=== PATIENT | female | born 1955 | race Caucasian/White ===

== ENCOUNTER → 2021-11-15 14:54 | Outpatient (BNVA) | payer MEDICARE, SELFPAY | PROVIDERS: PCP Internal Medicine; Referring Provider Internal Medicine; Visit Provider Internal Medicine Cardiovascular Disease | DX: I10 Essential (primary) hypertension (principal); I48.91 Unspecified atrial fibrillation; Z79.01 Long term (current) use of anticoagulants; Z79.899 Other long term (current) drug therapy | CPT/HCPCS: 93005; 99212 ==

== ENCOUNTER → 2021-12-20 13:01 | Outpatient (REF) | payer MEDICARE, SELFPAY ==
--- NOTE | 2021-12-20 13:06 | CA_ITS ---
Transthoracic Echocardiogram Patient (Last, First, Middle): Nanci Henderson, Gender: Female Date of : 1955 Age: 66 Procedure Date: 12/20/2021 Procedure Type: Transthoracic Echocardiogram Location: OP Height: 160.02 cm Weight: 53.52 kg BSA: 1.55 m2 Heart Rate: bpm BP: 154 / 86 mmHg Stock House Worker: MILTON Referring MD: Sd Salcedo MD Symptoms: I48.91 - Unspecified atrial fibrillation Study Quality: Adequate Conclusions: - Normal left ventricular cavity size. There is normal left ventricular wall thickness. The left ventricular systolic function is low normal. The visually estimated ejection fraction is between 50-55%. - Normal right ventricular cavity size. There is mildly decreased right ventricular systolic function. - There is mild dilatation of the ascending aorta measuring 3.50 cm. - Moderate pulmonary hypertension is present. Findings Left Ventricle Normal left ventricular cavity size. There is normal left ventricular wall thickness. The left ventricular systolic function is low normal. The visually estimated ejection fraction is between 50-55%. There is no evidence of regional wall motion abnormalities. Diastolic function is indeterminate on the basis of available data. Right Ventricle Normal right ventricular cavity size. There is mildly decreased right ventricular systolic function. Atria Severe biatrial enlargement. Aortic Valve Normal aortic valve structure and function. There is no aortic valve stenosis. There is no aortic valve regurgitation. Mitral Valve The mitral valve appears normal. There is mild to moderate mitral valve regurgitation. There is no mitral valve stenosis. Pulmonic Valve Normal pulmonic valve structure and function. There is trace pulmonic valve regurgitation. Tricuspid Valve Normal tricuspid valve structure. There is mild tricuspid valve regurgitation. Normal right atrial pressure. Moderate pulmonary hypertension is present. Great Vessels There is mild dilatation of the ascending aorta measuring 3.50 cm. The visualized portions of the pulmonary artery and branches are normal. Venous The inferior vena cava is normal in size and collapses greater than 50% with inspiration. Pericardium/Pleural There is no evidence of pericardial effusion. Prior Study Comparison Changes noted compared to prior study dated: 01/03/2019. Low normal LVEF. Mildly reduced RV function. Mild dilation of aorta. Moderate pulmonary hypertension. Measurements 2D Linear Measurements IVSd: 0.81 0.6-0.9/0.6-1.0 cm LVIDd: 4.44 3.9-5.3/4.2-5.9 cm LVIDd Index: 2.86 2.4-3.2/2.2-3.1 cm/m2 LVIDs: 3.21 2.0-3.6 cm LVPWd: 0.92 0.7-1.1 cm LA Diam: 3.50 2.7-3.8/3.0-4.0 cm LAIDs Index: 2.26 1.5-2.3 cm/m2 LV Mass: 153.01 67-162/88-224 g LV Mass Index: 98.72 43-95/49-115 g/m2 LVOT Diam: 1.90 3.0+(-)1.3 cm 2D Systolic Function EF 4C: 41.70 >55% EF 2C: 53.30 >55% EF BiP: 47.40 >55% Mitral Valve MV VTI: 2.24 MV Pk Shashi: 5.85 MV Mn Shashi: 4.66 MV Pk Grad: 137.00 MV Mn Grad: 95.00 MV Pk E: 0.85 MV Decel Time: 257.00 E'Lateral: 14.30 E'Medial: 6.85 E/E' Med: 12.50 E/E' Lat: 6.00 PHT: 75.00 MVA PHT: 2.93 MVA Continuity: 0.15 Decel Mccreary: 3.32 MR Alias Shashi: 0.40 MR RAD: 0.80 Aortic Valve AoV Pk Shashi: 0.93 AoV Mn Shashi: 0.65 AoV VTI: 0.19 AoV Pk Grad: 3.00 Aov Mn Grad: 2.00 JESSICA Cont.VTI: 1.75 LVOT LVOT Pk Shashi: 0.57 LVOT Mn Shashi: 0.39 LVOT VTI: 0.12 LVOT Pk Grad: 1.00 LVOT Mn Grad: 1.00 LVOT Diam: 1.90 LVOT Area: 2.84 Diastolic Function MV Pk E: 0.85 E'Medial: 6.85 E/E' Med: 12.50 E' Laterial: 14.30 E/E' Lat: 6.00 Right Ventricle TAPSE (mm): 15.60 TVS' Shashi: 5.98 Tricuspid Valve TR Pk Shashi: 3.53 TR Pk Grad: 50.00 RA Press: 3.00 RVSP: 53.00 Great Vessels Aorta Sinus of Valsalva: 2.99 2.0-3.[address] Ridge: 2.51 1.7-3.4 cm Ao Asc: 3.50 2.1-3.4 cm Updated in Other Vendor System with Status of Final Sd Salcedo MD electronically signed on 12/22/2021 11:50:14 AM with status of Final
== END ==
LOC: HO.CARD 13:01
PROVIDERS: Visit Provider Internal Medicine Cardiovascular Disease
DX: I48.91 Unspecified atrial fibrillation (principal)
CPT/HCPCS: 93306

== ENCOUNTER → 2021-12-22 19:46 | Outpatient (REF) | payer MEDICARE, SELFPAY | LOC: HO.CARD 19:46 | PROVIDERS: Visit Provider Internal Medicine Cardiovascular Disease | DX: Z13.89 Encounter for screening for other disorder (principal) ==

== ENCOUNTER → 2022-01-19 13:01 | Outpatient (REF) | payer MEDICARE, SELFPAY ==
--- NOTE | 2022-01-19 13:03 | ECG_ITS ---
Hook-up date: 2022-01-19 12:17:00 Duration: 47:59:00 Test Indications: UNSPEC. AFIB Medications: 23325 QRS complexes 42544 Ventricular ectopics which represent 12 % of total QRS comp. * Supraventricular ectopics which represent % of total QRS comp. * Paced QRS complexs which represent % of total QRS comp. VENTRICULAR ECTOPY 11074 Isolated 57 Bigeminal Cycles 118 Couplets 1 Runs 3 Beats in Runs 3 Beats LONGEST at 111 BPM at 08:41:22 2022-01-20 3 Beats FASTEST at 111 BPM at 08:41:22 2022-01-20 SUPRAVENTRICULAR ECTOPY * Isolated * Couplets * Runs * Beats in Runs * Beats LONGEST at * BPM at :: -- * Beats FASTEST at * BPM at :: -- HEART RATES 34 MIN at 00:06:56 2022-01-20 61 AVG 119 MAX at 16:20:46 2022-01-19 LONGEST RR 3.1040 secs at 11:15:45 2022-01-20 S-T LEVELS Channel 1 - 128 mm at 12:17:00 2022-01-19 - 128 mm at 12:17:00 2022-01-19 Channel 2 - 128 mm at 12:17:00 2022-01-19 - 128 mm at 12:17:00 2022-01-19 Channel 3 - 128 mm at 03:13:61 -- - 128 mm at 03:13:61 Basic rhythm Atrial fibrillation No significant pauses noted. Average HR is 61 bpm with lowest HR of 31 bpm Frequent Premature ventricular complexes , 12% of total beats No diary submitted Referred By: Sd Salcedo Overread By: JOHANNE RODRIGUEZ MD
== END ==
LOC: HO.CARD 13:01
PROVIDERS: Visit Provider Internal Medicine Cardiovascular Disease
DX: I48.91 Unspecified atrial fibrillation (principal)
CPT/HCPCS: 93225; 93226

== ENCOUNTER → 2022-04-12 14:07 | Outpatient (BNVA) | payer MEDICARE, SELFPAY | PROVIDERS: PCP Internal Medicine; Referring Provider Internal Medicine; Visit Provider Nurse Practitioner Family | DX: Z09 Encounter for follow-up examination after completed treatment for conditions other than malignant neoplasm (principal); I42.8 Other cardiomyopathies; I48.91 Unspecified atrial fibrillation; I10 Essential (primary) hypertension; E78.00 Pure hypercholesterolemia, unspecified | CPT/HCPCS: 99212 ==

== ENCOUNTER → 2022-04-29 10:30 | Outpatient (REF) | payer MEDICARE, SELFPAY ==
--- NOTE | 2022-04-29 10:33 | CA_ITS ---
Transthoracic Echocardiogram Patient (Last, First, Middle): Nanci Henderson, Gender: Female Date of : 1955 Age: 66 Procedure Date: 04/29/2022 Procedure Type: Transthoracic Echocardiogram Location: OP Height: 162.56 cm Weight: 48.99 kg BSA: 1.51 m2 Heart Rate: 83 bpm BP: 125 / 60 mmHg Technical Inspector: SHAHAB Referring MD: Saloni Whitt [employer] Tool Repair Technician: Aaron Reid MD Symptoms: I42.8 - Other cardiomyopathies Study Quality: Adequate ECG Rhythm: Atrial Fibrillation Conclusions: - Low normal LV systolic function with LVEF of 50-55% Findings Left Ventricle Normal left ventricular cavity size. The left ventricular systolic function is low normal. The visually estimated ejection fraction is between 50-55%. Diastolic function is indeterminate on the basis of available data. Peak GLS is -12.3%, which is reduced. Prior Study Comparison No significant change compared to prior study dated: 12/20/2021. Measurements 2D Linear Measurements IVSd: 1.11 0.6-0.9/0.6-1.0 cm LVIDd: 4.06 3.9-5.3/4.2-5.9 cm LVIDd Index: 2.69 2.4-3.2/2.2-3.1 cm/m2 LVIDs: 2.92 2.0-3.6 cm LVPWd: 1.00 0.7-1.1 cm LV Mass: 174.32 67-162/88-224 g LV Mass Index: 115.45 43-95/49-115 g/m2 LVOT Diam: 1.90 3.0+(-)1.3 cm 2D Systolic Function EF 4C: 53.20 >55% EF 2C: 47.60 >55% EF BiP: 51.80 >55% LVOT LVOT Pk Shashi: 0.82 LVOT Mn Shashi: 0.56 LVOT VTI: 0.16 LVOT Pk Grad: 3.00 LVOT Mn Grad: 1.00 LVOT Diam: 1.90 LVOT Area: 2.84 Updated in Other Vendor System with Status of Final Aaron Reid MD electronically signed on 04/30/2022 1:43:42 PM with status of Final
== END ==
LOC: HO.CARD 10:30
PROVIDERS: Visit Provider Nurse Practitioner Family
DX: I42.8 Other cardiomyopathies (principal)
CPT/HCPCS: 93308; 93356

== ENCOUNTER 2022-05-03 09:02 | Outpatient (REF) | payer MEDICARE, SELFPAY ==
[2022-05-03 12:01] LABS: Hematocrit 34.6 % (37.0-47.0); Hemoglobin 11.1 g/dl (12.0-16.0); Mean Corpuscular HGB Conc 32.1 g/dl (31.0-35.0); Mean Corpuscular Hemoglobin 29.4 pg (27.0-33.0); Mean Corpuscular Volume 91.8 fL (80.0-98.0); Mean Platelet Volume 11.4 fL (9.4-12.3); Platelet Count 221 X10*3/uL (160-400); Red Blood Count 3.77 X10*6/uL (4.20-5.50); Red Cell Distribution Width 15.9 % (11.0-16.0); White Blood Count 8.3 X10*3/uL (4.8-10.8)
[2022-05-03 12:03] LABS: Alanine Aminotransferase 29 U/L (0-31); Albumin Level 3.8 g/dL (3.5-5.0); Alkaline Phosphatase 138 U/L (39-117); Anion Gap 12 (12-20); Aspartate Amino Transferase 28 U/L (5-31); Bilirubin Direct 0.2 mg/dL (0.0-0.5); Bilirubin Total 0.5 mg/dL (0.0-1.0); Blood Urea Nitrogen 21 mg/dL (9-16); C Reactive Protein 0.62 mg/dL (< or = 0.50); Calcium 9.9 mg/dL (8.4-10.2); Carbon Dioxide 31 mmol/L (22-29); Chloride 103 mmol/L (96-108); Estimated Glomerular Filt Rate > 60; Glucose Random 76 mg/dL (60-115); Potassium 3.5 mmol/L (3.3-5.1); Sodium 142 mmol/L (135-145); Total Protein 7.2 g/dL (6.5-8.0)
[2022-05-03 12:25] LABS: Thyroid Stimulating Hormone 2.16 uIU/mL (0.32-4.0)
== END 2022-05-03 09:03 | disposition home or self-care (01) ==
LOC: HO.HMGCLDS 09:02
PROVIDERS: PCP Internal Medicine; Visit Provider Internal Medicine
DX: I10 Essential (primary) hypertension (principal)
CPT/HCPCS: 36415; 80048; 80076; 84443; 85027; 86140

== ENCOUNTER → 2022-11-18 13:58 | Outpatient (BNVA) | payer MEDICARE, SELFPAY | PROVIDERS: PCP Internal Medicine; Referring Provider Nurse Practitioner Family; Visit Provider Nurse Practitioner Family | DX: Z09 Encounter for follow-up examination after completed treatment for conditions other than malignant neoplasm (principal); I42.8 Other cardiomyopathies; I48.91 Unspecified atrial fibrillation; I10 Essential (primary) hypertension; E78.00 Pure hypercholesterolemia, unspecified | CPT/HCPCS: 93005; 99212 ==

== ENCOUNTER → 2022-12-23 14:00 | Outpatient (BNV) | payer MEDICARE, SELFPAY | PROVIDERS: Visit Provider Radiology Diagnostic Radiology | DX: Z12.31 Encounter for screening mammogram for malignant neoplasm of breast (principal) | CPT/HCPCS: 77063; 77067 ==

== ENCOUNTER 2022-12-23 14:01 | Outpatient (REF) | payer MEDICARE, SELFPAY ==
--- NOTE | ~2022-12-23 | MM_ITS ---
EXAMINATION: BONE DENSITOMETRY CLINICAL INDICATION: Age-related osteoporosis without current pathological fracture. COMPARISON: Baseline BD dated 12/18/2014. TECHNIQUE: Using a nuvoTV DXA System (software version: 13.1) manufactured by [employer], dual-energy x-ray absorptiometry was performed of the lumbar spine and right hip. The images are of good technical quality. Summary results are attached. FINDINGS: RIGHT FEMUR, NECK: Current: BMD 0.673 g/cm2, Z-score -0.8, T-score -2.6, osteoporosis. Baseline: BMD 0.763 g/cm2. RIGHT FEMUR, TOTAL: Current: BMD 0.687 g/cm2, Z-score -1.0, T-score -2.5, osteoporosis, 5.8% decrease from baseline (<5% change is not significant). Baseline: BMD 0.729 g/cm2. AP SPINE L1-L4: Current: BMD 0.727 g/cm2, Z-score -1.9, T-score -3.8, osteoporosis, 4.0% decrease from baseline (<5% change is not significant). Baseline: BMD 0.757 g/cm2. IDENTIFIED RISK FACTORS: Osteoporosis, history of fracture (adult), height loss, low calcium intake, glucocorticoids (chronic), menopause. HISTORY OF FRACTURE: Femur/hip, shoulder. MEDICATIONS: Vitamin D. MM/XR DEXA axial skeleton IMPRESSION: 1. DIAGNOSIS: Severe osteoporosis based on the lowest T-score value of -3.8 in the lumbar spine and history of fracture applying World Health Organization criteria. 2. 10-YEAR FRACTURE RISK PREDICTION, FRAX: According to the guidelines, FRAX calculation should only be performed on patients in the osteopenia bone density category. Therefore, FRAX was not performed on this patient. 3. Treatment Recommendations: NOF guidelines recommend consideration for treatment in postmenopausal women and men age 50 and older presenting with the following: -A hip or vertebral (clinical or morphometric) fracture. -T-score less than or equal to -2.5 at the femoral neck or spine after appropriate evaluation to exclude secondary causes. -Low bone mass at the hip or spine and a 10-year fracture probability by FRAX of greater than or equal to 3% for hip fracture or greater than or equal to 20% for major osteoporotic fracture based on the [place] adapted WHO algorithm. 4. Other Recommendations: All treatment decisions require clinical judgment and consideration of individual patient factors, including patient preferences, comorbidities, previous drug use, risk factors not captured in the FRAX model (e.g. frailty, falls, vitamin D deficiency, increased bone turnover, interval significant decline in bone density) and possible under or overestimation of fracture risk by FRAX. Additional medical evaluation for secondary cause of low bone mineral density may be appropriate. FUTURE SCAN RECOMMENDATION: People with diagnosed cases of osteoporosis or at high risk for fracture should have regular bone mineral density tests. For patients eligible for Medicare, routine testing is allowed once every 2 years. The testing frequency can be increased to one year for patients who have rapidly progressing disease, those who are receiving or discontinuing medical therapy to restore bone mass, or have additional risk factors.
--- NOTE | ~2022-12-23 | MM_ITS ---
EXAMINATION: MM SCREENING DIGITAL BREAST TOMOSYNTHESIS, BILATERAL CLINICAL INFORMATION: Screening. Asymptomatic. The lifetime risk of breast cancer based on the Tyrer-Cuzick Model is 5.8%. COMPARISON: Mammography: This study is compared with prior exams dating back to 2014. TECHNIQUE: Digital breast tomosynthesis is performed in both the craniocaudal and mediolateral oblique views along with computer-aided detection (CAD). Synthesized 2D images are generated from the tomosynthesis. FINDINGS: The breasts are heterogeneously dense, which may obscure small masses (ACR BI-RADS breast composition Category c). In the long interval since the last mammogram from 2014, a small group of coarse calcifications have developed in the upper outer quadrant of the right breast. Additional mammographic imaging magnification is advised for further evaluation of this finding. In the left breast, there are no significant masses, abnormal calcifications, or other abnormalities. MM/MM tomosynthesis screening BI IMPRESSION: Additional mammographic imaging magnification advised for grouped right breast calcifications. No mammographic signs of malignancy left breast. ASSESSMENT: BI-RADS BI-RADS 0 - Incomplete: Needs additional Imaging. RECOMMENDATION: Additional views of the right breast. Radiology department staff will contact the patient for additional imaging. Additional Imaging required This examination should not preclude the clinical evaluation of a suspicious palpable abnormality. This patient's information was entered into a reminder system with a target due date for their next mammogram.
== END 2022-12-23 14:02 | disposition home or self-care (01) ==
LOC: HO.MAMMO 14:01
PROVIDERS: Visit Provider Internal Medicine
DX: Z12.31 Encounter for screening mammogram for malignant neoplasm of breast (principal); Z13.820 Encounter for screening for osteoporosis; Z78.0 Asymptomatic menopausal state; M81.0 Age-related osteoporosis without current pathological fracture
CPT/HCPCS: 77063; 77067; 77080

== ENCOUNTER 2023-01-12 09:03 | Outpatient (AMB) | payer MEDICARE, SELFPAY ==
[2023-01-12 09:07] VITALS: BP 144/82; PULSE 85; O2SAT 97; BMI 23.0
--- NOTE | 2023-01-12 09:07 | MHC.PC.OV ---
Vital Signs 01/12/23 09:07 Height 5 ft 4.5 in Weight 136 lb BMI 23.0 BP 144/82 H Blood Pressure Location Lt brachial Position Sitting Pulse 85 Pulse Source Pulse Oximeter Pulse Oximetry (%) 97 Oxygen Delivery Method Room Air Intake Visit Reasons: Per Dr De Oliveira Allergies lisinopril Allergy (Unknown, Verified 01/12/23 09:07) Unknown Medication List - Last Reconciled 01/12/23 by Rola De Oliveira MD albuterol sulfate 90 mcg/actuation (ProAir HFA) 2 puffs inhalation Q4-6H PRN alendronate (Fosamax) 70 mg PO QWEEK 30 days alprazolam 0.25 mg PO DAILY PRN 30 days apixaban (Eliquis) 5 mg PO BID 90 days ascorbic acid (vitamin C) 250 mg PO DAILY atorvastatin 40 mg PO DAILY carvedilol 6.25 mg PO BID cetirizine (Zyrtec) 10 mg PO DAILY cholecalciferol (vitamin D3) 1,250 mcg PO QWEEK diphenhydramine HCl (ZzzQuil) 12.5 mg PO BEDTIME PRN ferrous sulfate 325 mg PO DAILY fluticasone propionate 50 mcg/actuation (Flonase Allergy Relief) 1 spray intranasal DAILY hydrocortisone 5 mg PO DAILY hydrocortisone TAKE 1 TABLET IN THE MORNING AND HALF A TABLET IN THE EVENING pantoprazole 40 mg PO DAILY Tobacco use date assessed: 09/27/22 Fall risk assessment: No Falls in past year Last assessed Fall Risk: 01/12/23 Dental Screening Dental Screen Date: 01/12/23 Did you have a dental visit in the last 12 months?: No Did you have a dental problem in the last 6 months where you did not have access to dental care?: No Was dental information given to patient?: No HPI Per Dr De Oliveira HPI Details 67-year-old female with multiple fractures osteoporosis hypertension nonischemic cardiomyopathy hypercholesterolemia atrial fibrillation and generalized anxiety disorder last seen in November 2022. Blood work as well as bone density and mammogram requested and is here for follow-up patient also has a history of pituitary insufficiency. Sent to endocrinology presently on hydrocortisone 10 mg in the morning and 5 mg in the evening. She has recently trip July 2022 and fractured left femur right clavicle right having status post left femoral nailing by Dr. Hector patient had having revision of the left distal nail of the femur in August 2022. Patient also follows up with Cardiology regarding the cardiomyopathy which has recovered April 2022 ejection fraction of 50-55% patient was brought in today to discuss about severe osteoporosis problem patient has had multiple fractures already has always been hesitant with any medication. But discussed the problem of having fractures and osteoporosis. [facility] Medical History Adrenal insufficiency Atrial fibrillation Cough COVID-19 Hospital discharge follow-up Hypercholesterolemia Nonischemic cardiomyopathy Osteoporosis Pituitary insufficiency Screening for breast cancer Screening for colon cancer Sinusitis Upper respiratory tract infection Surgical History History of open reduction and internal fixation (ORIF) procedure Family History Father COPD (chronic obstructive pulmonary disease) Hypertension Renal failure Mother Hypertension Stroke Ischemic bowel disease Maternal Grandfather Lymphoma Skin cancer Paternal Aunt Skin cancer Maternal Grandfather Skin cancer Social History Housing: Apartment Alcohol intake: never Patient Tobacco Use Status: Former Tobacco user Quit Date: 2001 Tobacco use type: Cigarette Years Smoked: 30 +/- e-Cigarette/Vaping Use: Never Used Second Hand Smoke Exposure: Yes service: No Current occupational status: unemployed Cognitive needs: Yes (cane) Hearing needs: No Vision needs: Yes (glasse) Questionnaire PHQ-9 Over the last 2 weeks, how often have you been bothered by any of the following problems? 1. Little interest or pleasure in doing things: not at all 2. Feeling down, depressed, or hopeless: not at all 3. Trouble falling or staying asleep, or sleeping too much: not at all 4. Feeling tired or having little energy: not at all 5. Poor appetite or overeating: not at all 6. Feeling bad about yourself - or that you are a failure or have let yourself or your family down: not at all 7. Trouble concentrating on things, such as reading the newspaper or watching television: not at all 8. Moving or speaking so slowly that other people could have noticed. Or the opposite - being so fidgety or restless that you have been moving around a lot more than usual: not at all 9. Thoughts that you would be better off or of hurting yourself in some way: not at all Total score: 0 Depression Screening Interpretation: Negative 97539 - PHQ-9 Billing: Yes Source: Developed by Drs. Kalpesh Jackson, Caitlin Wolf, Titus Holloway and colleagues, with an educational alfred from [employer]. Thrive Questionnaire Date Thrive assessed: 09/27/22 AUDIT C Alcohol Use Questionnaire (AUDIT-C) 1. How often do you have a drink containing alcohol?: Never 3. How often do you have six or more drinks on one occasion?: Never Total Score: 0 Score Reviewed/Action Taken: No HALI-7 AMB Questionnaire HALI-7 Date HALI - 7 assessed: 09/27/22 Source: Developed by Drs. Kalpesh Jackson, Caitlin Wolf, Titus Holloway and colleagues, with an educational alfred from [employer]. Physical exam (Primary Care) Vital Signs: Last Vital Signs Pulse 85 01/12/23 09:07 BP 144/82 H 01/12/23 09:07 Pulse Ox 97 01/12/23 09:07 Oxygen Delivery Method Room Air 01/12/23 09:07 BMI result Body Mass Index 23.0 Tobacco/Smoking Status: Tobacco use Status Tobacco use date assessed 09/27/22 01/12/23 09:14 Patient Tobacco Use Status Former Tobacco user 01/12/23 09:14 Tobacco use type Cigarette 01/12/23 09:14 e-Cigarette/Vaping Use Never Used 01/12/23 09:14 PHQ-9: PHQ-9 Score PHQ-9: Total score 0 01/12/23 09:14 Depression Screening Interpretation: Negative Thrive Assessment: Date of Thrive Assessment Date Thrive assessed 09/27/22 01/12/23 09:14 Const General: alert; No acute distress Eyes Conjunctivae: conjunctivae normal Resp Auscultation: clear to auscultation bilaterally Cardio Rate: regular rate Rhythm: regular rhythm GI Inspection: Yes normal to inspection Extrem General: Yes normal to inspection and No edema Assessment and Plan Assessment & Plan (1) Osteoporosis: Comment: December 2022 Code(s): M81.0 - Age-related osteoporosis without current pathological fracture Plan: Bone density showing severe osteoporosis long discussion with the patient and family regarding osteoporosis and risk of fractures with the patient discussed about the multiple treatment options and discussed about having dental checkup 1st before starting the medication. Discussed about how the medication alendronate should be taken. (2) Adrenal insufficiency: Comment: September 2018 Code(s): E27.40 - Unspecified adrenocortical insufficiency Plan: Patient continues to follow-up with Endocrinology and receives hydrocortisone (3) Nonischemic cardiomyopathy: Comment: echo August 2018 severe left ventricular dysfunction moderate MVR moderate left atrial dilatation, 12/2018 EF 55-60% AFib January 2022 30-35% hypokinesis basal to 2/3 left ventricle May 2022 50-55% Code(s): I42.8 - Other cardiomyopathies Plan: Patient is being followed up by Cardiology monitoring with echocardiogram (4) Hypercholesterolemia: Code(s): E78.00 - Pure hypercholesterolemia, unspecified Plan: Avoid fried foods, chicken skin, eggs, butter margarine, pastries and meat. Be it pork or beef they have a lot of cholesterol LDL goal of less than 70 patient has not had blood work since last year (5) Atrial fibrillation: Code(s): I48.91 - Unspecified atrial fibrillation Plan: Continue with anticoagulation but adjusted to renal dose (6) Essential hypertension: Code(s): I10 - Essential (primary) hypertension Plan: Continue with blood pressure medication. Decrease salt intake and exercise patient is on carvedilol 6.25 mg twice a day (7) Generalized anxiety disorder: Code(s): F41.1 - Generalized anxiety disorder Plan: Continue with present medication Medications: New alendronate (Fosamax) 70 mg PO QWEEK 5 tabs 3RF 30 days M81.0 - Age-related osteoporosis without current pathological fracture Coding Level of Care Code Est Pt Level 4 (12905) Diagnoses Osteoporosis M81.0 Adrenal insufficiency E27.40 Nonischemic cardiomyopathy I42.8 Hypercholesterolemia E78.00 Atrial fibrillation I48.91 Essential hypertension I10 Generalized anxiety disorder F41.1
== END 2023-01-12 13:11 | disposition home or self-care (01) ==
PROVIDERS: PCP Internal Medicine; Visit Provider Internal Medicine
DX: I10 Essential (primary) hypertension (principal); E27.40 Unspecified adrenocortical insufficiency; I42.8 Other cardiomyopathies; I48.91 Unspecified atrial fibrillation; M81.0 Age-related osteoporosis without current pathological fracture; E78.00 Pure hypercholesterolemia, unspecified; F41.1 Generalized anxiety disorder
CPT/HCPCS: 99214

== ENCOUNTER 2023-02-24 08:58 | Outpatient (REF) | payer MEDICARE, SELFPAY ==
[2023-02-24 09:30] LABS: MANUAL DIFF FLAG NO
[2023-02-24 10:02] LABS: Basophils Percent Auto 0.4 % (0-2); Eosinophils Absolute Auto 0.1 X10*3/uL (0.0-0.4); Eosinophils Percent Auto 1.8 % (0-4); Hematocrit 39.3 % (37.0-47.0); Hemoglobin 12.5 g/dl (12.0-16.0); Imm Gran Abs Auto 0.02 X10*3/uL (0.00-0.03); Imm Gran Pct Auto 0.3 % (0.0-0.4); Lymphocytes Absolute Auto 1.6 X10*3/uL (1.2-4.9); Lymphocytes Percent Auto 22.5 % (20-40); Mean Corpuscular HGB Conc 31.8 g/dl (31.0-35.0); Mean Corpuscular Volume 94.2 fL (80.0-98.0); Mean Platelet Volume 10.9 fL (9.4-12.3); Monocytes Absolute Auto 0.7 X10*3/uL (0.1-1.2); Monocytes Percent Auto 10.3 % (2-11); Neutrophils Absolute Auto 4.6 x10*3/uL (2.0-8.3); Neutrophils Percent Auto 64.7 % (45-73); Platelet Count 164 X10*3/uL (160-400); Red Blood Count 4.17 X10*6/uL (4.20-5.50); White Blood Count 7.1 X10*3/uL (4.8-10.8)
[2023-02-24 10:36] LABS: B Type Natriuretic Peptide 224 pg/mL (<100)
[2023-02-24 11:47] LABS: Alanine Aminotransferase 23 U/L (0-31); Albumin Level 3.9 g/dL (3.5-5.0); Alkaline Phosphatase 125 U/L (39-117); Anion Gap 10 (12-20); Aspartate Amino Transferase 25 U/L (5-31); Bilirubin Total 0.6 mg/dL (0.0-1.0); Blood Urea Nitrogen 17 mg/dL (9-16); Calcium 9.8 mg/dL (8.4-10.2); Carbon Dioxide 30 mmol/L (22-29); Chloride 107 mmol/L (96-108); Cholesterol 165 mg/dL (<200); Estimated Glomerular Filt Rate > 60; Glucose Random 87 mg/dL (60-115); HDL Cholesterol 74 mg/dL (>40); LDL Cholesterol Calculated 79 mg/dL (<100); Potassium 4.1 mmol/L (3.3-5.1); Sodium 143 mmol/L (135-145); Total Protein 6.8 g/dL (6.5-8.0); Triglycerides 64 mg/dL (<150)
[2023-02-24 11:52] LABS: Free T4 (Free Thyroxine) 1.08 ng/dL (0.71-1.85); Thyroid Stimulating Hormone 1.29 uIU/mL (0.32-4.0); Vitamin D 25-OH Total 78.9 ng/mL (>30)
[2023-02-24 11:54] LABS: Folate 7.5 ng/mL (> or = 4.0); Vitamin B12 846 pg/mL (200-900)
== END 2023-02-24 08:59 | disposition home or self-care (01) ==
LOC: HO.LAB 08:58
PROVIDERS: PCP Internal Medicine; Visit Provider Internal Medicine
DX: I42.8 Other cardiomyopathies (principal); E78.00 Pure hypercholesterolemia, unspecified; M81.0 Age-related osteoporosis without current pathological fracture
CPT/HCPCS: 36415; 80053; 80061; 82306; 82607; 82746; 83880; 84439; 84443; 85025

== ENCOUNTER 2023-02-28 14:17 | Outpatient (AMB) | payer MEDICARE, SELFPAY ==
[2023-02-28 14:21] VITALS: BP 156/90; PULSE 84; O2SAT 98; BMI 23.7
--- NOTE | 2023-02-28 14:21 | MHC.PC.OV ---
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: No Accompanied by: Daughter Allergies lisinopril Allergy (Unknown, Verified 02/28/23 14:23) Unknown Medication List - Last Reconciled 02/28/23 by Rola De Oliveira MD albuterol sulfate 90 mcg/actuation (ProAir HFA) 2 puffs inhalation Q4-6H PRN alprazolam 0.25 mg PO DAILY PRN 30 days apixaban (Eliquis) 5 mg PO BID 90 days ascorbic acid (vitamin C) 250 mg PO DAILY atorvastatin 40 mg PO DAILY carvedilol 6.25 mg PO BID cetirizine (Zyrtec) 10 mg PO DAILY cholecalciferol (vitamin D3) 1,250 mcg PO QWEEK diphenhydramine HCl (ZzzQuil) 12.5 mg PO BEDTIME PRN ferrous sulfate 325 mg PO DAILY fluticasone propionate 50 mcg/actuation (Flonase Allergy Relief) 1 spray intranasal DAILY hydrocortisone 5 mg PO DAILY hydrocortisone TAKE 1 TABLET IN THE MORNING AND HALF A TABLET IN THE EVENING pantoprazole 40 mg PO DAILY Tobacco use date assessed: 09/27/22 Fall risk assessment: No Falls in past year Last assessed Fall Risk: 02/28/23 Dental Screening Dental Screen Date: 02/28/23 Did you have a dental visit in the last 12 months?: No Did you have a dental problem in the last 6 months where you did not have access to dental care?: No Was dental information given to patient?: Patient has dentist HPI 3 MONTH F/U HPI Details 67-year-old female with adrenal insufficiency followed by Endocrinology, osteoporosis nonischemic cardiomyopathy hypercholesterolemia atrial fibrillation hypertension in generalized anxiety disorder last seen in January 2023 patient is here for follow-up. [facility] Medical History Adrenal insufficiency Atrial fibrillation Cough COVID-19 Hospital discharge follow-up Hypercholesterolemia Nonischemic cardiomyopathy Osteoporosis Pituitary insufficiency Screening for breast cancer Screening for colon cancer Sinusitis Upper respiratory tract infection Surgical History History of open reduction and internal fixation (ORIF) procedure Family History Father COPD (chronic obstructive pulmonary disease) Hypertension Renal failure Mother Hypertension Stroke Ischemic bowel disease Maternal Grandfather Lymphoma Skin cancer Paternal Aunt Skin cancer Maternal Grandfather Skin cancer Social History Housing: Apartment Alcohol intake: never Patient Tobacco Use Status: Former Tobacco user Quit Date: 2001 Tobacco use type: Cigarette Years Smoked: 30 +/- e-Cigarette/Vaping Use: Never Used Second Hand Smoke Exposure: Yes service: No Current occupational status: unemployed Cognitive needs: Yes (cane) Hearing needs: No Vision needs: Yes (glasse) Questionnaire Thrive Questionnaire Date Thrive assessed: 09/27/22 HALI-7 AMB Questionnaire HALI-7 Date HALI - 7 assessed: 09/27/22 Source: Developed by Drs. Kalpesh Jackson, Caitlin Wolf, Titus Holloway and colleagues, with an educational alfred from [employer]. Physical exam (Primary Care) Vital Signs: Last Vital Signs Pulse 84 02/28/23 14:21 BP 156/90 H 02/28/23 14:21 Pulse Ox 98 02/28/23 14:21 Oxygen Delivery Method Room Air 02/28/23 14:21 BMI result Body Mass Index 23.7 Tobacco/Smoking Status: Tobacco use Status Tobacco use date assessed 09/27/22 02/28/23 14:26 Patient Tobacco Use Status Former Tobacco user 02/28/23 14:26 Tobacco use type Cigarette 02/28/23 14:26 e-Cigarette/Vaping Use Never Used 02/28/23 14:26 Thrive Assessment: Date of Thrive Assessment Date Thrive assessed 09/27/22 02/28/23 14:26 Const General: alert; No acute distress Eyes Conjunctivae: conjunctivae normal Resp Auscultation: clear to auscultation bilaterally Cardio Rate: regular rate Rhythm: regular rhythm GI Inspection: Yes normal to inspection Extrem General: Yes normal to inspection and No edema Assessment and Plan Assessment & Plan (1) Atrial fibrillation: Code(s): I48.91 - Unspecified atrial fibrillation Plan: Continue with anticoagulation (2) Hypercholesterolemia: Code(s): E78.00 - Pure hypercholesterolemia, unspecified Plan: Avoid fried foods, chicken skin, eggs, butter margarine, pastries and meat. Be it pork or beef they have a lot of cholesterol LDL goal of less than 100 and triglyceride of less than 150 continue with atorvastatin 40 mg once a day (3) Adrenal insufficiency: Comment: September 2018 Code(s): E27.40 - Unspecified adrenocortical insufficiency Plan: Patient has seen Endocrinology December 2022 and has hydrocortisone 10 mg in the morning and 5 mg in the evening (4) Nonischemic cardiomyopathy: Comment: echo August 2018 severe left ventricular dysfunction moderate MVR moderate left atrial dilatation, 12/2018 EF 55-60% AFib January 2022 30-35% hypokinesis basal to 2/3 left ventricle May 2022 50-55% Code(s): I42.8 - Other cardiomyopathies Plan: Continue with blood pressure control and cholesterol control (5) Osteoporosis: Comment: December 2022 Code(s): M81.0 - Age-related osteoporosis without current pathological fracture Plan: . Patient has not started with Fosamax but discussed with the patient to see the dentist 1st before we go with Fosamax. (6) Screening for colon cancer: Code(s): Z12.11 - Encounter for screening for malignant neoplasm of colon Plan: Reminded about colon test, change to Cologuard (7) Essential hypertension: Code(s): I10 - Essential (primary) hypertension Plan: Continue with blood pressure medication. Decrease salt intake and exercise patient is on carvedilol 6.25 mg twice a day and with the blood pressure still elevated will increase to 12.5 mg twice a day Orders: Referrals Cologuard Test Z12.11 - Encounter for screening for malignant neoplasm of colon, Z12.12 - Encounter for screening for malignant neoplasm of rectum Medications: New sertraline 25 mg PO DAILY 30 tabs 3RF F41.1 - Generalized anxiety disorder Changed From carvedilol must administer with a meal/food 6.25 mg PO BID 60 tabs 5RF I10 - Essential (primary) hypertension To carvedilol must administer with a meal/food 12.5 mg PO BID 60 tabs 5RF I10 - Essential (primary) hypertension From cholecalciferol (vitamin D3) 1,250 mcg PO QWEEK To cholecalciferol (vitamin D3) Dr. Daquan COLINDRES 1,250 mcg PO QWEEK Coding Level of Care Code Est Pt Level 4 (72981) Diagnoses Atrial fibrillation I48.91 Hypercholesterolemia E78.00 Adrenal insufficiency E27.40 Nonischemic cardiomyopathy I42.8 Osteoporosis M81.0 Screening for colon cancer Z12.11 Essential hypertension I10
== END 2023-02-28 14:56 | disposition home or self-care (01) ==
PROVIDERS: PCP Nurse Practitioner Family; Visit Provider Internal Medicine
DX: I10 Essential (primary) hypertension (principal); I48.91 Unspecified atrial fibrillation; E27.40 Unspecified adrenocortical insufficiency; I42.8 Other cardiomyopathies; E78.00 Pure hypercholesterolemia, unspecified; M81.0 Age-related osteoporosis without current pathological fracture
CPT/HCPCS: 99214

== ENCOUNTER 2023-03-10 09:05 | Outpatient (REF) | payer MEDICARE, SELFPAY ==
--- NOTE | ~2023-03-10 | MM_ITS ---
EXAMINATION: MM DIAGNOSTIC DIGITAL MAMMOGRAPHY, RIGHT CLINICAL INFORMATION: Evaluate calcifications seen on screening exam, right breast 12:00 axis. COMPARISON: Mammography: Screening exam 12/23/2022. Prior to this, last mammogram was 12/18/2014. TECHNIQUE: Digital mammography is performed in the following views: Right spot magnification CC and ML views FINDINGS: The breasts are extremely dense, which lowers the sensitivity of mammography (ACR BI-RADS breast composition Category d). The small group of calcifications in the approximate 12:00 axis of the right breast, middle to posterior one third, there are loosely grouped, somewhat coarse, minimally pleomorphic, with no definite casting, or branching forms. These calcifications are probably benign related to degenerating underlying fibroadenoma. Six-month interval follow-up right diagnostic mammography recommended to include standard magnification views for further evaluation. Results are provided to the patient at time of visit by the technologist. MM/MM added views RT IMPRESSION: Probably benign right breast calcifications as detailed. Six-month interval follow-up recommended to include standard magnification views. ASSESSMENT: BI-RADS BI-RADS 3 - Probably benign finding(s) - 6 month follow-up suggested RECOMMENDATION: 6 Month F/U This patient's information was entered into a reminder system with a target due date for their next mammogram.
== END 2023-03-10 09:06 | disposition home or self-care (01) ==
LOC: HO.MAMMO 09:05
PROVIDERS: PCP Internal Medicine; Visit Provider Internal Medicine
DX: R92.1 Mammographic calcification found on diagnostic imaging of breast (principal)
CPT/HCPCS: 77065

== ENCOUNTER 2023-05-18 09:01 | Outpatient (AMB) | payer MEDICARE, SELFPAY ==
[2023-05-18 09:09] VITALS: BP 150/90; PULSE 70; O2SAT 98; BMI 23.8
--- NOTE | 2023-05-18 09:10 | AM.OFFVISMDC ---
Intake Vital Signs 05/18/23 09:09 05/18/23 09:48 Height 5 ft 4.5 in Weight 141 lb BMI 23.8 BP 150/90 H 144/82 H Blood Pressure Location Lt brachial Lt brachial Position Sitting Pulse 70 Pulse Source Pulse Oximeter Pulse Oximetry (%) 98 Oxygen Delivery Method Room Air Intake Visit Reasons: MARCELL [id number] Director Blood Bank Required: No Food Technician: Food Technician Present Accompanied by: Daughter Allergies lisinopril Allergy (Unknown, Verified 05/18/23 09:10) Unknown HPI HPI Comments History of Present Illness Details 67-year-old female past medical history significant for generalized anxiety disorder, osteoporosis, hypertension, nonischemic cardiomyopathy, hypercholesteremia, atrial fibrillation. Patient presents today with her daughter for subsequent annual wellness visit. Colonoscopy: Completed at [facility] 07/12/2022; reports unable to go cause she was in rehab, states has a cologuard at home to complete. Pap smear: Referral entered. Bone density: 12/23/2022 Mammogram completed on December 2022; additional views completed in February 2023 for probable benign breast calcifications recommended follow-up in 6 months. Patient was provided with healthcare proxy and MOLST forms previously, reports she does still have the forms at home. patient was recommended to bring completed forms into office to be scanned to chart. [place] of care was reviewed with patient patient was provided with a written screening schedule. [facility] Medical History Adrenal insufficiency Atrial fibrillation Cough COVID-19 Hospital discharge follow-up Hypercholesterolemia Nonischemic cardiomyopathy Osteoporosis Pituitary insufficiency Screening for breast cancer Screening for colon cancer Sinusitis Upper respiratory tract infection Surgical History History of open reduction and internal fixation (ORIF) procedure Family History Father COPD (chronic obstructive pulmonary disease) Hypertension Renal failure Mother Hypertension Stroke Ischemic bowel disease Maternal Grandfather Lymphoma Skin cancer Paternal Aunt Skin cancer Maternal Grandfather Skin cancer Social History Housing: Apartment Alcohol intake: never Patient Tobacco Use Status: Former Tobacco user Quit Date: 2001 Tobacco use type: Cigarette Years Smoked: 30 +/- e-Cigarette/Vaping Use: Never Used Second Hand Smoke Exposure: Yes service: No Current occupational status: unemployed Cognitive needs: Yes (lauren) Hearing needs: No Vision needs: Yes (asha) Questionnaire Medicare Wellness Checkup What [age] What gender do you identify with?: female During the past 4 weeks, how much have you been bothered by emotional problems such as feeling anxious, depressed, irritable, sad or downhearted, and blue?: not at all During the past 4 weeks, has your physical & emotional health limited your social activities with family, friends, neighbors, or groups?: not at all During the past 4 weeks, how much bodily pain have you generally had?: no pain During the past 4 weeks, was someone available to help you if you needed & wanted help?: yes, as much as I wanted During the past 4 weeks, what was the hardest physical activity you could do for at least 2 minutes?: heavy Can you get to places out of walking distance without help? (For eg., can you travel alone on buses, taxis or drive your car?): Yes Can you go shopping for groceries or clothes without someone's help?: Yes Can you prepare your own meals?: Yes Can you do your housework without help?: Yes Because of any health problems, do you need the help of another person with your personal care needs such as eating, bathing, dressing or getting around the house?: No Can you handle your own money without help?: Yes During the past 4 weeks, how would you rate your health in general?: very good During the past 4 weeks how have things been going for you?: very well; could hardly better Are you having difficulties driving your car?: not applicable, I don't use a car Do you always fasten your seat belt when you are in a car?: yes, usually During past 4 weeks, have you been bothered by the following: never: Falling or dizzy when standing up, Sexual problems?, Trouble eating well?, Teeth or denture problems? and Problems using the telephone? and seldom: Tiredness or fatigue? Have you fallen 2 or more times in the past year?: No Are you afraid of falling?: No Are you a smoker?: no During the past 4 weeks, how many drinks of wine, beer, or other alcoholic beverages did you have?: no alcohol at all Do you exercise for about 20 minutes 3 or more times a week?: yes, most of the time Have you been given information to help with the following?: no: Hazards in your house that might hurt you? and no: Keeping track of your medications? How often do you have trouble taking medicines the way you have been told to take them?: I always take medicine as prescribed How confident are you that you can control & manage most of your health problems?: very confident What is your race?: White Mini Mental State Exam (MMSE) Orientation What is the (year) (season) (date) (day) (month)?: year, season, date, day and month Score Score: 5 Activity of Daily Living Bathing - sponge bath, tub bath or shower: receives no assistance (gets in/out by self, if usual bathing means Dressing - getting clothes from closets & drawers, including inner/outer garments & fasteners.: gets clothes & gets completely dressed without help Toileting - going to the 'toilet room' for urine/bowel elimination & cleaning self/arranging clothes: goes to toilet room, cleans self, arranges clothes without help Transfer: moves in & out of bed and chair without help (may use support object) (uses cane ) Continence: controls urination/bowel movements completely by self Feeding: feeds self without help Total Score: 0 Information obtained from: patient Using telephone: independent Traveling: needs assistance (no car at the moment ) Shopping: independent Preparing meals: independent Housework: independent Taking medicine: independent Managing money: independent PHQ-9 Over the last 2 weeks, how often have you been bothered by any of the following problems? 1. Little interest or pleasure in doing things: not at all 2. Feeling down, depressed, or hopeless: not at all 3. Trouble falling or staying asleep, or sleeping too much: not at all 4. Feeling tired or having little energy: not at all 5. Poor appetite or overeating: not at all 6. Feeling bad about yourself - or that you are a failure or have let yourself or your family down: not at all 7. Trouble concentrating on things, such as reading the newspaper or watching television: not at all 8. Moving or speaking so slowly that other people could have noticed. Or the opposite - being so fidgety or restless that you have been moving around a lot more than usual: not at all 9. Thoughts that you would be better off or of hurting yourself in some way: not at all Total score: 0 Depression Screening Interpretation: Negative Depression Screening Done: Yes 35968 - PHQ-9 Billing: Yes Source: Developed by Drs. Kalpesh Jackson, Caitlin Wolf, Titus Holloway and colleagues, with an educational alfred from [employer]. Physical Exam Vital Signs: Last Vital Signs Pulse 70 05/18/23 09:09 BP 144/82 H 05/18/23 09:48 Pulse Ox 98 05/18/23 09:09 Oxygen Delivery Method Room Air 05/18/23 09:09 BMI result Body Mass Index 23.8 Const General: cooperative and no acute distress Orientation/consciousness: patient oriented x3 HEENT Ears: other (whisper test: pass) Neuro General: patient oriented x3 Gait exam (Neuro): Normal gait present Coordination: tandem gait normal and Romberg test negative Office Procedures Flu Questionnaire Does the patient have a severe egg allergy?: No Does the patient have severe life threatening allergies?: No Does the patient have a fever or illness today?: No Has the patient ever had Guillain-[place] Syndrome?: No Has the patient ever had any past reaction to a flu shot?: No Immunizations flu vacc [id number] 6mos up(PF) 60 mcg(15 mcgx4)/0.5 mL IM syringe Performing Provider: RAFAEL Segura [facility] Administered by: LEANA Barreto on 05/18/23 09:54 Dose Route Admin Location Dispensed Lot Number Expiration Date NDC Sales Agent Protective Service 0.5 mL IM Left Deltoid 0.5 mL [id number] 12/10/23 37764-277-28 [place] VIS Given Date VIS Provided VIS Publication Date 05/18/23 Single Vaccine 21 Eligibility Eligibility Date Funding Source Not [facility] Eligible 05/18/23 Private Assessment & Plan Assessment & Plan (1) Hypercholesterolemia: Code(s): E78.00 - Pure hypercholesterolemia, unspecified Plan: Continue on atorvastatin 40 mg daily. Follow low-cholesterol diet. (2) Atrial fibrillation: Code(s): I48.91 - Unspecified atrial fibrillation Plan: Continue on Eliquis 5 mg b.i.d.. Continue to follow-up with Cardiology (3) Essential hypertension: Code(s): I10 - Essential (primary) hypertension Plan: Continue on carvedilol 12.5 mg b.i.d. Blood pressure slightly elevated office today. Blood pressure goal less than 140/90. Follow low-salt diet exercise. 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 (4) Medicare annual wellness visit, subsequent: Code(s): Z00.00 - Encounter for general adult medical examination without abnormal findings Plan: Follow-up in 1 year. Plan Keep scheduled follow-up with PCP or follow-up sooner if needed. Orders: Orders Influenza [id number] Immunization Today Z23 - Encounter for immunization Referrals HIP HOP DANCE INSTRUCTOR Referral Z12.4 - Encounter for screening for malignant neoplasm of cervix Quality Reporting (2020) Depression/Bipolar (159/160/161/177) PHQ-9: Total score: 0 Coding Level of Care Code Medicare Subsequent (G0439) Diagnoses Hypercholesterolemia E78.00 Atrial fibrillation I48.91 Essential hypertension I10 Medicare annual wellness visit, subsequent Z00.00
[2023-05-18 09:48] VITALS: BP 144/82
== END 2023-05-18 09:57 | disposition home or self-care (01) ==
PROVIDERS: Visit Provider Nurse Practitioner Family
DX: E78.00 Pure hypercholesterolemia, unspecified (principal); I48.91 Unspecified atrial fibrillation; I10 Essential (primary) hypertension; Z00.00 Encounter for general adult medical examination without abnormal findings; Z23 Encounter for immunization
CPT/HCPCS: 90471; 90686; G0439

== ENCOUNTER 2023-05-29 10:16 | Outpatient (AMB) | payer MEDICARE, SELFPAY ==
[2023-05-29 12:07] VITALS: BP 128/70; PULSE 96; TEMP 36.2; O2SAT 96; BMI 24.0
--- NOTE | 2023-05-29 12:07 | AM.OFFWIN_ITS ---
Intake Vital Signs 05/29/23 12:07 Height 5 ft 4.5 in Weight 64.41 kg BMI 24.0 BP 128/70 Blood Pressure Location Lt brachial Position Sitting Pulse 96 Pulse Source Pulse Oximeter Temp 97.2 F Temp Source Temporal Artery Scan Pulse Oximetry (%) 96 Oxygen Delivery Method Room Air Intake Visit Reasons: Ep, cough, congestion ([phone]) Intake Note: pt is here today foe cough congestion started 1 week Patient Tobacco Use Status: Former Tobacco user Quit Date: 2001 Allergies lisinopril Allergy (Unknown, Verified 05/29/23 12:07) Unknown Do you need a note to return to daycare/school/sports/work: Yes HPI HPI Comments History of Present Illness Details [id number]-[id number]-arrt-old who presents with fatigue, malaise, myalgias, productive cough, congestion that started over a week ago not improving. Reports the last few days have been the worse, yesterday she had a fever of 103 degrees F took Tylenol and NyQuil with improvement. Today tried to go to work however she felt like she was going to pass out she just did not feel well however she never passed out.? No known sick contacts.? Denies chest pain, shortness of breath, nausea, vomiting, abdominal pain, headache vision change, dizziness, weakness, changes in bowel or urinary habits Physical exam faint expiratory wheezing History and physical exam concerning for viral illness versus bronchitis ( most likely) versus flu versus COVID versus RSV.? Unlikely pneumonia, ACS, dissection, pulmonary embolism, acute respiratory distress Plan at this time will discharge patient home on doxycycline and prednisone with albuterol.? Educated patient on diagnosis and treatment plan, answered all question, patient verbalizes understanding.? At this time patient will be discharged home, advised to return with new or worsening symptoms.? Educated on worrisome signs and symptoms and when to return.? At this time I feel c omfortable discharge home. [facility] Medical History Screening for colon cancer Screening for breast cancer Upper respiratory tract infection Sinusitis Cough COVID-19 Hospital discharge follow-up Pituitary insufficiency Nonischemic cardiomyopathy Adrenal insufficiency Hypercholesterolemia Osteoporosis Atrial fibrillation Surgical History History of open reduction and internal fixation (ORIF) procedure Family History Father COPD (chronic obstructive pulmonary disease) Hypertension Renal failure Mother Hypertension Stroke Ischemic bowel disease Maternal Grandfather Lymphoma Skin cancer Paternal Aunt Skin cancer Maternal Grandfather Skin cancer Social History Housing: Apartment Alcohol intake: never Patient Tobacco Use Status: Former Tobacco user Quit Date: 2001 Tobacco use type: Cigarette Years Smoked: 30 +/- e-Cigarette/Vaping Use: Never Used Second Hand Smoke Exposure: Yes service: No Current occupational status: unemployed Cognitive needs: Yes (cane) Hearing needs: No Vision needs: Yes (glasse) Review of Systems Const Details: Constitutional : No Weight loss, No Fever, No Chills, + Fatigue, + Malaise ENT/Mouth : No sore throat, No Rhinorrhea Eyes: No Eye Pain, No Swelling, No Redness Cardiovascular : No Chest Pain, No SOB, No Dyspnea on Exertion, No Orthopnea, No Edema, No Palpitations Respiratory : + Cough, + Sputum, No Wheezing Gastrointestinal : No Nausea, No Vomiting, No Diarrhea, No Constipation, No abdominal Pain, No Hematochezia, No Melena Genitourinary : No Dysuria, No Urinary Frequency, No Hematuria, Musculoskeletal : No joint pain, No Myalgias, No Joint Swelling Skin : No Skin Lesions, No rash Neuro : No Weakness, No Numbness, No Dizziness, No Headache Psych : No Anxiety/Panic, No Depression All other systems reviewed and are negative All systems reviewed & are unremarkable except as noted in HPI and below Physical Exam Vital Signs: vss Appearance: Alert.? Oriented X3.? No acute distress.? Head: Normocephalic, atraumatic, no step-offs or deformities Eyes: Pupils equal, round and reactive to light.? ENT: Pharynx normal.? Neck: Normal inspection.? Neck supple.? CVS: Normal heart rate and rhythm.? Pulses normal.? Respiratory: No respiratory distress.? Breath sounds faint expiratory wheezing bilaterally.? Abdomen: Soft and nontender.? Skin: Skin warm and dry.? Normal skin color.? Normal skin turgor.? Extremities: No lower extremity edema.? No calf ttp. 5/5 strength to bilateral upper and lower extremities Neuro: Oriented X 3.? No motor deficit.? No sensory deficit. CN 2-12 intact Assessment & Plan Assessment & Plan (1) Bronchitis: Code(s): J40 - Bronchitis, not specified as acute or chronic Plan Take your medications as prescribed. If you were prescribed antibiotics today, it is important that you take your medication to their entirety, do not skip any doses, do not finish them early. Follow-up with your primary care provider this week. Return to the emergency department with new or worsening symptoms. Such as fevers, chills, chest pain, shortness of breath, nausea, vomiting, dizziness, headache, vision changes, lethargy In case of emergency call 911 Medications: New doxycycline hyclate 100 mg PO BID 7 days 14 caps 0RF prednisone 20 mg PO DAILY 5 days 5 tabs 0RF albuterol sulfate 90 mcg/actuation 2 puffs inhalation Q6H PRN 6.7 grams 0RF shortness of breath or wheezing Coding Level of Care Code Est Pt Level 3 (32596) Diagnoses Bronchitis J40
== END 2023-05-29 12:28 | disposition home or self-care (01) ==
PROVIDERS: PCP Internal Medicine; Visit Provider Physician Assistant
DX: J40 Bronchitis, not specified as acute or chronic (principal)
CPT/HCPCS: 99213

== ENCOUNTER 2023-09-08 13:28 | Outpatient (REF) | payer MEDICARE, SELFPAY ==
--- NOTE | ~2023-09-08 | MM_ITS ---
EXAMINATION: MM DIAGNOSTIC DIGITAL BREAST TOMOSYNTHESIS, RIGHT CLINICAL INFORMATION: 6 month follow-up for right breast calcifications which are probably benign at the 12:00 axis, posterior one third. COMPARISON: Mammography: 03/10/2023, 12/23/2022, 12/18/2014. TECHNIQUE: Digital right breast tomosynthesis is performed in both the craniocaudal and mediolateral oblique views along with computer-aided detection (CAD). Synthesized 2D images are generated from the tomosynthesis. In addition, 2-D spot magnification right CC and ML views were obtained, as well as a full-field right 3-D mediolateral view. FINDINGS: The breasts are extremely dense, which lowers the sensitivity of mammography (ACR BI-RADS breast composition Category d). The small group of calcifications in the approximate 12:00 axis of the right breast, middle to posterior one third, there are loosely grouped, somewhat coarse, minimally pleomorphic, with no definite casting, or branching forms. These are stable in number and morphology. No aggressive changes. 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 Otherwise, there are no suspicious masses or areas of architectural distortion. The parenchymal pattern is stable from prior exams. MM/MM tomosynthesis diagnostic RT IMPRESSION: No findings suspicious for malignancy right breast. There are no significant changes from prior study. Stable probably benign calcifications at the 12:00 axis. Recommend six-month interval follow-up right diagnostic mammography recommended to include standard magnification views, when the patient is due for bilateral screening. ASSESSMENT: BI-RADS BI-RADS 3 - Probably benign finding(s) - 6 month follow-up suggested RECOMMENDATION: 6 Month F/U Results were provided to the patient at time of visit by the technologist. This patient's information was entered into a reminder system with a target due date for their next mammogram.
== END 2023-09-08 13:29 | disposition home or self-care (01) ==
LOC: HO.MAMMO 13:28
PROVIDERS: PCP Internal Medicine; Visit Provider Internal Medicine
DX: R92.1 Mammographic calcification found on diagnostic imaging of breast (principal)
CPT/HCPCS: 77061; 77065

== ENCOUNTER → 2023-09-08 13:30 | Outpatient (BNV) | payer MEDICARE, SELFPAY | PROVIDERS: PCP Internal Medicine; Visit Provider Radiology Diagnostic Radiology | DX: R92.1 Mammographic calcification found on diagnostic imaging of breast (principal); R92.341 Mammographic extreme density, right breast | CPT/HCPCS: 77065; G0279 ==

== ENCOUNTER → 2023-09-15 13:54 | Outpatient (REF) | payer MEDICARE, SELFPAY ==
--- NOTE | 2023-09-15 14:07 | CA_ITS ---
Transthoracic Echocardiogram Patient (Last, First, Middle): Nanci Henderson, Gender: Female Date of : 1955 Age: 67 Procedure Date: 09/15/2023 Procedure Type: Transthoracic Echocardiogram Location: OP Height: 162.56 cm Weight: 61.24 kg BSA: 1.66 m2 Heart Rate: bpm BP: 130 / 78 mmHg Package Maker: HAIDER Referring MD: Saloni Whitt HEATSET WINDER OPERATOR-Teresita Glass Calibrator: Aaron Reid MD Symptoms: I42.8 - Other cardiomyopathies Study Quality: Adequate ECG Rhythm: Atrial Fibrillation Conclusions: - 1. Moderately reduced LV ejection fraction of 35-40% with mild LVH 2. At least moderately dilated left atrium 3. Mild mitral regurgitation 4. Normal RV systolic pressure 5. No gross pericardial effusion Findings Left Ventricle Normal left ventricular cavity size. There is mildly increased left ventricular wall thickness. The left ventricular systolic function is moderately decreased. The visually estimated ejection fraction is between 35 40%. Diastolic function is indeterminate on the basis of available data. Right Ventricle Normal right ventricular cavity size. There is mildly decreased right ventricular systolic function. Atria The left atrium is moderately dilated. There is no evidence of interatrial shunt. The right atrium is mildly dilated. Aortic Valve Normal aortic valve structure and function. There is no aortic valve stenosis. There is no aortic valve regurgitation. Mitral Valve There is mild anterior and posterior mitral leaflet thickening. There is mild mitral valve regurgitation. There is no mitral valve stenosis. Pulmonic Valve The pulmonic valve is likely normal. Tricuspid Valve Normal tricuspid valve structure. There is mild tricuspid valve regurgitation. The right ventricular systolic pressure is normal. The right ventricular systolic pressure is 34 mmHg. Normal right atrial pressure. There is no evidence of pulmonary hypertension. Great Vessels The aorta was not well visualized. The pulmonary artery was not well visualized. Venous The inferior vena cava is collapsed, consistent with reduced intravascular volume. Pericardium/Pleural There is no evidence of pericardial effusion. Prior Study Comparison Changes noted compared to prior study dated: 12/20/2021. LV systolic function is reduced Measurements 2D Linear Measurements IVSd: 1.23 0.6-0.9/0.6-1.0 cm LVIDd: 4.25 3.9-5.3/4.2-5.9 cm LVIDd Index: 2.56 2.4-3.2/2.2-3.1 cm/m2 LVIDs: 3.18 2.0-3.6 cm LVPWd: 1.22 0.7-1.1 cm LA Diam: 4.80 2.7-3.8/3.0-4.0 cm LAIDs Index: 2.89 1.5-2.3 cm/m2 LV Mass: 232.96 67-162/88-224 g LV Mass Index: 140.34 43-95/49-115 g/m2 LVOT Diam: 2.10 3.0+(-)1.3 cm 2D Systolic Function EF 4C: 40.90 >55% EF 2C: 42.70 >55% EF BiP: 39.40 >55% Mitral Valve MV Pk E: 0.82 MV Decel Time: 181.00 E'Lateral: 14.80 E'Medial: 7.94 E/E' Med: 10.30 E/E' Lat: 5.50 PHT: 53.00 MVA PHT: 4.15 Decel [place]: 4.52 Aortic Valve AoV Pk Shashi: 0.88 AoV Mn Shashi: 0.61 AoV VTI: 0.18 AoV Pk Grad: 3.00 Aov Mn Grad: 2.00 JESSICA Cont.VTI: 2.88 LVOT LVOT Pk Shashi: 0.76 LVOT Mn Shashi: 0.52 LVOT VTI: 0.15 LVOT Pk Grad: 2.00 LVOT Mn Grad: 1.00 LVOT Diam: 2.10 LVOT Area: 3.46 Diastolic Function MV Pk E: 0.82 E'Medial: 7.94 E/E' Med: 10.30 E' Laterial: 14.80 E/E' Lat: 5.50 Right Ventricle TAPSE (mm): 16.10 TVS' Shashi: 9.36 Tricuspid Valve TR Pk Shashi: 2.78 TR Pk Grad: 31.00 RA Press: 3.00 RVSP: 34.00 Pulmonary Valve PV Pk Shashi: 0.82 Peak PV Grad: 3.00 Updated in Other Vendor System with Status of Final Aaron Reid MD electronically signed on 09/16/2023 11:33:26 AM with status of Final
== END ==
LOC: HO.CARD 13:54
PROVIDERS: PCP Internal Medicine; Visit Provider Nurse Practitioner Family
DX: I42.8 Other cardiomyopathies (principal)
CPT/HCPCS: 93306

== ENCOUNTER → 2023-09-15 14:07 | Outpatient (BNV) | payer MEDICARE, SELFPAY | PROVIDERS: PCP Internal Medicine; Visit Provider Internal Medicine Cardiovascular Disease | DX: I36.1 Nonrheumatic tricuspid (valve) insufficiency (principal) | CPT/HCPCS: 93306 ==

== ENCOUNTER 2023-09-19 09:23 | Outpatient (REF) | payer MEDICARE, SELFPAY ==
[2023-09-26 04:10] LABS: HPV 16 RNA NOT DETECTED (NOT DETECTED); HPV mRNA E6/E7 rflx Detected (Not Detected)
== END 2023-09-19 09:24 | disposition home or self-care (01) ==
LOC: HO.LAB 09:23
PROVIDERS: PCP Internal Medicine; Visit Provider Obstetrics & Gynecology
DX: Z01.419 Encounter for gynecological examination (general) (routine) without abnormal findings (principal); Z11.51 Encounter for screening for human papillomavirus (HPV)
CPT/HCPCS: 87624; 87625; 88142; G0101; Q0091

== ENCOUNTER 2023-09-19 09:23 | Outpatient (AMB) | payer MEDICARE, SELFPAY ==
[2023-09-19 09:30] VITALS: BP 140/78; BMI 24.3
--- NOTE | 2023-09-19 09:30 | MHC.OFFVIS ---
Intake Vital Signs 09/19/23 09:30 Height 5 ft 4.5 in Weight 144 lb BMI 24.3 BP 140/78 H Intake Visit Reasons: New patient Annual Coke Still Cleaner Required: No Information Interpreted: clinical only Property Underwriter: Property Underwriter Present Allergies lisinopril Allergy (Unknown, Verified 09/19/23 09:31) Unknown Post menopausal: Yes (2004) Do you need a note to return to daycare/school/sports/work: No HPI HPI Comments History of Present Illness Details Presenting for annual exam. No complaints. Last Pap was in 2014 was negative, preceded by negative Pap smear in 2013, no Pap smear/co testing since then Last Mammogram was BI-RADS 3 in 09/02, the recommendation was to repeat in 6 months No previous screening Last DEXA scan was in 01/01 T-score at the spine/femur level was-3.8/-2.6, is under the care of Dr. De Oliveira regarding osteoporosis [facility] Medical History Screening for colon cancer Screening for breast cancer Upper respiratory tract infection Sinusitis Cough COVID-19 Hospital discharge follow-up Pituitary insufficiency Nonischemic cardiomyopathy Adrenal insufficiency Hypercholesterolemia Osteoporosis Atrial fibrillation Surgical History History of open reduction and internal fixation (ORIF) procedure Family History Father COPD (chronic obstructive pulmonary disease) Hypertension Renal failure Mother Hypertension Stroke Ischemic bowel disease Maternal Grandfather Lymphoma Skin cancer Paternal Aunt Skin cancer Maternal Grandfather Skin cancer Social History Housing: Apartment Alcohol intake: never Patient Tobacco Use Status: Former Tobacco user Quit Date: 2001 Tobacco use type: Cigarette Years Smoked: 30 +/- e-Cigarette/Vaping Use: Never Used Second Hand Smoke Exposure: Yes service: No Current occupational status: unemployed Cognitive needs: Yes (cane) Hearing needs: No Vision needs: Yes (glasse) Female Reproductive History Menstrual Age of Menarche: 10 Duration of menses: 3-5 days control method: none Total pregnancies: 3 Full term: 1 History of abnormal pap smear: No (previous ,pap unsure date) Date of Mammogram: 09/08/23 (Right breast calcification) Review of Systems Const All systems reviewed & are unremarkable except as noted in HPI and below Card Reports as per HPI Resp Reports as per HPI GI Reports as per HPI and Reports no additional complaints Reports as per HPI Physical Exam Vital Signs: Last Vital Signs BP 140/78 H 09/19/23 09:30 BMI result Body Mass Index 24.3 Const General: cooperative, healthy appearing and comfortable Chest Chest palpation & inspection: normal inspection of the chest and normal palpation of entire chest wall Breast/axilla inspection: normal inspection of the breasts and normal inspection of the axillae Breast/axilla palpation: normal palpation of the breasts, normal palpation of the axillae and no axillary lymphadenopathy Resp Effort & Inspection: normal respiratory effort Auscultation: clear to auscultation bilaterally Percussion: percussion normal Cardio Palpation: normal PMI Rate: regular rate Rhythm: regular rhythm Heart sounds: no murmurs and no rubs Peripheral pulses: Peripheral pulses 2+ throughout GI Inspection: Yes normal to inspection Palpation (GI): Soft to palpation, nontender, no guarding, not rigid and No hepatosplenomegaly present Percussion: Yes normal to percussion Auscultation: normal bowel sounds Rectal Exam - Female: deferred General: Yes bladder normal to palpation External Female Exam: No lesion Speculum Exam - Vagina: normal appearance of the vagina, normal palpation, normal vaginal discharge and not erythematous Speculum Exam - Cervix: normal appearance of the cervix and normal palpation Bimanual exam- vagina & uterus: normal bimanual exam, normal palpation, uterine size normal, bladder normal to palpation, consistency normal and normal palpation Bimanual Exam- Adnexa, other: normal adnexae, no masses and no tenderness Assessment & Plan Assessment & Plan (1) Well woman exam: Code(s): Z01.419 - Encounter for gynecological examination (general) (routine) without abnormal findings Plan: Co testing done although the patient is above the age of 65 since last Pap smear was in 2014 and no recent screening for cervical cancer was done since then Counseled the patient about the recommended dietary allowance of 1200 mg of Calcium & 800 IU of vitamin D. The patient is scheduled for next screening Mammogram in 6 months. Offered the patient Referral for screening colonoscopy the patient would like to think about it, discuss it with her PCP and get back to us. The patient had a discussion about her osteoporosis Dr. De Oliveira, her PCP and is scheduled for dental care after which will be started on osteoporosis treatment according to her. The patient was instructed to perform monthly self-breast exams and to schedule an annual exam in a year; All questions answered and the patient verbalized understanding. Coding Level of Care Code New Pt Prev Care >65yr (12451) Diagnoses Well woman exam Z01.419
== END 2023-09-19 10:34 | disposition home or self-care (01) ==
LOC: HO.HWS 09:23
PROVIDERS: PCP Internal Medicine; Visit Provider Obstetrics & Gynecology
DX: Z01.419 Encounter for gynecological examination (general) (routine) without abnormal findings (principal)
CPT/HCPCS: G0101; Q0091

== ENCOUNTER 2023-10-17 11:10 | Outpatient (REF) | payer MEDICARE, SELFPAY | END 2023-10-17 11:11 | disposition home or self-care (01) | LOC: HO.LNP 11:10 | PROVIDERS: PCP Internal Medicine; Visit Provider Obstetrics & Gynecology | DX: R87.610 Atypical squamous cells of undetermined significance on cytologic smear of cervix (ASC-US) (principal); R87.810 Cervical high risk human papillomavirus (HPV) DNA test positive | CPT/HCPCS: 57454; 88305 ==

== ENCOUNTER 2023-10-17 11:10 | Outpatient (AMB) | payer MEDICARE, SELFPAY ==
--- NOTE | 2023-10-17 11:19 | MHC.OFFVIS ---
Vital Signs 10/17/23 11:27 Height 5 ft 4.5 in Weight 138 lb 14.259 oz BMI 23.5 BP 114/68 Intake Visit Reasons: Colposcopy Grievance Coordinator Required: No Information Interpreted: non-clinical & clinical Morning Show Producer: Morning Show Producer Present (Obdulia DUEÑAS) Accompanied by: Self / Same As Patient Allergies lisinopril Allergy (Unknown, Verified 10/17/23 11:27) Unknown Post menopausal: Yes HPI Comments Details: Presenting for colposcopy for ascus/HPV E6/E7 positive, HPV 16/18/45 negative [facility] Medical History Screening for colon cancer Screening for breast cancer Upper respiratory tract infection Sinusitis Cough COVID-19 Hospital discharge follow-up Pituitary insufficiency Nonischemic cardiomyopathy Adrenal insufficiency Hypercholesterolemia Osteoporosis Atrial fibrillation Surgical History History of open reduction and internal fixation (ORIF) procedure Family History Father COPD (chronic obstructive pulmonary disease) Hypertension Renal failure Mother Hypertension Stroke Ischemic bowel disease Maternal Grandfather Lymphoma Skin cancer Paternal Aunt Skin cancer Maternal Grandfather Skin cancer Social History Housing: Apartment Alcohol intake: never Patient Tobacco Use Status: Former Tobacco user Quit Date: 2001 Tobacco use type: Cigarette Years Smoked: 30 +/- e-Cigarette/Vaping Use: Never Used Second Hand Smoke Exposure: Yes service: No Current occupational status: unemployed Cognitive needs: Yes (cane) Hearing needs: No Vision needs: Yes (glasse) Female Reproductive History Menstrual Age of Menarche: 10 Review of Systems Const All systems reviewed & are unremarkable except as noted in HPI and below Reports as per HPI and Reports no additional complaints GI Reports no additional complaints Reports no additional complaints Physical Exam Vital Signs: Last Vital Signs BP 114/68 10/17/23 11:27 BMI result Body Mass Index 23.5 Office Procedures Colposcopy Before the procedure was started discussed with the patient the procedure, alternatives & all the risks associated with the procedure (bleeding, infection, injury to vagina, bladder, vessels, possible need for transfusion with all its risks) then patient signed the consent UPT done in the office & negative Pap smear = ascus/HPV E6/E7 positive, HPV 16/18/45 negative Speculum inserted, acetic acid used Colposcopy done Transformation zone seen, acetowhite lesions identified at 4 o?clock, cervical biopsies taken from 4 o?clock, ECC done afterwards. Vaginoscopy of the upper vagina showed no evidence of any aceto-white lesions Monsel solution used for hemostasis. The patient tolerated well . At the end the patient was instructed to call if temp>100.4, abdominal pain, n/v, bleeding; The patient was given the following instructions: nothing per vagina, no intercourse or bath tub use. All questions answered the patient verbalized understanding. Instructed the patient to make an appointment in 2 weeks for follow-up This note was generated with a voice recognition program. Some errors may have been overlooked during the review of this note. Sometimes these errors may affect the content or meaning of a given sentence. 53031-[id number] of cervix including upper vagina with biopsy and ECC Procedure code (CPT) selection complete Assessment & Plan Assessment & Plan (1) ASCUS with positive high risk HPV cervical: Comment: E6/E7 positive, HPV 16/18/45 negative Code(s): R87.610 - Atypical squamous cells of undetermined significance on cytologic smear of cervix (ASC-US); R87.810 - Cervical high risk human papillomavirus (HPV) DNA test positive Category: Medical Plan: Discussed with the patient the result of her abnormal pap, its significance, risk of progression, persistence, and regression. the false positive/negative rate of a Pap smear as a screening test in detecting cervical cancer and the indication for a diagnostic test -colposcopy, biopsy, endocervical curettage. Colposcopy done, see procedure note. The patient verbalized understanding and agreed with the plan, all questions answered. Orders: Orders Surgical Today R87.610 - Atypical squamous cells of undetermined significance on cytologic smear of cervix (ASC-US), R87.810 - Cervical high risk human papillomavirus (HPV) DNA test positive AMB Colposcopy Today R87.610 - Atypical squamous cells of undetermined significance on cytologic smear of cervix (ASC-US), R87.810 - Cervical high risk human papillomavirus (HPV) DNA test positive Coding Level of Care Code Procedure Only Diagnoses ASCUS with positive high risk HPV cervical R87.610; R87.810 CPT Codes Colposcopy - CPT: 64096-Msoygenxb of cervix including upper vagina with biopsy and ECC ([id number])
[2023-10-17 11:27] VITALS: BP 114/68; BMI 23.5
== END 2023-10-17 11:46 | disposition home or self-care (01) ==
LOC: HO.HWS 11:10
PROVIDERS: PCP Internal Medicine; Visit Provider Obstetrics & Gynecology
DX: R87.610 Atypical squamous cells of undetermined significance on cytologic smear of cervix (ASC-US) (principal); R87.810 Cervical high risk human papillomavirus (HPV) DNA test positive
CPT/HCPCS: 57454

== ENCOUNTER 2023-10-27 09:43 | Outpatient (AMB) | payer MEDICARE, SELFPAY ==
[2023-10-27 09:54] VITALS: BP 126/62; PULSE 65; O2SAT 98; BMI 24.2
--- NOTE | 2023-10-27 09:54 | MHC.OFFVIS ---
Vital Signs 10/27/23 09:54 Height 5 ft 4.5 in Weight 143 lb 4.807 oz BMI 24.2 BP 126/62 Blood Pressure Location Lt brachial Position Sitting Pulse 65 Pulse Source Monitor Pulse Oximetry (%) 98 Oxygen Delivery Method Room Air Intake Visit Reasons: follow up testing Allergies lisinopril Allergy (Unknown, Verified 10/17/23 11:27) Unknown Medication List - Last Reconciled 10/27/23 by Saloni Whitt NP-C albuterol sulfate 90 mcg/actuation (ProAir HFA) 2 puffs inhalation Q4-6H PRN albuterol sulfate 90 mcg/actuation 2 puffs inhalation Q6H PRN apixaban (Eliquis) 5 mg PO BID 90 days ascorbic acid (vitamin C) 250 mg PO DAILY atorvastatin 40 mg PO DAILY carvedilol 6.25 mg PO BID cetirizine (Zyrtec) 10 mg PO DAILY cholecalciferol (vitamin D3) 1,250 mcg PO QWEEK diphenhydramine HCl (ZzzQuil) 12.5 mg PO BEDTIME PRN ferrous sulfate 325 mg PO DAILY fluticasone propionate 50 mcg/actuation (Flonase Allergy Relief) 1 spray intranasal DAILY hydrocortisone 5 mg PO DAILY hydrocortisone TAKE 1 TABLET IN THE MORNING AND HALF A TABLET IN THE EVENING pantoprazole 40 mg PO DAILY HPI HPI follow up testing: Details: Nanci is a 68-year-old female with past medical history of hypertension, hyperlipidemia, nonischemic cardiomyopathy, chronic atrial fibrillation who was admitted fall 2021 with COVID, shock, vasopressor use, acute renal failure, 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 She was in the ICU for 1 week.? She did have full recovery with improvement in EF. Her last visit to our office was 11/18/22. Today she states she has been feeling generally well. She has no concerning symptoms. No chest discomfort at rest or with activity. No sob, PND, orthopnea or edema. No lightheadedness, presyncope, syncope, fall. Tolerates a flight of stairs without difficulty. 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 Daughter present. [facility] Medical History Screening for colon cancer Screening for breast cancer Upper respiratory tract infection Sinusitis Cough COVID-19 Hospital discharge follow-up Pituitary insufficiency Nonischemic cardiomyopathy Adrenal insufficiency Hypercholesterolemia Osteoporosis Atrial fibrillation Surgical History History of open reduction and internal fixation (ORIF) procedure Family History Father COPD (chronic obstructive pulmonary disease) Hypertension Renal failure Mother Hypertension Stroke Ischemic bowel disease Maternal Grandfather Lymphoma Skin cancer Paternal Aunt Skin cancer Maternal Grandfather Skin cancer Social History Housing: Apartment Alcohol intake: never Patient Tobacco Use Status: Former Tobacco user Quit Date: 2001 Tobacco use type: Cigarette Years Smoked: 30 +/- e-Cigarette/Vaping Use: Never Used Second Hand Smoke Exposure: Yes service: No Current occupational status: unemployed Cognitive needs: Yes (cane) Hearing needs: No Vision needs: Yes (glasse) Female Reproductive History Menstrual Age of Menarche: 10 Review of Systems Const All systems reviewed & are unremarkable except as noted in HPI and below Denies weakness ENT Denies dizziness Card Denies chest pain, Denies chest pain with activity, Denies syncope, Denies rapid heart rate, Denies pedal edema, Denies edema, Denies leg edema, Denies lightheadedness, Denies palpitations, Denies dyspnea, Denies dyspnea on exertion and Denies orthopnea Resp Denies cough, Denies dyspnea and Denies dyspnea on exertion GI Denies hematochezia and Denies change in stool character Musc Denies abnormal gait, Denies muscle cramps, Denies muscle weakness, Denies numbness, Denies radiating pain into limb and Denies tingling Neuro Denies abnormal gait, Denies dizziness, Denies syncope, Denies numbness, Denies tingling and Denies weakness Endo Denies palpitations Physical Exam Vital Signs: Last Vital Signs Pulse 65 10/27/23 09:54 BP 126/62 10/27/23 09:54 Pulse Ox 98 10/27/23 09:54 Oxygen Delivery Method Room Air 10/27/23 09:54 BMI result Body Mass Index 24.2 Const General: cooperative, healthy appearing, comfortable and no acute distress Orientation/consciousness: patient oriented x3 Neck Neck: Yes normal visual inspection and Yes no JVD Resp Effort & Inspection: normal respiratory effort Auscultation: clear to auscultation bilaterally, no crackles, no rales, no rhonchi and no wheezes Cardio Jugular venous distension: no JVD Rate: regular rate Rhythm: regular rhythm Heart sounds: S1 normal heart sound present, S2 normal heart sound present, no murmurs and no rubs Neuro General: patient oriented x3 Extrem General: Yes normal to inspection, No no pedal edema and No calf tenderness Psych Appearance: grossly normal Mental Status: mental status grossly normal Speech and movement: Normal speech and movement present Office Procedures EKG Details: Today, read by me, atrial fibrillation, ST and T-wave abnormality consider inferior lateral ischemia, rate 65, QTC 445 milliseconds [id number], Complete Assessment & Plan Assessment & Plan (1) Nonischemic cardiomyopathy: Comment: echo August 2018 severe left ventricular dysfunction moderate MVR moderate left atrial dilatation, 12/2018 EF 55-60% AFib January 2022 30-35% hypokinesis basal to 2/3 left ventricle May 2022 50-55% Code(s): I42.8 - Other cardiomyopathies Category: Medical Plan: Hx of nonischemic CMP, which did improve. According to last cardiology note, prior cardiac cath had shown 40% LM stenosis. She then had [facility] admission 01/2022 with COVID, acute illness with shock. Echo at [facility] 02/06/22 showed drop in EF 30-35%, mod MR and TR. Prior echo at [facility] on 12/20/21 had shown EF 50-55%, no WMA, mod pulm HTN. During that admit ARF and was treated with CRRT and then HD. She was taken off Arb. Her BB was changed from Metoprolol to Carvedilol. She was seen here in follow up in Apr 2022 and was doing well. Echo done on 04/29/22 showed EF 50-55%. At this time she continues to do well, with no concerning symptoms. She does not appear fluid overloaded on exam. She has no anginal sounding symptoms. An echo was doing on 10/14/23 showing a drop in EF again, 35-40%, mild LVH, moderate LA dilation. Her kidney function has been normal. labs 02/24/23 showed K 4.1, Cr 0.92. Will restart on low dose Losartan 25mg daily. BMP in 1 week. Will check Holter monitor to assess AF rates. Will check a pharmacological nuclear stress test to assess for ischemia. ( hx 40% LM stenosis). Continue Carvedilol. No requiring diuretics. signs and symptoms of heart failure, angina reviewed with her. Discussed low salt diet, activity as tolerated. Cardiology follow up in 1 mo, sooner if needed. (2) Atrial fibrillation: Code(s): I48.91 - Unspecified atrial fibrillation Category: Medical Plan: Hx chronic afib. Holter done on 01/19/22 showed afib with average rate 61, rate range 34-119, PVCs 12%, longest pause 3.1 sec. She was on Metoprolol xl 100 daily at that time. Then she was admitted as above and her BB was changed to Carvedilol, currently on 6.25mg bid. She is on Eliquis 5 mg bid for anticoagulation. No bleeding issues reported. EKG done today showed atrial fibrillation, ST/ T wave abnormality suggesting inferolateral ischemia, rate 65, similar to prior. Continue Carvedilol and Eliquis. Checking stress test as above. (3) Hypertension: Code(s): I10 - Essential (primary) hypertension Category: Medical Plan: Well controlled at present. (4) Hypercholesterolemia: Code(s): E78.00 - Pure hypercholesterolemia, unspecified Category: Medical Plan: LDL goal < 70 in pt with known CAD. Labs done 02/24/23 showed LDL 79. Will recheck with upcoming labs. Continue Atorvastatin. (5) Abnormal electrocardiogram [ECG] [EKG]: Code(s): R94.31 - Abnormal electrocardiogram [ECG] [EKG] Category: Medical Plan: as above (6) CAD (coronary artery disease): Code(s): I25.10 - Atherosclerotic heart disease of [place] coronary artery without angina pectoris Category: Medical Plan: notes indicate 40% LM stenosis. Will work on obtaining cath report for our system. She is not on aspirin as she is on Eliquis. She is on Atorvastatin and Carvedilol. Plan Time spent on chart review, document, interview, assessment. Orders: Orders CA lexiscan stress w stacia 10/27/23 KEREN Tilley I25.10 - Atherosclerotic heart disease of [place] coronary artery without angina pectoris, I42.9 - Cardiomyopathy, unspecified, R94.31 - Abnormal electrocardiogram [ECG] [EKG] NM cardiolite stress test 10/27/23 KEREN Tilley I42.9 - Cardiomyopathy, unspecified ECG 3 day holter monitor 10/27/23 KEREN Tilley I42.9 - Cardiomyopathy, unspecified, I48.91 - Unspecified atrial fibrillation Medications: New losartan 25 mg PO DAILY 30 tabs 3RF KEREN Tilley Changed From carvedilol must administer with a meal/food 12.5 mg PO BID 60 tabs 5RF I10 - Essential (primary) hypertension To carvedilol must administer with a meal/food 6.25 mg PO BID I10 - Essential (primary) hypertension Rola De Oliveira MD Coding Level of Care Code Est Pt Level 4 (03762) Diagnoses Nonischemic cardiomyopathy I42.8 Atrial fibrillation I48.91 Hypertension I10 Hypercholesterolemia E78.00 Abnormal electrocardiogram [ECG] [EKG] R94.31 CAD (coronary artery disease) I25.10 CPT Codes EKG - CPT: [id number], Complete ([id number]) Time Spent (min) 36
== END 2023-10-27 10:47 | disposition home or self-care (01) ==
PROVIDERS: PCP Internal Medicine; Visit Provider Nurse Practitioner Family
DX: I42.8 Other cardiomyopathies (principal); I48.91 Unspecified atrial fibrillation; I10 Essential (primary) hypertension; E78.00 Pure hypercholesterolemia, unspecified; R94.31 Abnormal electrocardiogram [ECG] [EKG]; I25.10 Atherosclerotic heart disease of native coronary artery without angina pectoris
CPT/HCPCS: 93010; 99214

== ENCOUNTER → 2023-10-27 09:43 | Outpatient (BNVA) | payer MEDICARE, SELFPAY | PROVIDERS: PCP Internal Medicine; Visit Provider Nurse Practitioner Family | DX: I42.8 Other cardiomyopathies (principal); I48.91 Unspecified atrial fibrillation; I10 Essential (primary) hypertension; E78.00 Pure hypercholesterolemia, unspecified; I25.10 Atherosclerotic heart disease of native coronary artery without angina pectoris; R94.31 Abnormal electrocardiogram [ECG] [EKG] | CPT/HCPCS: 93005; 99212 ==

== ENCOUNTER 2023-11-21 10:50 | Outpatient (REF) | payer MEDICARE, SELFPAY ==
[2023-11-21 11:07] LABS: MANUAL DIFF FLAG NO
[2023-11-21 12:01] LABS: Basophils Percent Auto 0.5 % (0-2); Eosinophils Absolute Auto 0.1 X10*3/uL (0.0-0.4); Eosinophils Percent Auto 2.2 % (0-4); Hemoglobin 12.9 g/dl (12.0-16.0); Imm Gran Abs Auto 0.01 X10*3/uL (0.00-0.03); Imm Gran Pct Auto 0.2 % (0.0-0.4); Lymphocytes Absolute Auto 1.6 X10*3/uL (1.2-4.9); Lymphocytes Percent Auto 26.6 % (20-40); Mean Corpuscular HGB Conc 33.1 g/dl (31.0-35.0); Mean Corpuscular Hemoglobin 28.9 pg (27.0-33.0); Mean Corpuscular Volume 87.4 fL (80.0-98.0); Mean Platelet Volume 11.4 fL (9.4-12.3); Monocytes Absolute Auto 0.6 X10*3/uL (0.1-1.2); Monocytes Percent Auto 9.9 % (2-11); Neutrophils Absolute Auto 3.6 x10*3/uL (2.0-8.3); Neutrophils Percent Auto 60.6 % (45-73); Platelet Count 152 X10*3/uL (160-400); Red Blood Count 4.46 X10*6/uL (4.20-5.50); Red Cell Distribution Width 12.3 % (11.0-16.0)
[2023-11-21 13:01] LABS: Alanine Aminotransferase 22 U/L (0-31); Albumin Level 3.7 g/dL (3.5-5.0); Alkaline Phosphatase 154 U/L (39-117); Anion Gap 11 (12-20); Aspartate Amino Transferase 27 U/L (5-31); Bilirubin Total 0.8 mg/dL (0.0-1.0); Blood Urea Nitrogen 21 mg/dL (9-16); Calcium 10.1 mg/dL (8.4-10.2); Carbon Dioxide 30 mmol/L (22-29); Chloride 106 mmol/L (96-108); Estimated Glomerular Filt Rate 52; Glucose Random 95 mg/dL (60-115); Potassium 4.2 mmol/L (3.3-5.1); Sodium 143 mmol/L (135-145); Total Protein 6.6 g/dL (6.5-8.0)
[2023-11-21 13:23] LABS: Free T4 (Free Thyroxine) 1.07 ng/dL (0.71-1.85); Thyroid Stimulating Hormone 3.14 uIU/mL (0.32-4.0)
[2023-11-21 13:31] LABS: Vitamin B12 743 pg/mL (200-900)
== END 2023-11-21 10:51 | disposition home or self-care (01) ==
LOC: HO.LAB 10:50
PROVIDERS: PCP Internal Medicine; Visit Provider Internal Medicine
DX: I10 Essential (primary) hypertension (principal)
CPT/HCPCS: 36415; 80053; 82607; 82746; 84439; 84443; 85025

== ENCOUNTER 2023-11-28 11:37 | Outpatient (AMB) | payer MEDICARE, SELFPAY ==
--- NOTE | 2023-11-28 11:39 | MHC.OFFVIS ---
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 The patient is doing well with no complaints. The pathology showed the following: . Endocervix, curettage: Squamous atrophy; no endocervical epithelium identified. B. Cervix, 4 o'clock, biopsy: Squamous atrophy; no endocervical epithelium identified. [facility] Medical History Screening for colon cancer Screening for breast cancer Upper respiratory tract infection Sinusitis Cough COVID-19 Hospital discharge follow-up Pituitary insufficiency Nonischemic cardiomyopathy Adrenal insufficiency Hypercholesterolemia Osteoporosis Atrial fibrillation Surgical History History of open reduction and internal fixation (ORIF) procedure Family History Father COPD (chronic obstructive pulmonary disease) Hypertension Renal failure Mother Hypertension Stroke Ischemic bowel disease Maternal Grandfather Lymphoma Skin cancer Paternal Aunt Skin cancer Maternal Grandfather Skin cancer Social History Housing: Apartment Alcohol intake: never Patient Tobacco Use Status: Former Tobacco user Tobacco use type: Cigarette Years Smoked: 30 +/- e-Cigarette/Vaping Use: Never Used Second Hand Smoke Exposure: Yes service: No Current occupational status: unemployed Cognitive needs: Yes (cane) Hearing needs: No Vision needs: Yes (glasse) Female Reproductive History Menstrual Age of Menarche: 10 Review of Systems Const All systems reviewed & are unremarkable except as noted in HPI and below Reports as per HPI and Reports no additional complaints GI Reports no additional complaints Reports no additional complaints Physical Exam Vital Signs: Last Vital Signs BP 110/54 L 11/28/23 11:41 BMI result Body Mass Index 24.2 Assessment & Plan Assessment & Plan (1) ASCUS with positive high risk HPV cervical: Comment: E6/E7 positive, HPV 16/18/45 negative Code(s): R87.610 - Atypical squamous cells of undetermined significance on cytologic smear of cervix (ASC-US); R87.810 - Cervical high risk human papillomavirus (HPV) DNA test positive Category: Medical Plan: Discussed with the patient the pathology results of the colposcopy biopsies & endocervical curettage ( negative). Discussed with the patient the sensitivity specificity, positive and negative predictive value in detecting cervical cancer in addition discussed the regression, persistence and progression rates. Recommended co-testing in 12 months, if cytology and or HPV are abnormal will proceed was colposcopy biopsy and endocervical curettage. Instructions given to the patient to schedule a co test appointment in 1 year. All questions answered the patient verbalized understanding. Coding Level of Care Code Est Pt Level 3 (21926) Diagnoses ASCUS with positive high risk HPV cervical R87.610; R87.810
[2023-11-28 11:41] VITALS: BP 110/54; BMI 24.2
== END 2023-11-28 11:48 | disposition home or self-care (01) ==
PROVIDERS: PCP Internal Medicine; Visit Provider Obstetrics & Gynecology
DX: R87.610 Atypical squamous cells of undetermined significance on cytologic smear of cervix (ASC-US) (principal); R87.810 Cervical high risk human papillomavirus (HPV) DNA test positive
CPT/HCPCS: 99213

== ENCOUNTER → 2023-11-28 11:37 | Outpatient (BNVA) | payer MEDICARE, SELFPAY | PROVIDERS: PCP Internal Medicine; Visit Provider Obstetrics & Gynecology | DX: R87.610 Atypical squamous cells of undetermined significance on cytologic smear of cervix (ASC-US) (principal); R87.810 Cervical high risk human papillomavirus (HPV) DNA test positive; Z98.890 Other specified postprocedural states | CPT/HCPCS: 99212 ==

== ENCOUNTER 2023-11-28 14:25 | Outpatient (AMB) | payer MEDICARE, SELFPAY ==
[2023-11-28 14:38] VITALS: BP 108/66; PULSE 77; TEMP 37.2; O2SAT 95; BMI 24.2
--- NOTE | 2023-11-28 14:38 | AM.OFFWIN_ITS ---
Intake Vital Signs 11/28/23 14:38 Height 5 ft 4.5 in Weight 143 lb BMI 24.2 BP 108/66 Blood Pressure Location Rt brachial Position Sitting Pulse 77 Pulse Source Pulse Oximeter Temp 98.9 F Temp Source Oral Pulse Oximetry (%) 95 Oxygen Delivery Method Room Air Intake Visit Reasons: EP fever rash vomiting diarrhea cut on lft leg Intake Note: pt is here c/o fever,rash,vomiting, diarrhea, cat scratch on left leg. Patient Tobacco Use Status: Former Tobacco user Allergies lisinopril Allergy (Unknown, Verified 11/28/23 14:43) Unknown Do you need a note to return to daycare/school/sports/work: No HPI HPI Comments History of Present Illness Details She presents to office with vomiting This am symptoms started First vomite water She states then onset fever, subjective. + loose stool this afternoon. No blood o r melena She said cramping before BM but once she went no recurrent discomfort No sick contacts Of note; her cat who is utd on vaccines scratched her L leg 1 week ago and wound is still leaking clear fluid Located on L lower wren Noticed rash to L medial thigh this am; this was newly noticed today. Unsure if the two are related She said L medial thigh has no itch and was previously painful but not currently + generalized fatigue No cold symptoms such as cough, congestion or ST PFSH Medical History Screening for colon cancer Screening for breast cancer Upper respiratory tract infection Sinusitis Cough COVID-19 Hospital discharge follow-up Pituitary insufficiency Nonischemic cardiomyopathy Adrenal insufficiency Hypercholesterolemia Osteoporosis Atrial fibrillation Surgical History History of open reduction and internal fixation (ORIF) procedure Family History Father COPD (chronic obstructive pulmonary disease) Hypertension Renal failure Mother Hypertension Stroke Ischemic bowel disease Maternal Grandfather Lymphoma Skin cancer Paternal Aunt Skin cancer Maternal Grandfather Skin cancer Social History Housing: Apartment Alcohol intake: never Patient Tobacco Use Status: Former Tobacco user Tobacco use type: Cigarette Years Smoked: 30 +/- e-Cigarette/Vaping Use: Never Used Second Hand Smoke Exposure: Yes service: No Current occupational status: unemployed Cognitive needs: Yes (cane) Hearing needs: No Vision needs: Yes (glasse) Female Reproductive History Menstrual Age of Menarche: 10 Review of Systems Const Reports fatigue and Reports fever(s) ENT Denies otalgia, Denies nasal discharge and Denies sore throat Card Denies chest pain, Denies syncope and Denies dyspnea Resp Denies cough and Denies dyspnea GI Denies abdominal pain, Denies melena, Denies hematochezia, Reports GI cramping, Reports diarrhea, Reports nausea and Reports vomiting Denies difficulty voiding Musc Denies myalgias Skin/Breast Reports lesions, Reports erythema, Reports rash and Reports wounds Neuro Denies syncope Endo Reports fatigue Physical Exam Vital Signs: Last Vital Signs Temp 98.9 F 11/28/23 14:38 Pulse 77 11/28/23 14:38 BP 108/66 11/28/23 14:38 Pulse Ox 95 11/28/23 14:38 Oxygen Delivery Method Room Air 11/28/23 14:38 BMI result Body Mass Index 24.2 General: Non-toxic, NAD. Speaking full sentences. Skin: Warm dry throughout. LLE superior to anterior ankle there is one puncture wound with 2 associated linear excoriations approx 8 inches spreading proximally along her anterior wren There is clear drainage from L distal wren puncture. No significant surrounding erythema or edema L medial thigh has large approx 8inch x 4 inch raised erythematous patch. + warm to palpation. Non-tender. No streaking HENT: Airway patent. Uvula midline. No pharyngeal erythema or edema. No [employer]. Bilateral canals clear. TM non-erythematous, non-bulging. No TM perforation or hemotympanum noted. Respiratory: CTA bilaterally. No wheezes, rales or rhonchi Cardiac: RRR. No murmur Abdominal: BS present. Non-tender MSK: Full ROM extremities. Neurology: A/O. No aphasia or facial droop. Gait without abnormality Psych: Good mood and affect Assessment & Plan Assessment & Plan (1) Cat bite: Code(s): W55.01XA - Bitten by cat, initial encounter Qualifiers: Encounter type: initial encounter Qualified Code(s): W55.01XA - Bitten by cat, initial encounter Plan: Patient seen and evaluated. No cellulitis surrounding cat bite however concerned the large patch of erythema/warmth proximally to this is caused by it Augmentin to pharmacy; take with food Area of erythema traced Discussed should see improvement in 24-48 hours, if not ,they need to go to ED for evaluation and possible IV antibiotics Abdomen soft, non-distended and non-tender so not concerned for abdominal infection origin Patient and daughter gave verbal understanding and had no additional questions or concerns at time of discharge All questions answered (2) Cellulitis: Code(s): L03.90 - Cellulitis, unspecified Qualifiers: Site of cellulitis: extremity Site of cellulitis of extremity: lower extremity Laterality: left Qualified Code(s): L03.116 - Cellulitis of left lower limb Plan: see plan above Medications: New amoxicillin-pot clavulanate 875-125 mg 1 tab PO BID 20 tabs 0RF Coding Level of Care Code Est Pt Level 3 (51468) Diagnoses Cat bite, initial encounter W55.01XA Encounter type: initial encounter Cellulitis of left lower extremity L03.116 Site of cellulitis: extremity Site of cellulitis of extremity: lower extremity Laterality: left
== END 2023-11-28 15:43 | disposition home or self-care (01) ==
PROVIDERS: PCP Internal Medicine; Visit Provider Physician Assistant
DX: L03.116 Cellulitis of left lower limb (principal); W55.01XA Bitten by cat, initial encounter
CPT/HCPCS: 99213

== ENCOUNTER → 2023-12-06 08:07 | Outpatient (REF) | payer MEDICARE, SELFPAY ==
--- NOTE | ~2023-12-06 | NM_ITS ---
Myocardial perfusion study Indication: Cardiomyopathy to evaluate for myocardial ischemia Technique: The patient was brought in for a Lexiscan perfusion study on 12/06/2023. Patient performed low-level exercise and was injected 0.4 mg of Lexiscan intravenously. Within a minute of injection, 25 mCi of sestamibi was given intravenously. Images were obtained using the SPECT gamma camera interlaced with the gating device. Images were obtained in supine position. Resting perfusion study was performed on 12/12/2023. Patient was administered 25 mCi of sestamibi intravenously at rest. Images were then obtained in supine position. Images obtained with and without CT attenuation. Total DLP 43 mGy-cm. Images were processed with the software and compared side to side in short axis, horizontal long axis and vertical long axis views. Findings: Both stress and rest perfusion study is suboptimal due to intense subdiaphragmatic uptake both attenuated as well as gastric uptake interfering with inferior wall uptake. The stress perfusion study showed non attenuated images show some thinning of the distal anterolateral wall of the LV myocardium. Remainder of the normally perfused. Attenuation corrected images show mildly reduced uptake in the distal anterior and moderately reduced uptake in the apex of the LV myocardium.. The gated study shows normal LV systolic function with visually estimated LVEF of greater than 50%. LV cavity is normal in size. The gated study shows normal systolic wall thickening and contraction of segments. Resting study shows no significant perfusion pattern compared to stress perfusion study on non attenuated images.. Gating at rest reveals systolic wall motion with ejection fraction at 56%. The findings are consistent with likely normal myocardial perfusion. NM/NM cardiolite stress test Impression: 1. Myocardial perfusion imaging study shows likely normal myocardial perfusion 2. Gated LVEF is 56% 3. Transient ischemic dilatation not present EKG is nondiagnostic for ischemia
--- NOTE | 2023-12-06 08:11 | HM_ITS ---
Conclusion: 1. Patient was monitored for total period of 3 days 2. Baseline was atrial fibrillation with average heart rate of 79 beats per minute with good rate control 3. Frequent isolated PVCs noted with total burden of about 3% 4. No significant pauses greater than 3 seconds noted 5. No patient reported symptoms MTDD
--- NOTE | 2023-12-06 08:11 | CA_ITS ---
Acquisition Time: 2023-12-06 08:10:56 Total Exercise Time: 00:02:00 Test Indications: AFIB, ABN EKG Medications: SEE H Protocol: LEXISCAN Max HR: 122 BPM 81% of Pred: 150 BPM Max BP: 140/080 mmHG Max Work Load: 1.0 METS Pharmacological stress test with Lexiscan injection while sitting, without anginal symptoms, with isolated PVCs, with normotensive response to injection, with nondiagnosiitic EKGs. Aminophylline 75mg IVP given to reverse Lexiscan. Nuclear images pending. Test reviewed with Dr. Reid Referred By: Saloni Whitt Overread By: Rosina White
== END ==
LOC: HO.CARD 08:07
PROVIDERS: PCP Internal Medicine; Visit Provider Nurse Practitioner Family
DX: I42.9 Cardiomyopathy, unspecified (principal); R94.31 Abnormal electrocardiogram [ECG] [EKG]; I25.10 Atherosclerotic heart disease of native coronary artery without angina pectoris; I48.91 Unspecified atrial fibrillation
CPT/HCPCS: 78452; 93017; 93242; A9500; J0280; J2785

== ENCOUNTER → 2023-12-06 08:11 | Outpatient (BNV) | payer MEDICARE, SELFPAY | PROVIDERS: PCP Internal Medicine; Visit Provider Nurse Practitioner | DX: I48.91 Unspecified atrial fibrillation (principal) | CPT/HCPCS: 78452; 93016; 93018; 93244 ==

== ENCOUNTER 2023-12-29 13:43 | Outpatient (AMB) | payer MEDICARE, SELFPAY ==
[2023-12-29 13:47] VITALS: BP 124/72; PULSE 78; BMI 24.4
--- NOTE | 2023-12-29 13:47 | A.OFFVIS_ITS ---
Vital Signs 12/29/23 13:47 Height 5 ft 4.5 in Weight 144 lb 9.972 oz BMI 24.4 BP 124/72 Blood Pressure Location Lt brachial Position Sitting Pulse 78 Pulse Source Pulse Oximeter Intake Visit Reasons: 1m follow up/ Follow up from Stress tests Bolt Cutter Required: No Clerical And Administrative Workers: Clerical And Administrative Workers Present Allergies lisinopril Allergy (Unknown, Verified 12/29/23 13:50) Unknown Medication List - Last Reconciled 12/29/23 by Saloni Whitt PINSETTER MECHANIC HELPER-C albuterol sulfate 90 mcg/actuation 2 puffs inhalation Q6H PRN apixaban (Eliquis) 5 mg PO BID 90 days ascorbic acid (vitamin C) 250 mg PO DAILY atorvastatin 40 mg PO DAILY carvedilol 6.25 mg PO BID cetirizine (Zyrtec) 10 mg PO DAILY PRN diphenhydramine HCl (ZzzQuil) 12.5 mg PO BEDTIME PRN fluticasone propionate 50 mcg/actuation (Flonase Allergy Relief) 1 spray intranasal DAILY hydrocortisone 5 mg PO DAILY hydrocortisone TAKE 1 TABLET IN THE MORNING AND HALF A TABLET IN THE EVENING pantoprazole 40 mg PO DAILY HPI HPI 1m follow up/ Follow up from Stress tests: Details: Nanci is a 68-year-old female with past medical history of hypertension, hyperlipidemia, nonischemic cardiomyopathy, chronic atrial fibrillation who was admitted fall 2021 with COVID, shock, vasopressor use, acute renal failure, 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 She was in the ICU for 1 week.? She did have full recovery with improvement in EF. She was not seen in our office between 11/18/22 and 10/27/2023. An echocardiogram had been done October 2023 which showed EF 35-40%. On last visit a nuclear stress test and Holter monitor were ordered. Today she states she has been feeling well with no concerning symptoms. No chest discomfort at rest or with activity. No sob, PND, orthopnea or edema. No lightheadedness, presyncope, syncope, fall. Tolerates a flight of stairs without difficulty. 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 Taking all meds as directed. Bleeding issues reported. Daughter present. [facility], [facility] Medical History Screening for colon cancer Screening for breast cancer Upper respiratory tract infection Sinusitis Cough COVID-19 Hospital discharge follow-up Pituitary insufficiency Nonischemic cardiomyopathy Adrenal insufficiency Hypercholesterolemia Osteoporosis Atrial fibrillation Surgical History History of open reduction and internal fixation (ORIF) procedure Family History Father COPD (chronic obstructive pulmonary disease) Hypertension Renal failure Mother Hypertension Stroke Ischemic bowel disease Maternal Grandfather Lymphoma Skin cancer Paternal Aunt Skin cancer Maternal Grandfather Skin cancer Social History Housing: Apartment Alcohol intake: never Patient Tobacco Use Status: Former Tobacco user Tobacco use type: Cigarette Years Smoked: 30 +/- e-Cigarette/Vaping Use: Never Used Second Hand Smoke Exposure: Yes service: No Current occupational status: unemployed Cognitive needs: Yes (cane) Hearing needs: No Vision needs: Yes (glasse) Female Reproductive History Menstrual Age of Menarche: 10 Review of Systems Const All systems reviewed & are unremarkable except as noted in HPI and below ENT Denies dizziness Card Denies chest pain, Denies chest pain at rest, Denies chest pain with activity, Denies rapid heart rate, Denies pedal edema, Denies edema, Denies leg edema, Denies lightheadedness, Denies palpitations, Denies dyspnea, Denies dyspnea on exertion and Denies orthopnea Resp Denies cough, Denies dyspnea and Denies dyspnea on exertion GI Denies hematochezia and Denies change in stool character Musc Denies abnormal gait, Denies limited range of motion, Denies muscle cramps, Denies muscle weakness, Denies numbness, Denies radiating pain into limb, Denies stiffness and Denies tingling Neuro Denies abnormal gait, Denies dizziness, Denies numbness and Denies tingling Endo Denies palpitations Physical Exam Vital Signs: Last Vital Signs Pulse 78 12/29/23 13:47 BP 124/72 12/29/23 13:47 BMI result Body Mass Index 24.4 Const General: cooperative, healthy appearing, comfortable and no acute distress Orientation/consciousness: patient oriented x3 Neck Neck: Yes normal visual inspection and Yes no JVD Resp Effort & Inspection: normal respiratory effort Auscultation: clear to auscultation bilaterally, no crackles, no rales, no rhonchi and no wheezes Cardio Jugular venous distension: no JVD Rate: regular rate Rhythm: regular rhythm Heart sounds: S1 normal heart sound present, S2 normal heart sound present, no murmurs and no rubs Neuro General: patient oriented x3 Extrem General: Yes normal to inspection, No no pedal edema and No calf tenderness Psych Appearance: grossly normal Mental Status: mental status grossly normal Speech and movement: Normal speech and movement present Assessment & Plan Assessment & Plan (1) Nonischemic cardiomyopathy: Code(s): I42.8 - Other cardiomyopathies Category: Medical Plan: Hx of nonischemic CMP, which did improve. According to prior cardiology note, prior cardiac cath had shown 40% LM stenosis. [place] [facility] [place] with COVID, acute illness with shock. [place] [facility] [place] showed drop in EF 30-35%, mod MR and TR. [place] [facility] [place] had shown EF 50-55%, no WMA, mod pulm HTN. During that admit ARF and was treated with CRRT and then HD. She was taken off Arb. Her BB was changed from Metoprolol to Carvedilol. She was seen here in follow up in Apr 2022 and was doing well. Echo done on 04/29/22 showed EF 50-55%. A repeat echo was done 10/2023 showing EF 35-40%. She underwent a nuclear stress test on 2023 showing likely normal myocardial perfusion imaging. She had a Holter monitor to assess atrial fibrillation rates, done on 12/06/2023 for 3 days showing AFib with average heart rate 79, frequent PVCs, 3%. Today she reports feeling well with no concerning symptoms. She has good activity tolerance. On last visit she was started on losartan but stopped due to report of dizziness. She now feels that did dizziness may have been related to illness related to cat bite. She is willing to retry low-dose losartan. Labs done on the losartan 11/21/2023 had shown potassium 4.2, creatinine 1.05. Continue carvedilol 6.25 mg b.i.d.. She has no clinical signs of heart failure on examination. Will plan for limited echo prior to next visit to reassess EF. Unclear cause of her cardiomyopathy at this time. Could be related to the frequent PVCs. Instructed to reduce caffeinated beverage intake. Cardiology follow-up 3-4 months, sooner if needed. (2) Atrial fibrillation: Code(s): I48.91 - Unspecified atrial fibrillation Category: Medical Plan: Hx chronic afib. Holter monitor just done showing controlled AFib, rate 79 average. She is on carvedilol for heart rate control. She is on Eliquis for anticoagulation. No bleeding issues reported. (3) Hypertension: Code(s): I10 - Essential (primary) hypertension Category: Medical Plan: Well controlled at present. (4) Hypercholesterolemia: Code(s): E78.00 - Pure hypercholesterolemia, unspecified Category: Medical Plan: LDL goal < 70 in pt with known CAD. Labs done 02/24/23 showed LDL 79. Will recheck with upcoming labs. Continue Atorvastatin. (5) CAD (coronary artery disease): Code(s): I25.10 - Atherosclerotic heart disease of [place] coronary artery without angina pectoris Category: Medical Plan: Cardiac catheterization from 08/24/2018 shows left main ostial 40% stenosis, IVUS evaluation 37% stenosis. No mentioned of disease elsewhere.She is not on aspirin as she is on Eliquis. She is on Atorvastatin and Carvedilol. Plan Time spent on chart review, document, interview, assessment. Orders: Orders CA Echo Limited 03/12/24 I42.9 - Cardiomyopathy, unspecified Lipid Panel Today E78.00 - Pure hypercholesterolemia, unspecified Medications: New carvedilol must administer with a meal/food 6.25 mg PO BID 60 tabs 5RF Coding Level of Care Code Est Pt Level 4 (21845) Diagnoses Nonischemic cardiomyopathy I42.8 Atrial fibrillation I48.91 Hypertension I10 Hypercholesterolemia E78.00 CAD (coronary artery disease) I25.10 Time Spent (min) 30
== END 2023-12-29 14:43 | disposition home or self-care (01) ==
PROVIDERS: PCP Internal Medicine; Visit Provider Nurse Practitioner Family
DX: I42.8 Other cardiomyopathies (principal); I48.91 Unspecified atrial fibrillation; I10 Essential (primary) hypertension; E78.00 Pure hypercholesterolemia, unspecified; I25.10 Atherosclerotic heart disease of native coronary artery without angina pectoris
CPT/HCPCS: 99214

== ENCOUNTER → 2023-12-29 13:43 | Outpatient (BNVA) | payer MEDICARE, SELFPAY | PROVIDERS: PCP Internal Medicine; Visit Provider Nurse Practitioner Family | DX: I10 Essential (primary) hypertension (principal); I48.91 Unspecified atrial fibrillation; I42.8 Other cardiomyopathies; I25.10 Atherosclerotic heart disease of native coronary artery without angina pectoris; I42.9 Cardiomyopathy, unspecified; E78.5 Hyperlipidemia, unspecified; E78.00 Pure hypercholesterolemia, unspecified | CPT/HCPCS: 99212 ==

== ENCOUNTER → 2024-03-12 09:12 | Outpatient (REF) | payer MEDICARE, SELFPAY ==
--- NOTE | 2024-03-12 09:16 | CA_ITS ---
Transthoracic Echocardiogram Patient (Last, First, Middle): Nanci Henderson, Gender: Female Date of : 1955 Age: 68 Procedure Date: 03/12/2024 Procedure Type: Transthoracic Echocardiogram Location: OP Height: 162.56 cm Weight: 65.32 kg BSA: 1.70 m2 Heart Rate: 74 bpm BP: 148 / 64 mmHg Stave Saw Operator: SB Referring MD: Saloni Whitt CHANNELING MACHINE RUNNERAlen Symptoms: I42.9 - Cardiomyopathy, unspecified Study Quality: Adequate ECG Rhythm: Atrial flutter Conclusions: - The left ventricular systolic function is low normal. The visually estimated ejection fraction is between 50-55%. Findings Left Ventricle Normal left ventricular cavity size. The left ventricular systolic function is low normal. The visually estimated ejection fraction is between 50-55%. There is mild septal asymmetric hypertrophy. Prior Study Comparison Changes noted compared to prior study dated: 09/15/2023. LVEF appears higher. Measurements 2D Linear Measurements IVSd: 1.10 0.6-0.9/0.6-1.0 cm LVIDd: 4.54 3.9-5.3/4.2-5.9 cm LVIDd Index: 2.67 2.4-3.2/2.2-3.1 cm/m2 LVIDs: 3.50 2.0-3.6 cm LVPWd: 0.61 0.7-1.1 cm LV Mass: 157.07 67-162/88-224 g LV Mass Index: 92.40 43-95/49-115 g/m2 LVOT Diam: 2.00 3.0+(-)1.3 cm 2D Systolic Function EF 4C: 40.20 >55% EF 2C: 47.90 >55% EF BiP: 41.50 >55% LVOT LVOT Pk Shashi: 0.76 LVOT Mn Shashi: 0.53 LVOT VTI: 0.14 LVOT Pk Grad: 2.00 LVOT Mn Grad: 1.00 LVOT Diam: 2.00 LVOT Area: 3.14 Tricuspid Valve RA Press: 3.00 Updated in Other Vendor System with Status of Final El Hicks MD electronically signed on 03/12/2024 4:57:22 PM with status of Final
== END ==
LOC: HO.CARD 09:12
PROVIDERS: PCP Internal Medicine; Visit Provider Nurse Practitioner Family
DX: I42.9 Cardiomyopathy, unspecified (principal)
CPT/HCPCS: 93308

== ENCOUNTER → 2024-03-12 09:16 | Outpatient (BNV) | payer MEDICARE, SELFPAY | PROVIDERS: PCP Internal Medicine; Visit Provider Internal Medicine | DX: I42.2 Other hypertrophic cardiomyopathy (principal) | CPT/HCPCS: 93308 ==

== ENCOUNTER 2024-03-15 15:20 | Outpatient (AMB) | payer MEDICARE, SELFPAY ==
[2024-03-15 15:37] VITALS: BP 136/72; PULSE 78; O2SAT 91; BMI 24.7
--- NOTE | 2024-03-15 15:37 | MHC.PC.OV ---
Vital Signs 03/15/24 15:37 Height 5 ft 4.5 in Weight 146 lb BMI 24.7 BP 136/72 Blood Pressure Location Lt brachial Position Sitting Pulse 78 Pulse Source Pulse Oximeter Pulse Oximetry (%) 91 L Oxygen Delivery Method Room Air Intake Visit Reasons: Follow up Cement Based Materials Pump Tender Required: No Accompanied by: Self / Same As Patient Allergies lisinopril Allergy (Unknown, Verified 03/15/24 15:41) Unknown Medication List - Last Reconciled 03/15/24 by Rola De Oliveira MD albuterol sulfate 90 mcg/actuation 2 puffs inhalation Q6H PRN apixaban (Eliquis) 5 mg PO BID 90 days ascorbic acid (vitamin C) 250 mg PO DAILY atorvastatin 40 mg PO DAILY carvedilol 6.25 mg PO BID cetirizine (Zyrtec) 10 mg PO DAILY PRN cholecalciferol (vitamin D3) 1,250 mcg PO QWEEK diphenhydramine HCl (ZzzQuil) 12.5 mg PO BEDTIME PRN fluticasone propionate 50 mcg/actuation (Flonase Allergy Relief) 2 sprays intranasal DAILY hydrocortisone 5 mg PO DAILY hydrocortisone TAKE 1 TABLET IN THE MORNING AND HALF A TABLET IN THE EVENING pantoprazole 40 mg PO DAILY Tobacco use date assessed: 03/15/24 Fall risk assessment: No Falls in past year Last assessed Fall Risk: 03/15/24 Dental Screening Dental Screen Date: 03/15/24 Did you have a dental visit in the last 12 months?: No Did you have a dental problem in the last 6 months where you did not have access to dental care?: No Was dental information given to patient?: Patient declined HPI Follow up HPI Details 68-year-old female with atrial fibrillation hypertension cardiomyopathy hypercholesterolemia coming in for follow-up. Last seen for wellness exam in 05/31/2023. Patient's last bone density was 12/29/2022 mammogram up-to-date August 2023 but advised to get it this time. Patient had an echocardiogram done in March 12 The left ventricular systolic function is low normal. The visually estimated ejection fraction is between 50-55%. (echocardiogram in October 2023 EF of 35-40%) Seen in December 28 history of nonischemic cardiomyopathy with improvement.(history of COVID 01/29/2022 shock) nuclear stress test 2023 normal myocardial perfusion imaging. Holter AFib continue with carvedilol [facility] Medical History (Updated 03/15/24 @ 15:49 by Rola De Oliveira MD) Breast cancer screening by mammogram Screening for colon cancer Adult general medical exam Well woman exam Cellulitis Cat bite Abnormal electrocardiogram [ECG] [EKG] Upper respiratory tract infection Sinusitis Cough COVID-19 Hospital discharge follow-up Pituitary insufficiency Nonischemic cardiomyopathy Adrenal insufficiency Hypercholesterolemia Osteoporosis Atrial fibrillation Surgical History History of open reduction and internal fixation (ORIF) procedure Family History Father COPD (chronic obstructive pulmonary disease) Hypertension Renal failure Mother Hypertension Stroke Ischemic bowel disease Maternal Grandfather Lymphoma Skin cancer Paternal Aunt Skin cancer Maternal Grandfather Skin cancer Social History Housing: Apartment Alcohol intake: never Patient Tobacco Use Status: Former Tobacco user Tobacco use type: Cigarette Years Smoked: 30 +/- e-Cigarette/Vaping Use: Never Used Second Hand Smoke Exposure: Yes service: No Current occupational status: unemployed Cognitive needs: Yes (cane) Hearing needs: No Vision needs: Yes (glasse) Female Reproductive History Menstrual Age of Menarche: 10 Questionnaire PHQ-9 Over the last 2 weeks, how often have you been bothered by any of the following problems? 1. Little interest or pleasure in doing things: not at all 2. Feeling down, depressed, or hopeless: not at all 3. Trouble falling or staying asleep, or sleeping too much: not at all 4. Feeling tired or having little energy: not at all 5. Poor appetite or overeating: not at all 6. Feeling bad about yourself - or that you are a failure or have let yourself or your family down: not at all 7. Trouble concentrating on things, such as reading the newspaper or watching television: not at all 8. Moving or speaking so slowly that other people could have noticed. Or the opposite - being so fidgety or restless that you have been moving around a lot more than usual: not at all 9. Thoughts that you would be better off or of hurting yourself in some way: not at all Total score: 0 Depression Screening Interpretation: Negative Depression Screening Done: Yes 52960 - PHQ-9 Billing: Yes Source: Developed by Drs. Kalpesh Jackson, Caitlin Wolf, Titus Holloway and colleagues, with an educational alfred from [employer]. Thrive Questionnaire Date Thrive assessed: 03/15/24 I am a: Patient What is your living situation today?: I have a steady place to live Within the past 12 months, did the food you bought not last and you didn't have the money to get more?: Never true Within the past 12 months, did you worry whether your food would run out before you got money to buy more?: Never true Are you currently unemployed and looking for a job?: No THRIVE Score: 0 AUDIT C Alcohol Use Questionnaire (AUDIT-C) 1. How often do you have a drink containing alcohol?: Never 3. How often do you have six or more drinks on one occasion?: Never Total Score: 0 Score Reviewed/Action Taken: No HALI-7 AMB Questionnaire HALI-7 Date HALI - 7 assessed: 03/15/24 Feeling nervous, anxious, or on edge: 0 = Not at all Not being able to stop or control worryin = Not at all Worrying too much about different things: 0 = Not at all Trouble relaxin = Not at all Being so restless that it is hard to sit still: 0 = Not at all Becoming easily annoyed or irritable: 0 = Not at all Feeling afraid as if something awful might happen: 0 = Not at all Total HALI-7 score (0-4 normal; 5-9 mild; 10-14 moderate; 15-21 severe): 0 Source: Developed by Drs. Kalpesh Jackson, Caitlin Wolf, Titus Holloway and colleagues, with an educational alfred from [employer]. HALI-7 Assessment Billing HALI-7 Assessment Tool: HALI-7 Assessment 48791 Physical exam (Primary Care) Vital Signs: Last Vital Signs Pulse 78 03/15/24 15:37 BP 136/72 03/15/24 15:37 Pulse Ox 91 L 03/15/24 15:37 Oxygen Delivery Method Room Air 03/15/24 15:37 BMI result Body Mass Index 24.7 Tobacco/Smoking Status: Tobacco use Status Tobacco use date assessed 03/15/24 03/15/24 15:42 Patient Tobacco Use Status Former Tobacco user 03/15/24 15:38 Tobacco use type Cigarette 03/15/24 15:38 e-Cigarette/Vaping Use Never Used 03/15/24 15:38 PHQ-9: PHQ-9 Score PHQ-9: Total score 0 03/15/24 15:42 Depression Screening Interpretation: Negative Thrive Assessment: Date of Thrive Assessment Date Thrive assessed 03/15/24 03/15/24 15:42 Const General: alert; No acute distress Eyes Conjunctivae: conjunctivae normal Resp Auscultation: clear to auscultation bilaterally Cardio Rate: regular rate Rhythm: regular rhythm GI Inspection: Yes normal to inspection Extrem General: Yes normal to inspection and No edema Coding Level of Care Code Est Pt Level 4 (25002) Diagnoses CAD (coronary artery disease) I25.10 Cardiomyopathy I42.9 ASCUS with positive high risk HPV cervical R87.610; R87.810 Atrial fibrillation I48.91 Hypercholesterolemia E78.00 Essential hypertension I10 Osteoporosis M81.0 Additional Codes HALI-7 Assessment Billing - HALI-7 Assessment Tool: HALI-7 Assessment 14728 ([id number]) Assessment & Plan Assessment & Plan (1) CAD (coronary artery disease): Code(s): I25.10 - Atherosclerotic heart disease of [place] coronary artery without angina pectoris Category: Medical Plan: Control the cholesterol, weight, blood pressure, patient on anticoagulation with Eliquis (2) Cardiomyopathy: Code(s): I42.9 - Cardiomyopathy, unspecified Category: Medical Plan: Continue follow-up with cardiology on carvedilol 6.25 mg twice a day (3) ASCUS with positive high risk HPV cervical: Comment: E6/E7 positive, HPV 16/18/45 negative, 2023 Code(s): R87.610 - Atypical squamous cells of undetermined significance on cytologic smear of cervix (ASC-US); R87.810 - Cervical high risk human papillomavirus (HPV) DNA test positive Category: Medical Plan: Continue to follow-up with gynecology. (4) Atrial fibrillation: Code(s): I48.91 - Unspecified atrial fibrillation Category: Medical Plan: Continue with anticoagulation with Eliquis (5) Hypercholesterolemia: Code(s): E78.00 - Pure hypercholesterolemia, unspecified Category: Medical Plan: Avoid fried foods, chicken skin, eggs, butter margarine, pastries and meat. Be it pork or beef they have a lot of cholesterol takes atorvastatin 40 mg once a day LDL goal of less than 70 and triglyceride of less than 150 (6) Essential hypertension: Code(s): I10 - Essential (primary) hypertension Category: Medical Plan: Continue with blood pressure medication. Decrease salt intake and exercise on carvedilol 6.25 mg twice a day (7) Osteoporosis: Comment: December 2022 Code(s): M81.0 - Age-related osteoporosis without current pathological fracture Category: Medical Plan: Up-to-date with bone density in discussed about calcium and vitamin-D as well as other treatments. Orders: Orders Free T4 (Free Thyroxine) Today I42.9 - Cardiomyopathy, unspecified Thyroid Stimulating Hormone Today I42.9 - Cardiomyopathy, unspecified Lipid Panel Today E78.00 - Pure hypercholesterolemia, unspecified, I42.9 - Cardiomyopathy, unspecified Vitamin B12 and Folate Today I42.9 - Cardiomyopathy, unspecified Complete Blood Count Auto Diff Today I42.9 - Cardiomyopathy, unspecified Comprehensive Met. Panel Today I42.9 - Cardiomyopathy, unspecified B Type Natriuretic Peptide Today I42.9 - Cardiomyopathy, unspecified Vitamin D 25-OH Total Today I42.9 - Cardiomyopathy, unspecified UA CC w/rflx Micro + Cult Today I42.9 - Cardiomyopathy, unspecified, R30.0 - Dysuria Medications: Changed From fluticasone propionate 50 mcg/actuation (Flonase Allergy Relief) administer into each nostril 1 spray intranasal DAILY 100 mL 0RF J06.9 - Acute upper respiratory infection, unspecified To fluticasone propionate 50 mcg/actuation (Flonase Allergy Relief) administer into each nostril 2 sprays intranasal DAILY 100 mL 0RF J06.9 - Acute upper respiratory infection, unspecified
== END 2024-03-15 16:03 | disposition home or self-care (01) ==
PROVIDERS: PCP Internal Medicine; Visit Provider Internal Medicine
DX: I25.10 Atherosclerotic heart disease of native coronary artery without angina pectoris (principal); I48.91 Unspecified atrial fibrillation; I42.9 Cardiomyopathy, unspecified; R87.610 Atypical squamous cells of undetermined significance on cytologic smear of cervix (ASC-US); R87.810 Cervical high risk human papillomavirus (HPV) DNA test positive; E78.00 Pure hypercholesterolemia, unspecified; I10 Essential (primary) hypertension; M81.0 Age-related osteoporosis without current pathological fracture

== ENCOUNTER → 2024-03-15 15:20 | Outpatient (BNVA) | payer MEDICARE, SELFPAY | PROVIDERS: PCP Internal Medicine; Visit Provider Internal Medicine | DX: I25.10 Atherosclerotic heart disease of native coronary artery without angina pectoris (principal); I42.9 Cardiomyopathy, unspecified; R87.610 Atypical squamous cells of undetermined significance on cytologic smear of cervix (ASC-US); R87.810 Cervical high risk human papillomavirus (HPV) DNA test positive; I48.91 Unspecified atrial fibrillation; E78.00 Pure hypercholesterolemia, unspecified; M81.0 Age-related osteoporosis without current pathological fracture; I10 Essential (primary) hypertension | CPT/HCPCS: 96127; 99212 ==

== ENCOUNTER 2024-03-26 13:00 | Outpatient (REF) | payer MEDICARE, SELFPAY ==
--- NOTE | ~2024-03-26 | MM_ITS ---
EXAMINATION: MM DIAGNOSTIC DIGITAL BREAST TOMOSYNTHESIS, BILATERAL CLINICAL INFORMATION: Six-month follow-up for calcifications 11:00 axis right breast mid to posterior one third (to establish one-year stability). Patient due for yearly. COMPARISON: Mammography: 09/08/2023, 03/10/2023, 12/23/2022, 12/18/2014. TECHNIQUE: Digital breast tomosynthesis is performed in both the craniocaudal and mediolateral oblique views along with computer-aided detection (CAD). Synthesized 2D images are generated from the tomosynthesis. In addition, 2-D spot compression right CC and ML views were also obtained. FINDINGS: The breasts are extremely dense, which lowers the sensitivity of mammography (ACR BI-RADS breast composition Category d). Small group of calcifications in the approximate 11:00 axis of the right breast, middle to posterior one third, are loosely grouped, somewhat coarse, minimally pleomorphic, with no aggressive changes in the interim. These remain probably benign. One-year follow-up recommended. Otherwise, there are no suspicious masses, developing suspicious grouped calcifications, or areas of architectural distortion in either breast. The straightly dense parenchymal pattern is stable from prior exams. There is no skin or axillary abnormality. MM/MM tomosynthesis diagnostic BI IMPRESSION: -There are no findings in either breast suspicious for malignancy. -Extremely dense breast parenchyma again noted. -Calcifications right breast 11:00 axis mid to posterior depth are without aggressive changes. These remain probably benign. One-year follow-up recommended. ASSESSMENT: BI-RADS BI-RADS 3 - Probably benign finding(s) - 12 month follow-up suggested RECOMMENDATION: 12 month diagnostic follow up Results were provided to the patient at time of visit by the technologist. This patient's information was entered into a reminder system with a target due date for their next mammogram. Electronically signed by: Ramirez White MD 03/26/2024 02:18 PM EDT
== END 2024-03-26 13:01 | disposition home or self-care (01) ==
LOC: HO.MAMMO 13:00
PROVIDERS: PCP Internal Medicine; Visit Provider Internal Medicine
DX: R92.1 Mammographic calcification found on diagnostic imaging of breast (principal)
CPT/HCPCS: 77062; 77066

== ENCOUNTER → 2024-03-26 13:00 | Outpatient (BNV) | payer MEDICARE, SELFPAY | PROVIDERS: PCP Internal Medicine; Visit Provider Radiology Diagnostic Radiology | DX: R92.1 Mammographic calcification found on diagnostic imaging of breast (principal) | CPT/HCPCS: 77066; G0279 ==

== ENCOUNTER 2024-05-28 09:06 | Outpatient (AMB) | payer MEDICARE, SELFPAY ==
[2024-05-28 09:14] VITALS: BP 122/72; PULSE 89; O2SAT 98; BMI 23.0
--- NOTE | 2024-05-28 09:15 | AM.OFFVISMDC ---
Intake Vital Signs 05/28/24 09:14 Height 5 ft 4.5 in Weight 136 lb BMI 23.0 BP 122/72 Blood Pressure Location Lt brachial Position Sitting Pulse 89 Pulse Source Pulse Oximeter Pulse Oximetry (%) 98 Oxygen Delivery Method Room Air Intake Visit Reasons: SWV G0439 Allergies lisinopril Allergy (Unknown, Verified 05/28/24 09:17) Unknown Medication List - Last Reconciled 05/28/24 by Rola De Oliveira MD albuterol sulfate 90 mcg/actuation 2 puffs inhalation Q6H PRN apixaban (Eliquis) 5 mg PO BID 90 days ascorbic acid (vitamin C) 250 mg PO DAILY atorvastatin 40 mg PO DAILY carvedilol 6.25 mg PO BID cetirizine (Zyrtec) 10 mg PO DAILY PRN cholecalciferol (vitamin D3) 1,250 mcg PO QWEEK diphenhydramine HCl (ZzzQuil) 12.5 mg PO BEDTIME PRN doxylamine succinate 25 mg PO BEDTIME PRN fluticasone propionate 50 mcg/actuation (Flonase Allergy Relief) 2 sprays intranasal DAILY hydrocortisone 5 mg PO DAILY hydrocortisone TAKE 1 TABLET IN THE MORNING AND HALF A TABLET IN THE EVENING losartan 25 mg PO DAILY HPI SWV G0439 HPI Details Patient complains of having right lower extremity swelling with redness and concern about infection. Patient also has been having vomiting when eating on the days that she has been working she works 3 times a week and stands most of the time. Discussed with the patient on weight loss. Long discussion regarding osteoporosis also patient has been follow-up with endocrinology also [facility] Medical History (Updated 05/28/24 @ 12:46 by Rola De Oliveira MD) Breast cancer screening by mammogram Screening for colon cancer Adult general medical exam Well woman exam Cellulitis Cat bite Abnormal electrocardiogram [ECG] [EKG] Upper respiratory tract infection Sinusitis Cough COVID-19 Hospital discharge follow-up Pituitary insufficiency Nonischemic cardiomyopathy Adrenal insufficiency Hypercholesterolemia Osteoporosis Atrial fibrillation Surgical History (Updated 05/28/24 @ 10:09 by Rola De Oliveira MD) History of open reduction and internal fixation (ORIF) procedure Family History Father COPD (chronic obstructive pulmonary disease) Hypertension Renal failure Mother Hypertension Stroke Ischemic bowel disease Maternal Grandfather Lymphoma Skin cancer Paternal Aunt Skin cancer Maternal Grandfather Skin cancer Social History Housing: Apartment Alcohol intake: never Patient Tobacco Use Status: Former Tobacco user Tobacco use type: Cigarette Years Smoked: 30 +/- e-Cigarette/Vaping Use: Never Used Second Hand Smoke Exposure: Yes service: No Current occupational status: unemployed Cognitive needs: Yes (cane) Hearing needs: No Vision needs: Yes (glasse) Female Reproductive History Menstrual Age of Menarche: 10 Questionnaire Medicare Wellness Checkup [age] What gender do you identify with?: female During the past 4 weeks, how much have you been bothered by emotional problems such as feeling anxious, depressed, irritable, sad or downhearted, and blue?: not at all During the past 4 weeks, has your physical & emotional health limited your social activities with family, friends, neighbors, or groups?: not at all During the past 4 weeks, how much bodily pain have you generally had?: very mild pain During the past 4 weeks, was someone available to help you if you needed & wanted help?: yes, as much as I wanted During the past 4 weeks, what was the hardest physical activity you could do for at least 2 minutes?: moderate Can you get to places out of walking distance without help? (For eg., can you travel alone on buses, taxis or drive your car?): Yes Can you go shopping for groceries or clothes without someone's help?: Yes Can you prepare your own meals?: Yes Can you do your housework without help?: Yes Because of any health problems, do you need the help of another person with your personal care needs such as eating, bathing, dressing or getting around the house?: No Can you handle your own money without help?: Yes During the past 4 weeks, how would you rate your health in general?: very good During the past 4 weeks how have things been going for you?: pretty well Are you having difficulties driving your car?: not applicable, I don't use a car Do you always fasten your seat belt when you are in a car?: yes, usually During past 4 weeks, have you been bothered by the following: never: Falling or dizzy when standing up, Sexual problems?, Trouble eating well?, Teeth or denture problems?, Problems using the telephone? and Tiredness or fatigue? Have you fallen 2 or more times in the past year?: No Are you afraid of falling?: No Are you a smoker?: no During the past 4 weeks, how many drinks of wine, beer, or other alcoholic beverages did you have?: no alcohol at all Do you exercise for about 20 minutes 3 or more times a week?: yes, some of the time Have you been given information to help with the following?: no: Hazards in your house that might hurt you? and no: Keeping track of your medications? How often do you have trouble taking medicines the way you have been told to take them?: I always take medicine as prescribed How confident are you that you can control & manage most of your health problems?: very confident What is your race?: White PHQ-9 Over the last 2 weeks, how often have you been bothered by any of the following problems? 1. Little interest or pleasure in doing things: not at all 2. Feeling down, depressed, or hopeless: not at all 3. Trouble falling or staying asleep, or sleeping too much: not at all 4. Feeling tired or having little energy: not at all 5. Poor appetite or overeating: not at all 6. Feeling bad about yourself - or that you are a failure or have let yourself or your family down: not at all 7. Trouble concentrating on things, such as reading the newspaper or watching television: not at all 8. Moving or speaking so slowly that other people could have noticed. Or the opposite - being so fidgety or restless that you have been moving around a lot more than usual: not at all 9. Thoughts that you would be better off or of hurting yourself in some way: not at all Total score: 0 Depression Screening Interpretation: Negative Depression Screening Done: Yes 83924 - PHQ-9 Billing: Yes Source: Developed by Drs. Kalpesh Jackson, Caitlin Wolf, Titus Holloway and colleagues, with an educational alfred from [employer]. Review of Systems Const Denies poor appetite and Denies weakness Eyes Denies no additional complaints ENT Reports Normal hearing present, Denies dizziness, Denies nasal congestion, Denies tinnitus and Denies sore throat Card Denies chest pain, Denies syncope, Denies rapid heart rate and Denies dyspnea Resp Denies cough and Denies dyspnea GI Denies change in stool character, Reports constipation, Denies diarrhea, Denies nausea and Denies vomiting Denies urinary frequency, Denies difficulty voiding and Denies dysuria Neuro Reports Normal hearing present, Denies confusion, Denies dizziness, Denies syncope and Denies weakness Psych Denies confusion Physical Exam Vital Signs: Last Vital Signs Pulse 89 05/28/24 09:14 BP 122/72 05/28/24 09:14 Pulse Ox 98 05/28/24 09:14 Oxygen Delivery Method Room Air 05/28/24 09:14 BMI result Body Mass Index 23.0 Const General: No confusion Orientation/consciousness: No confusion HEENT Other: Pale palpebra conjunctiva Head: Yes normocephalic Ears: external ears normal and TM's normal bilaterally Face and sinus: Yes normal facial exam Mouth: moist mucous membranes Throat: Yes tonsils normal Eyes Conjunctivae: conjunctivae normal Pupils: Equal, round and reactive pupils present and Pupil accommodation reflex normal Direct Ophthalmoscopy: normal light reflex Neck Neck: No lymphadenopathy Thyroid: Thyroid normal Chest Chest palpation & inspection: normal inspection of the chest Resp Effort & Inspection: normal respiratory effort and no audible wheezes Auscultation: clear to auscultation bilaterally, no crackles, no wheezes and lung sounds not diminished Cardio Rate: regular rate Rhythm: regular rhythm Peripheral pulses: radial pulses present and dorsalis pedis present GI Other: Cologuard testing this year 2023 Palpation (GI): no masses Auscultation: normal bowel sounds and normoactive bowel sounds Rectal Exam - Female: deferred Skin General skin exam: no rashes or lesions noted Rashes: no rashes Neuro General: No confusion Cranial nerves: Yes Equal, round and reactive pupils present and Yes Normal hearing present Cognition (Neuro): normal cognition Gait exam (Neuro): Normal gait present Motor exam (neuro): 5/5 motor strength present throughout Deep tendon reflexes (DTR's): Right brachioradialis reflex intensity grade: 2+, Left brachioradialis reflex intensity grade: 2+, Right patellar reflex intensity grade: 2+ and Left patellar reflex intensity grade: 2+ Extrem Other: Bilateral lower extremity edema with right more than the left and red rash on the right lower extremity wearing support stockings Office Procedures Flu Questionnaire Does the patient have a severe egg allergy?: No Does the patient have severe life threatening allergies?: No Does the patient have a fever or illness today?: No Has the patient ever had Guillain-[place] Syndrome?: No Has the patient ever had any past reaction to a flu shot?: No Immunizations Fluarix Triv 8549-2648 (PF) 45 mcg (15 mcg x 3)/0.5 mL IM syringe Performing Provider: Rola De Oliveira MD [facility] Administered by: Debbie Schwartz CMA on 05/28/24 10:16 Dose Route Admin Location Dispensed Lot Number Expiration Date [place] Inverte[employer]ologist 0.5 mL IM Left Deltoid 0.5 mL [id number] 12/09/24 17999-861-42 Recorded Future VIS Given Date VIS Provided VIS Publication Date 05/28/24 Single Vaccine 21 Eligibility Eligibility Date Funding Source Not [facility] Eligible 05/28/24 Private Assessment & Plan Assessment & Plan (1) Medicare annual wellness visit, subsequent: Code(s): Z00.00 - Encounter for general adult medical examination without abnormal findings Plan: Patient is advised to eat healthy, keep well hydrated, keep active and have adequate sleep. (2) CAD (coronary artery disease): Code(s): I25.10 - Atherosclerotic heart disease of [place] coronary artery without angina pectoris Qualifiers: Associated angina: without angina Coronary Disease-Associated Artery/Lesion type: [place] artery [place] vs. transplanted heart: [place] heart Qualified Code(s): I25.10 - Atherosclerotic heart disease of [place] coronary artery without angina pectoris Plan: Control the cholesterol, weight, blood pressure, with Eliquis presently on anticoagulation (3) ASCUS with positive high risk HPV cervical: Comment: E6/E7 positive, HPV 16/18/45 negative, 2023 Code(s): R87.610 - Atypical squamous cells of undetermined significance on cytologic smear of cervix (ASC-US); R87.810 - Cervical high risk human papillomavirus (HPV) DNA test positive Plan: Continue to follow-up with gynecology and up-to-date. (4) Osteoporosis: Comment: December 2022 Code(s): M81.0 - Age-related osteoporosis without current pathological fracture Qualifiers: Encounter type: sequela Osteoporosis type: unspecified Presence of current pathological fracture: with current pathological fracture Qualified Code(s): M80.00XS - Age-related osteoporosis with current pathological fracture, unspecified site, sequela Plan: Discussed about bone density and treatments (5) Atrial fibrillation: Code(s): I48.91 - Unspecified atrial fibrillation Qualifiers: Atrial fibrillation type: paroxysmal Qualified Code(s): I48.0 - Paroxysmal atrial fibrillation Plan: Patient on anticoagulation and follows up with Cardiology on carvedilol 6.25 mg twice a day (6) Hypercholesterolemia: Code(s): E78.00 - Pure hypercholesterolemia, unspecified Plan: Avoid fried foods, chicken skin, eggs, butter margarine, pastries and meat. Be it pork or beef they have a lot of cholesterol LDL goal of less than 70 and triglyceride of less than 150 on atorvastatin 40 mg once a day (7) Nonischemic cardiomyopathy: Code(s): I42.8 - Other cardiomyopathies Plan: Continue to follow-up with cardiology on carvedilol (8) Essential hypertension: Code(s): I10 - Essential (primary) hypertension Plan: Continue with blood pressure medication. Decrease salt intake and exercise patient is on carvedilol 6.25 mg twice a day losartan 25 mg once a day (9) GERD (gastroesophageal reflux disease): Code(s): K21.9 - Gastro-esophageal reflux disease without esophagitis Qualifiers: Esophagitis presence: without esophagitis Qualified Code(s): K21.9 - Gastro-esophageal reflux disease without esophagitis Plan: Avoid the foods that causes that usually spicy foods, tomato products, juices, coffee, soda and foods that your sensitive to. After eating do not lie down, allow 3-4 hours before in lie down. And keep the head of bed above 30 degrees to avoid the acid from going up. (10) Weight loss: Code(s): R63.4 - Abnormal weight loss Plan: Patient is referred to Gastroenterology. And workup advised to have it done (11) Peripheral vascular disease: Code(s): I73.9 - Peripheral vascular disease, unspecified Plan: When sitting down elevate the legs, exercise, and support stockings (12) Cellulitis of right leg: Code(s): L03.115 - Cellulitis of right lower limb Plan: Will send some antibiotic in but discussed about treatment for peripheral vascular disease. (13) Venous stasis dermatitis: Code(s): I87.2 - Venous insufficiency (chronic) (peripheral) Plan: When sitting down elevate the legs, exercise, and support stockings Orders: Orders XR chest 2V Today K21.9 - Gastro-esophageal reflux disease without esophagitis Influenza [id number] Immunization Today Z23 - Encounter for immunization Referrals Gastroenterology Referral K21.9 - Gastro-esophageal reflux disease without esophagitis, R63.4 - Abnormal weight loss Medications: New amoxicillin-pot clavulanate 875-125 mg 1 tab PO BID 14 tabs 0RF L03.115 - Cellulitis of right lower limb Refilled pantoprazole 40 mg PO DAILY 90 tabs 1RF K21.9 - Gastro-esophageal reflux disease without esophagitis Quality Reporting (2019) Depression/Bipolar (159/160/161/177) PHQ-9: Total score: 0 Coding Level of Care Code Medicare Subsequent (G0439) Diagnoses Medicare annual wellness visit, subsequent Z00.00 Coronary artery disease involving [place] coronary artery of [place] heart without angina pectoris I25.10 Associated angina: without angina Coronary Disease-Associated Artery/Lesion type: [place] artery [place] vs. transplanted heart: [place] heart ASCUS with positive high risk HPV cervical R87.610; R87.810 Osteoporosis with current pathological fracture, unspecified osteoporosis type, sequela M80.00XS Encounter type: sequela Osteoporosis type: unspecified Presence of current pathological fracture: with current pathological fracture Paroxysmal atrial fibrillation I48.0 Atrial fibrillation type: paroxysmal Hypercholesterolemia E78.00 Nonischemic cardiomyopathy I42.8 Essential hypertension I10 Gastroesophageal reflux disease without esophagitis K21.9 Esophagitis presence: without esophagitis Weight loss R63.4 Peripheral vascular disease I73.9 Cellulitis of right leg L03.115 Venous stasis dermatitis I87.2 Additional Codes PHQ-9 - 23397 - PHQ-9 Billing: Yes ([id number])
== END 2024-05-28 10:27 | disposition home or self-care (01) ==
PROVIDERS: PCP Internal Medicine; Visit Provider Internal Medicine
DX: Z00.00 Encounter for general adult medical examination without abnormal findings (principal); I48.0 Paroxysmal atrial fibrillation; I42.8 Other cardiomyopathies; I73.9 Peripheral vascular disease, unspecified; I25.10 Atherosclerotic heart disease of native coronary artery without angina pectoris; R87.610 Atypical squamous cells of undetermined significance on cytologic smear of cervix (ASC-US); R87.810 Cervical high risk human papillomavirus (HPV) DNA test positive; M80.00XS Age-related osteoporosis with current pathological fracture, unspecified site, sequela; E78.00 Pure hypercholesterolemia, unspecified; I10 Essential (primary) hypertension; K21.9 Gastro-esophageal reflux disease without esophagitis; Z23 Encounter for immunization

== ENCOUNTER → 2024-05-28 09:06 | Outpatient (BNVA) | payer MEDICARE, SELFPAY | PROVIDERS: PCP Internal Medicine; Visit Provider Internal Medicine | DX: Z00.00 Encounter for general adult medical examination without abnormal findings (principal); Z23 Encounter for immunization; I25.10 Atherosclerotic heart disease of native coronary artery without angina pectoris; R87.610 Atypical squamous cells of undetermined significance on cytologic smear of cervix (ASC-US); R87.810 Cervical high risk human papillomavirus (HPV) DNA test positive; M80.00XS Age-related osteoporosis with current pathological fracture, unspecified site, sequela; I48.0 Paroxysmal atrial fibrillation; E78.00 Pure hypercholesterolemia, unspecified; I10 Essential (primary) hypertension; I42.8 Other cardiomyopathies; K21.9 Gastro-esophageal reflux disease without esophagitis; R63.4 Abnormal weight loss; I73.9 Peripheral vascular disease, unspecified; L03.115 Cellulitis of right lower limb; I87.2 Venous insufficiency (chronic) (peripheral) | CPT/HCPCS: 90471; 90656; 96127 ==

== ENCOUNTER 2024-06-11 10:04 | Outpatient (REF) | payer MEDICARE, SELFPAY ==
[2024-06-11 10:30] LABS: MANUAL DIFF FLAG NO
[2024-06-11 11:01] LABS: Basophils Percent Auto 0.7 % (0-2); Eosinophils Absolute Auto 0.2 X10*3/uL (0.0-0.4); Eosinophils Percent Auto 3.2 % (0-4); Hemoglobin 11.9 g/dl (12.0-16.0); Imm Gran Abs Auto 0.01 X10*3/uL (0.00-0.03); Imm Gran Pct Auto 0.2 % (0.0-0.4); Lymphocytes Absolute Auto 1.9 X10*3/uL (1.2-4.9); Lymphocytes Percent Auto 31.7 % (20-40); Mean Corpuscular HGB Conc 32.2 g/dl (31.0-35.0); Mean Corpuscular Hemoglobin 27.7 pg (27.0-33.0); Monocytes Absolute Auto 0.8 X10*3/uL (0.1-1.2); Monocytes Percent Auto 13.8 % (2-11); Neutrophils Percent Auto 50.4 % (45-73); Platelet Count 160 X10*3/uL (160-400); Red Cell Distribution Width 12.4 % (11.0-16.0); White Blood Count 5.9 X10*3/uL (4.8-10.8)
[2024-06-11 11:44] LABS: Alanine Aminotransferase 17 U/L (0-31); Albumin Level 3.6 g/dL (3.5-5.0); Alkaline Phosphatase 150 U/L (39-117); Anion Gap 10 (12-20); Aspartate Amino Transferase 28 U/L (5-31); Bilirubin Total 1.1 mg/dL (0.0-1.0); Blood Urea Nitrogen 15 mg/dL (9-16); Calcium 9.5 mg/dL (8.4-10.2); Carbon Dioxide 27 mmol/L (22-29); Chloride 106 mmol/L (96-108); Cholesterol 107 mg/dL (<200); Estimated Glomerular Filt Rate > 60; Glucose Random 83 mg/dL (60-115); HDL Cholesterol 33 mg/dL (>40); LDL Cholesterol Calculated 58 mg/dL (<100); Sodium 139 mmol/L (135-145); Total Protein 6.5 g/dL (6.5-8.0); Triglycerides 84 mg/dL (<150)
[2024-06-11 11:50] LABS: B Type Natriuretic Peptide 361 pg/mL (<100)
[2024-06-11 11:57] LABS: Free T4 (Free Thyroxine) 1.19 ng/dL (0.71-1.85); Vitamin D 25-OH Total 95.1 ng/mL (>30)
[2024-06-11 12:05] LABS: Thyroid Stimulating Hormone 3.75 uIU/mL (0.32-4.0)
[2024-06-11 12:12] LABS: Folate 5.4 ng/mL (> or = 4.0); Vitamin B12 780 pg/mL (200-900)
[2024-06-11 13:11] LABS: Appearance Urine Clear; Color Urine Yellow; Glucose Urine UA Negative (Negative); Leukocyte Esterase Urine Small (1+) (Negative); Nitrite Urine Negative (Negative); PH 6.5 (5.0-9.0); Specific Gravity - Urine 1.015 (1.005-1.025); UMIC TRIGGER UACC YES; Urine Blood Moderate (2+) (Negative); Urine Ketones Negative (Negative); Urine Protein Negative (Neg-Trace)
[2024-06-11 13:20] LABS: Bacteria Urine None Seen (None Seen); Hyaline Casts Urine 0-2 /LPF (0-2); Squamous Epithelial Cell Urine 0-2 /HPF (0-2); UACC Culture Trigger YES; WBC Urine 0-5 /HPF (0-5)
== END 2024-06-11 10:05 | disposition home or self-care (01) ==
LOC: HO.LAB 10:04
PROVIDERS: Nurse Practitioner Family; PCP Internal Medicine; Visit Provider Internal Medicine
DX: E78.00 Pure hypercholesterolemia, unspecified (principal); I42.9 Cardiomyopathy, unspecified; R30.0 Dysuria
CPT/HCPCS: 36415; 80053; 80061; 81001; 82306; 82607; 82746; 83880; 84439; 84443; 85025; 87086

== ENCOUNTER 2024-06-18 12:42 | Outpatient (REF) | payer MEDICARE, SELFPAY ==
--- NOTE | ~2024-06-18 | XR_ITS ---
EXAMINATION: XR CHEST CLINICAL INFORMATION: K21.9 - Gastro-esophageal reflux disease without esophagitis COMPARISON: None available. TECHNIQUE: 2 views of the chest were obtained. FINDINGS: The lungs are hyperinflated but clear of acute process. Heart size and pulmonary vascularity is normal. There is mild extra scoliosis dorsal spine. No aggressive lytic or sclerotic process seen. XR/XR chest 2V IMPRESSION: IMPRESSION: Unremarkable chest exam. Mild dextroscoliosis dorsal spine. Electronically signed by: Sergio Sibley MD 06/18/2024 01:09 PM EST
== END 2024-06-18 12:43 | disposition home or self-care (01) ==
LOC: HO.XRAY 12:42
PROVIDERS: PCP Internal Medicine; Visit Provider Internal Medicine
DX: K21.9 Gastro-esophageal reflux disease without esophagitis (principal)
CPT/HCPCS: 71046

== ENCOUNTER → 2024-06-18 12:46 | Outpatient (BNV) | payer MEDICARE, SELFPAY | PROVIDERS: PCP Internal Medicine; Visit Provider Radiology Diagnostic Radiology | DX: K21.9 Gastro-esophageal reflux disease without esophagitis (principal) | CPT/HCPCS: 71046 ==

== ENCOUNTER 2024-06-21 15:40 | Outpatient (AMB) | payer MEDICARE, SELFPAY ==
--- NOTE | 2024-06-21 15:51 | A.OFFPC_ITS ---
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 Required: No Accompanied by: Self / Same As Patient Allergies lisinopril Allergy (Unknown, Verified 06/21/24 15:52) Unknown Tobacco use date assessed: 06/21/24 Fall risk assessment: No Falls in past year Last assessed Fall Risk: 06/21/24 Dental Screening Dental Screen Date: 06/21/24 Did you have a dental visit in the last 12 months?: No Did you have a dental problem in the last 6 months where you did not have access to dental care?: No Was dental information given to patient?: No HPI cardiomyopathy HPI Details The patient is a 68-year-old female presenting with dermatological lesions on the lower extremities and for an annual wellness visit. The lesions on her legs originated from red spots, evolving into dime-sized areas. The patient reports no itching or scratching and states these lesions have persisted without resolution. There is a familial history of skin cancer, raising concerns prompting a request for dermatological evaluation. Additionally, the patient has a history of mild anemia with a most recent hemoglobin level of 11.9 g/dL. During routine blood work, an elevated B-type Natriuretic Peptide (BNP) level of 361 pg/mL was noted, suggestive of potential congestive heart failure risk, though she reports no overt symptoms of acute heart failure. She has a past medical history of hepatic steatosis, confirmed via ultrasound, with previous instructions for lifestyle modification through diet and exercise. Her blood work revealed normal kidney function, sodium and potassium levels, and optimal cholesterol levels, including low-density lipoprotein (LDL) measured at 58 mg/dL. A recent examination for blood in the urine was inconclusive, with no reported symptoms of urinary tract infections or abdominal pain. Prior imaging indicated hepatic steatosis and normal kidney structure. Lifestyle modification with attention to hydration and dietary restrictions for sodium intake has been advised. The patient has been vigilant in minimizing animal protein intake and maintaining an active lifestyle, consistent with recommendations for managing fatty liver disease. [facility] Medical History (Updated 06/21/24 @ 16:18 by Rola De Oliveira MD) Breast cancer screening by mammogram Screening for colon cancer Adult general medical exam Well woman exam Cellulitis Cat bite Abnormal electrocardiogram [ECG] [EKG] Upper respiratory tract infection Sinusitis Cough COVID-19 Hospital discharge follow-up Pituitary insufficiency Nonischemic cardiomyopathy Adrenal insufficiency Hypercholesterolemia Osteoporosis Atrial fibrillation Surgical History History of open reduction and internal fixation (ORIF) procedure Family History Father COPD (chronic obstructive pulmonary disease) Hypertension Renal failure Mother Hypertension Stroke Ischemic bowel disease Maternal Grandfather Lymphoma Skin cancer Paternal Aunt Skin cancer Maternal Grandfather Skin cancer Social History Housing: Apartment Alcohol intake: never Patient Tobacco Use Status: Former Tobacco user Tobacco use type: Cigarette Years Smoked: 30 +/- e-Cigarette/Vaping Use: Never Used Second Hand Smoke Exposure: Yes service: No Current occupational status: unemployed Cognitive needs: Yes (cane) Hearing needs: No Vision needs: Yes (glasse) Female Reproductive History Menstrual Age of Menarche: 10 Questionnaire PHQ-9 Over the last 2 weeks, how often have you been bothered by any of the following problems? 1. Little interest or pleasure in doing things: not at all 2. Feeling down, depressed, or hopeless: not at all 3. Trouble falling or staying asleep, or sleeping too much: not at all 4. Feeling tired or having little energy: not at all 5. Poor appetite or overeating: not at all 6. Feeling bad about yourself - or that you are a failure or have let yourself or your family down: not at all 7. Trouble concentrating on things, such as reading the newspaper or watching television: not at all 8. Moving or speaking so slowly that other people could have noticed. Or the opposite - being so fidgety or restless that you have been moving around a lot more than usual: not at all 9. Thoughts that you would be better off or of hurting yourself in some way: not at all Total score: 0 Depression Screening Interpretation: Negative Depression Screening Done: Yes 86512 - PHQ-9 Billing: Yes Source: Developed by Drs. Kalpesh L. Caitlin Jackson Kurt Kroenke and colleagues, with an educational alfred from [employer]. Thrive Questionnaire Date Thrive assessed: 06/21/24 I am a: Patient What is your living situation today?: I have a steady place to live Within the past 12 months, did the food you bought not last and you didn't have the money to get more?: Never true Within the past 12 months, did you worry whether your food would run out before you got money to buy more?: Never true Do you have trouble paying for medicines?: No Do you have trouble getting transportation to medical appointments?: No Do you have trouble paying your heating and electricity bill?: No Do you have trouble taking care of your child, family member or friend?: No Do you have trouble with day-to-day activities such as bathing, preparing meals, shopping, managing finances, etc.?: No Are you currently unemployed and looking for a job?: No Are you interested in more education?: No Please select the resources that you would like help with: None Currently or been in a relationship where the following occur: No concerns reported THRIVE Score: 0 AUDIT C Alcohol Use Questionnaire (AUDIT-C) 1. How often do you have a drink containing alcohol?: Never 3. How often do you have six or more drinks on one occasion?: Never Total Score: 0 Score Reviewed/Action Taken: No HALI-7 AMB Questionnaire HALI-7 Date HALI - 7 assessed: 06/21/24 Feeling nervous, anxious, or on edge: 0 = Not at all Not being able to stop or control worryin = Not at all Worrying too much about different things: 0 = Not at all Trouble relaxin = Not at all Being so restless that it is hard to sit still: 0 = Not at all Becoming easily annoyed or irritable: 0 = Not at all Feeling afraid as if something awful might happen: 0 = Not at all Total HALI-7 score (0-4 normal; 5-9 mild; 10-14 moderate; 15-21 severe): 0 Source: Developed by Caitlin Lozano Kurt [employer]en[employer] and colleagues, with an educational alfred from [employer]. HALI-7 Assessment Billing HALI-7 Assessment Tool: HALI-7 Assessment 61986 Physical exam (Primary Care) Vital Signs: Last Vital Signs Pulse 76 06/21/24 15:52 BP 128/82 06/21/24 15:52 Pulse Ox 97 06/21/24 15:52 Oxygen Delivery Method Room Air 06/21/24 15:52 BMI result Body Mass Index 22.7 Tobacco/Smoking Status: Tobacco use Status Tobacco use date assessed 06/21/24 06/21/24 15:58 Patient Tobacco Use Status Former Tobacco user 06/21/24 15:58 Tobacco use type Cigarette 06/21/24 15:58 e-Cigarette/Vaping Use Never Used 06/21/24 15:58 PHQ-9: PHQ-9 Score PHQ-9: Total score 0 06/21/24 16:08 Depression Screening Interpretation: Negative Thrive Assessment: Date of Thrive Assessment Date Thrive assessed 06/21/24 06/21/24 15:58 Currently or been in a relationship where the following occur: No concerns reported Const General: alert; No acute distress Eyes Conjunctivae: conjunctivae normal Resp Auscultation: clear to auscultation bilaterally Cardio Rate: regular rate Rhythm: regular rhythm GI Inspection: Yes normal to inspection Extrem General: Yes normal to inspection and No edema Coding Level of Care Code Est Pt Level 4 (11648) Complex EM visit Add On G2211 Diagnoses Alkaline phosphatase elevation R74.8 Paroxysmal atrial fibrillation I48.0 Atrial fibrillation type: paroxysmal Hypercholesterolemia E78.00 Nonischemic cardiomyopathy I42.8 Essential hypertension I10 Generalized anxiety disorder F41.1 Coronary artery disease involving [place] coronary artery of [place] heart without angina pectoris I25.10 Associated angina: without angina Coronary Disease-Associated Artery/Lesion type: [place] artery [place] vs. transplanted heart: [place] heart Gastroesophageal reflux disease without esophagitis K21.9 Esophagitis presence: without esophagitis Dermatitis L30.9 Hematuria R31.9 Additional Codes HALI-7 Assessment Billing - HALI-7 Assessment Tool: HALI-7 Assessment [id number] ([id number]) PHQ-9 - 94500 - PHQ-9 Billing: Yes ([id number]) Assessment & Plan Assessment & Plan (1) Alkaline phosphatase elevation: Code(s): R74.8 - Abnormal levels of other serum enzymes Category: Medical (2) Atrial fibrillation: Code(s): I48.91 - Unspecified atrial fibrillation Category: Medical Qualifiers: Atrial fibrillation type: paroxysmal Qualified Code(s): I48.0 - Paroxysmal atrial fibrillation (3) Hypercholesterolemia: Code(s): E78.00 - Pure hypercholesterolemia, unspecified Category: Medical (4) Nonischemic cardiomyopathy: Code(s): I42.8 - Other cardiomyopathies Category: Medical (5) Essential hypertension: Code(s): I10 - Essential (primary) hypertension Category: Medical (6) Generalized anxiety disorder: Code(s): F41.1 - Generalized anxiety disorder Category: Medical (7) CAD (coronary artery disease): Code(s): I25.10 - Atherosclerotic heart disease of [place] coronary artery without angina pectoris Category: Medical Qualifiers: Associated angina: without angina Coronary Disease-Associated Artery/Lesion type: [place] artery [place] vs. transplanted heart: [place] heart Qualified Code(s): I25.10 - Atherosclerotic heart disease of [place] coronary artery without angina pectoris (8) GERD (gastroesophageal reflux disease): Code(s): K21.9 - Gastro-esophageal reflux disease without esophagitis Category: Medical Qualifiers: Esophagitis presence: without esophagitis Qualified Code(s): K21.9 - Gastro-esophageal reflux disease without esophagitis (9) Dermatitis: Code(s): L30.9 - Dermatitis, unspecified Category: Medical (10) Hematuria: Code(s): R31.9 - Hematuria, unspecified Category: Medical Plan - Arrange a referral to Dermatology for evaluation of skin lesions due to family history of skin cancer. - Continue monitoring anemia with routine complete blood count checks. - Monitor BNP levels and assess cardiac function; ensure compliance with diuretics to manage potential congestive heart failure signs, and monitor symptoms. - Continue lifestyle modifications for management of hepatic steatosis, specifically with recommended dietary adjustments to emphasize plant-based protein intake. - Schedule renal ultrasound to investigate possible sources of hematuria; consider further imaging if initial results are inconclusive. - Reinforce dietary sodium restrictions to under 2000 mg daily, emphasizing reduced intake of processed foods. - Update immunizations with RSV vaccine due to cardiac history and assess tetanus status by mid-year. - Follow-up in six months with blood work, including renal function tests and anticoagulation monitoring. - Encourage ongoing preventative measures for infectious disease including flu, COVID-19, and norovirus, through vaccination and hygiene practices. Orders: Orders US abdomen complete Today R74.8 - Abnormal levels of other serum enzymes, R79.89 - Other specified abnormal findings of blood chemistry Comprehensive Met. Panel 6 Months R74.8 - Abnormal levels of other serum enzymes Complete Blood Count Auto Diff 6 Months R74.8 - Abnormal levels of other serum enzymes Gamma Glutamyl Transpeptidase 6 Months R74.8 - Abnormal levels of other serum enzymes Ferritin 6 Months R74.8 - Abnormal levels of other serum enzymes 5' Nucleotidase 6 Months R74.8 - Abnormal levels of other serum enzymes IRON PROFILE 6 Months R74.8 - Abnormal levels of other serum enzymes Reticulocyte Count 6 Months R74.8 - Abnormal levels of other serum enzymes Referrals Dermatology Referral L30.9 - Dermatitis, unspecified
[2024-06-21 15:52] VITALS: BP 128/82; PULSE 76; O2SAT 97; BMI 22.7
== END 2024-06-21 16:25 | disposition home or self-care (01) ==
PROVIDERS: PCP Internal Medicine; Visit Provider Internal Medicine
DX: R74.8 Abnormal levels of other serum enzymes (principal); I48.0 Paroxysmal atrial fibrillation; E78.00 Pure hypercholesterolemia, unspecified; I42.8 Other cardiomyopathies; I10 Essential (primary) hypertension; F41.1 Generalized anxiety disorder; I25.10 Atherosclerotic heart disease of native coronary artery without angina pectoris; K21.9 Gastro-esophageal reflux disease without esophagitis; L30.9 Dermatitis, unspecified; R31.9 Hematuria, unspecified

== ENCOUNTER → 2024-06-21 15:40 | Outpatient (BNVA) | payer MEDICARE, SELFPAY | PROVIDERS: PCP Internal Medicine; Visit Provider Internal Medicine | DX: R74.8 Abnormal levels of other serum enzymes (principal); I48.0 Paroxysmal atrial fibrillation; E78.00 Pure hypercholesterolemia, unspecified; I42.8 Other cardiomyopathies; I10 Essential (primary) hypertension; F41.1 Generalized anxiety disorder; I25.10 Atherosclerotic heart disease of native coronary artery without angina pectoris; K21.9 Gastro-esophageal reflux disease without esophagitis; L30.9 Dermatitis, unspecified; R31.9 Hematuria, unspecified | CPT/HCPCS: 96127; 99212 ==

== ENCOUNTER 2024-07-01 15:32 | Outpatient (AMB) | payer MEDICARE, SELFPAY ==
[2024-07-01 15:34] VITALS: BP 142/70; PULSE 88; BMI 23.0
--- NOTE | 2024-07-01 15:34 | A.OFFVIS_ITS ---
Vital Signs 07/01/24 15:34 Height 5 ft 4 in Weight 134 lb 0.657 oz BMI 23.0 BP 142/70 H Blood Pressure Location Lt brachial Position Sitting Pulse 88 Pulse Source Pulse Oximeter Intake Visit Reasons: 3-4m follow up Fitness Consultant Required: No Family Service Counselor: Family Service Counselor Present Allergies lisinopril Allergy (Unknown, Verified 07/01/24 15:36) Unknown Medication List - Last Reconciled 07/01/24 by KEREN Tilley albuterol sulfate 90 mcg/actuation 2 puffs inhalation Q6H PRN apixaban (Eliquis) 5 mg PO BID 90 days ascorbic acid (vitamin C) 250 mg PO DAILY atorvastatin 40 mg PO DAILY carvedilol 6.25 mg PO BID cetirizine (Zyrtec) 10 mg PO DAILY PRN cholecalciferol (vitamin D3) 1,250 mcg PO QWEEK diphenhydramine HCl (ZzzQuil) 12.5 mg PO BEDTIME PRN fluticasone propionate 50 mcg/actuation (Flonase Allergy Relief) 2 sprays intranasal DAILY hydrocortisone 5 mg PO DAILY hydrocortisone TAKE 1 TABLET IN THE MORNING AND HALF A TABLET IN THE EVENING losartan 25 mg PO DAILY pantoprazole 40 mg PO DAILY HPI HPI 3-4m follow up: Details: Nanci is a 68-year-old female with past medical history of hypertension, hyperlipidemia, nonischemic cardiomyopathy, chronic atrial fibrillation who was admitted fall 2021 with COVID, shock, vasopressor use, acute renal failure, 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 She was in the ICU for 1 week.? She did have full recovery with improvement in EF. She was not seen in our office between 11/18/22 and 10/27/2023. An echocardiogram had been done October 2023 which showed EF 35-40%. A nuclear stress test showed no ischemia. She has been medically managed and a repeat echo done 03/2024 showed EF 50-55%. She now presents for follow-up. Today she states she has been feeling well with no concerning symptoms. No chest discomfort at rest or with activity. No sob, PND, orthopnea or edema. No palpitations, lightheadedness, presyncope, syncope, fall. Tolerates a flight of stairs without difficulty. 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 Blood pressure has been controlled. She believes today's blood pressure elevation is due to her stressful day at work and being late for this appointment. Taking all meds as directed. Bleeding issues reported. Daughter present. [facility] Medical History Breast cancer screening by mammogram Screening for colon cancer Adult general medical exam Well woman exam Cellulitis Cat bite Abnormal electrocardiogram [ECG] [EKG] Upper respiratory tract infection Sinusitis Cough COVID-19 Hospital discharge follow-up Pituitary insufficiency Nonischemic cardiomyopathy Adrenal insufficiency Hypercholesterolemia Osteoporosis Atrial fibrillation Surgical History History of open reduction and internal fixation (ORIF) procedure Family History Father COPD (chronic obstructive pulmonary disease) Hypertension Renal failure Mother Hypertension Stroke Ischemic bowel disease Maternal Grandfather Lymphoma Skin cancer Paternal Aunt Skin cancer Maternal Grandfather Skin cancer Social History Housing: Apartment Alcohol intake: never Patient Tobacco Use Status: Former Tobacco user Tobacco use type: Cigarette Years Smoked: 30 +/- e-Cigarette/Vaping Use: Never Used Second Hand Smoke Exposure: Yes service: No Current occupational status: unemployed Cognitive needs: Yes (cane) Hearing needs: No Vision needs: Yes (glasse) Female Reproductive History Menstrual Age of Menarche: 10 Review of Systems Const All systems reviewed & are unremarkable except as noted in HPI and below Denies fatigue Card Denies chest pain, Denies chest pain at rest, Denies chest pain with activity, Denies rapid heart rate, Denies palpitations, Denies dyspnea on exertion and Denies orthopnea Resp Denies dyspnea on exertion Denies no additional complaints Musc Denies no additional complaints and Reports abnormal gait ( uses cane) Neuro Reports abnormal gait ( uses cane) Endo Denies fatigue and Denies palpitations Physical Exam Vital Signs: Last Vital Signs Pulse 88 07/01/24 15:34 BP 142/70 H 07/01/24 15:34 BMI result Body Mass Index 23.0 Const General: cooperative, healthy appearing, comfortable and no acute distress Orientation/consciousness: patient oriented x3 Neck Neck: Yes normal visual inspection and Yes no JVD Resp Effort & Inspection: normal respiratory effort Auscultation: clear to auscultation bilaterally, no crackles, no rales, no rhonchi and no wheezes Cardio Jugular venous distension: no JVD Rate: regular rate Rhythm: regular rhythm Heart sounds: S1 normal heart sound present, S2 normal heart sound present, no murmurs and no rubs Neuro General: patient oriented x3 Extrem General: Yes normal to inspection, No no pedal edema and No calf tenderness Psych Appearance: grossly normal Mental Status: mental status grossly normal Speech and movement: Normal speech and movement present Assessment & Plan Assessment & Plan (1) Nonischemic cardiomyopathy: Code(s): I42.8 - Other cardiomyopathies Category: Medical Plan: Hx of nonischemic CMP, which did improve. [place] [facility] had shown EF 50-55%, no WMA, mod pulm HTN. Also history of CAD, according to prior cardiology note, cardiac cath had shown 40% LM stenosis. She then had [facility] admission 01/2022 with COVID, acute illness with shock. Echo at [facility] 02/06/22 showed drop in EF 30-35%, mod MR and TR. During that admit ARF and was treated with CRRT and then HD. She was seen here in follow up in Apr 2022 and was doing well. Echo done on 04/29/22 showed EF 50-55%. A repeat echo was done 10/2023 showing EF 35-40%. She underwent a nuclear stress test on showing likely normal myocardial perfusion imaging. She had a Holter monitor to assess atrial fibrillation rates, done on 12/06/2023 for 3 days showing AFib with average heart rate 79, frequent PVCs, 3%. Her drop in EF was thought to possibly be related to the frequent PVCs. She has been on carvedilol and losartan for neurohormonal modulation. A repeat echo done 03/12/2024 showed EF 50-55%. At this point she is doing well with no concerning symptoms. She has good activity tolerance. Her blood pressure is mildly elevated today but she tells me this is not typical for her. She will monitor her blood pressure at home. It for blood pressure is running with systolic greater than 140, plan will be to adjust meds, changing losartan to Entresto. At this time will continue current carvedilol dose. Labs done 06/11/2024 showed potassium 4, creatinine 0.92 signs and symptoms of heart failure and angina reviewed with her. Cardiology follow-up 6 months, sooner if needed. (2) Atrial fibrillation: Code(s): I48.91 - Unspecified atrial fibrillation Category: Medical Qualifiers: Atrial fibrillation type: paroxysmal Qualified Code(s): I48.0 - Paroxysmal atrial fibrillation Plan: Hx chronic afib. Holter monitor as above showing controlled AFib, rate 79 average. She is on carvedilol for heart rate control. She is on Eliquis for anticoagulation. No bleeding issues reported. (3) Hypertension: Code(s): I10 - Essential (primary) hypertension Category: Medical Plan: Mildly elevated today. She tells me she had a stressful day at work and then was late for this appointment. She says normally her blood pressure at doctor's visits is normal. She does have a cuff at home. Instructed her to check her blood pressure periodically and call if her systolic reading is running greater than 140. At that time I will make medication adjustments. Since she is feeling well on her current meds will leave them as they are. In the past she had dizziness with the higher dose losartan. (4) Hypercholesterolemia: Code(s): E78.00 - Pure hypercholesterolemia, unspecified Category: Medical Plan: LDL goal < 70 in pt with known CAD. Labs done 05/14/2024 showed LDL 58. This is well controlled. Continue Atorvastatin. (5) CAD (coronary artery disease): Code(s): I25.10 - Atherosclerotic heart disease of [place] coronary artery without angina pectoris Category: Medical Qualifiers: Associated angina: without angina Coronary Disease-Associated Artery/Lesion type: [place] artery [place] vs. transplanted heart: [place] heart Qualified Code(s): I25.10 - Atherosclerotic heart disease of [place] coronary artery without angina pectoris Plan: Cardiac catheterization from 08/24/2018 shows left main ostial 40% stenosis, IVUS evaluation 37% stenosis. No mentioned of disease elsewhere. She is not having any anginal symptoms. Nuclear stress test from 11/2023 was normal. She is not on aspirin as she is on Eliquis. She is on Atorvastatin and Carvedilol. Plan Time spent on chart review, document, interview, assessment. Coding Level of Care Code Est Pt Level 4 (92143) Complex EM visit Add On G2211 Diagnoses Nonischemic cardiomyopathy I42.8 Paroxysmal atrial fibrillation I48.0 Atrial fibrillation type: paroxysmal Hypertension I10 Hypercholesterolemia E78.00 Coronary artery disease involving [place] coronary artery of [place] heart without angina pectoris I25.10 Associated angina: without angina Coronary Disease-Associated Artery/Lesion type: [place] artery [place] vs. transplanted heart: [place] heart Time Spent (min) 30
== END 2024-07-01 15:57 | disposition home or self-care (01) ==
PROVIDERS: PCP Internal Medicine; Visit Provider Nurse Practitioner Family
DX: I42.8 Other cardiomyopathies (principal); I48.0 Paroxysmal atrial fibrillation; I10 Essential (primary) hypertension; E78.00 Pure hypercholesterolemia, unspecified; I25.10 Atherosclerotic heart disease of native coronary artery without angina pectoris
CPT/HCPCS: 99214; G2211

== ENCOUNTER → 2024-07-01 15:32 | Outpatient (BNVA) | payer MEDICARE, SELFPAY | PROVIDERS: PCP Internal Medicine; Visit Provider Nurse Practitioner Family | DX: I10 Essential (primary) hypertension (principal); I42.8 Other cardiomyopathies; E78.5 Hyperlipidemia, unspecified; I42.0 Dilated cardiomyopathy; E78.00 Pure hypercholesterolemia, unspecified; I25.10 Atherosclerotic heart disease of native coronary artery without angina pectoris; Z87.891 Personal history of nicotine dependence | CPT/HCPCS: 99212 ==

== ENCOUNTER 2024-12-10 09:13 | Outpatient (REF) | payer MEDICARE, SELFPAY | END 2024-12-10 09:14 | disposition home or self-care (01) | LOC: HO.LNP 09:13 | PROVIDERS: PCP Internal Medicine; Visit Provider Obstetrics & Gynecology | DX: Z01.419 Encounter for gynecological examination (general) (routine) without abnormal findings (principal); R87.810 Cervical high risk human papillomavirus (HPV) DNA test positive; R87.610 Atypical squamous cells of undetermined significance on cytologic smear of cervix (ASC-US); Z78.0 Asymptomatic menopausal state | CPT/HCPCS: 87626; 88175; G0101; Q0091 ==

== ENCOUNTER 2024-12-10 09:13 | Outpatient (AMB) | payer MEDICARE, SELFPAY ==
--- NOTE | 2024-12-10 09:16 | A.OFFVIS_ITS ---
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 No complaints. Last Pap/HPV was ascus HPV negative in 10/03 Last Mammogram was BI-RADS 3 in 04/04, the recommendation is to repeat a diagnostic mammogram in 12 months Last Colonoscopy Last DEXA scan was in 01/01 [facility] Medical History (Updated 12/10/24 @ 09:32 by Nasim rBandt MD) Well woman exam Breast cancer screening by mammogram Screening for colon cancer Adult general medical exam Cellulitis Cat bite Abnormal electrocardiogram [ECG] [EKG] Upper respiratory tract infection Sinusitis Cough COVID-19 Hospital discharge follow-up Pituitary insufficiency Nonischemic cardiomyopathy Adrenal insufficiency Hypercholesterolemia Osteoporosis Atrial fibrillation Surgical History History of open reduction and internal fixation (ORIF) procedure Family History Father COPD (chronic obstructive pulmonary disease) Hypertension Renal failure Mother Hypertension Stroke Ischemic bowel disease Maternal Grandfather Lymphoma Skin cancer Paternal Aunt Skin cancer Maternal Grandfather Skin cancer Social History Housing: Apartment Alcohol intake: never Patient Tobacco Use Status: Former Tobacco user Tobacco use type: Cigarette Years Smoked: 30 +/- e-Cigarette/Vaping Use: Never Used Second Hand Smoke Exposure: Yes Patient : No service: No Current occupational status: unemployed Cognitive needs: Yes (cane) Hearing needs: No Vision needs: Yes (glasse) Female Reproductive History Menstrual Age of Menarche: 10 control method: none Total pregnancies: 3 Full term: 1 Date of last pap smear: 09/19/23 (+ pap smear, +hpv ) Date of Mammogram: 03/26/24 (bi rad 3) Review of Systems Const All systems reviewed & are unremarkable except as noted in HPI and below Card Reports as per HPI Resp Reports as per HPI GI Reports as per HPI and Reports no additional complaints Reports as per HPI Physical Exam Vital Signs: Last Vital Signs BP 126/72 12/10/24 09:24 BMI result Body Mass Index 0.2 Const General: cooperative, healthy appearing and comfortable Chest Chest palpation & inspection: normal inspection of the chest and normal palpation of entire chest wall Breast/axilla inspection: normal inspection of the breasts and normal inspection of the axillae Breast/axilla palpation: normal palpation of the breasts, normal palpation of the axillae and no axillary lymphadenopathy Resp Effort & Inspection: normal respiratory effort Auscultation: clear to auscultation bilaterally Percussion: percussion normal Cardio Palpation: normal PMI Rate: regular rate Rhythm: regular rhythm Heart sounds: no murmurs and no rubs Peripheral pulses: Peripheral pulses 2+ throughout GI Inspection: Yes normal to inspection Palpation (GI): Soft to palpation, nontender, no guarding, not rigid and No hepatosplenomegaly present Percussion: Yes normal to percussion Auscultation: normal bowel sounds Rectal Exam - Female: deferred General: Yes bladder normal to palpation External Female Exam: No lesion Speculum Exam - Vagina: normal appearance of the vagina, normal palpation, normal vaginal discharge and not erythematous Speculum Exam - Cervix: normal appearance of the cervix and normal palpation Bimanual exam- vagina & uterus: normal bimanual exam, normal palpation, uterine size normal, bladder normal to palpation, consistency normal and normal palpation Bimanual Exam- Adnexa, other: normal adnexae, no masses and no tenderness Assessment & Plan Assessment & Plan (1) ASCUS with positive high risk HPV cervical: Comment: E6/E7 positive, HPV 16/18/45 negative, 2023 Code(s): R87.610 - Atypical squamous cells of undetermined significance on cytologic smear of cervix (ASC-US); R87.810 - Cervical high risk human papillomavirus (HPV) DNA test positive Category: Medical Plan: Co testing the (2) Well woman exam: Code(s): Z01.419 - Encounter for gynecological examination (general) (routine) without abnormal findings Category: Medical Plan: Co testing done Counseled the patient about the recommended dietary allowance of 1200 mg of Calcium & 800 IU of vitamin D. Diagnostic Mammogram schedule for 04/04. Will order DEXA scan . The patient was instructed to perform monthly self-breast exams and to schedule a 2 week DEXA scan follow-up appointment and an annual exam in a year; All questions answered and the patient verbalized understanding. Orders: Orders XR DEXA axial skeleton Today Z78.0 - Asymptomatic menopausal state Coding Level of Care Code Est Pt Prev Care >65y(66933) Diagnoses ASCUS with positive high risk HPV cervical R87.610; R87.810 Well woman exam Z01.419
[2024-12-10 09:24] VITALS: BP 126/72
--- OUTSIDE RECORDS SUMMARY | 2024-12-10 09:45 | XMS_ITS ---
Author Organization [facility] on Care Team Providers Care Edge Runner Name Role Phone Chhaya Mendoza Unavailable Kat Ferrera Unavailable Unavailable Allergies and adverse reactions Code CodeSystem Substance Reaction Severity StartDate Concern Status 34042 RXNORM Lisinopril Nausea (code- 494919374, SNOMED CT) Mild 09/08/2022 active Care Team Name Role Address Phone Organization Dates Chhaya Mendoza PCP [address] [place] [address], [address], [facility] ([facility]/20/2022 Kat Ferrera [address] [place] [address], [address], [facility] ([facility] - 09/20/2022 Immunizations Immunization Status Vaccine Details Vaccine Code CodeSystem Date Notes Influenza completed Influenza, split virus, trivalent, injectable, contains preservative 141 CVX created date: 09/09/2022 administer ed date: 05/12/2022 verified by [facility] TDAP( Tetanus/Diptheri a/Perutssis) completed tetanus toxoid, reduced diphtheria toxoid, and acellular pertussis vaccine, adsorbed 115 CVX created date: 09/09/2022 administer ed date: 11/27/2014 verified by [facility] SARS-COV-2 (COVID-19) completed SARS-COV-2 (COVID-19) vaccine, mRNA, spike protein, LNP, preservative free, 100 mcg/0.5mL dose or 50 mcg/0.25mL dose Mfg: Moderna Step 2 of Multi-step with next step required 207 CVX created date: 09/09/2022 administer ed date: 09/22/2020 verified by [facility] SARS-COV-2 (COVID-19) completed SARS-COV-2 (COVID-19) vaccine, mRNA, spike protein, LNP, preservative free, 100 mcg/0.5mL dose or 50 mcg/0.25mL dose Mfg: Moderna Step 1 of Multi-step with next step required 207 CVX created date: 09/09/2022 administer ed date: 08/25/2020 verified by [facility] SARS-COV-2 (COVID-19 BOOSTER) completed SARS-COV-2 (COVID-19) vaccine, mRNA, spike protein, LNP, preservative free, 100 mcg/0.5mL dose or 50 mcg/0.25mL dose Mfg: Moderna 207 CVX created date: 09/09/2022 administer ed date: 06/09/2021 verified by [facility] Mental Status Section Date Assessment Total Score Description 09/20/2022 BIMS 15 cognitively int act CAM 0 No delirium ind icated PHQ-9 04 minimal depress ion 09/14/2022 BIMS 15 cognitively int act CAM 0 No delirium ind icated PHQ-9 03 minimal depress ion Problems Problem # Description Date of onset Resolved Date Code CodeSystem Concern Status 1 ANEMIA, UNSPECIFIED 09/08/[address] active 2 DISPLACEMENT OF OTHER INTERNAL ORTHOPEDIC DEVICES, IMPLANTS AND GRAFTS, SUBSEQUENT ENCOUNTER 09/08/[address] active 3 ESSENTIAL (PRIMARY) HYPERTENSION 09/08/[address] active 4 HYPERLIPIDEMIA, UNSPECIFIED 09/08/[address] active 5 INSOMNIA, UNSPECIFIED 09/08/[address] active 6 OTHER ADRENOCORTICAL INSUFFICIENCY 09/08/[address] active 7 UNSPECIFIED ATRIAL FIBRILLATION 09/08/[address] active 8 UNSPECIFIED FRACTURE OF LOWER END OF LEFT FEMUR, SUBSEQUENT ENCOUNTER FOR CLOSED FRACTURE WITH ROUTINE HEALING 09/08/[address] active Reason for Referral No Reasons for Referral Entered Social History Social History Observation Description Start Date End Date Code Code System Current Smoking Status Tobacco smoking consumption unknown 288025288 SNOMED CT Sex Assigned At Female 1955 85692-7 [facility] Gender Identity Vital Signs Code Code System Vitals Name Values and Units Timing Information 15582-5 [facility] Pain Level Value=0.0 09/19/2022 9279-1 [facility] Respiratory Rate Value=18.0 Units=/m in 09/19/2022 8462-4 [facility] Blood Pressure-Diastolic Value=61 Un its=mmHg 09/19/2022 8480-6 [facility] Blood Pressure-Systolic Lhayy=545 Un its=mmHg 09/19/2022 8310-5 [facility] Body Temperature Value=97.8 Units= F 09/19/2022 8867-4 [facility] Heart rate Value=85.0 Units=/min 03/2023 69121-9 [facility] O2 % BldC Oximetry Value=98.0 Units= % 09/19/2022 16021-8 [facility] Weight Kdxlu=256.2 Units=Lbs 10/2022 8302-2 [facility] Height Value=62.0 Units=Inches 09/09/2022
--- OUTSIDE RECORDS SUMMARY | 2024-12-10 09:45 | XMS_ITS | Patient Health Record ---
Author Organization [facility] Address [address] [place] [address] Care Team Providers Care Software Quality Automation Engineer Name Role Phone Rola De Oliveira MD Primary Care Provider Kalpesh Shaikh Unavailable [phone] Reason For Referral No Information Medications Medication SIG (Take, Route, Fr equency, Duration) Notes Start Date End Date Status MoviPrep 100 GM as directed Orally 1 time only for 1 dose 09/23/2011 Active Hydrocortisone Activ e Problems Problem Type SNOMED Code ICD Code Onset Dates Problem Status W/U Status Risk Notes Problem Chronic nonalcoholic liver disease (24661997) Other chronic nonalcoholic liver disease (571.8) Active confirmed Problem Liver function tests abnormal (147659087) Nonspecific abnormal results of liver function study (794.8) Active confirmed Problem Screening for malignant neoplasm of colon (124583970) Special screening for malignant neoplasms, colon (V76.51) Active confirmed Plan Of Treatment Pending Test Test Name Order Date MITOCHONDRIAL AB 09/21/2011 Future Test Test Name Order Date COLONOSCOPY 09/21/2011 Insurance Providers Payer Name Payer Address Payer Phone Subscriber Number Group Number Insured Name Patient Relationship to Insured Coverage Start Date Coverage End Date [facility] [address] [facility] [phone] [id number] BENNY CARABALLO Self - patient is the insured Medical (General) History Medical History History ICD Code Hyperlipidemia Hypopituitarism Denies [place],DM,CVA,Lung disease,renal dise ase Surgical History Surgery Date(Month/Year) Umbilical hernia
--- OUTSIDE RECORDS SUMMARY | 2024-12-10 09:45 | XMS_ITS ---
Author Organization [facility] Care Team Providers Care Control Technician Name Role Phone Lance Carlos Unavailable Unavailable Rosaline Nichole Unavailable Unavailable Leigh Morejon Unavailable Unavailable Allergies and adverse reactions Code CodeSystem Substance Reaction Severity StartDate Concern Status Mold Unknown 07/28/2022 active 67965 RXNORM Lisinopril Unknown 02/17/2022 active Dust Unknown 07/28/2022 active Care Team Name Role Address Phone Organization Dates Lance Carlos PCP [address] [facility] [address], [place], [address], [place] (Office): : [facility] 07/28/2022 - 09/02/2022 Rosaline Nichole [address] [facility] [address], [place], [address], [place] (Office): : [facility] 07/28/2022 - 09/02/2022 Leigh Morejon [address] [facility] [address], [place], [address], [place] (Office): [facility] 07/28/2022 - 09/02/2022 Immunizations Immunization Status Vaccine Details Vaccine Code CodeSystem Date Notes Influenza completed Influenza, split virus, trivalent, injectable, contains preservative 141 CVX created date: 07/28/2022 administer ed date: 05/12/2022 Influenza completed Influenza, split virus, trivalent, injectable, contains preservative 141 CVX created date: 03/16/2022 administer ed date: 07/02/2021 Tdap (Tetanus, Diphtheria, Pertussis) completed tetanus toxoid, reduced diphtheria toxoid, and acellular pertussis vaccine, adsorbed 115 CVX created date: 03/16/2022 administer ed date: 11/27/2014 Prevnar 13 cancelled pneumococcal conjugate vaccine, 13 valent 133 CVX created date: 08/25/2022 consent date: 08/24/2022 Educated by Ladarius Munoz on 08/24/2022 Education provided including Risks and Benefits SARS-COV-2 (COVID-19) completed SARS-COV-2 (COVID-19) vaccine, mRNA, spike protein, LNP, preservative free, 30 mcg/0.3mL dose, nicolle-sucrose formulation Mfg: MODERNA Step 2 of Multi-step with next step required 217 CVX created date: 03/16/2022 administer ed date: 09/22/2020 SARS-COV-2 (COVID-19) completed SARS-COV-2 (COVID-19) vaccine, mRNA, spike protein, LNP, preservative free, 30 mcg/0.3mL dose Mfg: MODERNA Step 1 of Multi-step with next step required 208 CVX created date: 03/16/2022 administer ed date: 08/25/2020 Doc Covid-19 Booster (SARS-COV-2) vaccine completed SARS-COV-2 (COVID-19) vaccine, mRNA, spike protein, LNP, preservative free, 100 mcg/0.5mL dose or 50 mcg/0.25mL dose Mfg: MODERNA 207 CVX created date: 03/16/2022 administer ed date: 06/09/2021 Pfizer-BioNtech Covid-19 Bi-valent Solution cancelled SARS-COV-2 (COVID-19) vaccine, mRNA, spike protein, LNP, bivalent, preservative free, 30 mcg/0.3 mL dose, nicolle-sucrose formulation 300 CVX created date: 07/29/2022 consent date: 07/29/2022 Educated by on 07/29/2022 Moderna COVID-19 Bi-valent Solution cancelled SARS-COV-2 (COVID-19) vaccine, mRNA, spike protein, LNP, bivalent, preservative free, 50 mcg/0.5 mL or 25 mcg/0.25 mL dose 229 CVX created date: 08/25/2022 consent date: 08/24/2022 Educated by Ladarius Munoz on 08/24/2022 Education provided including Risks and Benefits Mental Status Section Date Assessment Total Score Description 09/02/2022 BIMS 15 cognitively int act CAM 0 No delirium ind icated PHQ-9 00 08/03/2022 BIMS 15 cognitively int act CAM 0 No delirium ind icated PHQ-9 00 Problems Problem # Description Date of onset Resolved Date Code CodeSystem Concern Status 1 GASTRO-ESOPHAGEAL REFLUX DISEASE WITHOUT ESOPHAGITIS [address] active 2 MUSCLE WEAKNESS (GENERALIZED) [address] active 3 NEED FOR ASSISTANCE WITH PERSONAL CARE [address] active 4 DISPLACED FRACTURE OF SHAFT OF RIGHT CLAVICLE, SUBSEQUENT ENCOUNTER FOR FRACTURE WITH ROUTINE HEALING [address] active 5 FALL (ON) (FROM) OTHER STAIRS AND STEPS, SUBSEQUENT ENCOUNTER [address] active 6 FRACTURE OF ONE RIB, UNSPECIFIED SIDE, SUBSEQUENT ENCOUNTER FOR FRACTURE WITH ROUTINE HEALING 023 07/28/[address] completed 7 FRACTURE OF UNSPECIFIED PART OF NECK OF LEFT FEMUR, SUBSEQUENT ENCOUNTER FOR CLOSED FRACTURE WITH ROUTINE HEALING [address] active 8 HISTORY OF FALLING 023 07/28/[address] completed 9 OTHER LACK OF COORDINATION [address] active 10 OTHER SEIZURES [address] active 11 UNSPECIFIED COMBINED SYSTOLIC (CONGESTIVE) AND DIASTOLIC (CONGESTIVE) HEART FAILURE [address] active 12 UNSPECIFIED PROTEIN-CALORIE MALNUTRITION [address] active 13 ACUTE POSTHEMORRHAGIC ANEMIA 022 07/28/[address] completed 14 GASTROINTESTINAL HEMORRHAGE, UNSPECIFIED 07/28/[address] completed 15 ACUTE KIDNEY FAILURE, UNSPECIFIED 07/28/[address] completed 16 ACUTE ON CHRONIC COMBINED SYSTOLIC (CONGESTIVE) AND DIASTOLIC (CONGESTIVE) HEART FAILURE 07/28/[address] completed 17 ANEMIA, UNSPECIFIED 679384573 SNOM[address] CT active 18 CARDIOGENIC SHOCK 07/28/[address] completed 19 COVID-19 07/28/[address] completed 20 DEPENDENCE ON RENAL DIALYSIS 07/28/[address] completed 21 DEPENDENCE ON SUPPLEMENTAL OXYGEN 07/28/[address] completed 22 DYSPHAGIA, OROPHARYNGEAL PHASE 07/28/[address] completed 23 ESSENTIAL (PRIMARY) HYPERTENSION 34500255 SNOMED CT active 24 HYPERLIPIDEMIA, UNSPECIFIED 50692260 SNOMED CT active [address] active 26 IMMUNODEFICIENCY DUE TO DRUGS 07/28/[address] completed 27 MUSCLE WASTING AND ATROPHY, NOT ELSEWHERE CLASSIFIED, LEFT LOWER LEG 07/28/[address] completed 28 MUSCLE WASTING AND ATROPHY, NOT ELSEWHERE CLASSIFIED, RIGHT LOWER LEG 07/28/[address] completed 29 OTHER CARDIOMYOPATHIES 16755103 SNOMED CT active 30 OTHER LACK OF COORDINATION 07/28/[address] completed 31 SYNDROME OF INAPPROPRIATE SECRETION OF ANTIDIURETIC HORMONE 07/28/[address] completed 32 UNSPECIFIED ADRENOCORTICAL INSUFFICIENCY 439634450 SNOMED CT active 33 UNSPECIFIED ATRIAL FIBRILLATION 07098189 SNOMED CT active 34 UNSPECIFIED PROTEIN-CALORIE MALNUTRITION 07/28/[address] completed Reason for Referral No Reasons for Referral Entered Social History Social History Observation Description Start Date End Date Code Code System Current Smoking Status Tobacco smoking consumption unknown 544417246 SNOMED CT Sex Assigned At Female 1955 09819-2 [facility] Gender Identity Vital Signs Code Code System Vitals Name Values and Units Timing Information 78057-2 [facility] Pain Level Value=0.0 09/02/2022 9279-1 [facility] Respiratory Rate Value=18.0 Units=/m in 09/02/2022 8462-4 [facility] Blood Pressure-Diastolic Value=78 Un its=mmHg 09/02/2022 8480-6 [facility] Blood Pressure-Systolic Tvmar=918 Un its=mmHg 09/02/2022 8310-5 [facility] Body Temperature Value=97.3 Units= F 09/02/2022 8867-4 [facility] Heart rate Value=78.0 Units=/min 57281-2 [facility] O2 % BldC Oximetry Value=97.0 Units= % 09/02/2022 81947-5 [facility] Weight Gqgeh=803.4 Units=Lbs 8302-2 [facility] Height Value=62.0 Units=Inches 07/29/2022
--- OUTSIDE RECORDS SUMMARY | 2024-12-10 09:45 | XMS_ITS | Data Portability ---
Author Organization [facility], Main Office Address [address] [facility], [address] [place] [address] Care Team Providers Care Recycling Collections Driver Name Role Phone LESLY YOUNG Primary Care Provider [facility] 1ST FLOOR OTHER Assessment No assessment recorded. Plan of Treatment Reminders Order Date Submit Date Provider Last Modified By Organization Details Last Modified Time Details Appointments None record ed. Lab None record ed. Referral None record ed. Procedures None record ed. Surgeries None record ed. Imaging None record ed. Medication Orders None record ed. Patient TargetsNo targets recorded. Patient InstructionsNo instructions recorded. Reason for Referral None Reported. Problems Name Problem SNOMED Code Status Onset Date Resolution Date Notes Provider Name and Address Organization Details Recorded Time Acute adrenal insufficien cy 049621065 Active 2021 ISABELLA AN NP [address], [facility] [address], [place], [address], [facility] [address] 2 12:51:45 Atrial fibrillatio n 50488316 Active 2021 ISABELLA AN NP [address], [address], [place], [address], [facility] [address] 2 12:51:51 Hyperlipide geno 96573662 Active 2021 ISABELLA AN NP [address], [address], [place], [address], [facility] [address] 2 12:51:57 Essential hypertensio n 80994533 Active 2021 ISABELLA AN NP [address], [address], [place], [address], [facility] [address] 2 12:52:03 Asthenia 61363728 Active 2021 ISABELLA AN, [employer] MACHINE OPERATOR [address], [address], [place], [address], [facility] 2 13:14:32 Acute kidney injury 92172391 Active 2021 ISABELLA NATALIYA, P[employer] SEWING MACHINE OPERATOR [address], [address], [place], [address], [facility] 2 13:14:40 SARS-CoV-2 Active 2021 ISABELLA AN, P[employer] SEWING MACHINE OPERATOR [address], [address], [place], [address], [facility] 2 13:14:49 Anemia 883222555 Active 2021 ISABELLA AN, P[employer] SEWING MACHINE OPERATOR [address], [address], [place], [address], [facility] 2 10:50:35 Lower gastrointes tinal hemorrhage 73727692 Active 2021 ISABELLA AN, P[employer] SEWING MACHINE OPERATOR [address], [address], [place], [address], [facility] 2 10:51:01 Generalized rash 106059951 Active 2021 ISABELLA AN, P[employer] SE[employer]ING MACHINE OPERATOR [address], [address], [place], [address], [facility] 2 10:51:47 Chronic systolic heart failure 204901787 Active 2021 Leigh Morejon MD [address], [address], [place], [address], [facility] 2 00:42:51 Wound of skin 600749496 Active 2022 surgical wound left leg ISABELLA AN NP [address], [address], [place], [address], [facility] 3 13:22:46 Fracture of femur 76212239 Active 2022 ISABELLA AN NP [address], [address], [place], [address], [facility] 3 13:23:11 Constipatio n 66949722 Active 2022 ISABELLA AN, [employer] SE[employer]ING MACHINE OPERATOR [address], [address], [place], [address], [facility] 3 13:23:38 Gastroesoph ageal reflux disease without esophagitis 431089202 Active 2022 ISABELLA AN [employer] SE[employer] MACHINE OPERATOR [address], [address], [place], [address], [facility] 3 13:24:18 Chronic kidney disease 709130803 Active 2022 ISABELLA AN, P[employer] SEWING MACHINE OPERATOR [address], [address], [place], [address], [facility] 3 13:25:26 Problem Notes None recorded. Medical Equipment None Reported. Allergies Allergen ID Allergen Name Allergen Category Reaction Reaction Severity Criticality Documentation Date Start Date Code Code System Note Provider Name and Address Organization Details Recorded Time 63754 lisinopri l medicatio n Not available Not available Not available 02/18/2022 15778 RxNorm ISABELLA AN, [employer] SE[employer] MACHINE OPERATOR [address], [address], [place], [address], [facility] 2 12:51:10 50709 mold extract environme nt Not available Not available Not available 02/18/2022 43275 8 RxNorm ISABELLA AN, [employer] SE[employer]ING MACHINE OPERATOR [address], [address], [place], [address], [facility] 2 12:51:15 64515 house dust allergeni c extract environme nt,medica tion Not available Not available Not available 02/18/2022 40096 9 RxNorm ISABELLA AN, P[employer] SEWING MACHINE OPERATOR [address], [address], [place], [address], [facility] 2 12:51:23 Vitals Date Recorded Body height Heart rate Respiratory rate Body temperature Oxygen saturation Oxygen saturation in Arterial blood by Pulse oximetry Systolic blood pressure Diastolic blood pressure Provider Name and Address Organization Details Last Updated DateTime 3 162.56 cm 66 /min 16 /min 97.9 [degF] 97 % 97 % 129 mm[Hg] 72 mm[Hg] ISABELLA AN, P[employer] SEWING MACHINE OPERATOR [address], [address], [place], [address], [facility] 3 14:48:11 Date Recorded Body height Heart rate Respiratory rate Body temperature Oxygen saturation Oxygen saturation in Arterial blood by Pulse oximetry Systolic blood pressure Diastolic blood pressure Provider Name and Address Organization Details Last Updated DateTime 3 162.56 cm 78 /min 16 /min 97.4 [degF] 97 % 97 % 102 mm[Hg] 71 mm[Hg] ISABELLA AN, P[employer] SEWING MACHINE OPERATOR [address], [address], [place], [address], [facility] 3 10:17:45 Date Recorded Body height Heart rate Respiratory rate Body temperature Oxygen saturation Oxygen saturation in Arterial blood by Pulse oximetry Systolic blood pressure Diastolic blood pressure Provider Name and Address Organization Details Last Updated DateTime 3 162.56 cm 83 /min 16 /min 97.2 [degF] 96 % 96 % 149 mm[Hg] 82 mm[Hg] ISABELLA AN, P[employer] SEWING MACHINE OPERATOR [address], [address], [place], [address], [facility] 3 13:28:25 Date Recorded Body height Heart rate Respiratory rate Body temperature Oxygen saturation Oxygen saturation in Arterial blood by Pulse oximetry Systolic blood pressure Diastolic blood pressure Provider Name and Address Organization Details Last Updated DateTime 3 162.56 cm 74 /min 16 /min 97.9 [degF] 97 % 97 % 160 mm[Hg] 87 mm[Hg] ISABELLA AN, P[employer] SEWING MACHINE OPERATOR [address], [address], [place], [address], [facility] 3 12:23:57 Date Recorded Body height Heart rate Respiratory rate Body temperature Oxygen saturation Oxygen saturation in Arterial blood by Pulse oximetry Systolic blood pressure Diastolic blood pressure Provider Name and Address Organization Details Last Updated DateTime 3 162.56 cm 74 /min 16 /min 97.8 [degF] 97 % 97 % 146 mm[Hg] 82 mm[Hg] ISABELLA AN, P[employer] SEWING MACHINE OPERATOR [address], [address], [place], [address], [facility] 3 10:26:06 Social History Question Answer Notes LastModified by Organizat ion Details LastModified Time Tobacco Smoking Status Former Smoker ISABELLA AN, DARLIN [address], [address], [place], [address], [facility] [place] 02/18/2022 12:53:25 Do You Have An Advance Directive? Yes Information not available 02/18/2022 What Is Your Code Status? Full Code Information not available 02/18/2022 Where Do You Live? Apartment Lives On 2nd Floor, Full Flight Of Steps, No Elevator Information not available 03/08/2022 Legal Guardian? No Informati on not available 03/08/2022 Do You Have A Medical Power Of Office Clerk? Yes Information not available 03/08/2022 What Was The Date Of Your Most Recent Tobacco Screening? 07/29/2022 Information not available 07/29/2022 Do You Have An Out Of Hospital DNR? No Information not available 03/08/2022 What Is Your Relationship Status? X 17 Yrs, Planning On Completing Divorce When She Gets Home Information not available 03/08/2022 Has Tobacco Cessation Counseling Been Provided? No N/a As Pt No Longer Smokes Information not available 03/08/2022 Sex: Unknown Functional Status Question Answer Note LastModified by Organizat ion Details LastModified Time Do you use any illicit or recreational drugs? No Information not available 02/18/2022 Do you or have you ever used any other forms of tobacco or nicotine? No Information not available 03/08/2022 What is your level of alcohol consumption? None Information not available 02/18/2022 Mental Status None recorded. Family History Nothing Reported Notes:father-dm, htn brother -defib, esrd Medical History No medical history recorded. Gynecological HistoryNo gynecological history recorded. Obstetrics History GPAL:G 0 P 0 0 0 0 Immunizations Vaccine Type Date Status Note Provider Nam e and Address Organization Details Recorded Time Influenza, adjuvanted, quadrivalent, PF 05/12/2022 completed Leann lyn, [facility] [place] 07/03/2023 13:13:56 Past Encounters Encounter ID Performer Location Encounter Start Date Encounter Closed Date Diagnosis/Indication Diagnosis SNOMED-CT Code Diagnosis ICD10 Code Diagnosis Note [id number] ISABELLA AN NP [address] [address] 02/18/2022 12:45:14 02/22/2022 15:41:32 Acute kidney injury 17325332 N17.9 HD 3x weeksevela daren 800 with meals Acute adre nal insufficiency 277181537 E27.2 hydrocorti sone 10 mg am, 5 mg pm Asthenia 93501452 R53.1 PT OT eval and treatfall precaution sfrequent safety checks Atrial fibrillation 4943 6004 I48.91 eliquis 2.5 mg bidcoreg 25 mg bid Essential hypertension 83127312 I10 coreg 25 mg bidmonitor bp Hyperlipidemia 58511551 E78.5 atorvastat in 40 mg daily SARS-CoV-2 845517418 U07 .1 recovered by pcr positive [id number] ISABELLA AN NP [address] [address] 02/21/2022 12:25:35 03/08/2022 14:38:26 Acute kidney injury 22144618 N17.9 HD 3x weeksevela daren 800 with meals Atrial fibrillation 4943 6004 I48.91 eliquis 2.5 mg bidcoreg 25 mg bid Acute adre nal insufficiency 985129229 E27.2 hydrocorti sone 10 mg am, 5 mg pm [id number] ISABELLA AN NP [address] [address] 02/28/2022 09:41:39 03/09/2022 16:13:15 Anemia 045437910 D64.9 vit c 250 mg dailyiron 325 mg dailymonit or labs Lower gastrointestinal hemorrhage 59447543 K92.2 protonix 40 mg dailysched ule EGD/colono scopy Generalized rash 8040264 06 R21 cetirizine 10 mg bid for 5 days Acute kidney injury 1466 9001 N17.9 HD 3x weeksevela daren 800 with meals Acute adre nal insufficiency 309159793 E27.2 hydrocorti sone 10 mg am, 5 mg pm Asthenia 85379671 R53.1 PT OT eval and treatfall precaution sfrequent safety checks Atrial fibrillation 4943 6004 I48.91 eliquis 2.5 mg bidcoreg 25 mg bid Essential hypertension 78690086 I10 coreg 3.125 mg bidmonitor bp Hyperlipidemia 84707632 E78.5 atorvastat in 40 mg daily SARS-CoV-2 819313735 U07 .1 recovered by pcr positive [id number] ISABELLA AN NP [address] [address] 03/02/2022 13:42:46 03/09/2022 16:16:32 Acute kidney injury 11974197 N17.9 HD 3x weeksevela daren 800 with meals Generalized rash 5683098 06 R21 cetirizine 10 mg bid for 5 daysmonito r for any further rash Lower gastrointestinal hemorrhage 98625425 K92.2 protonix 40 mg dailysched ule EGD/colono scopy [id number] Leigh Morejon MD [facility] [address] [place] [address] 03/08/2022 16:11:13 03/15/2022 13:11:38 Acute kidney injury 89554466 N17.0 Labs much improved yesterday. Pt says she is urinating some, but not much.Nichole nue HD 3x weekContin ue sevelamer 800 mg with mealsConti nue to avoid nephrotoxi c meds as able.Monit or labs.Renal f/u as planned Generalized rash 4539468 06 L50.8 Mostly resolved, just drying lesions now.Possib ly due to COVID.Comp leted cetirizine 10 mg BID on 03/05.Monit or for recurrence Lower gastrointestinal hemorrhage 36006461 K92.1 No further evidence of bleeding.C ontinue pantoprazo le 40 mg qd.Sofia montague has EGD/colono scopy scheduled already, but not in d/c instructio ns. She will check on date and let us know. Anemia 861797340 D64.89 Multifacto rial. Stable on last check.Cont inue FeSO4 325 mg qd with vit C 250 mg qd for absorption Monitor labs Acute adre nal insufficiency 316284201 E27.2 Continue hydrocorti sone 10 mg qam and 5 mg qpmStress dose when needed.Mon itor Asthenia 23547184 R53.1 Continues to be deconditio yann, but improving. Needs PT/OT for strengthen ing, balance, gait training, safety and function.C ontinue fall precaution s.Monitor for safety. Atrial fibrillation 4943 6004 I48.0 Rate remains in good control despite decreased carvedilol .Continue carvedilol 3.125 mg BID.Contin ue eliquis 2.5 mg BID for AC. If renal function returns to nl can go back to 5 mg BID, depending on status of GI bleed.Saima tor HR and bleeding risk. Essential hypertension 10942131 I10 Good control on meds as above.Saima tor BP and labs. Hyperlipidemia 53083953 E78.49 Continue atorvastat in 40 mg qd.Monitor labs as outpt. SARS-CoV-2 620932607 U07 .1 Tested + on 02/05Very tumultuous course.Now recovering as above.Saima tor for sequelae. Chronic sy stolic heart failure 043651754 I50.22 Continue carvedilol 3.125 mg BID.Not on diuretics currently, right now fluid being balanced at HD, may need to restart diuretic if she comes off dialysis.M onitor resp. status, fluid status, wts and labs. [id number] ISABELLA AN NP [address] [address] 03/09/2022 12:34:06 03/15/2022 13:57:52 Acute kidney injury 60095681 N17.0 HD 3x weeksevela daren 800 with meals Acute adre nal insufficiency 269637079 E27.2 hydrocorti sone 10 mg am, 5 mg pm Generalized rash 7317680 06 L50.8 cetirizine 10 mg bid for 5 daysmonito r for any further rash [id number] ISABELLA AN NP [address] [address] 03/24/2022 12:19:58 03/29/2022 15:13:22 Acute kidney injury 46239853 N17.0 HD 3x weeksevela daren 800 bid Chronic sy stolic heart failure 733878854 I50.22 carvedilol 3.125 mg BID.Not on diuretics currently, right now fluid being balanced at HD, may need to restart diuretic if she comes off dialysis.M onitor resp. status, fluid status, wts and labs. [id number] ISABELLA AN NP [address] [address] 03/28/2022 10:26:20 03/31/2022 15:29:43 Anemia 285853499 D64.9 vit c 250 mg dailyiron 325 mg dailymonit or labs Lower gastrointestinal hemorrhage 71192887 K92.2 protonix 40 mg dailysched ule EGD/colono scopy Generalized rash 0324943 06 R21 cetirizine 10 mg bid for 5 days Acute kidney injury 1466 9001 N17.9 HD 3x weeksevela daren 800 with meals Acute adre nal insufficiency 889460427 E27.2 hydrocorti sone 10 mg am, 5 mg pm Asthenia 00373893 R53.1 PT OT eval and treatfall precaution sfrequent safety checks Atrial fibrillation 4943 6004 I48.91 eliquis 2.5 mg bidcoreg 25 mg bid Essential hypertension 56134046 I10 coreg 3.125 mg bidmonitor bp Hyperlipidemia 35639580 E78.5 atorvastat in 40 mg daily SARS-CoV-2 575216316 U07 .1 recovered by date02/05 pcr positive ISABELLA AN NP [address] [address] 07/29/2022 10:03:54 08/02/2022 12:10:27 Wound of skin 895649718 T14.8XXA monitor for any signs of infections taples can be removed 08/09 per hospital note Fracture of femur 942430 00 S72.92XA PT OT eval and treatoxyco done 5 mg q4hr prn x3 daysibupro fen 600 mg l4wlzduadq ntin 300 mg tid Constipation 90748821 K5 9.00 colace bidmiralax dailysenna daily Atrial fibrillation 4943 6004 I48.91 eliquis 2.5 mg bidcoreg 3.25 mg bid Hyperlipidemia 33565499 E78.5 atorvastat in 40 mg daily Anemia 994065015 D64.9 vit c 250 mg dailyiron 325 mg dailymonit or labs Gastroesop hageal reflux disease without esophagitis 589092347 K21.9 protonix 40 mg daily Chronic ki dney disease 893927240 N18.9 sevelamer 800 mg ac Acute adre nal insufficiency 118405949 E27.2 hydrocorti sone 10 mg am, 5 mg pm [id number] ISABELLA AN NP [address] [address] 08/01/2022 11:51:52 08/03/2022 14:11:14 Chronic kidney disease 294483304 N18.9 sevelamer 800 mg acmonitor labs Fracture of femur 237491 00 S72.92XA PT OT eval and treatoxyco done 5 mg q4hr prn x3 daysibupro fen 600 mg q3tglasbtw ntin 300 mg tid Wound of skin 710590004 T14.8XXA monitor for any signs of infections taples can be removed 08/09 per hospital note [id number] Fifi Cuevas MD [address] [address] 08/05/2022 05:52:33 08/09/2022 08:30:29 Fracture of femur 51192765 S72.22XD PT/OTparti al WB LLEAPAP 975 mg q8h prnoxycodo ne 5 mg q4h prnibuprof en 600 mg q8h prngabapen tin 300 mg t0wirwlway n 2.5 mg d18zjowy monitor Chronic sy stolic heart failure 581417791 I50.22 carvedilol 3.125 mg bidwill monitor Atrial fibrillation 4943 6004 I48.0 carvedilol 3.125 mg bid for rate controlapi xaban 2.5 mg g42vcsjp monitor Chronic ki dney disease 890874537 N18.32 sevelamer 800 mg with mealswill avoid nephrotoxi c medication Essential hypertension 05467167 I10 carvedilol 3.125 mg bidwill monitor Hyperlipidemia 26048304 E78.49 atorvastat in 40 mg dailywill monitor Adrenal co rtical hypofunction 455370607 E27.49 hydrocorti sone 10 mg in morning and 5 mg in eveningwil l monitorfu endocrinol ogy [id number] ISABELLA AN NP [address] [address] 08/08/2022 14:47:32 08/10/2022 14:51:32 Fracture of femur 14177600 S72.22XD PT OT eval and treatoxyco done 5 mg q4hr prnibuprof en 600 mg x6ewgivqem ntin 300 mg tid Wound of skin 386732768 T14.8XXA monitor for any signs of infections taples can be removed 08/09 per hospital note [id number] ISABELLA AN NP [address] [address] 08/12/2022 10:16:56 08/16/2022 09:49:12 Fracture of femur 16191235 S72.22XD PT OT eval and treatoxyco done 5 mg q4hr prnibuprof en 600 mg z3uovudapy ntin 300 mg tid Asthenia 22272029 R53.1 PT OT eval and treatfall precaution sfrequent safety checks [id number] ISABELLA AN NP [address] [address] 08/18/2022 13:02:37 08/24/2022 14:38:33 Fracture of femur 08103930 S72.22XD PT OT eval and treatoxyco done 5 mg q4hr prnibuprof en 600 mg t1wxlesrgt ntin 300 mg tid Wound of skin 324392783 T14.8XXA healed wellmonito r for any signs of infection [id number] ISABELLA AN NP [address] [address] 08/26/2022 12:17:50 08/30/2022 08:30:41 Wound of skin 574023492 T14.8XXA healedmoni tor for any signs of infections taples can be removed 08/09 per hospital note Fracture of femur 094611 00 S72.92XA PT OT eval and treatoxyco done 5 mg q4hr prn x3 daysibupro fen 600 mg z5rmyatwcu ntin 300 mg tid Constipation 18694401 K5 9.00 colace bidmiralax dailysenna daily Atrial fibrillation 4943 6004 I48.91 eliquis 2.5 mg bidcoreg 3.25 mg bid Hyperlipidemia 49145294 E78.5 atorvastat in 40 mg daily Anemia 510318042 D64.9 vit c 250 mg dailyiron 325 mg dailymonit or labs Gastroesop hageal reflux disease without esophagitis 459663938 K21.9 protonix 40 mg daily Chronic ki dney disease 985102775 N18.9 sevelamer 800 mg ac Acute adre nal insufficiency 057415343 E27.2 hydrocorti sone 10 mg am, 5 mg pm [id number] DARLIN MONTOYA [address] [place] [address] 09/02/2022 10:05:53 09/05/2022 14:50:13 Wound of skin 126173240 T14.8XXA healedmoni tor for any signs of infection Fracture of femur 160076 00 S72.92XA PT OT eval and treatibupr ofen 600 mg v6ppowcmen ntin 300 mg tid Constipation 09791675 K5 9.00 colace bidmiralax dailysenna daily Atrial fibrillation 4943 6004 I48.91 eliquis 2.5 mg bidcoreg 3.25 mg bid Hyperlipidemia 68631896 E78.5 atorvastat in 40 mg daily Anemia 149762157 D64.9 vit c 250 mg dailyiron 325 mg dailymonit or labs Gastroesop hageal reflux disease without esophagitis 114866925 K21.9 protonix 40 mg daily Chronic ki dney disease 957768631 N18.9 sevelamer 800 mg ac Acute adre nal insufficiency 537983627 E27.2 hydrocorti sone 10 mg am, 5 mg pm Health Concerns Section Related Observation LastModified by Organization Detai ls LastModified Time None Recorded Concern Status LastModified by Organization Details LastModified Time None Recorded Advance Directives Directive Y: Payers Insurance Date Sequence Insurance Name Policy Number Policy Hirsch Covered Member ID Hirsch Member ID Guarantor Name 08/12/2022 1 MEDICARE [place]: [facility] Nanci Henderson [id number] Nanci Henderson Notes Date Note Type Note Provider Name and Address Organization Details Recorded Time 08/08/2022 text/html seen today for a cute rounding visit, Beny she self transfered from commode to bed, large bruise noted left inner and posterior thigh, had not extended beyond the markings, staff measured the circumference for 3 days and it remained 55-56 cm with no additional swelling ISABELLA AN NP [address], [address], [place], [address], [facility] 08/08/2022 14:52:37 08/12/2022 text/html seen today for a cute rounding visit, Beny in the PT gym on the bike, she is now WBAT and beginning to ambulate with walker, good cms to leg, surgical wound healed well ISABELLA AN NP [address], [address], [place], [address], [facility] 08/12/2022 10:20:23 08/18/2022 text/html seen today for a cute rounding visit, Beny self propels around the unit in her wheelchair, she has been participating with PT and improving well, surgical wound healed well, good cms ISABELLA AN NP [address], [address], [place], [address], [facility] 08/18/2022 13:30:49 08/26/2022 text/html seen today for 3 0 day routine rounding visit-66 yof seen as category 2 trauma on 07/25 s/p mechanical fall. Evaluation and work-up noted patient to have left femur fracture, right first rib fracture, and right distal clavicle fracture. Orthopedic surgery was consulted, and patient did require operative repair of femur fracture which she underwent on 07/26. Postoperatively the patient is partial weightbearing on the left lower extremity, Aquacel dressing to remain in place until 08/02-08/05, and was grossly stained. [place] may be removed on 08/09 and can be done at rehab facility if able. Also recommended outpatient follow-up with orthopedics in 2 to 4 weeks. Patient should remain weight-bear as tolerated on the right upper extremity with sling for comfort. Hospital course was otherwise uncomplicated, and after evaluation by physical and Occupational Therapy patient was recommended for discharge to rehab facility. At the time of discharge the patients pain was well controlled, they were afebrile with no leukocytosis. She denied nausea, vomiting, fevers, chills, chest pain or SOB. She was tolerating a diet, passing gas, and having bowel movements. CAOx3 sitting up in wheelchair, she has been ambulating with PT walker and supervision ISABELLA AN NP [address] [facility] [address], [place], [address], No [place]ains 08/26/2022 12:26:26 09/02/2022 text/html seen today for discharge summary-66 yof seen as category 2 trauma on 07/25 s/p mechanical fall. Evaluation and work-up noted patient to have left femur fracture, right first rib fracture, and right distal clavicle fracture. Orthopedic surgery was consulted, and patient did require operative repair of femur fracture which she underwent on 07/26. Postoperatively the patient is partial weightbearing on the left lower extremity, Aquacel dressing to remain in place until 08/02-08/05, and was grossly stained. [place] may be removed on 08/09 and can be done at rehab facility if able. Also recommended outpatient follow-up with orthopedics in 2 to 4 weeks. Patient should remain weight-bear as tolerated on the right upper extremity with sling for comfort. Hospital course was otherwise uncomplicated, and after evaluation by physical and Occupational Therapy patient was recommended for discharge to rehab facility. At the time of discharge the patients pain was well controlled, they were afebrile with no leukocytosis. She denied nausea, vomiting, fevers, chills, chest pain or SOB. She was tolerating a diet, passing gas, and having bowel movements. CAOx3 sitting up on side of bed, she has been ambulating with PT walker and supervision, independent with walker in the room, eating and drinking fairly well ISABELLA AN NP [address], [address], [place], [address], No [facility]ains 09/02/2022 10:28:02 OBGyn Episode No OBEpisode recorded.
--- OUTSIDE RECORDS SUMMARY | 2024-12-10 09:45 | XMS_ITS | Clinical Summary ---
Author Organization [facility] Facility Address [address] [address] Care Team Providers Care Tutor Name Role Phone Rola De Oliveira MD Primary Care Provider [phone] Social History Tobacco Use Types Packs/Day Years Used Date Smoking Tobacco: Never Assessed Comments Unknown Sex and Gender Information Value Date Recorded Sex Assigned at Not on file Legal Sex Female 11:14 AM EDT Gender Identity Not on file Sexual Orientation Not on file Plan of Treatment Health Maintenance Due Date Last Done Comments Breast Cancer Screening 1955 Colorectal Cancer Screening: Annual FOBT 2002 Colorectal Cancer Screening: Colonoscopy 2002 Colorectal Cancer Screening: Sigmoidoscopy 2002 Pneumococcal Vaccine: 50+ Ye ars (1 - PCV) 10/07/2003 Influenza Vaccine (Season Ended) 2025 Hepatitis B Vaccine Aged Out No longe r eligible based on patient's age to complete this topic Insurance Medicare Medicare Care Teams Tutor Relationship Specialty Start Date End Date Rola De Oliveira MD [facility] [address] DEONTE SALAS PCP - General 04/16/19
== END 2024-12-10 09:50 | disposition home or self-care (01) ==
LOC: HO.HWS 09:13
PROVIDERS: PCP Internal Medicine; Visit Provider Obstetrics & Gynecology
DX: Z91.89 Other specified personal risk factors, not elsewhere classified (principal); R87.610 Atypical squamous cells of undetermined significance on cytologic smear of cervix (ASC-US); R87.810 Cervical high risk human papillomavirus (HPV) DNA test positive
CPT/HCPCS: G0101; Q0091

== ENCOUNTER 2024-12-27 09:30 | Outpatient (AMB) | payer MEDICARE, SELFPAY ==
[2024-12-27 09:33] VITALS: BP 124/62; PULSE 69; BMI 21.4
--- NOTE | 2024-12-27 09:33 | A.OFFVIS_ITS ---
Vital Signs 12/27/24 09:33 Height 5 ft 4 in Weight 124 lb 12.506 oz BMI 21.4 BP 124/62 Blood Pressure Location Lt brachial Position Sitting Pulse 69 Pulse Source Monitor Intake Visit Reasons: 6m follow up Wire Frame Maker Required: No Washtub Worker Helper: Washtub Worker Helper Present Allergies lisinopril Allergy (Unknown, Verified 12/27/24 09:35) Unknown Medication List - Last Reconciled 12/27/24 by KEREN Tilley albuterol sulfate 90 mcg/actuation 2 puffs inhalation Q6H PRN apixaban (Eliquis) 5 mg PO BID 90 days ascorbic acid (vitamin C) 250 mg PO DAILY atorvastatin 40 mg PO DAILY carvedilol 6.25 mg PO BID cetirizine (Zyrtec) 10 mg PO DAILY PRN diphenhydramine HCl (ZzzQuil) 12.5 mg PO BEDTIME PRN fluticasone propionate 50 mcg/actuation (Flonase Allergy Relief) 2 sprays intranasal DAILY hydrocortisone 5 mg PO DAILY hydrocortisone TAKE 1 TABLET IN THE MORNING AND HALF A TABLET IN THE EVENING losartan 25 mg PO DAILY pantoprazole 40 mg PO DAILY HPI HPI 6m follow up: Details: Nanci is a 69-year-old female with past medical history of hypertension, hyperlipidemia, nonischemic cardiomyopathy, chronic atrial fibrillation who was admitted fall 2021 with COVID, shock, vasopressor use, acute renal failure, 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 She was in the ICU for 1 week.? She did have full recovery with improvement in EF. She was not seen in our office between 11/18/22 and 10/27/2023. An echocardiogram had been done October 2023 which showed EF 35-40%. A nuclear stress test showed no ischemia. She has been medically managed and a repeat echo done 03/2024 showed EF 50-55%. Her last visit was 07/01/2024 and she now presents for follow-up. Today she states she has been feeling well with no concerning symptoms. No chest discomfort at rest or with activity. No sob, PND, orthopnea or edema. No palpitations, lightheadedness, presyncope, syncope, fall. Tolerates a flight of stairs without difficulty. 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 Blood pressure has been controlled. Recently went on vacation to [place] and tolerated it well. Taking all meds as directed. No Bleeding issues reported. Daughter present. [facility] Medical History Well woman exam Breast cancer screening by mammogram Screening for colon cancer Adult general medical exam Cellulitis Cat bite Abnormal electrocardiogram [ECG] [EKG] Upper respiratory tract infection Sinusitis Cough COVID-19 Hospital discharge follow-up Pituitary insufficiency Nonischemic cardiomyopathy Adrenal insufficiency Hypercholesterolemia Osteoporosis Atrial fibrillation Surgical History History of open reduction and internal fixation (ORIF) procedure Family History Father COPD (chronic obstructive pulmonary disease) Hypertension Renal failure Mother Hypertension Stroke Ischemic bowel disease Maternal Grandfather Lymphoma Skin cancer Paternal Aunt Skin cancer Maternal Grandfather Skin cancer Social History Housing: Apartment Alcohol intake: never Patient Tobacco Use Status: Former Tobacco user Tobacco use type: Cigarette Years Smoked: 30 +/- e-Cigarette/Vaping Use: Never Used Second Hand Smoke Exposure: Yes service: No Current occupational status: unemployed Cognitive needs: Yes (cane) Hearing needs: No Vision needs: Yes (glasse) Female Reproductive History Menstrual Age of Menarche: 10 Review of Systems Const All systems reviewed & are unremarkable except as noted in HPI and below ENT Denies dizziness Card Denies chest pain, Denies chest pain at rest, Denies chest pain with activity, Denies rapid heart rate, Denies pedal edema, Denies edema, Denies leg edema, Denies lightheadedness, Denies palpitations, Denies dyspnea, Denies dyspnea on exertion and Denies orthopnea Resp Denies cough, Denies dyspnea and Denies dyspnea on exertion GI Denies hematochezia and Denies change in stool character Musc Denies abnormal gait, Denies limited range of motion, Denies muscle cramps, Denies muscle weakness, Denies numbness, Denies radiating pain into limb, Denies stiffness and Denies tingling Neuro Denies abnormal gait, Denies dizziness, Denies numbness and Denies tingling Endo Denies palpitations Physical Exam Vital Signs: Last Vital Signs Pulse 69 12/27/24 09:33 BP 124/62 12/27/24 09:33 BMI result Body Mass Index 21.4 Const General: cooperative, healthy appearing, comfortable and no acute distress Orientation/consciousness: patient oriented x3 Neck Neck: Yes normal visual inspection and Yes no JVD Resp Effort & Inspection: normal respiratory effort Auscultation: clear to auscultation bilaterally, no crackles, no rales, no rhonchi and no wheezes Cardio Jugular venous distension: no JVD Rate: regular rate Rhythm: abnormal rhythm Heart sounds: S1 normal heart sound present, S2 normal heart sound present, no gallops, no murmurs and no rubs Peripheral pulses: Peripheral pulses 2+ throughout Neuro General: patient oriented x3 Extrem General: Yes normal to inspection, No no pedal edema and No calf tenderness Psych Appearance: grossly normal Mental Status: mental status grossly normal Speech and movement: Normal speech and movement present Office Procedures EKG Details: Today, read by me, atrial flutter with variable AV block, rate 69, QTC 475 millisecond [id number], Complete Assessment & Plan Assessment & Plan (1) Nonischemic cardiomyopathy: Code(s): I42.8 - Other cardiomyopathies Category: Medical Plan: Hx of nonischemic CMP, which did improve then reoccurred during acute illness with shock requiring ICU level of care, 01/2022. Echo at [facility] 02/06/22 showed drop in EF 30-35%, mod MR and TR. She was medically managed and condition did gradually improve. Echo done on 04/29/22 showed EF 50-55%. A repeat echo was done 10/2023 showing EF 35-40%. She underwent a nuclear stress test on 12/06/2023 showing likely normal myocardial perfusion imaging. She had a Holter monitor to assess atrial fibrillation rates, done on 12/06/2023 for 3 days showing AFib with average heart rate 79, frequent PVCs, 3%. Her drop in EF was thought to possibly be related to the frequent PVCs. She has been on carvedilol and losartan for neurohormonal modulation. A repeat echo done 03/12/2024 showed EF 50-55%. At this point she is doing well with no concerning symptoms and good activity tolerance. She is not fluid overloaded on examination. Signs and symptoms of heart failure reviewed with her. Continue carvedilol 6.25 mg b.i.d., continue losartan. If EF drops again will plan to change to Entresto. Last labs 06/11/2024 showed creatinine 0.92. Continue periodic home monitoring of blood pressure. Will repeat echo prior to next visit. Cardiology follow-up 6 months, sooner if needed. (2) CAD (coronary artery disease): Code(s): I25.10 - Atherosclerotic heart disease of [place] tribes coronary artery without angina pectoris Category: Medical Qualifiers: Coronary Disease-Associated Artery/Lesion type: [place] artery Elem vs. transplanted heart: [place] heart Associated angina: without angina Qualified Code(s): I25.10 - Atherosclerotic heart disease of [place] coronary artery without angina pectoris Plan: Cardiac catheterization from 08/24/2018 shows left main ostial 40% stenosis, IVUS evaluation 37% stenosis. No mentioned of disease elsewhere. She is not having any anginal symptoms. Nuclear stress test from 11/2023 was normal. She is not on aspirin as she is on Eliquis. She is on Atorvastatin with ideal LDL goal less than 70 and Carvedilol. Signs and symptoms of angina reviewed with her. (3) Atrial fibrillation: Code(s): I48.91 - Unspecified atrial fibrillation Category: Medical Qualifiers: Atrial fibrillation type: paroxysmal Qualified Code(s): I48.0 - Paroxysmal atrial fibrillation Plan: Hx chronic afib being treated with rate control. Holter monitor as above showing controlled AFib, rate 79 average. Echo shows moderately dilated left atrium, mildly dilated right atrium. EKG done today showing atrial flutter, variable AV block, rate 69. She is on carvedilol for heart rate control. She is on Eliquis for anticoagulation. No bleeding issues reported. (4) Hypertension: Code(s): I10 - Essential (primary) hypertension Category: Medical Plan: Blood pressure goal less than 130/80. Well controlled at present. No med changes made at this time. In the past she had dizziness with the higher dose losartan. (5) Hypercholesterolemia: Code(s): E78.00 - Pure hypercholesterolemia, unspecified Category: Medical Plan: LDL goal < 70 in pt with known CAD. Labs done 05/14/2024 showed LDL 58. This is well controlled. Continue Atorvastatin. Plan I discussed with the patient that her atrial flutter is well-controlled and no changes to her medication are necessary at this time. We plan to perform an echocardiogram before her next visit to monitor her heart function. I advised her to be vigilant for symptoms such as fluid retention or chest pain and to report them immediately. Orders: Orders CA echo transthoracic complete 5 Months I25.10 - Atherosclerotic heart disease of [place] tribes coronary artery without angina pectoris, I42.8 - Other cardiomyopathies Lipid Panel Today E78.00 - Pure hypercholesterolemia, unspecified Patient Instructions: - Continue current medications as prescribed. - Report any new symptoms such as swelling, shortness of breath, or chest pain immediately. - Follow up in six months with an echocardiogram prior to the visit. Patient was informed and verbally consented to the use of an ambient scribe for clinic note documentation during this visit. Visit time spent on chart review, interview, assessment, orders, documentation. Coding Level of Care Code Est Pt Level 4 (35706) Complex EM visit Add On G2211 Diagnoses Nonischemic cardiomyopathy I42.8 Coronary artery disease involving [place] tribes coronary artery of [place] heart without angina pectoris I25.10 Coronary Disease-Associated Artery/Lesion type: [place] artery Elem vs. transplanted heart: [place] heart Associated angina: without angina Paroxysmal atrial fibrillation I48.0 Atrial fibrillation type: paroxysmal Hypertension I10 Hypercholesterolemia E78.00 CPT Codes EKG - CPT: 56932-[id number], Complete ([id number]) Time Spent (min) 32
--- OUTSIDE RECORDS SUMMARY | 2024-12-27 09:37 | XMS_ITS | Clinical Summary ---
Author Organization [facility] Facility Address [address] [address] Care Team Providers Care Ct Scan Tech Name Role Phone Rola De Oliveira MD Primary Care Provider [phone] Social History Tobacco Use Types Packs/Day Years [...] 2002 Pneumococcal Vaccine: 50+ Ye ars (1 of 1 - PCV) 10/07/2003 Influenza Vaccine (#1) 2025 Hepatitis B Vaccine Aged Out No longe r eligible based on patient's age to complete this topic Insurance Medicare Medicare Care Teams Ct Scan Tech Relationship Specialty Start Date End Date Rola De Oliveira MD [facility] [address] DEONTE SALAS PCP - General 04/16/19
--- OUTSIDE RECORDS SUMMARY | 2024-12-27 09:37 | XMS_ITS | Encounter Summary ---
Author Organization [facility] Address [address] [place] [address] [place] [id number] Phone Care Team Providers Care Loan Originator Name Role Phone Rola De Oliveira MD Primary Care Provider [phone] Encounter Details Date Type Department Care Team (Late Contact Info) Description 08/20/2018 Ancillary Orders Virtual Department [address] [place] [address] Sd Salcedo MD [address] [facility] [place] [address] Bruit of left carotid artery Social History Tobacco Use Types Packs/Day Years Used Date Smoking Tobacco: Former Cigarettes Smokeless Tobacco: Never Comments:quit 15 yrs ago Alcohol Use Standard Drinks/Week Comments No 0 (1 standard drink = 0.6 oz pur e alcohol) Comments Unknown Sex and Gender Information Value Date Recorded Sex Assigned at Not on file Legal Sex Female 9:57 PM EDT Gender Identity Not on file Sexual Orientation Not on file documented as of this encounter Plan of Treatment Upcoming Encounters Date Type Department Care Team (Late st Contact Info) Description 08/26/2025 9:30 AM EDT Office Visit [facility] [address] [place] [id number] Thee Morales DO [address] [place] [id number] documented as of this encounter Results * US Carotid Duplex (Bilateral) (08/21/2018 3:05 PM EDT) Anatomical Region Laterality Modality Heart, Thoracic Vasculature, Neck Ultrasound 08/21/2018 5:23 PM EDT Impressions 08/21/2018 5:27 PM EDT Elevated flow velocities in the ICA but with normal systolic ratio is, likely a reflection of the more proximal disease in the common carotids bilaterally. Any ICA stenosis is estimated at less than 50% relative to distal ICA diameters. POS - [id number] Narrative 08/21/2018 5:27 PM EDT COMPARISON:None CAROTID ULTRASOUND FINDINGS: RIGHT: Peak external carotid artery: 150 cm/sec Peak vertebral: 83 cm/sec and antegrade Peak common carotid artery: 129 cm/sec Peak internal carotid artery: 177 cm/sec. No spectral broadening. Carotid artery morphology: Mild thickening along the CCA. Mild to moderate plaque at the bulb. Degree of stenosis on color and grayscale imaging is not concordant with the elevated flow velocity. Peak systolic ratio is normal. LEFT: Peak external carotid artery: 140 cm/sec Peak vertebral: 94 cm/sec and antegrade Peak common carotid artery: 134 cm/sec Peak internal carotid artery: 154 cm/sec Carotid artery morphology: Extensive fairly pronounced intimal thickening in the CCA. Moderate soft plaque and some mixed atheroma in the bulb. No prominent spectral broadening. Peak systolic ratio is normal. Any stenosis measurement is relative to the distal ICA diameters. Procedure Note Génesis Ambrose MD - 08/21/2018 COMPARISON:None CAROTID ULTRASOUND FINDINGS: RIGHT: Peak external carotid artery: 150 cm/sec Peak vertebral: 83 cm/sec and antegrade Peak common carotid artery: 129 cm/sec Peak internal carotid artery: 177 cm/sec. No spectral broadening. Carotid artery morphology: Mild thickening along the CCA. Mild to moderateplaque at the bulb. Degree of stenosis on color and grayscale imaging isnot concordant with the elevated flow velocity. Peak systolic ratio is normal. LEFT: Peak external carotid artery: 140 cm/sec Peak vertebral: 94 cm/sec and antegrade Peak common carotid artery: 134 cm/sec Peak internal carotid artery: 154 cm/sec Carotid artery morphology: Extensive fairly pronounced intimal thickeningin the CCA. Moderate soft plaque and some mixed atheroma in the bulb. Noprominent spectral broadening. Peak systolic ratio is normal. Any stenosis measurement is relative to the distal ICA diameters. IMPRESSION: Elevated flow velocities in the ICA but with normal systolic ratio is,likely a reflection of the more proximal disease in the common carotidsbilaterally. Any ICA stenosis is estimated at less than 50% relative todistal ICA diameters. POS - [id number] Sd Salcedo MD CV US NEUROVASCULAR Final Resu lt documented in this encounter Visit Diagnoses Diagnosis Bruit of left carotid artery Bruit of left carotid artery documented in this encounter Additional Health Concerns Infection Onset Date Last Indicated Resolved Time COVID-19 02/05/2022 02/05/2022 02/26/2022 1:21 AM EDT documented as of this encounter Care Teams Loan Originator Relationship Specialty Start Date End Date Po, Rola Hall MD [address] [place] [address] [address] [place] [phone] PCP - General Internal Medicine 08/14/18 documented as of this encounter Additional Source Comments The information contained in this document represents components of the legal health record. It is not the complete legal health record.[facility]
--- OUTSIDE RECORDS SUMMARY | 2024-12-27 09:37 | XMS_ITS | Patient Health Record ---
Author Organization [facility] Address [address] [place] [address] Care Team Providers Care Auto Mechanic Apprentice Name Role Phone Rola De Oliveira MD Primary Care Provider Kalpesh Shiakh Unavailable [phone] Reason For Referral No Information Medications Medication SIG (Take, Route, Fr equency, Duration) Notes Start Date End Date Status MoviPrep 100 GM as directed Orally 1 time only for 1 dose 09/23/2011 Active Hydrocortisone Activ e Problems Problem Type SNOMED Code ICD Code Onset Dates Problem Status W/U Status Risk Notes Problem Chronic nonalcoholic liver disease (93977100) Other chronic nonalcoholic liver disease (571.8) Active confirmed Problem Liver function tests abnormal (169485815) Nonspecific abnormal results of liver function study (794.8) Active confirmed Problem Screening for malignant neoplasm of colon (119826132) Special screening for malignant neoplasms, colon (V76.51) Active confirmed Plan Of Treatment Pending Test Test Name Order Date MITOCHONDRIAL AB 09/21/2011 Future Test Test Name Order Date COLONOSCOPY 09/21/2011 Insurance Providers Payer Name Payer Address Payer Phone Subscriber Number Group Number Insured Name Patient Relationship to Insured Coverage Start Date Coverage End Date [facility] [address] [facility] [phone] [id number] BENNY CARABALLO Self - patient is the insured Medical (General) History Medical History History ICD Code Hyperlipidemia Hypopituitarism Denies LA,DM,CVA,Lung disease,renal dise ase Surgical History Surgery Date(Month/Year) Umbilical hernia
--- OUTSIDE RECORDS SUMMARY | 2024-12-27 09:37 | XMS_ITS | Data Portability ---
Author Organization [facility], Main Office Address [address] [facility] [facility] [facility], [address] [place] [address] Care Team Providers Care Life Support Technician Name Role Phone LESLY YOUNG Primary Care Provider [phone] [facility] OTHER Assessment No assessment recorded. [...] Details Recorded Time Acute adrenal insufficien cy 112705578 Active 2021 ISABELLA AN NP [address] [facility], [facility] [address], [place], [address], [facility] 2 12:51:45 Atrial fibrillatio n 29651033 Active 2021 ISABELLA AN NP [address] [facility], [address], [place], [address], [facility] 2 12:51:51 Hyperlipide geno 72238554 Active 2021 ISABELAL AN NP [address] [facility], [address], [place], [address], [facility] 2 12:51:57 Essential hypertensio n 71424807 Active 2021 ISABELLA AN NP [address] [facility], [address], [place], [address], [facility] 2 12:52:03 Asthenia 01940367 Active 2021 ISABELLA AN, CAREER EDUCATION TEACHER [address], [address], [place], [address], [facility] 2 13:14:32 Acute kidney injury 90464158 Active 2021 ISABELLA NATALIYA, CAREER EDUCATION TEACHER [address], [address], [place], [address], [facility] 2 13:14:40 SARS-CoV-2 Active 2021 ISABELLA AN, CAREER EDUCATION TEACHER [address], [address], [place], [address], [facility] 2 13:14:49 Anemia 015806536 Active 2021 ISABELLA AN, CAREER EDUCATION TEACHER [address], [address], [place], [address], [facility] 2 10:50:35 Lower gastrointes tinal hemorrhage 11467631 Active 2021 ISABELLA AN, CAREER EDUCATION TEACHER [address], [address], [place], [address], [facility] 2 10:51:01 Generalized rash 293562268 Active 2021 ISABELLA AN, CAREER EDUCATION TEACHER [address] [facility], [address], [place], [address], [facility] 2 10:51:47 Chronic systolic heart failure 852978584 Active 2021 Leigh Morejon MD [address] [facility], [address], [place], [address], [facility] 2 00:42:51 Wound of skin 048713400 Active 2022 surgical wound left leg ISABELLA AN NP [address], [address], [place], [address], [facility] 3 13:22:46 Fracture of femur 15908320 Active 2022 ISABELLA AN NP [address], [address], [place], [address], [facility] 3 13:23:11 Constipatio n 36915188 Active 2022 ISABELLA AN DARLIN [address] [facility], [address], [place], [address], [facility] [employer] [facility] 3 13:23:38 Gastroesoph ageal reflux disease without esophagitis 434745545 Active 2022 ISABELLA AN CAREER EDUCATION TEACHER [address] [facility], [address], [place], [address], [facility] 3 13:24:18 Chronic kidney disease 643761752 Active 2022 ISABELLA AN CAREER EDUCATION TEACHER [address] [facility], [address], [place], [address], [facility] 3 13:25:26 Problem Notes None recorded. Medical Equipment None Reported. Allergies Allergen ID Allergen Name Allergen Category Reaction Reaction Severity Criticality Documentation Date Start Date Code Code System Note Provider Name and Address Organization Details Recorded Time 29884 lisinopri l medicatio n Not available Not available Not available 02/18/2022 09199 RxNorm ISABELLA AN, DARLIN [address] [facility], [address], [place], [address], [facility] 2 12:51:10 98948 mold extract environme nt Not available Not available Not available 02/18/2022 40360 8 RxNorm ISABELLA AN, DARLIN [address] [facility], [address], [place], [address], [facility] 2 12:51:15 20352 house dust allergeni c extract environme nt,medica tion Not available Not available Not available 02/18/2022 05981 9 RxNorm ISABELLA AN, DARLIN [address] [facility], [address], [place], [address], [facility] 2 12:51:23 Vitals Date Recorded Body height Heart rate Respiratory rate Body temperature Oxygen saturation Oxygen saturation in Arterial blood by Pulse oximetry Systolic And Diastolic Provider Name and Address Organization Details Last Updated DateTime 3 162.56 cm 66 /min 16 /min 97.9 [degF] 97 % 97 % 129/72 mm[Hg] ISABELLA AN NP [address] [facility], [address], [place], [address], [facility] 3 14:48:11 Date Recorded Body height Heart rate Respiratory rate Body temperature Oxygen saturation Oxygen saturation in Arterial blood by Pulse oximetry Systolic And Diastolic Provider Name and Address Organization Details Last Updated DateTime 3 162.56 cm 78 /min 16 /min 97.4 [degF] 97 % 97 % 102/71 mm[Hg] ISABELLA AN NP [address] [facility], [address], [place], [address], [facility] 3 10:17:45 Date Recorded Body height Heart rate Respiratory rate Body temperature Oxygen saturation Oxygen saturation in Arterial blood by Pulse oximetry Systolic And Diastolic Provider Name and Address Organization Details Last Updated DateTime 3 162.56 cm 83 /min 16 /min 97.2 [degF] 96 % 96 % 149/82 mm[Hg] ISABELLA AN NP [address] [facility], [address], [place], [address], [facility] 3 13:28:25 Date Recorded Body height Heart rate Respiratory rate Body temperature Oxygen saturation Oxygen saturation in Arterial blood by Pulse oximetry Systolic And Diastolic Provider Name and Address Organization Details Last Updated DateTime 3 162.56 cm 74 /min 16 /min 97.9 [degF] 97 % 97 % 160/87 mm[Hg] ISABELLA AN NP [address] [facility], [address], [place], [address], [facility] 3 12:23:57 Date Recorded Body height Heart rate Respiratory rate Body temperature Oxygen saturation Oxygen saturation in Arterial blood by Pulse oximetry Systolic And Diastolic Provider Name and Address Organization Details Last Updated DateTime 3 162.56 cm 74 /min 16 /min 97.8 [degF] 97 % 97 % 146/82 mm[Hg] ISABELLA AN NP [address] [facility], [address], [place], [address], [facility] 3 10:26:06 Social History Question Answer Notes LastModified by Organizat ion Details LastModified Time Tobacco Smoking Status Former Smoker ISABELLA AN NP [address] [facility], [address], [place], [address], [facility] 02/18/2022 12:53:25 Do You Have An Advance Directive? Yes Information not available 02/18/2022 What Is Your Code Status? Full Code Information not available 02/18/2022 Where Do You Live? Apartment Lives On 2nd Floor, Full Flight Of Steps, No Elevator Information not available 03/08/2022 Legal Guardian? No Informati on not available 03/08/2022 Do You Have A Medical Power Of Roll Edge Stitcher Hand? Yes Information not available 03/08/2022 What Was [...] adjuvanted, quadrivalent, PF 05/12/2022 completed Leann lyn, [facility] 07/03/2023 13:13:56 Past Encounters Encounter ID Performer Location Encounter Start Date Encounter Closed Date Diagnosis/Indication Diagnosis SNOMED-CT Code Diagnosis ICD10 Code Diagnosis Note [id number] ISABELLA GRIPPIN, CAREER EDUCATION TEACHER [address] [address] 02/18/2022 12:45:14 02/22/2022 15:41:32 Acute kidney injury 16366235 N17.9 HD 3x weeksevela daren 800 with meals Acute adre nal insufficiency 460907776 E27.2 hydrocorti sone 10 mg am, 5 mg pm Asthenia 17853897 R53.1 PT OT eval and treatfall precaution sfrequent safety checks Atrial fibrillation 4943 6004 I48.91 eliquis 2.5 mg bidcoreg 25 mg bid Essential hypertension 69560321 I10 coreg 25 mg bidmonitor bp Hyperlipidemia 54682529 E78.5 atorvastat in 40 mg daily SARS-CoV-2 102630212 U07 .1 recovered by pcr positive [id number] ISABELLA AN NP [address] [address] 02/21/2022 12:25:35 03/08/2022 14:38:26 Acute kidney injury 48744388 N17.9 HD 3x weeksevela daren 800 with meals Atrial fibrillation 4943 6004 I48.91 eliquis 2.5 mg bidcoreg 25 mg bid Acute adre nal insufficiency 986033178 E27.2 hydrocorti sone 10 mg am, 5 mg pm [id number] ISABELLA AN NP [address] [address] 02/28/2022 09:41:39 03/09/2022 16:13:15 Anemia 077210083 D64.9 vit c 250 mg dailyiron 325 mg dailymonit or labs Lower gastrointestinal hemorrhage 52474067 K92.2 protonix 40 mg dailysched ule EGD/colono scopy Generalized rash 8329637 06 R21 cetirizine 10 mg bid for 5 days Acute kidney injury 1466 9001 N17.9 HD 3x weeksevela daren 800 with meals Acute adre nal insufficiency 156734994 E27.2 hydrocorti sone 10 mg am, 5 mg pm Asthenia 82792133 R53.1 PT OT eval and treatfall precaution sfrequent safety checks Atrial fibrillation 4943 6004 I48.91 eliquis 2.5 mg bidcoreg 25 mg bid Essential hypertension 08817739 I10 coreg 3.125 mg bidmonitor bp Hyperlipidemia 41733335 E78.5 atorvastat in 40 mg daily SARS-CoV-2 323834504 U07 .1 recovered by date02/05 pcr positive [id number] ISABELLA AN NP [address] [place] [address] 03/02/2022 13:42:46 03/09/2022 16:16:32 Acute kidney injury 51304512 N17.9 HD 3x weeksevela daren 800 with meals Generalized rash 3171805 06 R21 cetirizine 10 mg bid for 5 daysmonito r for any further rash Lower gastrointestinal hemorrhage 09779712 K92.2 protonix 40 mg dailysched ule EGD/colono scopy [id number] Leigh Morejon MD [address] [place] [address] 03/08/2022 16:11:13 03/15/2022 13:11:38 Acute kidney injury 33005489 N17.0 Labs much improved yesterday. Pt says she is urinating some, but not much.Nichole nue HD 3x weekContin ue sevelamer 800 mg with mealsConti nue to avoid nephrotoxi c meds as able.Monit or labs.Renal f/u as planned Generalized rash 2197400 06 L50.8 Mostly resolved, just drying lesions now.Possib ly due to COVID.Comp leted cetirizine 10 mg BID on 03/05.Monit or for recurrence Lower gastrointestinal hemorrhage 20579557 K92.1 No further evidence of bleeding.C ontinue pantoprazo le 40 mg qd.Apparkaterina montague has EGD/colono scopy scheduled already, but not in d/c instructio ns. She will check on date and let us know. Anemia 218271115 D64.89 Multifacto rial. Stable on last check.Cont inue FeSO4 325 mg qd with vit C 250 mg qd for absorption Monitor labs Acute adre nal insufficiency 162316123 E27.2 Continue hydrocorti sone 10 mg qam and 5 mg qpmStress dose when needed.Mon itor Asthenia 46008192 R53.1 Continues to be deconditio yann, but [...] tor HR and bleeding risk. Essential hypertension 84588895 I10 Good control on meds as above.Saima tor BP and labs. Hyperlipidemia 31369626 E78.49 Continue atorvastat in 40 mg qd.Monitor labs as outpt. SARS-CoV-2 447547822 U07 .1 Tested + on 02/05Ver tumultuous course.Now recovering as above.Saima tor for sequelae. Chronic sy stolic heart failure 229437743 I50.22 Continue carvedilol 3.125 mg BID.Not on diuretics currently, right now fluid being balanced at HD, may need to restart diuretic if she comes off dialysis.M onitor resp. status, fluid status, wts and labs. [id number] ISABELLA AN NP [address] [address] 03/09/2022 12:34:06 03/15/2022 13:57:52 Acute kidney injury 92120619 N17.0 HD 3x weeksevela daren 800 with meals Acute adre nal insufficiency 782562827 E27.2 hydrocorti sone 10 mg am, 5 mg pm Generalized rash 1359187 06 L50.8 cetirizine 10 mg bid for 5 daysmonito r for any further rash [id number] ISABELLA AN NP [address] [address] 03/24/2022 12:19:58 03/29/2022 15:13:22 Acute kidney injury 86966255 N17.0 HD 3x weeksevela daren 800 bid Chronic sy stolic heart failure 418900611 I50.22 carvedilol 3.125 mg BID.Not on diuretics currently, right now fluid being balanced at HD, may need to restart diuretic if she comes off dialysis.M onitor resp. status, fluid status, wts and labs. [id number] IS[facility]LLA AN NP [facility] [address] [place] [address] 03/28/2022 10:26:20 03/31/2022 15:29:43 Anemia 763530518 D64.9 vit c 250 mg dailyiron 325 mg dailymonit or labs Lower gastrointestinal hemorrhage 29078332 K92.2 protonix 40 mg dailysched ule EGD/colono scopy Generalized rash 7366646 06 R21 cetirizine 10 mg bid for 5 days Acute kidney injury 1466 9001 N17.9 HD 3x weeksevela daren 800 with meals Acute adre nal insufficiency 656140152 E27.2 hydrocorti sone 10 mg am, 5 mg pm Asthenia 09439127 R53.1 PT OT eval and treatfall precaution sfrequent safety checks Atrial fibrillation 4943 6004 I48.91 eliquis 2.5 mg bidcoreg 25 mg bid Essential hypertension 73763165 I10 coreg 3.125 mg bidmonitor bp Hyperlipidemia 86570995 E78.5 atorvastat in 40 mg daily SARS-CoV-2 285731067 U07 .1 recovered by pcr positive ISAB[facility]LLA AN NP [facility] [address] [place] [address] 07/29/2022 10:03:54 08/02/2022 12:10:27 Wound of skin 728897593 T14.8XXA monitor for any signs of infections taples can be removed 08/09 per hospital note Fracture of femur 450162 00 S72.92XA PT OT eval and treatoxyco done 5 mg q4hr prn x3 daysibupro fen 600 mg b0yqnmdhnf ntin 300 mg tid Constipation 06166394 K5 9.00 colace bidmiralax dailysenna daily Atrial fibrillation 4943 6004 I48.91 eliquis 2.5 mg bidcoreg 3.25 mg bid Hyperlipidemia 79802729 E78.5 atorvastat in 40 mg daily Anemia 940999398 D64.9 vit c 250 mg dailyiron 325 mg dailymonit or labs Gastroesop hageal reflux disease without esophagitis 698741498 K21.9 protonix 40 mg daily Chronic ki dney disease 259825208 N18.9 sevelamer 800 mg ac Acute adre nal insufficiency 981924990 E27.2 hydrocorti sone 10 mg am, 5 mg pm [id number] DARLIN MONTOYA MING [address] [place] [address] [place] [address] 08/01/2022 11:51:52 08/03/2022 14:11:14 Chronic kidney disease 442714436 N18.9 sevelamer 800 mg acmonitor labs Fracture of femur 485549 00 S72.92XA PT OT eval and treatoxyco done 5 mg q4hr prn x3 daysibupro fen 600 mg m2kquxzyxo ntin 300 mg tid Wound of skin 833183548 T14.8XXA monitor for any signs of infections taples can be removed 08/09 per hospital note [id number] Fifi Cuevas MD [address] [place] [address] 08/05/2022 05:52:33 08/09/2022 08:30:29 Fracture of femur 16308907 S72.22XD PT/OTparti al WB LLEAPAP 975 mg q8h prnoxycodo ne 5 mg q4h prnibuprof en 600 mg q8h prngabapen tin 300 mg p1mkueexyz n 2.5 mg w01slzgi monitor Chronic sy stolic heart failure 471721404 I50.22 carvedilol 3.125 mg bidwill monitor Atrial fibrillation 4943 6004 I48.0 carvedilol 3.125 mg bid for rate controlapi xaban 2.5 mg m70mbhsa monitor Chronic ki dney disease 052404483 N18.32 sevelamer 800 mg with mealswill avoid nephrotoxi c medication Essential hypertension 91135188 I10 carvedilol 3.125 mg bidwill monitor Hyperlipidemia 02070699 E78.49 atorvastat in 40 mg dailywill monitor Adrenal co rtical hypofunction 036900912 E27.49 hydrocorti sone 10 mg in morning and 5 mg in eveningwil l monitorfu endocrinol ogy [id number] ISABELLA GRIPPIN, CAREER EDUCATION TEACHER [address] [address] 08/08/2022 14:47:32 08/10/2022 14:51:32 Fracture of femur 68486044 S72.22XD PT OT eval and treatoxyco done 5 mg q4hr prnibuprof en 600 mg r0ybrnnojh ntin 300 mg tid Wound of skin 214987538 T14.8XXA monitor for any signs of infections taples can be removed 08/09 per hospital note [id number] ISABELLAJacqueline AN NP [address] [address] 08/12/2022 10:16:56 08/16/2022 09:49:12 Fracture of femur 81693418 S72.22XD PT OT eval and treatoxyco done 5 mg q4hr prnibuprof en 600 mg n1ovaaekis ntin 300 mg tid Asthenia 82404528 R53.1 PT OT eval and treatfall precaution sfrequent safety checks [id number] ISABELLA DARLIN AN [address] [address] 08/18/2022 13:02:37 08/24/2022 14:38:33 Fracture of femur 02956939 S72.22XD PT OT eval and treatoxyco done 5 mg q4hr prnibuprof en 600 mg a1qnmgwafs ntin 300 mg tid Wound of skin 800957733 T14.8XXA healed wellmonito r for any signs of infection [id number] ISABELLA AN NP [address] [address] 08/26/2022 12:17:50 08/30/2022 08:30:41 Wound of skin 698925029 T14.8XXA healedmoni tor for any signs of infections taples can be removed 08/09 per hospital note Fracture of femur 931727 00 S72.92XA PT OT eval and treatoxyco done 5 mg q4hr prn x3 daysibupro fen 600 mg z9ujeofrol ntin 300 mg tid Constipation 53204864 K5 9.00 colace bidmiralax dailysenna daily Atrial fibrillation 4943 6004 I48.91 eliquis 2.5 mg bidcoreg 3.25 mg bid Hyperlipidemia 30816001 E78.5 atorvastat in 40 mg daily Anemia 101482893 D64.9 vit c 250 mg dailyiron 325 mg dailymonit or labs Gastroesop hageal reflux disease without esophagitis 411855336 K21.9 protonix 40 mg daily Chronic ki dney disease 993023841 N18.9 sevelamer 800 mg ac Acute adre nal insufficiency 127283814 E27.2 hydrocorti sone 10 mg am, 5 mg pm [id number] DARLIN MONTOYA MING [address] [place] [address] rd [place] [address] 09/02/2022 10:05:53 09/05/2022 14:50:13 Wound of skin 656571734 T14.8XXA healedmoni tor for any signs of infection Fracture of femur 142430 00 S72.92XA PT OT eval and treatibupr ofen 600 mg o1gccueegg ntin 300 mg tid Constipation 05383223 K5 9.00 colace bidmiralax dailysenna daily Atrial fibrillation 4943 6004 I48.91 eliquis 2.5 mg bidcoreg 3.25 mg bid Hyperlipidemia 89069494 E78.5 atorvastat in 40 mg daily Anemia 489372150 D64.9 vit c 250 mg dailyiron 325 mg dailymonit or labs Gastroesop hageal reflux disease without esophagitis 505666542 K21.9 protonix 40 mg daily Chronic ki dney disease 425518421 N18.9 sevelamer 800 mg ac Acute adre nal insufficiency 165171581 E27.2 hydrocorti sone 10 mg am, 5 mg pm Health Concerns Section Related Observation LastModified by Organization Detai ls LastModified Time None Recorded Concern Status LastModified by Organization Details LastModified Time None Recorded Advance Directives Directive Y: Payers Insurance Date Sequence Insurance Name Policy Number Policy Hirsch Covered Member ID Hirsch Member ID Guarantor Name 08/12/2022 1 [place]ICARE [place]: [employer] Nanci Henderson [id number] Nanci Henderson Notes Date Note Type [...] no additional swelling ISABELLA AN NP [address] [facility], [address], [place], [address], [facility] 08/08/2022 14:52:37 08/12/2022 text/html seen today for a cute rounding visit, Beny in the PT gym on the bike, she is now WBAT and beginning to ambulate with walker, good cms to leg, surgical wound healed well ISABELLA AN NP [address] [facility], [address], [place], [address], [facility] 08/12/2022 10:20:23 08/18/2022 text/html seen today for a cute rounding visit, Beny self propels around the unit in her wheelchair, she has been participating with PT and improving well, surgical wound healed well, good cms ISABELLA AN NP [address] [facility], [address], [place], [address], [facility] 08/18/2022 13:30:49 08/26/2022 text/html seen today for [...] place until 08/02-08/05, and was grossly stained. [place] may be removed on 08/09 and can [...] walker and supervision ISABELLA AN NP [address] [facility], [address], [place], [address], [facility] 08/26/2022 12:26:26 09/02/2022 text/html seen today for [...] place until 08/02-08/05, and was grossly stained. [place] may be removed on 08/09 and can [...] drinking fairly well ISABELLA AN NP [address] [facility], [address], [place], [address], [facility] 09/02/2022 10:28:02 OBGyn Episode No OBEpisode recorded.
== END 2024-12-27 10:08 | disposition home or self-care (01) ==
LOC: HO.HCS 09:31
PROVIDERS: PCP Internal Medicine; Visit Provider Nurse Practitioner Family
DX: I42.8 Other cardiomyopathies (principal); I25.10 Atherosclerotic heart disease of native coronary artery without angina pectoris; I48.0 Paroxysmal atrial fibrillation; I10 Essential (primary) hypertension; E78.00 Pure hypercholesterolemia, unspecified
CPT/HCPCS: 93010; 99214; G2211

== ENCOUNTER → 2024-12-27 09:30 | Outpatient (BNVA) | payer MEDICARE, SELFPAY | PROVIDERS: PCP Internal Medicine; Visit Provider Nurse Practitioner Family | DX: I42.8 Other cardiomyopathies (principal); I25.10 Atherosclerotic heart disease of native coronary artery without angina pectoris; I48.91 Unspecified atrial fibrillation; I10 Essential (primary) hypertension; E78.00 Pure hypercholesterolemia, unspecified; I44.39 Other atrioventricular block; I45.81 Long QT syndrome; R94.31 Abnormal electrocardiogram [ECG] [EKG] | CPT/HCPCS: 93005; 99212 ==

== ENCOUNTER → 2025-03-28 09:30 | Outpatient (BNV) | payer MEDICARE, SELFPAY | PROVIDERS: PCP Internal Medicine; Visit Provider Radiology Body Imaging | DX: R92.8 Other abnormal and inconclusive findings on diagnostic imaging of breast (principal) | CPT/HCPCS: 77066; G0279 ==

== ENCOUNTER 2025-03-28 09:34 | Outpatient (REF) | payer MEDICARE, SELFPAY ==
--- NOTE | ~2025-03-28 | MM_ITS ---
EXAMINATION(S): MM DIAGNOSTIC DIGITAL BREAST TOMOSYNTHESIS, BILATERAL CLINICAL INFORMATION: This is a 1 year follow-up of right breast calcifications. These calcifications have been followed up since December 2022. COMPARISON: Comparison made to multiple prior, most recent March 26, 2024, and most remote December 18, 2014. TECHNIQUE: Digital breast tomosynthesis is performed in both the mediolateral oblique and craniocaudal views along with computer-aided detection (CAD). Synthesized 2D images are generated from the tomosynthesis. Magnified spot compression views were obtained for the right breast calcifications. FINDINGS: BREAST COMPOSITION: The breasts are extremely dense, which lowers the sensitivity of mammography. RIGHT BREAST: Previously described calcifications in the upper outer quadrant middle depth are coarser on today's examination; at this point, they can be considered a benign finding and no dedicated follow-up imaging is required. No significant masses, suspicious calcifications or other abnormalities are seen. LEFT BREAST: No significant masses, suspicious calcifications or other abnormalities are seen. MM/MM tomosynthesis diagnostic BI IMPRESSION: RIGHT BREAST: Benign grouped calcifications in the upper outer quadrant middle depth. Benign, no mammographic evidence of malignancy. Patient may return to routine screening mammogram on 12 months. LEFT BREAST: Negative, no mammographic evidence of malignancy. Normal interval follow-up is recommended in 12 months. ASSESSMENT: BI-RADS: Category 2: Benign RECOMMENDATION: 1 year F/U Results were provided to the patient at time of visit by the technologist. This patient's information was entered into a reminder system with a target due date for their next mammogram. Electronically signed by: Darrel Velasco MD 03/28/2025 10:52 AM EDT
--- OUTSIDE RECORDS SUMMARY | 2025-03-28 10:53 | XMS_ITS | Encounter Summary ---
Author Organization [facility] Address [address] [place] [address] [place] [address] Phone Care Team Providers Care Slate Cutter Name Role Phone Rola De Oliveira MD Primary Care Provider [phone] Encounter Details Date Type Department Care Team (Late Contact Info) Description 08/20/2018 Ancillary Orders Virtual Department [address] [place] [address] Sd Salcedo MD [address] [place] [address] [place] [address] Bruit of left carotid artery Social History [...] 9:30 AM EDT Office Visit [facility] [address] [place] [address] Thee Morales DO [address] [place] [address] documented as of this encounter Results * [...] relative to distal ICA diameters. POS - [id number] Narrative 08/21/2018 5:27 PM EDT COMPARISON:None CAROTID [...] 50% relative todistal ICA diameters. POS - [id number] Sd Salcedo MD CV US NEUROVASCULAR Final Resu lt documented in this encounter Visit Diagnoses Diagnosis Bruit of left carotid artery Bruit of left carotid artery documented in this encounter Additional Health Concerns Infection Onset Date Last Indicated Resolved Time COVID-19 02/05/2022 02/05/2022 02/26/2022 1:21 AM EDT documented as of this encounter Care Teams Slate Cutter Relationship Specialty Start Date End Date Po, Rola Hall MD [address] [place] [address] [address] [place] [address] PCP - General Internal Medicine 08/14/18 documented as of this encounter Additional Source Comments The information contained in this document represents components of the legal health record. It is not the complete legal health record.[facility]
--- OUTSIDE RECORDS SUMMARY | 2025-03-28 10:53 | XMS_ITS | Encounter Summary ---
Author Organization [facility] Address [address] [place] [address] [place] [address] Phone Care Team Providers Care Bag Tester Name Role Phone Rola De Oliveira MD Primary Care Provider [phone] Encounter Details Date Type Department Care Team (Late st Contact Info) Description 08/30/2018 Procedure Pass OR Admitting Dept - Virtual Department [address] [place] [address] Social History Tobacco Use Types Packs/Day Years [...] Encounters Date Type Department Care Team (Late Contact Info) Description 08/26/2025 9:30 AM EDT Office Visit [facility] [address] [place] [address] Thee Morales DO [address] [place] [address] documented as of this encounter Visit Diagnoses Not on filedocumented in this encounter Additional Health Concerns Infection Onset Date Last Indicated Resolved Time COVID-19 02/05/2022 02/05/2022 02/26/2022 1:21 AM EDT documented as of this encounter Care Teams Bag Tester Relationship Specialty Start Date End Date Rola De Oliveira MD [address] [place] [address] PCP - General Internal Medicine 08/14/18 documented as of this encounter Additional Source Comments The information contained in this document represents components of the legal health record. It is not the complete legal health record.[facility]
--- OUTSIDE RECORDS SUMMARY | 2025-03-28 10:53 | XMS_ITS | Patient Health Record ---
Author Organization [facility] Address [address] [place] [address] Care Team Providers Care Diesel Dragline Operator Name Role Phone Rola De Oliveira MD Primary Care Provider Kalpesh Shaikh Unavailable [phone] Reason For Referral No Information Medications Medication SIG (Take, Route, Fr equency, Duration) Notes Start Date End Date Status MoviPrep 100 GM as directed Orally 1 time only; Duration: 1 dose 09/23/2011 Active Hydrocortisone Activ e Problems Problem Type SNOMED Code ICD Code Onset Dates Problem Status W/U Status Risk Notes Problem Chronic nonalcoholic liver disease (82218215) Other chronic nonalcoholic liver disease (571.8) Active confirmed Problem Liver function tests abnormal (431608245) Nonspecific abnormal results of liver function study (794.8) Active confirmed Problem Screening for malignant neoplasm of colon (757999460) Special screening for malignant neoplasms, colon (V76.51) Active confirmed Plan Of Treatment Pending Test Test Name Order Date MITOCHONDRIAL AB 09/21/2011 Future Test Test Name Order Date COLONOSCOPY 09/21/2011 Insurance Providers Payer Name Payer Address Payer Phone Subscriber Number Group Number Insured Name Patient Relationship to Insured Coverage Start Date Coverage End Date [facility] [address] [facility] [id number] BENNY CARABALLO Self - patient is the insured Medical (General) History Medical History History ICD Code Hyperlipidemia Hypopituitarism Denies NV,DM,CVA,Lung disease,renal dise ase Surgical History Surgery Date(Month/Year) Umbilical hernia
--- OUTSIDE RECORDS SUMMARY | 2025-03-28 10:53 | XMS_ITS | Encounter Summary ---
Author Organization [facility] Address [address] [place] [address] [place] [address] Phone Care Team Providers Care Night Nurse Name Role Phone Rola De Oliveira MD Primary Care Provider [phone] Encounter Details Date Type Department Care Team (Late st Contact Info) Description 08/30/2018 Procedure Pass OR Admitting Dept - Virtual Department [address] [place] [id number] Social History Tobacco Use Types Packs/Day Years [...] AM EDT Office Visit [facility] [address] [place] [address] Thee Morales DO [address] [place] [address] documented as of this encounter Visit Diagnoses Not on filedocumented in this encounter Additional Health Concerns Infection Onset Date Last Indicated Resolved Time COVID-19 02/05/2022 02/05/2022 02/26/2022 1:21 AM EDT documented as of this encounter Care Teams Night Nurse Relationship Specialty Start Date End Date Rola De Oliveira MD [address] [place] [address] PCP - General Internal Medicine 08/14/18 documented as of this encounter Additional Source Comments The information contained in this document represents components of the legal health record. It is not the complete legal health record.[facility]
--- OUTSIDE RECORDS SUMMARY | 2025-03-28 10:53 | XMS_ITS | Clinical Summary ---
Author Organization [facility] Address [address] [address] Care Team Providers Care Set And Exhibit Designer Name Role Phone Rola De Oliveira MD Primary Care Provider [phone] Social History Tobacco Use Types Packs/Day Years [...] this topic Insurance Medicare Medicare Care Teams Set And Exhibit Designer Relationship Specialty Start Date End Date Rola De Oliveira MD [facility] [address] [place] PCP - General 04/16/19
--- OUTSIDE RECORDS SUMMARY | 2025-03-28 10:53 | XMS_ITS | Clinical Summary ---
Author Organization [facility] Address [address] [facility] [address] [place] [address] Phone Care Team Providers Care Spring Forger Name Role Phone Rola De Oliveira MD Primary Care Provider [phone] Allergies Active Allergy Reactions Criticality Noted Date Comments Lisinopril Cough 10/10/2018 Other 08/16/2018 Dust, mold Medications flaxseed oil 1,000 mg Cap Take 1,000 mg by mouth daily as needed. Active atorvastatin (LIPITOR) 40 MG tablet Take 40 mg by mouth nightly at bedtime. Active apixaban (ELIQUIS) 5 mg tablet Take 1 tablet (5 mg total) by mouth 2 (two) times a day. 28 tablet 9 Active furosemide (LASIX) 20 MG tablet Take 20 mg by mouth daily. Active aspirin 81 MG EC tablet Take 81 mg by mouth daily. Active carvedilol (COREG) 6.25 MG tablet Take 6.25 mg by mouth 2 (two) times a day with meals. Active losartan (COZAAR) 25 MG tablet Take 1 tablet by mouth every morning. 5 Active pantoprazole (PROTONIX) 40 MG tablet Take 40 mg by mouth. 2 Active ascorbic acid (VITAMIN C WITH KENIA HIPS ORAL) Take 250 mg by mouth. 2 Active ferrous sulfate 325 mg (65 mg douglas iron) EC tablet Take 325 mg by mouth. 2 Active magnesium carb,citrate,oxide (MAGNESIUM COMPLEX ORAL) Take by mouth. Active hydrocortisone (CORTEF) 10 MG tabletIndications: Adrenal insufficiency TAKE 1 TABLET IN THE MORNING AND HALF A TABLET IN THE EVENING 150 tablet 3 5 Active Active Problems Problem Noted Date Diagnosed Date Adrenal insufficiency 12/27/2018 Assessment & Plan (08/23/2024 10:00 AM EDT): Patient with adrenal insufficiency and has been doing well electrolytes blood pressure in the normal reference range has not really required stress doses even though she does have mild illnesses she tends to feel fine. Will continue current regimen but I did give her additional tablets in case of illness in which she may require stress dosing. I have not changed her management. She should return for follow-up in 1 year and repeat basic metabolic panel. Assessment & Plan (08/22/2023 10:16 AM EDT): The patient continues to do well with hydrocortisone 10 mg in the morning and 5 mg in the evening. Will continue the current dose. Repeat a basic metabolic panel prior to the follow-up visit in 1 year. Assessment & Plan (08/19/2022 11:52 AM EST): I do not have a current basic metabolic panel but the patient appears to be doing well with hydrocortisone 10 in the morning 5 mg in the evening. She has no symptoms of adrenal insufficiency so I requested a basic metabolic panel for the follow- up visit in 1 year and renew her medications. She will follow-up in a year Assessment & Plan (08/19/2021 10:24 AM EST): The patient is doing well with hydrocortisone 10 mg in the morning and 5 mg in the evening. We will continue her medications I have given her prescriptions to last her for the year. She should repeat a basic panel prior to the follow-up visit in 1 year. Assessment & Plan (08/19/2020 3:17 PM EST): The patient is doing quite well with hydrocortisone 10 mg in the morning 5 mg in the evening no electrolyte abnormalities no hypotension. Glucose level with anything is in the impaired range. So I will not make any changes to her current dose of medications. I will see her again in 1 year requested basic panel for the follow-up visit. Assessment & Plan (08/19/2019 3:26 PM EDT): She is doing quite well with the lower dose of glucocorticoids. This is more physiologic hydrocortisone 10 mg in the morning 5 mg in the afternoon. In fact she is lost 8 pounds. Which is most likely a result of decrease glucocorticoid dose. Electrolytes and blood pressure are within the reference range. She does not need to see me for another year assuming everything is well. Again I reminded her about stress doses of hydrocortisone for illness essentially she will add 2 additional tablets per day. Of course this is only for short-term management is not considered long-term management. She will follow in 1 years time she was advised to do lab work which is a basic panel prior to the follow-up visit. She should call if she has any emergencies prior. Assessment & Plan (05/16/2019 3:48 PM EST): The patient is on a supraphysiologic dose of prednisone 5 mg and I have changed her to hydrocortisone 10 mg in the morning and 5 mg in the evening. She will return for follow-up in 3 months just to make sure that she is doing well and I will repeat a basic panel to check electrolytes. We also monitor her blood pressure. I do not see the need to check a cortisol level because is going to be suppressed while on hydrocortisone unless the patient decides to stop the medication which she should not do. Assessment & Plan (03/13/2019 1:35 PM EDT): The patient complains of warmth. But this is not an adrenal insufficient problem. My suggestion at this point is to decrease the dose of prednisone to 5 mg because she is getting too much corticosteroids. Prednisone 5 mg is still supraphysiologic. On the follow-up visit in 2 months time I intend to convert prednisone to hydrocortisone and she should start taking 10 mg in the morning and 5 mg in the afternoon. Again she was reminded that she must do the lab work prior to the follow-up visit. In fact she can do it any day as long as his fasting in the morning. I will give her a follow-up visit again in 2 months time. 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 I do not know if this was because she actually had a problem with a pituitary gland because her diagnosis was made possibly 20 years ago. She obviously did not have empty sella syndrome. Furthermore empty sella syndrome does not necessarily mean that you have any anterior pituitary hormone deficiency. However the fact that she is been on corticosteroids in one form or another for close to 20 years will cause central adrenal insufficiency. At this point, she is on a supraphysiologic dose of prednisone a total of 15 mg a day is equivalent to hydrocortisone 60 mg. Normally we treat with 15 mg of hydrocortisone daily. I think that decreasing the dose to quickly may be a problem. Therefore I think what she should do is to decrease the dose of prednisone to 10 mg a day of 5 mg twice a day. I am not even certain that she really needs to do twice daily administration because prednisone works for 24-hour period of time but we can do this for the time being and eventually we can decrease the dose even further. 10 mg of prednisone is still a very high dose and is equivalent to 40 mg of prednisone. 5 mg is equivalent to 20 mg of hydrocortisone which I find is to a high dose but when we get to 5 mg of prednisone then at that point we can switch her to hydrocortisone therapy 10 mg in the morning and 5 mg in the evening. Hopefully she will tolerate the dose titration. I will also like to get anterior pituitary hormones which is something that I wanted to do when she was at [facility]. Right shoulder pain 09/20/2018 Discharge planning issues 09/16/2018 Assessment & Plan (09/19/2018 3:16 PM EDT): PT consulted to evaluate patient for appropriate disposition. She is improving daily. The plan is for her to go home on the 11th Humeral fracture 09/15/2018 Assessment & Plan (09/15/2018 6:45 PM EDT): At orthopedic office on 09/12/18 Hyponatremia 09/14/2018 Assessment & Plan (09/18/2018 4:50 PM EDT): The patient is feeling better with her sodium in this range although it is starting to slip downward again. Sodium is coming up with the steroids. Essential hypertension Assessment & Plan (09/18/2018 4:48 PM EDT): Increase Toprol. Change lisinopril to Cozaar Hypercholesterolemia Assessment & Plan (09/15/2018 6:39 PM EDT): continue atorvastatin. Paroxysmal atrial fibrillation Overview (09/14/2018): Followed by Dr. Fox at [facility]. Started on Eliquis August 2018. Assessment & Plan (09/19/2018 3:18 PM EDT): Having little runs of rapid A. Fib. Increase Toprol ,continue Eliquis. Director Hedis had asked her to wear a 48-hour monitor, on discharge I will give his office a call and update about what we have seen. History of hypopituitarism Overview (09/14/2018): Possibly a missed diagnosis. Was on hydrocortisone for [address] Morales diagnosis and stopped steroids in 2015. Assessment & Plan (09/19/2018 3:17 PM EDT): Chronic adrenal insufficiency. Likely in crisis from recent surgery. Per endocrine, 3 days of IV hydrocortisone, then transition to oral physiologic dosing and follow-up in the office. Chronic systolic heart failure Overview (09/14/2018): Echo at [facility] 08/2018 with reported EF 25-30% Assessment & Plan (09/18/2018 4:47 PM EDT): Requested information from [facility]. She had a cardiac cath in 2018. This showed LAD with less than 30% disease RCA less than 30% left circumflex less than 30% and left main ostial 40%, EF 25% Her hose inspector and patcher is Dr. JUDD LUCIO, records requested from his office in [place]. Patient thinks lisinopril is giving her cough. She does describe a pretty classic dry cough in the posterior pharynx. Will change to Cozaar. While clearly she has some underlying coronary disease given the decreased EF, could this be related to her adrenal insufficiency. Chronic anemia Assessment & Plan (09/17/2018 5:59 PM EDT): stable Immunizations Immunization Administration Dates Next Due Influenza Quadrivalent Prese rvative Free IM 09/20/2018(Deferred: Patient Refused - does not feel needs it at this time) Family History Medical History Relation Comments Other Brother ICD, Dialysis Diabetes Father Hypertension Father Pneumonia Mother With resulting M SOF Relation Status Comments Brother Alive Father Mother Social History Tobacco Use Types Packs/Day Years Used Date Smoking Tobacco: Former Cigarettes Q uit: 2002 Smokeless Tobacco: Never Comments:quit 15 yrs ago Alcohol Use Standard Drinks/Week Comments Not Currently 0 (1 standard drink = 0.6 oz pur e alcohol) Education Answer Date Recorded Are you interested in more education? Not on mundo e 10/07/2022 Are you concerned about learning? Not on file 10/07/2022 No 10/07/2022 No 10/07/2022 Digital Access Answer Date Recorded No 11/05/2022 No 11/05/2022 Reliable internet access at home? Not on file 11/05/2022 Device with a working camera? Not on file Comments No Sex and Gender Information Value Date Recorded Sex Assigned at Not on file Legal Sex Female 9:57 PM EDT Gender Identity Not on file Sexual Orientation Not on file Last Filed Vital Signs Vital Sign Reading Time Taken Comments Blood Pressure 118/68 08/23/2024 9:49 AM EDT Pulse 63 08/23/2024 9:49 AM EDT Temperature 36.6 C (97.9 F) 02/05/2022 8:14 AM EDT Respiratory Rate 31 02/05/2022 11:15 AM EDT Oxygen Saturation 90% 08/23/2024 9:49 AM EDT Inhaled Oxygen Concentration - - Weight 59 kg (130 lb) 08/23/2024 9:49 AM EDT Height 162.6 cm (5' 4 ) 08/22/2023 10:10 AM EDT Body Mass Index 22.31 08/22/2023 10:10 AM EDT Plan of Treatment Upcoming Encounters Date Type Department Care Team (Late st Contact Info) Description 08/26/2025 9:30 AM EDT Office Visit [facility] [address] [place] [address] Thee Morales DO [address] [place] [address] [email or web address] Health Maintenance Due Date Last Done Comments DEPRESSION SCREENING 1965 SMOKING Hx and SMOKELESS TOBACCO SCREENING 1966 HEPATITIS C SCREENING 10/07/1971 PNEUMOCOCCAL VACCINES (50+ years) (1 of 2 - PCV) 1972 MAMMOGRAM 1993 COLOGUARD 1998 COLONOSCOPY 1998 COLORECTAL CANCER SCREENING 1998 FIT TEST 1998 FOBT 1998 SIGMOIDOSCOPY 1998 VIRTUAL COLONOSCOPY 1998 RSV VACCINE (1 - Risk 50-74 years 1-dose series) 10/07/2003 ZOSTER VACCINES (1 of 2) 10/07/2003 OSTEOPOROSIS SCREENING INITIAL (ONE-TIME) 2018 Adult Td,Tdap Booster 11/27/2024 11/27/2014 INFLUENZA VACCINE (#1) 2025 , 07/02/2021, 05/26/2016 COVID-19 VACCINE ( season) 2025 06/09/2021, 09/22/2020, 08/25/2020 BLOOD PRESSURE 02/23/2025 08/23/2024 CREATININE LEVEL 08/20/2025 08/20/2024, 10/2023, 09/19/2022, Additional history exists POTASSIUM LEVEL 08/20/2025 08/20/2024, 03/0 10/2023, 09/19/2022, Additional history exists LIPID PANEL 02/18/2027 02/18/2022, 09/16/2018 HEPATITIS A VACCINES Aged Out No long er eligible based on patient's age to complete this topic HIB VACCINES Aged Out No longer eligi ble based on patient's age to complete this topic MENINGOCOCCAL VACCINES (ACWY) Aged Out No longer eligible based on patient's age to complete this topic MENINGOCOCCAL VACCINES (B) Aged Out N o longer eligible based on patient's age to complete this topic Medical Devices Implanted Type Area Etl Bi Developer Device Identifier Shelf Expiration Date Model / Serial / Lot Screw Bone 36x3.5mm Compression Ss Locking Self Tapping Full Thread T15 Stardrive Recess - [id number] Implanted:Qty: 2 on 08/30/2018 by rDew Vu DO at [facility] Right: Shoulder SYNTHES 212.115 / / Screw Bone 32x3.5mm Compression Ss Locking Self Tapping Full Thread T15 Stardrive Recess - [id number] Implanted:Qty: 1 on 08/30/2018 by Drew Vu DO at [facility] Right: Shoulder SYNTHES 212.112 / / Screw Bone 45x3.5mm Compression Ss Locking Self Tapping Full Thread T15 Stardrive Recess - [id number] Implanted:Qty: 2 on 08/30/2018 by Drew Vu DO at [facility] Right: Shoulder SYNTHES 212.119 / / Screw Bone 34x3.5mm Compression Ss Locking Self Tapping Full Thread T15 Stardrive Recess Cs/1ea - [id number] Implanted:Qty: 1 on 08/30/2018 by Drew Vu DO at [facility] Right: Shoulder SYNTHES 212.113 / / Screw Bone 3.5x24mm Cortex Self Tapping Fully Threaded Hex Head Ss - [id number] Implanted:Qty: 3 on 08/30/2018 by Drwe Vu DO at [facility] Right: Shoulder SYNTHES 204.824 / / Humerus Plate 3.5x90mm 6 Hole Hd 3 Shaft Bone Proximalimal Lcp Standard - [id number] Implanted:Qty: 1 on 08/30/2018 by Drew Vu DO at [facility] Right: Shoulder SYNTHES 241.901 / / Procedures Procedure Name Priority Date/Time Associated Diagnosis Comments BASIC METABOLIC PANEL Routine 08/20/2024 11:14 AM EDT Adrenal insufficiency LIPID PANEL Routine 09/16/2018 5:33 AM EDT from Last 3 Months or Most Recently Relevant to Health Maintenance Results * Basic metabolic panel (08/20/2024 11:14 AM EDT) SODIUM 144 133 - 146 mmol/L [facility] CHLORIDE 107 96 - 108 mmol/L [facility] POTASSIUM 4.4 3.3 - 5.1 mmol/L [facility] CO2 26 21 - 35 mmol/L [facility] BUN 18 6 - 19 mg/dL [facility] CREATININE 0.90 0.5 - 1.5 mg/dL [facility] GLUCOSE 74 70 - 99 mg/dL [facility] CALCIUM 10.3 8.4 - 10.3 mg/dL [facility] EGFR 69 >59 mL/min/1.7 3m2 [facility] Comment:Estimated glomerular filtration rate calculated using the CKD-EPI refit equation. ANION GAP 15 10 - 20 mmol/L [facility] Blood 08/20/2024 11:1 4 AM EDT 08/20/2024 11:17 AM EDT Thee Morales DO LAB BLOOD ORDERABLES Final Resul t Performing Organization Address City/State/[facility] Co de Phone Number [address] [address] * (ABNORMAL) Lipid panel (09/16/2018 5:33 AM EDT) HDL 36 mg/dL [facility] Comment: Interpretation <40 mg/dL: Low HDL cholesterol (major risk factor for CHD) Greater than or equal to 60 mg/dL: High HDL cholesterol ( negative risk factor for CHD) HDL - cholesterol is affected by a number of factors, e.g. smoking, excerise, hormones, sex and age. CHOLESTEROL 109 0 - 240 mg/dL [facility] TRIGLYCERIDES 88 30 - 160 mg/dL [facility] LDL 55 50 - 129 mg/dL [facility] Comment: LDL levels in terms of risk for coronary heart disease: <100 mg/dL: Optimal 100-129 mg/dL: Near or above optimal 130-159 mg/dL: Borderline high 160-189 mg/dL: High >190 mg/dL: Very High CARDIAC RISK RATIO 3.0(L) 3.3 - 4.4 C [facility] 09/16/2018 5:33 AM EDT 09/16/2018 1:29 PM EDT us Alicia Coats MD LAB BLOOD ORDERABLES Final Re sult [facility] [address] [place] [address] from Last 3 Months or Most Recently Relevant to Health Maintenance Insurance MEDICARE PART A & B MEDICARE PART A & B MEDICARE PART A & B MEDICARE PART A & B MEDICARE PART A & B MEDICARE PART A & B MEDICARE PART A & B MEDICARE PART A & B MEDICARE PART A & B Advance Directives For more information, please contact: [phone] (9AM - 5PM [facility], Monday-Monday) Documents on File Type Date Recorded Patient Mc Kay Stitcher Expl anation Healthcare Proxy 09/21/2018 11:28 AM * Full Code (Latest Code Status on File) Date Activated Date Inactivated Comments 02/05/2022 7:14 AM Question Answer Comments Code Status Confirmed With: Patient Code Status Communicated To: Other (specify belo w) Code Discussion Comments: ED attending * Full Code (Confirmed) Date Activated Date Inactivated Comments 09/14/2018 8:23 PM 09/20/2018 3:42 PM Question Answer Comments Code Status Confirmed With: PatientFamily * Full Code (Presumed) Date Activated Date Inactivated Comments 08/30/2018 8:06 AM 08/30/2018 7:08 PM Healthcare Agents on File Name Relationship Healthcare Agent Relationshi p Communication Rosa Santiago Daughter .Primary Health Care Agent (Proxy form on file) Care Teams Spring Forger Relationship Specialty Start Date End Date Rola De Oliveira MD [address] [place] [id number] PCP - General Internal Medicine 08/14/18 Additional Source Comments The information contained in this document represents components of the legal health record. It is not the complete legal health record.[facility]
== END 2025-03-28 09:35 | disposition home or self-care (01) ==
LOC: HO.MAMMO 09:34
PROVIDERS: PCP Internal Medicine; Visit Provider Internal Medicine
DX: R92.1 Mammographic calcification found on diagnostic imaging of breast (principal)
CPT/HCPCS: 77062; 77066

== ENCOUNTER 2025-04-15 09:39 | Outpatient (REF) | payer MEDICARE, SELFPAY ==
[2025-04-15 10:02] LABS: MANUAL DIFF FLAG NO
[2025-04-15 10:37] LABS: Appearance Urine Clear; Glucose Urine UA Negative (Negative); PH 5.5 (5.0-9.0); Specific Gravity - Urine 1.020 (1.005-1.025); UMIC TRIGGER UACC YES
[2025-04-15 10:39] LABS: Hematocrit 40.4 % (37.0-47.0); Hemoglobin 12.9 g/dl (12.0-16.0); Imm Gran Abs Auto 0.02 X10*3/uL (0.00-0.03); Imm Gran Pct Auto 0.3 % (0.0-0.4); Lymphocytes Absolute Auto 2.2 X10*3/uL (1.2-4.9); Mean Corpuscular HGB Conc 31.9 g/dl (31.0-35.0); Mean Corpuscular Hemoglobin 27.9 pg (27.0-33.0); Mean Corpuscular Volume 87.4 fL (80.0-98.0); NRBC Abs Auto 0.000 X10*3/uL (0.0-0.012); NRBC Pct Auto 0.0 /100WBC (0.0-0.2); Platelet Count 143 X10*3/uL (160-400); Red Blood Count 4.62 X10*6/uL (4.20-5.50); Reticulocytes Absolute 0.050 X10*6/uL (0.026-0.095); White Blood Count 6.4 X10*3/uL (4.8-10.8)
--- OUTSIDE RECORDS SUMMARY | 2025-04-15 10:52 | XMS_ITS | Encounter Summary ---
Author Organization [facility] Address [address] [place] [address] [place] [address] Phone Care Team Providers Care Claims Processor Name Role Phone Rola De Oliveira MD Primary Care Provider [phone] Encounter Details Date Type Department Care Team (Late st Contact Info) Description 08/30/2018 Procedure Pass OR Admitting Dept - Virtual Department [address] [place] [id number] Social History Tobacco Use Types Packs/Day Years [...] AM EDT Office Visit [facility] [address] [place] [address] Thee Morales DO [address] [place] [address] documented as of this encounter Visit Diagnoses Not on filedocumented in this encounter Additional Health Concerns Infection Onset Date Last Indicated Resolved Time COVID-19 02/05/2022 02/05/2022 02/26/2022 1:21 AM EDT documented as of this encounter Care Teams Claims Processor Relationship Specialty Start Date End Date Rola De Oliveira MD [address] [place] [address] PCP - General Internal Medicine 08/14/18 documented as of this encounter Additional Source Comments The information contained in this document represents components of the legal health record. It is not the complete legal health record.[facility]
--- OUTSIDE RECORDS SUMMARY | 2025-04-15 10:52 | XMS_ITS | Encounter Summary ---
Author Organization [facility] Address [address] [place] [address] [place] [address] Phone Care Team Providers Care Pulp Mill Operator Name Role Phone Rola De Oliveira MD Primary Care Provider [phone] Encounter Details Date Type Department Care Team (Late st Contact Info) Description 08/30/2018 Procedure Pass OR Admitting Dept - Virtual Department [address] [place] [phone] Social History Tobacco Use Types Packs/Day Years [...] AM EDT Office Visit [facility] [address] [place] [address] Thee Morales DO [address] [place] [address] documented as of this encounter Visit Diagnoses Not on filedocumented in this encounter Additional Health Concerns Infection Onset Date Last Indicated Resolved Time COVID-19 02/05/2022 02/05/2022 02/26/2022 1:21 AM EDT documented as of this encounter Care Teams Pulp Mill Operator Relationship Specialty Start Date End Date Rola De Oliveira MD [address] [place] [address] PCP - General Internal Medicine 08/14/18 documented as of this encounter Additional Source Comments The information contained in this document represents components of the legal health record. It is not the complete legal health record.[facility]
--- OUTSIDE RECORDS SUMMARY | 2025-04-15 10:52 | XMS_ITS | Encounter Summary ---
Author Organization [facility] Address [address] [place] [address] [place] [address] Phone Care Team Providers Care Apns Name Role Phone Rola De Oliveira MD Primary Care Provider [phone] Encounter Details Date Type Department Care Team (Late Contact Info) Description 08/20/2018 Ancillary Orders Virtual Department [address] [place] [address] Sd Salcedo MD [address] [place] [address] [place] [phone] Bruit of left carotid artery Social History [...] AM EDT Office Visit [facility] [address] [place] [address] Thee Morales DO [address] [place] [address] documented as of this encounter Results * [...] relative to distal ICA diameters. POS - [id number] Narrative 08/21/2018 5:27 PM EDT COMPARISON:None CAROTID [...] 50% relative todistal ICA diameters. POS - [id number] Sd Salcedo MD CV US NEUROVASCULAR Final Resu lt documented in this encounter Visit Diagnoses Diagnosis Bruit of left carotid artery Bruit of left carotid artery documented in this encounter Additional Health Concerns Infection Onset Date Last Indicated Resolved Time COVID-19 02/05/2022 02/05/2022 02/26/2022 1:21 AM EDT documented as of this encounter Care Teams Apns Relationship Specialty Start Date End Date Po, Rola Hall MD [address] [place] [address] [address] [place] [phone] PCP - General Internal Medicine 08/14/18 documented as of this encounter Additional Source Comments The information contained in this document represents components of the legal health record. It is not the complete legal health record.[facility]
--- OUTSIDE RECORDS SUMMARY | 2025-04-15 10:53 | XMS_ITS | Patient Health Record ---
Author Organization [facility] Address [address] [place] [address] Care Team Providers Care Tank Tester Name Role Phone Rola De Oliveira MD Primary Care Provider Kalpesh Shaikh Unavailable [phone] Reason For Referral No Information Medications Medication SIG (Take, Route, Fr equency, Duration) Notes Start Date End Date Status MoviPrep 100 GM as directed Orally 1 time only; Duration: 1 dose 09/23/2011 Active Hydrocortisone Activ e Problems Problem Type SNOMED Code ICD Code Onset Dates Problem Status W/U Status Risk Notes Problem Chronic nonalcoholic liver disease (72443191) Other chronic nonalcoholic liver disease (571.8) Active confirmed Problem Liver function tests abnormal (344855427) Nonspecific abnormal results of liver function study (794.8) Active confirmed Problem Screening for malignant neoplasm of colon (980301649) Special screening for malignant neoplasms, colon (V76.51) Active confirmed Plan Of Treatment Pending Test Test Name Order Date MITOCHONDRIAL AB 09/21/2011 Future Test Test Name Order Date COLONOSCOPY 09/21/2011 Insurance Providers Payer Name Payer Address Payer Phone Subscriber Number Group Number Insured Name Patient Relationship to Insured Coverage Start Date Coverage End Date [facility] [address] [facility] [phone] [id number] BENNY CARABALLO Self - patient is the insured Medical (General) History Medical History History ICD Code Hyperlipidemia Hypopituitarism Denies [place],DM,CVA,Lung disease,renal dise ase Surgical History Surgery Date(Month/Year) Umbilical hernia
--- OUTSIDE RECORDS SUMMARY | 2025-04-15 10:53 | XMS_ITS | Data Portability ---
Author Organization [facility], Main Office Address [address], [address] [place] [address] Care Team Providers Care Assembly Riveter Name Role Phone LESLY YOUNG Primary Care Provider [phone] [facility] F[facility] OTHER Assessment No assessment [...] Details Recorded Time Acute adrenal insufficien cy 325569304 Active 2021 ISABELLA AN NP [address] [facility] [facility] [address], [place], [address], [facility] 2 12:51:45 Atrial fibrillatio n 51382045 Active 2021 ISABELLA AN NP [address] [facility], [address], [place], [address], [facility] 2 12:51:51 Hyperlipide geno 82450745 Active 2021 ISABELLA AN NP [address] [facility], [address], [place], [address], [facility] 2 12:51:57 Essential hypertensio n 68534240 Active 2021 ISABELLA AN NP [address] [facility], [address], [place], [address], [facility] 2 12:52:03 Asthenia 73356350 Active 2021 ISABELLA AN, PROGRAM MANAGEMENT MANAGER [address], [address], [place], [address], [facility] 2 13:14:32 Acute kidney injury 04315021 Active 2021 ISABELLA NATALIYA, PROGRAM MANAGEMENT MANAGER [address], [address], [place], [address], [facility] 2 13:14:40 SARS-CoV-2 Active 2021 ISABELLA AN, PROGRAM MANAGEMENT MANAGER [address], [address], [place], [address], [facility] 2 13:14:49 Anemia 671767269 Active 2021 ISABELLA AN, PROGRAM MANAGEMENT MANAGER [address], [address], [place], [address], [facility] 2 10:50:35 Lower gastrointes tinal hemorrhage 44994099 Active 2021 ISABELLA AN, PROGRAM MANAGEMENT MANAGER [address], [address], [place], [address], [facility] 2 10:51:01 Generalized rash 015057705 Active 2021 ISABELLA AN, PROGRAM MANAGEMENT MANAGER [address] [facility], [address], [place], [address], [facility] 2 10:51:47 Chronic systolic heart failure 713906307 Active 2021 Leigh Morejon MD [address] [facility], [address], [place], [address], [facility] 2 00:42:51 Wound of skin 822050758 Active 2022 surgical wound left leg ISABELLA AN NP [address], [address], [place], [address], [facility] 3 13:22:46 Fracture of femur 85260843 Active 2022 ISABELLA AN NP [address], [address], [place], [address], [facility] 3 13:23:11 Constipatio n 66175571 Active 2022 ISABELLA AN DARLIN [address] [facility], [address], [place], [address], [facility] 3 13:23:38 Gastroesoph ageal reflux disease without esophagitis 639892674 Active 2022 ISABELLA AN PROGRAM MANAGEMENT MANAGER [address] [facility], [address], [place], [address], [facility] 3 13:24:18 Chronic kidney disease 582576247 Active 2022 ISABELLA AN PROGRAM MANAGEMENT MANAGER [address], [address], [place], [address], [facility] 3 13:25:26 Problem Notes None recorded. Medical Equipment None Reported. Allergies Allergen ID Allergen Name Allergen Category Reaction Reaction Severity Criticality Documentation Date Start Date Code Code System Note Provider Name and Address Organization Details Recorded Time 72698 lisinopri l medicatio n Not available Not available Not available 02/18/2022 76950 RxNorm ISABELLA AN, DARLIN [address] [facility], [address], [place], [address], [facility] 2 12:51:10 19579 mold extract environme nt Not available Not available Not available 02/18/2022 91813 8 RxNorm ISABELLA AN, PROGRAM MANAGEMENT MANAGER [address] [facility], [address], [place], [address], [facility] 2 12:51:15 00296 house dust allergeni c extract environme nt,medica tion Not available Not available Not available 02/18/2022 50208 9 RxNorm ISABELLA AN, DARLIN [address] [facility], [address], [place], [address], [facility] 2 12:51:23 Vitals Date Recorded Body height Heart rate Respiratory rate Body temperature Oxygen saturation Oxygen saturation in Arterial blood by Pulse oximetry Systolic And Diastolic Provider Name and Address Organization Details Last Updated DateTime 3 162.56 cm 66 /min 16 /min 97.9 [degF] 97 % 97 % 129/72 mm[Hg] ISABELLA AN NP [address] [facility], [address], [place], [address], [facility] 3 14:48:11 Date Recorded Body height Heart rate Respiratory rate Body temperature Oxygen saturation Oxygen saturation in Arterial blood by Pulse oximetry Systolic And Diastolic Provider Name and Address Organization Details Last Updated DateTime 3 162.56 cm 78 /min 16 /min 97.4 [degF] 97 % 97 % 102/71 mm[Hg] ISABELLA AN NP [address] [facility], [address], [place], [address], [facility] 3 10:17:45 Date Recorded Body height Heart rate Respiratory rate Body temperature Oxygen saturation Oxygen saturation in Arterial blood by Pulse oximetry Systolic And Diastolic Provider Name and Address Organization Details Last Updated DateTime 3 162.56 cm 83 /min 16 /min 97.2 [degF] 96 % 96 % 149/82 mm[Hg] ISABELLA AN NP [address] [facility], [address], [place], [address], [facility] 3 13:28:25 Date Recorded Body height Heart rate Respiratory rate Body temperature Oxygen saturation Oxygen saturation in Arterial blood by Pulse oximetry Systolic And Diastolic Provider Name and Address Organization Details Last Updated DateTime 3 162.56 cm 74 /min 16 /min 97.9 [degF] 97 % 97 % 160/87 mm[Hg] ISABELLA AN NP [address] [facility], [address], [place], [address], [facility] 3 12:23:57 Date Recorded Body height Heart rate Respiratory rate Body temperature Oxygen saturation Oxygen saturation in Arterial blood by Pulse oximetry Systolic And Diastolic Provider Name and Address Organization Details Last Updated DateTime 3 162.56 cm 74 /min 16 /min 97.8 [degF] 97 % 97 % 146/82 mm[Hg] ISABELLA AN NP [address] [facility], [address], [place], [address], [facility] 3 10:26:06 Social History Question Answer Notes LastModified by Organizat ion Details LastModified Time Tobacco Smoking Status Former Smoker ISABELLA AN NP [address] [facility], [address], [place], [address], [facility] 02/18/2022 12:53:25 Do You Have An Advance Directive? Yes Information not available 02/18/2022 What Is Your Code Status? Full Code Information not available 02/18/2022 Where Do You Live? Apartment Lives On 2nd Floor, Full Flight Of Steps, No Elevator Information not available 03/08/2022 Legal Guardian? No Informati on not available 03/08/2022 Do You Have A Medical Power Of Electrical Accessories Assembler? Yes Information not available 03/08/2022 What Was [...] adjuvanted, quadrivalent, PF 05/12/2022 completed Leann lyn, [facility] 07/03/2023 13:13:56 Past Encounters Encounter ID Performer Location Encounter Start Date Encounter Closed Date Diagnosis/Indication Diagnosis SNOMED-CT Code Diagnosis ICD10 Code Diagnosis IMO Codes Diagnosis Note [id number] ISABELLA AN NP [address] [address] 02/18/2022 12:45:14 02/22/2022 15:41:32 Acute kidney injury 08021052 N17.9 HD 3x weeksevela daren 800 with meals Acute adre nal insufficiency 073314732 E27.2 hydrocorti sone 10 mg am, 5 mg pm Asthenia 67145161 R53.1 PT OT eval and treatfall precaution sfrequent safety checks Atrial fibrillation 4943 6004 I48.91 eliquis 2.5 mg bidcoreg 25 mg bid Essential hypertension 64886984 I10 coreg 25 mg bidmonitor bp Hyperlipidemia 87940124 E78.5 atorvastat in 40 mg daily SARS-CoV-2 924139794 U07 .1 recovered by pcr positive [id number] ISABELLA AN NP [address] [address] 02/21/2022 12:25:35 03/08/2022 14:38:26 Acute kidney injury 10584160 N17.9 HD 3x weeksevela daren 800 with meals Atrial fibrillation 4943 6004 I48.91 eliquis 2.5 mg bidcoreg 25 mg bid Acute adre nal insufficiency 649171376 E27.2 hydrocorti sone 10 mg am, 5 mg pm [id number] ISABELLA AN NP [address] [address] 02/28/2022 09:41:39 03/09/2022 16:13:15 Anemia 288423875 D64.9 vit c 250 mg dailyiron 325 mg dailymonit or labs Lower gastrointestinal hemorrhage 75012135 K92.2 protonix 40 mg dailysched ule EGD/colono scopy Generalized rash 7061075 06 R21 cetirizine 10 mg bid for 5 days Acute kidney injury 1466 9001 N17.9 HD 3x weeksevela daren 800 with meals Acute adre nal insufficiency 836724631 E27.2 hydrocorti sone 10 mg am, 5 mg pm Asthenia 14364028 R53.1 PT OT eval and treatfall precaution sfrequent safety checks Atrial fibrillation 4943 6004 I48.91 eliquis 2.5 mg bidcoreg 25 mg bid Essential hypertension 97980156 I10 coreg 3.125 mg bidmonitor bp Hyperlipidemia 58763642 E78.5 atorvastat in 40 mg daily SARS-CoV-2 360680371 U07 .1 recovered by date02/05 pcr positive [id number] DARLIN MONTOYA MING [address] [facility] [place] [address] 03/02/2022 13:42:46 03/09/2022 16:16:32 Acute kidney injury 49371768 N17.9 HD 3x weeksevela daren 800 with meals Generalized rash 5560284 06 R21 cetirizine 10 mg bid for 5 daysmonito r for any further rash Lower gastrointestinal hemorrhage 21579701 K92.2 protonix 40 mg dailysched ule EGD/colono scopy [id number] MD NENO Mckeon MING [address] [facility] [place] [address] 03/08/2022 16:11:13 03/15/2022 13:11:38 Acute kidney injury 29806957 N17.0 Labs much improved yesterday. Pt says she is urinating some, but not much.Nichole nue HD 3x weekContin ue sevelamer 800 mg with mealsConti nue to avoid nephrotoxi c meds as able.Monit or labs.Renal f/u as planned Generalized rash 9083357 06 L50.8 Mostly resolved, just drying lesions now.Possib ly due to COVID.Comp leted cetirizine 10 mg BID on 03/05.Monit or for recurrence Lower gastrointestinal hemorrhage 34512460 K92.1 No further evidence of bleeding.C ontinue pantoprazo le 40 mg qd.Sofia montague has EGD/colono scopy scheduled already, but not in d/c instructio ns. She will check on date and let us know. Anemia 352879151 D64.89 Multifacto rial. Stable on last check.Cont inue FeSO4 325 mg qd with vit C 250 mg qd for absorption Monitor labs Acute adre nal insufficiency 115894226 E27.2 Continue hydrocorti sone 10 mg qam and 5 mg qpmStress dose when needed.Mon itor Asthenia 73312940 R53.1 Continues to be deconditio yann, but [...] tor HR and bleeding risk. Essential hypertension 12726147 I10 Good control on meds as above.Saima tor BP and labs. Hyperlipidemia 38756323 E78.49 Continue atorvastat in 40 mg qd.Monitor labs as outpt. SARS-CoV-2 699332674 U07 .1 Tested + on 02/05Ver tumultuous course.Now recovering as above.Saima tor for sequelae. Chronic sy stolic heart failure 990116820 I50.22 Continue carvedilol 3.125 mg BID.Not on diuretics currently, right now fluid being balanced at HD, may need to restart diuretic if she comes off dialysis.M onitor resp. status, fluid status, wts and labs. [id number] DARLIN MONTOYA MING [address] [place] [address] 03/09/2022 12:34:06 03/15/2022 13:57:52 Acute kidney injury 07250283 N17.0 HD 3x weeksevela daren 800 with meals Acute adre nal insufficiency 721060306 E27.2 hydrocorti sone 10 mg am, 5 mg pm Generalized rash 3629012 06 L50.8 cetirizine 10 mg bid for 5 daysmonito r for any further rash [id number] ISABELLA AN NP [address] [address] 03/24/2022 12:19:58 03/29/2022 15:13:22 Acute kidney injury 54622901 N17.0 HD 3x weeksevela daren 800 bid Chronic sy stolic heart failure 366920487 I50.22 carvedilol 3.125 mg BID.Not on diuretics currently, right now fluid being balanced at HD, may need to restart diuretic if she comes off dialysis.M onitor resp. status, fluid status, wts and labs. [id number] ISABELLA AN NP [address] [address] 03/28/2022 10:26:20 03/31/2022 15:29:43 Anemia 260298248 D64.9 vit c 250 mg dailyiron 325 mg dailymonit or labs Lower gastrointestinal hemorrhage 95231748 K92.2 protonix 40 mg dailysched ule EGD/colono scopy Generalized rash 7715896 06 R21 cetirizine 10 mg bid for 5 days Acute kidney injury 1466 9001 N17.9 HD 3x weeksevela daren 800 with meals Acute adre nal insufficiency 967330488 E27.2 hydrocorti sone 10 mg am, 5 mg pm Asthenia 08108951 R53.1 PT OT eval and treatfall precaution sfrequent safety checks Atrial fibrillation 4943 6004 I48.91 eliquis 2.5 mg bidcoreg 25 mg bid Essential hypertension 42496593 I10 coreg 3.125 mg bidmonitor bp Hyperlipidemia 27882329 E78.5 atorvastat in 40 mg daily SARS-CoV-2 133500573 U07 .1 recovered by pcr positive ISABELLA AN NP [address] [address] 07/29/2022 10:03:54 08/02/2022 12:10:27 Wound of skin 328216109 T14.8XXA monitor for any signs of infections taples can be removed 08/09 per hospital note Fracture of femur 999248 00 S72.92XA PT OT eval and treatoxyco done 5 mg q4hr prn x3 daysibupro fen 600 mg l4lffmpljm ntin 300 mg tid Constipation 13354150 K5 9.00 colace bidmiralax dailysenna daily Atrial fibrillation 4943 6004 I48.91 eliquis 2.5 mg bidcoreg 3.25 mg bid Hyperlipidemia 20830064 E78.5 atorvastat in 40 mg daily Anemia 753748653 D64.9 vit c 250 mg dailyiron 325 mg dailymonit or labs Gastroesop hageal reflux disease without esophagitis 203310998 K21.9 protonix 40 mg daily Chronic ki dney disease 387396105 N18.9 sevelamer 800 mg ac Acute adre nal insufficiency 847071521 E27.2 hydrocorti sone 10 mg am, 5 mg pm [id number] ISABELLA AN NP [address] [place] [address] 08/01/2022 11:51:52 08/03/2022 14:11:14 Chronic kidney disease 067734526 N18.9 sevelamer 800 mg acmonitor labs Fracture of femur 544288 00 S72.92XA PT OT eval and treatoxyco done 5 mg q4hr prn x3 daysibupro fen 600 mg y8yqphquqx ntin 300 mg tid Wound of skin 814223676 T14.8XXA monitor for any signs of infections taples can be removed 08/09 per hospital note [id number] Fifi Cuevas MD [address] [address] 08/05/2022 05:52:33 08/09/2022 08:30:29 Fracture of femur 66844226 S72.22XD PT/OTparti al WB LLEAPAP 975 mg q8h prnoxycodo ne 5 mg q4h prnibuprof en 600 mg q8h prngabapen tin 300 mg n4kvciwazq n 2.5 mg e03fiwkz monitor Chronic sy stolic heart failure 976243366 I50.22 carvedilol 3.125 mg bidwill monitor Atrial fibrillation 4943 6004 I48.0 carvedilol 3.125 mg bid for rate controlapi xaban 2.5 mg p53qmnco monitor Chronic ki dney disease 362646770 N18.32 sevelamer 800 mg with mealswill avoid nephrotoxi c medication Essential hypertension 84049579 I10 carvedilol 3.125 mg bidwill monitor Hyperlipidemia 84090312 E78.49 atorvastat in 40 mg dailywill monitor Adrenal co rtical hypofunction 507244032 E27.49 hydrocorti sone 10 mg in morning and 5 mg in eveningwil l monitorfu endocrinol ogy [id number] ISABELLA NA NP [address] [address] 08/08/2022 14:47:32 08/10/2022 14:51:32 Fracture of femur 17544447 S72.22XD PT OT eval and treatoxyco done 5 mg q4hr prnibuprof en 600 mg w6yzcwnygc ntin 300 mg tid Wound of skin 071075516 T14.8XXA monitor for any signs of infections taples can be removed 08/09 per hospital note ISABELLA AN NP [address] [address] 08/12/2022 10:16:56 08/16/2022 09:49:12 Fracture of femur 37426906 S72.22XD PT OT eval and treatoxyco done 5 mg q4hr prnibuprof en 600 mg c2suxzgyua ntin 300 mg tid Asthenia 77113360 R53.1 PT OT eval and treatfall precaution sfrequent safety checks 20230110 ISABELLA AN NP [address] [address] 08/18/2022 13:02:37 08/24/2022 14:38:33 Fracture of femur 58411610 S72.22XD PT OT eval and treatoxyco done 5 mg q4hr prnibuprof en 600 mg x6ryikeler ntin 300 mg tid Wound of skin 263419104 T14.8XXA healed wellmonito r for any signs of infection [id number] ISABELLA AN NP [address] [address] 08/26/2022 12:17:50 08/30/2022 08:30:41 Wound of skin 483840464 T14.8XXA healedmoni tor for any signs of infections taples can be removed 08/09 per hospital note Fracture of femur 262182 00 S72.92XA PT OT eval and treatoxyco done 5 mg q4hr prn x3 daysibupro fen 600 mg l5zgsyljac ntin 300 mg tid Constipation 37588466 K5 9.00 colace bidmiralax dailysenna daily Atrial fibrillation 4943 6004 I48.91 eliquis 2.5 mg bidcoreg 3.25 mg bid Hyperlipidemia 63832133 E78.5 atorvastat in 40 mg daily Anemia 479850044 D64.9 vit c 250 mg dailyiron 325 mg dailymonit or labs Gastroesop hageal reflux disease without esophagitis 306591673 K21.9 protonix 40 mg daily Chronic ki dney disease 006286797 N18.9 sevelamer 800 mg ac Acute adre nal insufficiency 123939363 E27.2 hydrocorti sone 10 mg am, 5 mg pm [id number] DARLIN MONTOYA [address] [place] [address] rd [place] [address] 09/02/2022 10:05:53 09/05/2022 14:50:13 Wound of skin 157134556 T14.8XXA healedmoni tor for any signs of infection Fracture of femur 301245 00 S72.92XA PT OT eval and treatibupr ofen 600 mg b9kogoqdep ntin 300 mg tid Constipation 13337570 K5 9.00 colace bidmiralax dailysenna daily Atrial fibrillation 4943 6004 I48.91 eliquis 2.5 mg bidcoreg 3.25 mg bid Hyperlipidemia 69261293 E78.5 atorvastat in 40 mg daily Anemia 711357260 D64.9 vit c 250 mg dailyiron 325 mg dailymonit or labs Gastroesop hageal reflux disease without esophagitis 896730721 K21.9 protonix 40 mg daily Chronic ki dney disease 209604619 N18.9 sevelamer 800 mg ac Acute adre nal insufficiency 306778460 E27.2 hydrocorti sone 10 mg am, 5 mg pm Health Concerns Section Related Observation LastModified by Organization Detai ls LastModified Time None Recorded Concern Status LastModified by Organization Details LastModified Time None Recorded Advance Directives Directive Y: Payers Insurance Date Sequence Insurance Name Policy Number Policy Hirsch Covered Member ID Hirsch Member ID Guarantor Name 08/12/2022 1 MEDICARE B-[place]: [employer] Nanci Henderson [id number] Nanci Henderson Notes Date Note Type Note Provider Name and Address Organization Details Recorded Time 08/08/2022 text/html ROS as noted in the HPI seen today for acute rounding visit, Beny she self transfered from commode to bed, large bruise noted left inner and posterior thigh, had not extended beyond the markings, staff measured the circumference for 3 days and it remained 55-56 cm with no additional swelling ISABELLA AN NP [address] [facility], [address], [place], [address], [facility] 08/08/2022 14:52:37 08/12/2022 text/html ROS as noted in the HPI seen today for acute rounding visit, Beny in the PT gym on the bike, she is now WBAT and beginning to ambulate with walker, good cms to leg, surgical wound healed well ISABELLA AN NP [address] [facility], [address], [place], [address], [facility] 08/12/2022 10:20:23 08/18/2022 text/html ROS as noted in the HPI seen today for acute rounding visit, Beny self propels around the unit in her wheelchair, she has been participating with PT and improving well, surgical wound healed well, good cms ISABELLA AN NP [address] [facility], [address], [place], [address], [facility] 08/18/2022 13:30:49 08/26/2022 text/html ROS as noted in the HPI seen today for 30 day routine rounding visit-66 yof seen as [...] place until 08/02-08/05, and was grossly stained. Marjan may be removed on 08/09 and can [...] walker and supervision ISABELLA AN NP [address] [facility], [facility] [address], [place], [address], [facility] 08/26/2022 12:26:26 09/02/2022 text/html ROS as noted in the HPI seen today for discharge summary-66 yof seen [...] place until 08/02-08/05, and was grossly stained. Dalton may be removed on 08/09 and can [...] drinking fairly well ISABELLA AN NP [address] [facility], [address], [place], [address], [facility] 09/02/2022 10:28:02 OBGyn Episode No OBEpisode recorded.
--- OUTSIDE RECORDS SUMMARY | 2025-04-15 10:53 | XMS_ITS | Clinical Summary ---
Author Organization [facility] Address [address] [place] [id number] Phone Care Team Providers Care Forest Nursery Supervisor Name Role Phone Rola De Oliveira MD Primary Care Provider [phone] Allergies Active Allergy Reactions Criticality Noted Date [...] Active ferrous sulfate 325 mg (65 mg solomon iron) EC tablet Take 325 mg by [...] wanted to do when she was at [facility]. Right shoulder pain 09/20/2018 Discharge planning issues [...] Overview (09/14/2018): Followed by Dr. Fox at [facility]. Started on Eliquis August 2018. Assessment & Plan (09/19/2018 3:18 PM EDT): Having little runs of rapid A. Fib. Increase Toprol ,continue Eliquis. Scheme Technician had asked her to wear a 48-hour [...] systolic heart failure Overview (09/14/2018): Echo at [facility] 08/2018 with reported EF 25-30% Assessment & Plan (09/18/2018 4:47 PM EDT): Requested information from [facility]. She had a cardiac cath in 2018. This showed LAD with less than 30% disease RCA less than 30% left circumflex less than 30% and left main ostial 40%, EF 25% Her copy lathe operator is Dr. JUDD LUCIO, records requested from his office in [place]. Patient thinks lisinopril is giving her cough. [...] AM EDT Office Visit [facility] [address] [place] [address] Thee Morales DO [address] [place] [address] [email or web address] Health Maintenance Due Date Last Done Comments [...] this topic Medical Devices Implanted Type Area Manual Training Teacher Device Identifier Shelf Expiration Date Model / Serial / Lot Screw Bone 36x3.5mm Compression Ss Locking Self Tapping Full Thread T15 [employer]rive Recess - [id number] Implanted:Qty: 2 on 08/30/2018 by Drew Vu DO at [facility] Right: Shoulder SYNTHES 212.115 / / Screw Bone 32x3.5mm Compression Ss Locking Self Tapping Full Thread T15 [employer]ardrive Recess - [id number] Implanted:Qty: 1 on 08/30/2018 by Drew Vu DO at [facility] Right: Shoulder SYNTHES 212.112 / / Screw Bone 45x3.5mm Compression Ss Locking Self Tapping Full Thread T15 [employer]rive Recess - [id number] Implanted:Qty: 2 on 08/30/2018 by Drew Vu DO at [facility] Right: Shoulder SYNTHES 212.119 / / Screw Bone 34x3.5mm Compression Ss Locking Self Tapping Full Thread T15 Stardrive Recess Cs/1ea - [id number] Implanted:Qty: 1 on 08/30/2018 by Drew Vu DO at [facility] Right: Shoulder SYNTHES 212.113 / / Screw Bone 3.5x24mm Cortex Self Tapping Fully Threaded Hex Head Ss - [id number] Implanted:Qty: 3 on 08/30/2018 by Drew Vu DO at [facility] Right: Shoulder SYNTHES 204.824 / / Humerus Plate 3.5x90mm 6 Hole Hd 3 Shaft Bone Proximalimal Lcp Standard - [id number] Implanted:Qty: 1 on 08/30/2018 by Drew Vu DO at [facility] Right: Shoulder SYNTHES 241.901 / / Procedures Procedure Name Priority Date/Time Associated Diagnosis Comments BASIC METABOLIC PANEL (BMP) Routine 08/20/2024 11:14 AM EDT Adrenal insufficiency LIPID PANEL Routine 09/16/2018 5:33 AM EDT from Last 3 Months or Most Recently Relevant to Health Maintenance Results * Basic metabolic panel (08/20/2024 11:14 AM EDT) SODIUM 144 133 - 146 mmol/L [facility] CHLORIDE 107 96 - 108 mmol/L [facility] POTASSIUM 4.4 3.3 - 5.1 mmol/L [facility] CO2 26 21 - 35 mmol/L [facility] BUN 18 6 - 19 mg/dL [facility] CREATININE 0.90 0.5 - 1.5 mg/dL [facility] GLUCOSE 74 70 - 99 mg/dL [facility] CALCIUM 10.3 8.4 - 10.3 mg/dL [facility] EGFR 69 >59 mL/min/1.7 3m2 [facility] Comment:Estimated glomerular filtration rate calculated using the CKD-EPI refit equation. ANION GAP 15 10 - 20 mmol/L [facility] Blood 08/20/2024 11:1 4 AM EDT 08/20/2024 11:17 AM EDT us Thee Morales DO LAB BLOOD BKR ORDERABLES Final R esult [address] [address] * (ABNORMAL) Lipid panel (09/16/2018 5:33 AM EDT) HDL 36 mg/dL [facility] Comment: Interpretation <40 mg/dL: Low HDL cholesterol (major risk factor for CHD) Greater than or equal to 60 mg/dL: High HDL cholesterol ( negative risk factor for CHD) HDL - cholesterol is affected by a number of factors, e.g. smoking, excerise, hormones, sex and age. CHOLESTEROL 109 0 - 240 mg/dL [facility] TRIGLYCERIDES 88 30 - 160 mg/dL [facility] LDL 55 50 - 129 mg/dL [facility] Comment: LDL levels in terms of risk for coronary heart disease: <100 mg/dL: Optimal 100-129 mg/dL: Near or above optimal 130-159 mg/dL: Borderline high 160-189 mg/dL: High >190 mg/dL: Very High CARDIAC RISK RATIO 3.0(L) 3.3 - 4.4 C [facility] 09/16/2018 5:33 AM EDT 09/16/2018 1:29 PM EDT us Alicia Coats MD LAB BLOOD BKR ORDERABLES Radha maynard Result [address] [address] from Last 3 Months or Most Recently [...] Advance Directives For more information, please contact: [phone] (9AM - 5PM [facility], Monday-Monday) Documents on File Type Date Recorded Patient Inspector Water Pollution Control Expl anation Healthcare Proxy 09/21/2018 11:28 AM [...] Agent (Proxy form on file) Care Teams Forest Nursery Supervisor Relationship Specialty Start Date End Date Rola De Oliveira MD [address] [place] [id number] PCP - General Internal Medicine 08/14/18 Additional Source Comments The information contained in this document represents components of the legal health record. It is not the complete legal health record.[facility]
--- OUTSIDE RECORDS SUMMARY | 2025-04-15 10:53 | XMS_ITS | Clinical Summary ---
Author Organization [facility] Facility Address [address] [address] Care Team Providers Care Soldering Machine Operator Helper Name Role Phone Rola De Oliveira MD Primary Care Provider [phone] Social History Tobacco Use Types Packs/Day Years [...] to complete this topic Insurance Medicare Medicare * Guarantor: Nanci Henderson Account Type Relation to Patient Date of Phone Billing Address Personal/Family Self 1955 [address] [place] [address] Care Teams Soldering Machine Operator Helper Relationship Specialty Start Date End Date Rola De Oliveira MD [facility] [id number] DEONTE SALAS PCP - General 04/16/19
[2025-04-15 11:01] LABS: Alanine Aminotransferase 20 U/L (0-31); Albumin Level 4.1 g/dL (3.5-5.0); Alkaline Phosphatase 135 U/L (39-117); Anion Gap 9 (12-20); Aspartate Amino Transferase 32 U/L (5-31); Blood Urea Nitrogen 21 mg/dL (9-16); Calcium 9.7 mg/dL (8.4-10.2); Carbon Dioxide 31 mmol/L (22-29); Chloride 105 mmol/L (96-108); Cholesterol 144 mg/dL (<200); Estimated Glomerular Filt Rate 55; Gamma Glutamyl Transpeptidase 44 U/L (7-33); HDL Cholesterol 55 mg/dL (>40); Iron 83 mcg/dL (30-160); Percent Iron Saturation 35 % (15-50); Potassium 4.2 mmol/L (3.3-5.1); Sodium 141 mmol/L (135-145); Total Iron Binding Capacity 237 mcg/dL (228-428); Total Protein 6.9 g/dL (6.5-8.0); Triglycerides 79 mg/dL (<150); Unsaturated Iron Binding 154 ug/dL
[2025-04-15 11:10] LABS: Ferritin 160 ng/mL (10-250)
== END 2025-04-15 09:40 | disposition home or self-care (01) ==
LOC: HO.LAB 09:39
PROVIDERS: Absent Provider Nurse Practitioner Family; PCP Internal Medicine; Visit Provider Internal Medicine
DX: R74.8 Abnormal levels of other serum enzymes (principal); E78.00 Pure hypercholesterolemia, unspecified
CPT/HCPCS: 36415; 80053; 80061; 81001; 82728; 82977; 83540; 83915; 85025; 85045

== ENCOUNTER 2025-04-17 14:30 | Outpatient (AMB) | payer MEDICARE, SELFPAY ==
[2025-04-17 14:33] VITALS: BP 128/68; PULSE 78; TEMP 36.3; O2SAT 96; BMI 21.5
--- NOTE | 2025-04-17 14:33 | MHC.PC.OV ---
Vital Signs 04/17/25 14:33 Height 5 ft 4 in Weight 125 lb 2 oz BMI 21.5 BP 128/68 Blood Pressure Location Lt brachial Position Sitting Pulse 78 Pulse Source Pulse Oximeter Temp 97.3 F Temp Source Temporal Artery Scan Pulse Oximetry (%) 96 Oxygen Delivery Method Room Air Intake Visit Reasons: a fib Skiver Machine Required: No Accompanied by: Self / Same As Patient Allergies lisinopril Allergy (Unknown, Verified 04/17/25 14:34) Unknown Medication List - Last Reconciled 04/17/25 by Rola De Oliveira MD albuterol sulfate 90 mcg/actuation 2 puffs inhalation Q6H PRN apixaban (Eliquis) 5 mg PO BID 90 days ascorbic acid (vitamin C) 250 mg PO DAILY atorvastatin 40 mg PO DAILY carvedilol 6.25 mg PO BID cetirizine (Zyrtec) 10 mg PO DAILY PRN diphenhydramine HCl (ZzzQuil) 12.5 mg PO BEDTIME PRN fluticasone propionate 50 mcg/actuation (Flonase Allergy Relief) 2 sprays intranasal DAILY hydrocortisone 5 mg PO DAILY hydrocortisone TAKE 1 TABLET IN THE MORNING AND HALF A TABLET IN THE EVENING losartan 25 mg PO DAILY pantoprazole 40 mg PO DAILY Tobacco use date assessed: 06/21/24 Fall risk assessment: No Falls in past year Last assessed Fall Risk: 06/21/24 Dental Screening Dental Screen Date: 06/21/24 Did you have a dental visit in the last 12 months?: No Did you have a dental problem in the last 6 months where you did not have access to dental care?: No Was dental information given to patient?: No PFSH Medical History Well woman exam Breast cancer screening by mammogram Screening for colon cancer Adult general medical exam Cellulitis Cat bite Abnormal electrocardiogram [ECG] [EKG] Upper respiratory tract infection Sinusitis Cough COVID-19 Hospital discharge follow-up Pituitary insufficiency Nonischemic cardiomyopathy Adrenal insufficiency Hypercholesterolemia Osteoporosis Atrial fibrillation Surgical History History of open reduction and internal fixation (ORIF) procedure Family History Father COPD (chronic obstructive pulmonary disease) Hypertension Renal failure Mother Hypertension Stroke Ischemic bowel disease Maternal Grandfather Lymphoma Skin cancer Paternal Aunt Skin cancer Maternal Grandfather Skin cancer Social History Housing: Apartment Alcohol intake: never Patient Tobacco Use Status: Former Tobacco user Tobacco use type: Cigarette Years Smoked: 30 +/- e-Cigarette/Vaping Use: Never Used Second Hand Smoke Exposure: Yes service: No Current occupational status: unemployed Cognitive needs: Yes (cane) Hearing needs: No Vision needs: Yes (glasse) Female Reproductive History Menstrual Age of Menarche: 10 Questionnaire PHQ-9 Over the last 2 weeks, how often have you been bothered by any of the following problems? 1. Little interest or pleasure in doing things: not at all 2. Feeling down, depressed, or hopeless: not at all 3. Trouble falling or staying asleep, or sleeping too much: several days 4. Feeling tired or having little energy: not at all 5. Poor appetite or overeating: not at all 6. Feeling bad about yourself - or that you are a failure or have let yourself or your family down: not at all 7. Trouble concentrating on things, such as reading the newspaper or watching television: not at all 8. Moving or speaking so slowly that other people could have noticed. Or the opposite - being so fidgety or restless that you have been moving around a lot more than usual: not at all 9. Thoughts that you would be better off or of hurting yourself in some way: not at all Total score: 1 Depression Screening Interpretation: Negative Depression Screening Done: Yes 18120 - PHQ-9 Billing: Yes Source: Developed by Drs. Kalpesh Jackson, Caitlin Wolf, Titus Holloway and colleagues, with an educational alfred from [employer]. Thrive Questionnaire Date Thrive assessed: 04/16/25 I am a: Patient What is your living situation today?: I have a steady place to live Within the past 12 months, did the food you bought not last and you didn't have the money to get more?: Never true Within the past 12 months, did you worry whether your food would run out before you got money to buy more?: Never true Do you have trouble paying for medicines?: No Do you have trouble getting transportation to medical appointments?: No Do you have trouble paying your heating and electricity bill?: No Do you have trouble taking care of your child, family member or friend?: No Do you have trouble with day-to-day activities such as bathing, preparing meals, shopping, managing finances, etc.?: No Are you currently unemployed and looking for a job?: No Are you interested in more education?: No Please select the resources that you would like help with: None Currently or been in a relationship where the following occur: No concerns reported THRIVE Score: 0 AUDIT C Alcohol Use Questionnaire (AUDIT-C) 1. How often do you have a drink containing alcohol?: Never 3. How often do you have six or more drinks on one occasion?: Never Total Score: 0 Score Reviewed/Action Taken: No HALI-7 AMB Questionnaire HALI-7 Date HALI - 7 assessed: 06/21/24 Feeling nervous, anxious, or on edge: 0 = Not at all Not being able to stop or control worryin = Not at all Worrying too much about different things: 0 = Not at all Trouble relaxin = Not at all Being so restless that it is hard to sit still: 0 = Not at all Becoming easily annoyed or irritable: 0 = Not at all Feeling afraid as if something awful might happen: 0 = Not at all Total HALI-7 score (0-4 normal; 5-9 mild; 10-14 moderate; 15-21 severe): 0 Source: Developed by Drs. Kalpesh Jackson, Caitlin Wolf, Titus Holloway and colleagues, with an educational alfred from [employer]. HALI-7 Assessment Billing HALI-7 Assessment Tool: HALI-7 Assessment 97120 Physical exam (Primary Care) Vital Signs: Last Vital Signs Temp 97.3 F 04/17/25 14:33 Pulse 78 04/17/25 14:33 BP 128/68 04/17/25 14:33 Pulse Ox 96 04/17/25 14:33 Oxygen Delivery Method Room Air 04/17/25 14:33 BMI result Body Mass Index 21.5 Tobacco/Smoking Status: Tobacco use Status Tobacco use date assessed 06/21/24 04/17/25 14:35 Patient Tobacco Use Status Former Tobacco user 04/17/25 14:35 Tobacco use type Cigarette 04/17/25 14:35 e-Cigarette/Vaping Use Never Used 04/17/25 14:35 PHQ-9: PHQ-9 Score PHQ-9: Total score 1 04/17/25 15:21 Depression Screening Interpretation: Negative Thrive Assessment: Date of Thrive Assessment Date Thrive assessed 04/16/25 04/17/25 14:35 Currently or been in a relationship where the following occur: No concerns reported Const General: alert; No acute distress Eyes Conjunctivae: conjunctivae normal Resp Auscultation: clear to auscultation bilaterally Cardio Rate: regular rate Rhythm: regular rhythm GI Inspection: Yes normal to inspection Extrem General: Yes normal to inspection and No edema Office Procedures Flu Questionnaire Does the patient have a severe egg allergy?: No Does the patient have severe life threatening allergies?: No Does the patient have a fever or illness today?: No Has the patient ever had Guillain-[place] Syndrome?: No Has the patient ever had any past reaction to a flu shot?: No Immunizations Fluarix [id number] (PF) 45 mcg (15 mcg x 3)/0.5 mL IM syringe Performing Provider: Rola De Oliveira MD [facility] Administered by: Debbie Schwartz CMA on 04/17/25 15:21 Dose Route Admin Location Dispensed Lot Number Expiration Date [employer] 0.5 mL IM Left Deltoid 0.5 mL [id number] 12/09/25 [id number] [id number] VIS Given Date VIS Provided VIS Publication Date 04/17/25 Single Vaccine 24 Eligibility Eligibility Date Funding Source Not [facility] Eligible 04/17/25 Private Coding Level of Care Code Est Pt Level 4 (31561) Complex EM visit Add On G2211 Diagnoses Essential hypertension I10 Coronary artery disease involving [place] coronary artery of [place] heart without angina pectoris I25.10 Coronary Disease-Associated Artery/Lesion type: [place] artery [place] vs. transplanted heart: [place] heart Associated angina: without angina Paroxysmal atrial fibrillation I48.0 Atrial fibrillation type: paroxysmal Nonischemic cardiomyopathy I42.8 Hypercholesterolemia E78.00 Gastroesophageal reflux disease without esophagitis K21.9 Esophagitis presence: without esophagitis Additional Codes HALI-7 Assessment Billing - HALI-7 Assessment Tool: HALI-7 Assessment 12535 ([id number]) PHQ-9 - 45428 - PHQ-9 Billing: Yes ([id number]) Assessment & Plan Assessment & Plan (1) Essential hypertension: Code(s): I10 - Essential (primary) hypertension Category: Medical Plan: Continue with blood pressure medication. Decrease salt intake and exercise on carvedilol 6.25 mg twice a day losartan 25 mg once a day (2) CAD (coronary artery disease): Code(s): I25.10 - Atherosclerotic heart disease of [place] coronary artery without angina pectoris Category: Medical Qualifiers: Coronary Disease-Associated Artery/Lesion type: [place] artery [place] vs. transplanted heart: [place] heart Associated angina: without angina Qualified Code(s): I25.10 - Atherosclerotic heart disease of [place] coronary artery without angina pectoris Plan: Control the cholesterol, weight, blood pressure, on Eliquis 5 mg twice a day (3) Atrial fibrillation: Code(s): I48.91 - Unspecified atrial fibrillation Category: Medical Qualifiers: Atrial fibrillation type: paroxysmal Qualified Code(s): I48.0 - Paroxysmal atrial fibrillation Plan: Continue with anticoagulation and carvedilol (4) Nonischemic cardiomyopathy: Code(s): I42.8 - Other cardiomyopathies Category: Medical Plan: Continue to follow up with Cardiology echocardiogram being monitored (5) Hypercholesterolemia: Code(s): E78.00 - Pure hypercholesterolemia, unspecified Category: Medical Plan: Avoid fried foods, chicken skin, eggs, butter margarine, pastries and meat. Be it pork or beef they have a lot of cholesterol patient is on atorvastatin 40 mg once a day (6) GERD (gastroesophageal reflux disease): Code(s): K21.9 - Gastro-esophageal reflux disease without esophagitis Category: Medical Qualifiers: Esophagitis presence: without esophagitis Qualified Code(s): K21.9 - Gastro-esophageal reflux disease without esophagitis Plan: Avoid the foods that causes that usually spicy foods, tomato products, juices, coffee, soda and foods that your sensitive to. After eating do not lie down, allow 3-4 hours before in lie down. And keep the head of bed above 30 degrees to avoid the acid from going up. Plan History of Present Illness The patient is a 69-year-old female presenting for a follow-up visit. Her medical history is significant for atrial fibrillation, hypercholesterolemia, nonischemic cardiomyopathy, coronary artery disease, hypertension, osteoporosis with a history of left femoral, rib, and clavicular fractures, generalized anxiety disorder, and GERD. Regarding her cardiac history, she follows with cardiology for nonischemic cardiomyopathy. A previous echocardiogram showed an ejection fraction of 35-40%, which improved to 50-55% on a repeat study in March 2024. A Holter monitor confirmed atrial fibrillation, and a stress test in 2023 showed normal myocardial perfusion. She has another echocardiogram scheduled in a few weeks. A review of her lab work from April 15 showed a normal blood count with mild thrombocytopenia, which has been previously noted. Electrolytes, renal function, and blood sugar were normal. Her LDL cholesterol was 74, an increase from 58 in May, and her liver enzymes were noted to be mildly elevated, prompting a pending ultrasound. Urinalysis has shown persistent blood. For health maintenance, her last bone density scan for osteoporosis was in December 2022, and her mammogram is up to date. She reports a recent burn on her hand and new onset of thumb pain. Health Maintenance The patient will receive an influenza vaccine today. She is due for a tetanus vaccine, last given in 2014, and was advised to get it soon. The shingles vaccine was discussed as an option available at the pharmacy. Patient was reminded she is due for a repeat bone density scan, as the last was in December 2022. She was provided with the contact number for dermatology to follow up on a referral. Social History - Diet: Patient reports eating chicken without the skin and occasionally consuming fried foods, which she tries to remove the fried parts from. - She acknowledges she could reduce her dessert intake and describes her cooking style as plain. Review of Systems - Respiratory: Denies recent use of her as-needed inhaler. - Cardiovascular: Reports an irregular heartbeat that she has all the time. - Musculoskeletal: Reports intermittent pain in her thumb, exacerbated by certain movements or holding objects. - Integumentary: Reports a burn on her hand that is now dry. Physical Exam - Cardiovascular: Pulse check reveals an irregular rhythm. - Integumentary: Examination of the hand shows a burn that is dry. Results - Labs (April 15): - CBC: Normal blood count with mild thrombocytopenia. - CMP: Electrolytes, renal function, and blood sugar are normal. - Creatinine is 0.99. - Liver enzymes are mildly elevated. - Lipid Panel: LDL cholesterol is 74, which is an increase from 58 in May. - Urinalysis: Reveals persistent hematuria, with levels similar to previous tests. - Cardiology Studies: - Echocardiogram (March 2024): Ejection fraction improved to 50-55%, up from a previous 35-40%. - Stress Test (2023): Revealed normal myocardial perfusion. - Holter Monitor: Showed atrial fibrillation. - Bone Density Scan (December 2022): Is on record. - Mammogram: Up to date. Plan Patient was informed and verbally consented to the use of an ambient scribe for clinic note documentation during this visit. 1. Hypercholesterolemia The patient's LDL cholesterol is 74, which is elevated above the goal of <70 given her cardiac history. She is currently on atorvastatin 40 mg daily. Options discussed included increasing atorvastatin to 80 mg or attempting dietary changes. The patient has elected to focus on dietary modifications, such as reducing desserts and fried foods. Plan to repeat cholesterol testing in three months to assess response. 2. Nonischemic Cardiomyopathy And Atrial Fibrillation The patient's EF has improved to 50-55% on her most recent echocardiogram. However, cardiology notes that medications may need adjustment if her heart function declines again. She will continue her current regimen of carvedilol 6.25 mg twice daily, losartan 25 mg daily, and Eliquis 5 mg twice daily for anticoagulation. Continue to follow up with cardiology, with a repeat echocardiogram scheduled in a few weeks. 3. Mildly Elevated Liver Enzymes Recent labs showed mildly elevated liver enzymes. An abdominal ultrasound is pending and scheduled for June 06 to further evaluate the liver and kidneys. 4. Hematuria The patient has persistent blood in her urine, at a level similar to previous findings. The upcoming abdominal ultrasound on June 06 will include an evaluation of the kidneys. A urine cytology test will also be ordered to further investigate the cause of the hematuria. 5. Thumb Pain Patient reports pain in her thumb, possibly related to a tendon issue or arthritis. Advised to rest the thumb. 6. Superficial Burn Of Hand The patient has a superficial burn on her hand which is now dry. She was advised to apply antibiotic ointment and leave the area open to air. Discussion Notes I reviewed the patient's extensive medical history and recent cardiology notes. I informed her that her most recent echocardiogram showed an improved ejection fraction of 50-55%, which is in the normal range, but that cardiology will monitor it closely as it has fluctuated in the past. We discussed her recent lab results in detail. I explained that her LDL cholesterol of 74 is slightly above the strict goal of <70 for patients with heart disease. We discussed the options of increasing her atorvastatin or attempting dietary modification first; she chose to try improving her diet, and we agreed to recheck her cholesterol in three months. I also explained that her liver numbers were mildly high, which is why an ultrasound is scheduled, and that her kidney function is good. We addressed the persistent blood in her urine, and I informed her that I would be adding a urine cytology test to her upcoming abdominal ultrasound to investigate this further. I reviewed her vaccination status, confirming we would give the flu shot today and advising her that her tetanus shot is due. We also had a discussion about the shingles vaccine, including its benefits and common side effects. I provided instructions for her minor burn and thumb pain. I reminded her that she is due for a repeat bone density scan and gave her the contact information to follow up on her dermatology referral. Patient Instructions - Continue to take all your medications as prescribed, including those for your heart, blood pressure, and cholesterol. - You will receive your flu shot today in the office. - Your tetanus shot is due. - Please get this soon; you can get it at a pharmacy like [facility]. - Your cholesterol is a little high. - Try to eat fewer fried foods and desserts to help lower it. - We will recheck your blood work in three months. - You have an ultrasound of your abdomen scheduled for June 06 to check your liver and kidneys. - I have also ordered a special urine test (cytology) to check for the blood in your urine. - Your last bone density scan was in 2022. - It is now time to schedule a new one. - I have given you the phone number for the skin doctor (lead bi developer). - Please call them to schedule your appointment, and let them know a referral has already been sent. - For the burn on your hand, you can put an antibiotic ointment on it and leave it uncovered to heal. - For the pain in your thumb, try to rest it as much as possible. - Continue to follow up with your heart doctor (sheeter waxer operator) as scheduled. Orders: Orders Comprehensive Met. Panel Today E78.00 - Pure hypercholesterolemia, unspecified Lipid Panel 3 Months E78.00 - Pure hypercholesterolemia, unspecified Urine Cytology Today R31.9 - Hematuria, unspecified US abdomen complete Today R31.9 - Hematuria, unspecified, R79.89 - Other specified abnormal findings of blood chemistry Influenza [id number] Immunization Today Z23 - Encounter for immunization
--- OUTSIDE RECORDS SUMMARY | 2025-04-17 17:46 | XMS_ITS | Clinical Summary ---
Author Organization [facility] Facility Address [address] [address] Care Team Providers Care Welding Process Engineer Name Role Phone Rola De Oliveira MD Primary Care Provider [phone] Social History Tobacco Use Types Packs/Day Years [...] this topic Insurance Medicare Medicare Care Teams Welding Process Engineer Relationship Specialty Start Date End Date Rola De Oliveira MD [facility] [id number] DEONTE SALAS PCP - General 04/16/19
--- OUTSIDE RECORDS SUMMARY | 2025-04-17 17:46 | XMS_ITS | Data Portability ---
Author Organization [facility], Main Office Address [address] [facility], [address] [place] [address] Care Team Providers Care Computer Methods Analyst Name Role Phone LESLY YOUNG Primary [facility] Provider [facility] OTHER Assessment No assessment recorded. [...] Details Recorded Time Acute adrenal insufficien cy 116796761 Active 2021 ISABELLA AN NP [address] [facility], [facility] [address], [place], [address], [facility] 2 12:51:45 Atrial fibrillatio n 80507655 Active 2021 ISABELLA AN NP [address] [facility], [address], [place], [address], [facility] 2 12:51:51 Hyperlipide geno 11436216 Active 2021 ISABELLA AN NP [address] [facility], [address], [place], [address], [facility] 2 12:51:57 Essential hypertensio n 76432971 Active 2021 ISABELLA AN NP [address] [facility], [address], [place], [address], [facility] 2 12:52:03 Asthenia 02508614 Active 2021 ISABELLA AN, [employer] [address], [address], [place], [address], [facility] 2 13:14:32 Acute kidney injury 08576472 Active 2021 ISABELLA NATALIYA, [employer] [address], [address], [place], [address], [facility] 2 13:14:40 SARS-CoV-2 Active 2021 ISABELLA AN, [employer] [address], [address], [place], [address], [facility] 2 13:14:49 Anemia 417719412 Active 2021 ISABELLA AN, [employer] [address], [address], [place], [address], [facility] 2 10:50:35 Lower gastrointes tinal hemorrhage 36472943 Active 2021 ISABELLA AN, [employer] [address], [address], [place], [address], [facility] 2 10:51:01 Generalized rash 672820030 Active 2021 ISABELLA AN, [employer] [address] [facility], [address], [place], [address], [facility] 2 10:51:47 Chronic systolic heart failure 251503542 Active 2021 Leigh Morejon MD [address] [facility], [address], [place], [address], [facility] 2 00:42:51 Wound of skin 003397802 Active 2022 surgical wound left leg ISABELLA AN NP [address], [address], [place], [address], [facility] 3 13:22:46 Fracture of femur 28263848 Active 2022 ISABELLA AN NP [address], [address], [place], [address], [facility] 3 13:23:11 Constipatio n 76261213 Active 2022 ISABELLA AN DARLIN [address] [facility], [address], [place], [address], [facility] 3 13:23:38 Gastroesoph ageal reflux disease without esophagitis 449381571 Active 2022 ISABELLA AN [employer] [address] [facility], [address], [place], [address], [facility] 3 13:24:18 Chronic kidney disease 328413560 Active 2022 ISABELLA AN [employer] [address] [facility], [address], [place], [address], [facility] 3 13:25:26 Problem Notes None recorded. Medical Equipment None Reported. Allergies Allergen ID Allergen Name Allergen Category Reaction Reaction Severity Criticality Documentation Date Start Date Code Code System Note Provider Name and Address Organization Details Recorded Time 11184 lisinopri l medicatio n Not available Not available Not available 02/18/2022 82919 RxNorm ISABELLA AN, DARLIN [address] [facility], [address], [place], [address], [facility] 2 12:51:10 41486 mold extract environme nt Not available Not available Not available 02/18/2022 11410 8 RxNorm ISABELLA AN, [employer] [address] [facility], [address], [place], [address], [facility] 2 12:51:15 66225 house dust allergeni c extract environme nt,medica tion Not available Not available Not available 02/18/2022 76812 9 RxNorm ISABELLA AN, DARLIN [address] [facility], [address], [place], [address], [facility] 2 12:51:23 Vitals Date Recorded Body height Heart rate Respiratory rate Body temperature Oxygen saturation Oxygen saturation in Arterial blood by Pulse oximetry Systolic And Diastolic Provider Name and Address Organization Details Last Updated DateTime 3 162.56 cm 66 /min 16 /min 97.9 [degF] 97 % 97 % 129/72 mm[Hg] ISABELLA AN NP [address] [facility], [address], [place], [address], [facility] 3 14:48:11 Date Recorded Body height Heart rate Respiratory rate Body temperature Oxygen saturation Oxygen saturation in Arterial blood by Pulse oximetry Systolic And Diastolic Provider Name and Address Organization Details Last Updated DateTime 3 162.56 cm 78 /min 16 /min 97.4 [degF] 97 % 97 % 102/71 mm[Hg] ISABELLA AN NP [address] [facility], [address], [place], [address], [facility] 3 10:17:45 Date Recorded Body height Heart rate Respiratory rate Body temperature Oxygen saturation Oxygen saturation in Arterial blood by Pulse oximetry Systolic And Diastolic Provider Name and Address Organization Details Last Updated DateTime 3 162.56 cm 83 /min 16 /min 97.2 [degF] 96 % 96 % 149/82 mm[Hg] ISABELLA AN NP [address] [facility], [address], [place], [address], [facility] 3 13:28:25 Date Recorded Body height Heart rate Respiratory rate Body temperature Oxygen saturation Oxygen saturation in Arterial blood by Pulse oximetry Systolic And Diastolic Provider Name and Address Organization Details Last Updated DateTime 3 162.56 cm 74 /min 16 /min 97.9 [degF] 97 % 97 % 160/87 mm[Hg] ISABELLA AN NP [address] [facility], [address], [place], [address], [facility] 3 12:23:57 Date Recorded Body height Heart rate Respiratory rate Body temperature Oxygen saturation Oxygen saturation in Arterial blood by Pulse oximetry Systolic And Diastolic Provider Name and Address Organization Details Last Updated DateTime 3 162.56 cm 74 /min 16 /min 97.8 [degF] 97 % 97 % 146/82 mm[Hg] ISABELLA AN NP [address] [facility], [address], [place], [address], [facility] 3 10:26:06 Social History Question Answer Notes LastModified by Organizat ion Details LastModified Time Tobacco Smoking Status Former Smoker ISABELLA AN NP [address] [facility], [address], [place], [address], [facility] 02/18/2022 12:53:25 Do You Have An Advance Directive? Yes Information not available 02/18/2022 What Is Your Code Status? Full Code Information not available 02/18/2022 Where Do You Live? Apartment Lives On 2nd Floor, Full Flight Of Steps, No Elevator Information not available 03/08/2022 Legal Guardian? No Informati on not available 03/08/2022 Do You Have A Medical Power Of Foil Spinner? Yes Information not available 03/08/2022 What Was [...] adjuvanted, quadrivalent, PF 05/12/2022 completed Leann lyn, [facility] 07/03/2023 13:13:56 Past Encounters Encounter ID Performer Location Encounter Start Date Encounter Closed Date Diagnosis/Indication Diagnosis SNOMED-CT Code Diagnosis ICD10 Code Diagnosis IMO Codes Diagnosis Note [id number] ISABELLA AN NP [address] [address] 02/18/2022 12:45:14 02/22/2022 15:41:32 Acute kidney injury 79595644 N17.9 HD 3x weeksevela daren 800 with meals Acute adre nal insufficiency 160981187 E27.2 hydrocorti sone 10 mg am, 5 mg pm Asthenia 12976404 R53.1 PT OT eval and treatfall precaution sfrequent safety checks Atrial fibrillation 4943 6004 I48.91 eliquis 2.5 mg bidcoreg 25 mg bid Essential hypertension 15953712 I10 coreg 25 mg bidmonitor bp Hyperlipidemia 15163178 E78.5 atorvastat in 40 mg daily SARS-CoV-2 894673524 U07 .1 recovered by pcr positive [id number] ISABELLA AN NP [address] [address] 02/21/2022 12:25:35 03/08/2022 14:38:26 Acute kidney injury 64829317 N17.9 HD 3x weeksevela daren 800 with meals Atrial fibrillation 4943 6004 I48.91 eliquis 2.5 mg bidcoreg 25 mg bid Acute adre nal insufficiency 261262504 E27.2 hydrocorti sone 10 mg am, 5 mg pm [id number] ISABELLA AN NP [address] [address] 02/28/2022 09:41:39 03/09/2022 16:13:15 Anemia 515547413 D64.9 vit c 250 mg dailyiron 325 mg dailymonit or labs Lower gastrointestinal hemorrhage 29146528 K92.2 protonix 40 mg dailysched ule EGD/colono scopy Generalized rash 0258980 06 R21 cetirizine 10 mg bid for 5 days Acute kidney injury 1466 9001 N17.9 HD 3x weeksevela daren 800 with meals Acute adre nal insufficiency 819394666 E27.2 hydrocorti sone 10 mg am, 5 mg pm Asthenia 01612673 R53.1 PT OT eval and treatfall precaution sfrequent safety checks Atrial fibrillation 4943 6004 I48.91 eliquis 2.5 mg bidcoreg 25 mg bid Essential hypertension 93675489 I10 coreg 3.125 mg bidmonitor bp Hyperlipidemia 36720083 E78.5 atorvastat in 40 mg daily SARS-CoV-2 191509684 U07 .1 recovered by date02/05 pcr positive [id number] DARLIN MONTOYA MING [address] [place] [address] 03/02/2022 13:42:46 03/09/2022 16:16:32 Acute kidney injury 25476013 N17.9 HD 3x weeksevela daren 800 with meals Generalized rash 5626042 06 R21 cetirizine 10 mg bid for 5 daysmonito r for any further rash Lower gastrointestinal hemorrhage 67398952 K92.2 protonix 40 mg dailysched ule EGD/colono scopy [id number] MD NENO Mckeon MING [address] [facility] [address] 03/08/2022 16:11:13 03/15/2022 13:11:38 Acute kidney injury 83024518 N17.0 Labs much improved yesterday. Pt says she is urinating some, but not much.Nichole nue HD 3x weekContin ue sevelamer 800 mg with mealsConti nue to avoid nephrotoxi c meds as able.Monit or labs.Renal f/u as planned Generalized rash 4667393 06 L50.8 Mostly resolved, just drying lesions now.Possib ly due to COVID.Comp leted cetirizine 10 mg BID on 03/05.Monit or for recurrence Lower gastrointestinal hemorrhage 38619378 K92.1 No further evidence of bleeding.C ontinue pantoprazo le 40 mg qd.Sofia montague has EGD/colono scopy scheduled already, but not in d/c instructio ns. She will check on date and let us know. Anemia 697100804 D64.89 Multifacto rial. Stable on last check.Cont inue FeSO4 325 mg qd with vit C 250 mg qd for absorption Monitor labs Acute adre nal insufficiency 568356236 E27.2 Continue hydrocorti sone 10 mg qam and 5 mg qpmStress dose when needed.Mon itor Asthenia 60251433 R53.1 Continues to be deconditio yann, but [...] tor HR and bleeding risk. Essential hypertension 76104802 I10 Good control on meds as above.Saima tor BP and labs. Hyperlipidemia 83285842 E78.49 Continue atorvastat in 40 mg qd.Monitor labs as outpt. SARS-CoV-2 845028330 U07 .1 Tested + on 02/05Ver tumultuous course.Now recovering as above.Saima tor for sequelae. Chronic sy stolic heart failure 030425835 I50.22 Continue carvedilol 3.125 mg BID.Not on diuretics currently, right now fluid being balanced at HD, may need to restart diuretic if she comes off dialysis.M onitor resp. status, fluid status, wts and labs. [id number] DARLIN MONTOYA MING [address] [place] [address] 03/09/2022 12:34:06 03/15/2022 13:57:52 Acute kidney injury 08448317 N17.0 HD 3x weeksevela daren 800 with meals Acute adre nal insufficiency 535727126 E27.2 hydrocorti sone 10 mg am, 5 mg pm Generalized rash 5064092 06 L50.8 cetirizine 10 mg bid for 5 daysmonito r for any further rash [id number] ISABELLA AN NP [address] [address] 03/24/2022 12:19:58 03/29/2022 15:13:22 Acute kidney injury 21786454 N17.0 HD 3x weeksevela daren 800 bid Chronic sy stolic heart failure 944079544 I50.22 carvedilol 3.125 mg BID.Not on diuretics currently, right now fluid being balanced at HD, may need to restart diuretic if she comes off dialysis.M onitor resp. status, fluid status, wts and labs. [id number] ISABELLA AN NP [address] [address] 03/28/2022 10:26:20 03/31/2022 15:29:43 Anemia 459883154 D64.9 vit c 250 mg dailyiron 325 mg dailymonit or labs Lower gastrointestinal hemorrhage 79595824 K92.2 protonix 40 mg dailysched ule EGD/colono scopy Generalized rash 5758074 06 R21 cetirizine 10 mg bid for 5 days Acute kidney injury 1466 9001 N17.9 HD 3x weeksevela daren 800 with meals Acute adre nal insufficiency 655749707 E27.2 hydrocorti sone 10 mg am, 5 mg pm Asthenia 97078930 R53.1 PT OT eval and treatfall precaution sfrequent safety checks Atrial fibrillation 4943 6004 I48.91 eliquis 2.5 mg bidcoreg 25 mg bid Essential hypertension 70149886 I10 coreg 3.125 mg bidmonitor bp Hyperlipidemia 51259521 E78.5 atorvastat in 40 mg daily SARS-CoV-2 503159784 U07 .1 recovered by pcr positive ISABELLA AN NP [address] [address] 07/29/2022 10:03:54 08/02/2022 12:10:27 Wound of skin 144427746 T14.8XXA monitor for any signs of infections taples can be removed 08/09 per hospital note Fracture of femur 852306 00 S72.92XA PT OT eval and treatoxyco done 5 mg q4hr prn x3 daysibupro fen 600 mg o7piqvjfyk ntin 300 mg tid Constipation 67700883 K5 9.00 colace bidmiralax dailysenna daily Atrial fibrillation 4943 6004 I48.91 eliquis 2.5 mg bidcoreg 3.25 mg bid Hyperlipidemia 87799090 E78.5 atorvastat in 40 mg daily Anemia 259180657 D64.9 vit c 250 mg dailyiron 325 mg dailymonit or labs Gastroesop hageal reflux disease without esophagitis 650655698 K21.9 protonix 40 mg daily Chronic ki dney disease 625864234 N18.9 sevelamer 800 mg ac Acute adre nal insufficiency 896289706 E27.2 hydrocorti sone 10 mg am, 5 mg pm [id number] ISABELLA AN NP [address] [place] [address] 08/01/2022 11:51:52 08/03/2022 14:11:14 Chronic kidney disease 372690710 N18.9 sevelamer 800 mg acmonitor labs Fracture of femur 478188 00 S72.92XA PT OT eval and treatoxyco done 5 mg q4hr prn x3 daysibupro fen 600 mg r7zmrcbbxf ntin 300 mg tid Wound of skin 061608538 T14.8XXA monitor for any signs of infections taples can be removed 08/09 per hospital note [id number] Fifi Cuevas MD [address] [address] 08/05/2022 05:52:33 08/09/2022 08:30:29 Fracture of femur 34772909 S72.22XD PT/OTparti al WB LLEAPAP 975 mg q8h prnoxycodo ne 5 mg q4h prnibuprof en 600 mg q8h prngabapen tin 300 mg h0cnrvrsxw n 2.5 mg g91bluai monitor Chronic sy stolic heart failure 537444371 I50.22 carvedilol 3.125 mg bidwill monitor Atrial fibrillation 4943 6004 I48.0 carvedilol 3.125 mg bid for rate controlapi xaban 2.5 mg i06ynjhh monitor Chronic ki dney disease 426000581 N18.32 sevelamer 800 mg with mealswill avoid nephrotoxi c medication Essential hypertension 80745422 I10 carvedilol 3.125 mg bidwill monitor Hyperlipidemia 53793454 E78.49 atorvastat in 40 mg dailywill monitor Adrenal co rtical hypofunction 033313143 E27.49 hydrocorti sone 10 mg in morning and 5 mg in eveningwil l monitorfu endocrinol ogy [id number] ISABLELA AN NP [address] [address] 08/08/2022 14:47:32 08/10/2022 14:51:32 Fracture of femur 28162985 S72.22XD PT OT eval and treatoxyco done 5 mg q4hr prnibuprof en 600 mg n5plulqhfb ntin 300 mg tid Wound of skin 623330346 T14.8XXA monitor for any signs of infections taples can be removed 08/09 per hospital note ISABELLA AN NP [address] [address] 08/12/2022 10:16:56 08/16/2022 09:49:12 Fracture of femur 60626032 S72.22XD PT OT eval and treatoxyco done 5 mg q4hr prnibuprof en 600 mg r0popatbrh ntin 300 mg tid Asthenia 12722128 R53.1 PT OT eval and treatfall precaution sfrequent safety checks [id number] ISABELLA AN NP [address] [address] 08/18/2022 13:02:37 08/24/2022 14:38:33 Fracture of femur 66447126 S72.22XD PT OT eval and treatoxyco done 5 mg q4hr prnibuprof en 600 mg r4mxsmglth ntin 300 mg tid Wound of skin 019690145 T14.8XXA healed wellmonito r for any signs of infection [id number] ISABELLA AN NP [address] [address] 08/26/2022 12:17:50 08/30/2022 08:30:41 Wound of skin 193293086 T14.8XXA healedmoni tor for any signs of infections taples can be removed 08/09 per hospital note Fracture of femur 197735 00 S72.92XA PT OT eval and treatoxyco done 5 mg q4hr prn x3 daysibupro fen 600 mg w5luwtizha ntin 300 mg tid Constipation 41109527 K5 9.00 colace bidmiralax dailysenna daily Atrial fibrillation 4943 6004 I48.91 eliquis 2.5 mg bidcoreg 3.25 mg bid Hyperlipidemia 48035701 E78.5 atorvastat in 40 mg daily Anemia 650005181 D64.9 vit c 250 mg dailyiron 325 mg dailymonit or labs Gastroesop hageal reflux disease without esophagitis 742610811 K21.9 protonix 40 mg daily Chronic ki dney disease 101044346 N18.9 sevelamer 800 mg ac Acute adre nal insufficiency 021617866 E27.2 hydrocorti sone 10 mg am, 5 mg pm [id number] DARLIN MONTOYA [address] [place] [address] rd [place] [address] 09/02/2022 10:05:53 09/05/2022 14:50:13 Wound of skin 867299394 T14.8XXA healedmoni tor for any signs of infection Fracture of femur 001373 00 S72.92XA PT OT eval and treatibupr ofen 600 mg m7ibaidqjp ntin 300 mg tid Constipation 43743553 K5 9.00 colace bidmiralax dailysenna daily Atrial fibrillation 4943 6004 I48.91 eliquis 2.5 mg bidcoreg 3.25 mg bid Hyperlipidemia 47906730 E78.5 atorvastat in 40 mg daily Anemia 128357098 D64.9 vit c 250 mg dailyiron 325 mg dailymonit or labs Gastroesop hageal reflux disease without esophagitis 879213616 K21.9 protonix 40 mg daily Chronic ki dney disease 328941007 N18.9 sevelamer 800 mg ac Acute adre nal insufficiency 439187609 E27.2 hydrocorti sone 10 mg am, 5 mg pm Health Concerns Section Related Observation LastModified by Organization Detai ls LastModified Time None Recorded Concern Status LastModified by Organization Details LastModified Time None Recorded Advance Directives Directive Y: Payers Insurance Date Sequence Insurance Name Policy Number Policy Hirsch Covered Member ID Hirsch Member ID Guarantor Name 08/12/2022 1 [place]ICARE [place]: [id number] Nanci Henderson [id number] Nanci Henderson Notes Date Note Type [...] no additional swelling ISABELLA AN NP [address] [facility], [address], [place], [address], [facility] 08/08/2022 14:52:37 08/12/2022 text/html ROS as noted in the HPI seen today for acute rounding visit, Beny in the PT gym on the bike, she is now WBAT and beginning to ambulate with walker, good cms to leg, surgical wound healed well ISABELLA AN NP [address] [facility], [address], [place], [address], [facility] 08/12/2022 10:20:23 08/18/2022 text/html ROS as noted in the HPI seen today for acute rounding visit, Beny self propels around the unit in her wheelchair, she has been participating with PT and improving well, surgical wound healed well, good cms ISABELLA AN NP [address] [facility], [address], [place], [address], [facility] 08/18/2022 13:30:49 08/26/2022 text/html ROS as [...] walker and supervision ISABELLA AN NP [address] [facility], [facility] [address], [place], [address], [facility] 08/26/2022 12:26:26 09/02/2022 text/html ROS as noted [...] place until 08/02-08/05, and was grossly stained. Zirconia may be removed on 08/09 and can [...] drinking fairly well ISABELLA AN NP [address] [facility], [address], [place], [address], [facility] 09/02/2022 10:28:02 OBGyn Episode No OBEpisode recorded.
--- OUTSIDE RECORDS SUMMARY | 2025-04-17 17:46 | XMS_ITS | Patient Health Record ---
Author Organization [facility] Address [address] [place] [address] Care Team Providers Care Bug Trimmer Name Role Phone Rola De Oliveira MD Primary Care Provider Kalpesh Shaikh Unavailable [phone] Reason For Referral No Information Medications Medication SIG (Take, Route, Fr equency, Duration) Notes Start Date End Date Status MoviPrep 100 GM as directed Orally 1 time only; Duration: 1 dose 09/23/2011 Active Hydrocortisone Activ e Problems Problem Type SNOMED Code ICD Code Onset Dates Problem Status W/U Status Risk Notes Problem Chronic nonalcoholic liver disease (08881285) Other chronic nonalcoholic liver disease (571.8) Active confirmed Problem Liver function tests abnormal (101224572) Nonspecific abnormal results of liver function study (794.8) Active confirmed Problem Screening for malignant neoplasm of colon (047283962) Special screening for malignant neoplasms, colon (V76.51) Active confirmed Plan Of Treatment Pending Test Test Name Order Date MITOCHONDRIAL AB 09/21/2011 Future Test Test Name Order Date COLONOSCOPY 09/21/2011 Insurance Providers Payer Name Payer Address Payer Phone Subscriber Number Group Number Insured Name Patient Relationship to Insured Coverage Start Date Coverage End Date [facility] [address] [facility] [phone] [id number] BENNY CARABALLO Self - patient is the insured Medical (General) History Medical History History ICD Code Hyperlipidemia Hypopituitarism Denies MO,DM,CVA,Lung disease,renal dise ase Surgical History Surgery Date(Month/Year) Umbilical hernia
== END 2025-04-17 15:30 | disposition home or self-care (01) ==
LOC: HO.HMCH 14:31
PROVIDERS: PCP Internal Medicine; Visit Provider Internal Medicine
DX: I10 Essential (primary) hypertension (principal); I25.10 Atherosclerotic heart disease of native coronary artery without angina pectoris; I48.0 Paroxysmal atrial fibrillation; I42.8 Other cardiomyopathies; E78.00 Pure hypercholesterolemia, unspecified; K21.9 Gastro-esophageal reflux disease without esophagitis; Z23 Encounter for immunization

== ENCOUNTER → 2025-04-17 14:30 | Outpatient (BNVA) | payer MEDICARE, SELFPAY | PROVIDERS: PCP Internal Medicine; Visit Provider Internal Medicine | DX: I10 Essential (primary) hypertension (principal); I25.10 Atherosclerotic heart disease of native coronary artery without angina pectoris; I48.0 Paroxysmal atrial fibrillation; I42.8 Other cardiomyopathies; E78.00 Pure hypercholesterolemia, unspecified; K21.9 Gastro-esophageal reflux disease without esophagitis; Z23 Encounter for immunization; Z13.39 Encounter for screening examination for other mental health and behavioral disorders; Z13.31 Encounter for screening for depression | CPT/HCPCS: 90471; 90656; 96127; 99212 ==

== ENCOUNTER 2025-05-30 08:56 | Outpatient (AMB) | payer MEDICARE, SELFPAY ==
--- NOTE | 2025-05-30 09:00 | A.OFFVIS_ITS ---
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 Accompanied by: Daughter Allergies lisinopril Allergy (Unknown, Verified 05/30/25 09:05) Unknown Medication List - Last Reconciled 05/30/25 by Rola De Oliveira MD albuterol sulfate 90 mcg/actuation 2 puffs inhalation Q6H PRN apixaban (Eliquis) 5 mg PO BID 90 days ascorbic acid (vitamin C) 250 mg PO DAILY atorvastatin 40 mg PO DAILY carvedilol 6.25 mg PO BID cetirizine (Zyrtec) 10 mg PO DAILY PRN cholecalciferol (vitamin D3) 125 mcg PO DAILY diphenhydramine HCl (ZzzQuil) 12.5 mg PO BEDTIME PRN fluticasone propionate 50 mcg/actuation (Flonase Allergy Relief) 2 sprays intranasal DAILY hydrocortisone 5 mg PO DAILY hydrocortisone TAKE 1 TABLET IN THE MORNING AND HALF A TABLET IN THE EVENING losartan 25 mg PO DAILY pantoprazole 40 mg PO DAILY HPI SWV G0439 HPI Details [facility] [facility] [place] [facility] [place] [facility] HPI Comments History of Present Illness Details History of Present Illness The patient is a 69-year-old female presenting for an annual wellness visit. Her medical history includes atrial fibrillation, nonischemic cardiomyopathy, adrenal insufficiency, hypercholesterolemia, generalized anxiety disorder, coronary artery disease, GERD, peripheral vascular disease, and osteoporosis with a history of multiple fractures from a fall. Her last visit was on April 17, 2025, and her last blood work was in April 2025, which showed a normal blood count with mild thrombocytopenia, normal electrolytes, renal function, blood sugar, and iron levels. There was a mild elevation in liver function, for which an ultrasound was requested. Her thyroid test in 2023 was normal. Regarding health maintenance, her mammogram is up to date, and her Cologuard was completed in August 2023. Her last bone density scan was in December 2022. Her most recent echocardiogram was in March 2024, which showed an improved ejection fraction of 50-55%, up from a previous 35-40%. Her medications include atorvastatin 40 mg, carvedilol 6.25 mg twice daily, losartan 25 mg, pantoprazole 40 mg, hydrocortisone, vitamin C, and Eliquis. She also takes Zyrtec, Benadryl, and Flonase as needed, and has an inhaler she has not needed to use. She supplements with vitamin D 5000 IU with vitamin K and magnesium. She has a known allergy to lisinopril. The patient reports no new diagnoses or surgeries in the last 6 months. She denies any falls within the last six months and does not feel unsteady. Health Maintenance A Tdap vaccine was recommended and administered during the visit, as her last tetanus shot was in 2014. A discussion about the shingles vaccine occurred. A request form for fasting labs will be given for blood tests to be completed in 5 months. A follow-up visit is scheduled for 6 months from now to review test results, and her previously scheduled July appointment will be canceled. Healthcare proxy forms were discussed. Social History - Alcohol Use: Denies alcohol use. - Tobacco Use: Former smoker, quit 25 ye ars ago. - Recreational Drug Use: Denies use of r ecreational drugs. - Exercise: Considers her work to be her form of exercise and reports being able to climb a flight of stairs slowly without stopping. - Employment: Patient is currently worki [employer]. Results - Lab Results (April 2025): - Complete Blood Count: Normal with mild thrombocytopenia. - Comprehensive Metabolic Panel: Normal electrolytes and renal function. - Glucose: Normal. - Iron: Normal. - Liver Function Tests: Mild elevation. - Thyroid Panel (2023): Good. - Lipid Panel: Good. - Tests and Diagnostics: - Echocardiogram (March 2024): Ejectio n fraction improved to 50-55% from a previous 35-40%. - Bone Density Scan (December 2022): Finding s consistent with osteoporosis. - Cologuard (August 2023): Up to date. - Mammogram: Up to date. [facility] Medical History (Updated 05/30/25 @ 09:15 by Rola De Oliveira MD) Cardiomyopathy Well woman exam Breast cancer screening by mammogram Screening for colon cancer Adult general medical exam Cellulitis Cat bite Abnormal electrocardiogram [ECG] [EKG] Upper respiratory tract infection Sinusitis Cough COVID-19 Hospital discharge follow-up Pituitary insufficiency Nonischemic cardiomyopathy Adrenal insufficiency Hypercholesterolemia Osteoporosis Atrial fibrillation Surgical History History of open reduction and internal fixation (ORIF) procedure Family History Father COPD (chronic obstructive pulmonary disease) Hypertension Renal failure Mother Hypertension Stroke Ischemic bowel disease Maternal Grandfather Lymphoma Skin cancer Paternal Aunt Skin cancer Maternal Grandfather Skin cancer Social History Housing: Apartment Alcohol intake: never Patient Tobacco Use Status: Former Tobacco user Tobacco use type: Cigarette Years Smoked: 30 +/- e-Cigarette/Vaping Use: Never Used Second Hand Smoke Exposure: Yes service: No Current occupational status: unemployed Cognitive needs: Yes (cane) Hearing needs: No Vision needs: Yes (glasse) Female Reproductive History Menstrual Age of Menarche: 10 Questionnaire Medicare Wellness Checkup What [age] What gender do you identify with?: female During the past 4 weeks, how much have you been bothered by emotional problems such as feeling anxious, depressed, irritable, sad or downhearted, and blue?: not at all During the past 4 weeks, has your physical & emotional health limited your social activities with family, friends, neighbors, or groups?: not at all During the past 4 weeks, how much bodily pain have you generally had?: no pain During the past 4 weeks, was someone available to help you if you needed & wanted help?: yes, as much as I wanted During the past 4 weeks, what was the hardest physical activity you could do for at least 2 minutes?: heavy Can you get to places out of walking distance without help? (For eg., can you travel alone on buses, taxis or drive your car?): Yes Can you go shopping for groceries or clothes without someone's help?: Yes Can you prepare your own meals?: Yes Can you do your housework without help?: Yes Because of any health problems, do you need the help of another person with your personal care needs such as eating, bathing, dressing or getting around the house?: No Can you handle your own money without help?: Yes During the past 4 weeks, how would you rate your health in general?: very good During the past 4 weeks how have things been going for you?: pretty well Are you having difficulties driving your car?: no Do you always fasten your seat belt when you are in a car?: yes, usually During past 4 weeks, have you been bothered by the following: never: Falling or dizzy when standing up, Trouble eating well?, Teeth or denture problems?, Problems using the telephone? and Tiredness or fatigue? Have you fallen 2 or more times in the past year?: No Are you afraid of falling?: No Are you a smoker?: no During the past 4 weeks, how many drinks of wine, beer, or other alcoholic beverages did you have?: no alcohol at all Do you exercise for about 20 minutes 3 or more times a week?: yes, most of the time Have you been given information to help with the following?: yes: Hazards in your house that might hurt you? and yes: Keeping track of your medications? How often do you have trouble taking medicines the way you have been told to take them?: I always take medicine as prescribed How confident are you that you can control & manage most of your health problems?: very confident What is your race?: White PHQ-9 Over the last 2 weeks, how often have you been bothered by any of the following problems? 1. Little interest or pleasure in doing things: not at all 2. Feeling down, depressed, or hopeless: not at all 3. Trouble falling or staying asleep, or sleeping too much: not at all 4. Feeling tired or having little energy: not at all 5. Poor appetite or overeating: not at all 6. Feeling bad about yourself - or that you are a failure or have let yourself or your family down: not at all 7. Trouble concentrating on things, such as reading the newspaper or watching television: not at all 8. Moving or speaking so slowly that other people could have noticed. Or the opposite - being so fidgety or restless that you have been moving around a lot more than usual: not at all 9. Thoughts that you would be better off or of hurting yourself in some way: not at all Total score: 0 Source: Developed by Caitlin Lozano.W. Luciano, Titus Holloway and colleagues, with an educational alfred from [employer]. Review of Systems Narrative Review of Systems - Constitutional: Denies fever, dizziness, or syncope. - Denies recent falls in the last six months. - Psychiatric: Denies mood problems and does not feel the need for counseling. - HEENT: Hearing is reported as okay. - Denies dysphagia. - Cardiovascular: Denies chest pain, heaviness, or discomfort. - Denies paroxysmal nocturnal dyspnea. - Respiratory: Denies coughing when eating. - Reports ability to climb a flight of stairs slowly without stopping. - Gastrointestinal: Denies heartburn while on medication. - Reports diarrhea associated with magnesium supplement intake. - Denies nausea or vomiting. - Neurological: Denies feeling unsteady. - Skin: Denies rashes. Const Denies poor appetite and Denies weakness Eyes Denies no additional complaints ENT Reports Normal hearing present, Denies dizziness, Denies nasal congestion, Denies tinnitus and Denies sore throat Card Denies chest pain, Denies syncope, Denies rapid heart rate and Denies dyspnea Resp Denies cough and Denies dyspnea GI Denies change in stool character, Reports constipation, Denies diarrhea, Denies nausea and Denies vomiting Denies urinary frequency, Denies difficulty voiding and Denies dysuria Neuro Reports Normal hearing present, Denies confusion, Denies dizziness, Denies syncope and Denies weakness Psych Denies confusion Physical Exam Exam Exam: Physical Exam General: Cooperative, healthy appearing, comfortable, no acute distress and well developed Orientation: Patient oriented x3 Limitations: No limitations Head: Normal to inspection Ears: Hearing grossly normal bilaterally Nose: Normal external nose present Face and sinus: Normal facial exam Eyes: Appearance normal, both eyes and all related structures Neck: Normal visual inspection and Yes full ROM Respiratory: Normal respiratory effort and able to speak in complete sentences. Clear to auscultation bilaterally Cardiovascular: Regular rate and rhythm. Normal S1 and S2 GI: Normal to inspection. Soft to palpation and nontender Skin: No rashes or lesions noted Neuro: Patient oriented x3 Extremities: Normal to inspection Vital Signs: Last Vital Signs Temp 97.1 F 05/30/25 09:02 Pulse 86 05/30/25 09:02 BP 120/70 05/30/25 09:02 Pulse Ox 98 05/30/25 09:02 Oxygen Delivery Method Room Air 12/19/25 09:02 BMI result Body Mass Index 20.9 Const General: No confusion Orientation/consciousness: No confusion HEENT Head: Yes normocephalic Ears: external ears normal and TM's normal bilaterally Face and sinus: Yes normal facial exam Mouth: moist mucous membranes Throat: Yes tonsils normal Eyes Conjunctivae: conjunctivae normal Pupils: Equal, round and reactive pupils present and Pupil accommodation reflex normal Direct Ophthalmoscopy: normal light reflex Neck Neck: No lymphadenopathy Thyroid: Thyroid normal Chest Chest palpation & inspection: normal inspection of the chest Resp Effort & Inspection: normal respiratory effort and no audible wheezes Auscultation: clear to auscultation bilaterally, no crackles, no wheezes and lung sounds not diminished Cardio Rate: regular rate Rhythm: regular rhythm Peripheral pulses: radial pulses present and dorsalis pedis present GI Other: guiaac negative Palpation (GI): no masses Auscultation: normal bowel sounds and normoactive bowel sounds Rectal Exam - Female: deferred Skin General skin exam: no rashes or lesions noted Rashes: no rashes Neuro General: No confusion Cranial nerves: Yes Equal, round and reactive pupils present and Yes Normal hearing present Cognition (Neuro): normal cognition Gait exam (Neuro): Normal gait present Motor exam (neuro): 5/5 motor strength present throughout Deep tendon reflexes (DTR's): Right brachioradialis reflex intensity grade: 2+, Left brachioradialis reflex intensity grade: 2+, Right patellar reflex intensity grade: 2+ and Left patellar reflex intensity grade: 2+ Extrem General: No edema Immunizations Tenivac (PF) 5 Lf unit-2 Lf unit/0.5 mL intramuscular syringe Performing Provider: Rola De Oliveira MD [place] [facility] Administered by: LEANA Alvarado on 05/30/25 09:54 Dose Route Admin Location Dispensed Lot Number Expiration Date [facility] 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 (2) GERD (gastroesophageal reflux disease): Code(s): K21.9 - Gastro-esophageal reflux disease without esophagitis Qualifiers: Esophagitis presence: without esophagitis Qualified Code(s): K21.9 - Gastro-esophageal reflux disease without esophagitis Plan: Avoid the foods that causes that usually spicy foods, tomato products, juices, coffee, soda and foods that your sensitive to. After eating do not lie down, allow 3-4 hours before in lie down. And keep the head of bed above 30 degrees to avoid the acid from going up. (3) Osteoporosis: Comment: December 2022 Code(s): M81.0 - Age-related osteoporosis without current pathological fracture Qualifiers: Encounter type: sequela Osteoporosis type: unspecified Presence of current pathological fracture: with current pathological fracture Qualified Code(s): M80.00XS - Age-related osteoporosis with current pathological fracture, unspecified site, sequela Plan: Discussed about calcium and vitamin-D and discussed about medications to help with bone density. (4) Hypercholesterolemia: Code(s): E78.00 - Pure hypercholesterolemia, unspecified Plan: Avoid fried foods, chicken skin, eggs, butter margarine, pastries and meat. Be it pork or beef they have a lot of cholesterol LDL goal of less than 70 and triglyceride of less than 150 on atorvastatin 40 mg once a day April 2025 last blood work (5) Adrenal insufficiency: Comment: September 2018 Code(s): E27.40 - Unspecified adrenocortical insufficiency Plan: Patient on hydrocortisone (6) CAD (coronary artery disease): Code(s): I25.10 - Atherosclerotic heart disease of [place] coronary artery without angina pectoris Qualifiers: Associated angina: without angina Coronary Disease-Associated Artery/Lesion type: [place] artery [place] vs. transplanted heart: [place] heart Qualified Code(s): I25.10 - Atherosclerotic heart disease of [place] coronary artery without angina pectoris Plan: Control the cholesterol, weight, blood pressure, patient on anticoagulation with Eliquis (7) Atrial fibrillation: Code(s): I48.91 - Unspecified atrial fibrillation Qualifiers: Atrial fibrillation type: paroxysmal Qualified Code(s): I48.0 - Paroxysmal atrial fibrillation Plan: Continue with anticoagulation and on carvedilol (8) Nonischemic cardiomyopathy: Code(s): I42.8 - Other cardiomyopathies Plan: Continue with anticoagulation and carvedilol (9) Peripheral vascular disease: Code(s): I73.9 - Peripheral vascular disease, unspecified Plan: When sitting down elevate the legs, exercise, and support stockings (10) Generalized anxiety disorder: Code(s): F41.1 - Generalized anxiety disorder Plan: Continue with present medication (11) Essential hypertension: Code(s): I10 - Essential (primary) hypertension Plan: Continue with blood pressure medication. Decrease salt intake and exercise patient on losartan 25 mg once a day carvedilol 6.25 mg twice a day Plan Plan Patient was informed and verbally consented to the use of an ambient scribe for clinic note documentation during this visit. 1. Osteoporosis The patient has a known history of osteoporosis and multiple fall-related fractures. A request for a follow-up bone density scan will be placed, as the last one was in 2022. She was advised to restart calcium supplementation at a dose of 600 mg twice daily and to continue her current vitamin D 5000 IU daily. A detailed discussion was had regarding medications to strengthen bone, including their mechanism of slowing bone breakdown and potential rare side effects such as atypical fractures and osteonecrosis of the jaw. Hormone replacement therapy was discussed as an option but advised against due to increased risks of breast cancer, stroke, and heart attacks. 2. Atrial Fibrillation And Cardiomyopathy The patient's nonischemic cardiomyopathy has shown improvement, with her most recent ejection fraction at a low-normal of 50-55%, increased from a prior 35- 40%. She will continue anticoagulation with Eliquis and rate control with carvedilol for atrial fibrillation. The rationale for anticoagulation to prevent stroke was reinforced, and the balance between bleeding risk and stroke risk was discussed, especially in the context of falls. A paper prescription for Eliquis was provided to the patient to explore cost-saving options through [facility]. A follow-up echocardiogram is scheduled for June 2024, and kidney function labs will be ordered in 5 months. 3. Hypercholesterolemia The patient will continue on atorvastatin 40 mg once daily, with a treatment goal of an LDL less than 70 mg/dL and triglycerides less than 150 mg/dL. 4. Hypertension The patient will continue her current regimen of losartan 25 mg once daily and carvedilol 6.25 mg twice daily for blood pressure control. 5. Gastroesophageal Reflux Disease HerGERD symptoms are well-controlled on pantoprazole 40mg, and she will continue the medication. 6. Elevated Liver Enzymes Due to a mild elevation in liver function tests on prior labs, a liver ultrasound was requested. The patient has this scheduled for the day after Win[place], and the results will be discussed at her 6-month follow-up visit. 7. Adrenal Insufficiency The patient will continue her hydrocortisone replacement therapy. 8. Peripheral Vascular Disease The patient will continue her present medications for PVD. Discussion Notes I conducted an annual wellness visit with the patient, a 69-year-old female with a complex medical history. We discussed her osteoporosis, and I explained the need for a follow-up bone density scan. I reviewed the importance of calcium and vitamin D supplementation and provided guidance on restarting calcium at 600 mg twice daily. I also detailed the risks and benefits of bone-strengthening medications, noting they slow bone breakdown but have rare side effects such as atypical fractures and osteonecrosis of the jaw. We discussed that hormone replacement therapy is generally not favored due to increased risks of cancer and stroke. I reviewed her cardiac history, highlighting the encouraging improvement in her ejection fraction to 50-55% on her last echocardiogram. I stressed the continued need for Eliquis for stroke prevention due to her atrial fibrillation and discussed the ongoing balance between the risk of bleeding and the risk of stroke, particularly emphasizing the importance of fall prevention. To address cost concerns, I provided a paper prescription for Eliquis, which she can use to explore purchasing from [facility]. We confirmed her health maintenance screenings are mostly up to date, and I recommended an updated tetanus vaccine, which she agreed to receive. I have arranged for a follow-up appointment in six months to review the results of her upcoming liver ultrasound and labs, which she will have done in five months. I also advised her on managing the side effects of her magnesium supplement and reminded her about the importance of adequate hydration for kidney health. Patient Instructions - Continue taking all your current medications as prescribed, including those for heart conditions, blood pressure, cholesterol, acid reflux, and adrenal support. - Take a calcium supplement of 600 mg twice a day. - Continue taking your vitamin D supplement (5000 IU with vitamin K) every day. - You will receive a tetanus (Tdap) vaccine today in the office. - Please schedule an appointment for a bone density scan. - In about 5 months, please go to the lab to have your blood work done. - It is best to fast (not eat or drink anything except water) before the blood test. - Your follow-up appointment in July has been canceled. - Please schedule a new appointment to see us in 6 months to review your test results. - If the magnesium supplement is causing diarrhea, you can try taking it every other day to see if your symptoms improve. - Remember to drink plenty of water to keep your kidneys healthy. - Be careful to avoid falls, as you are on a blood thinner. - Call the office if you experience any falls, unusual bruising or bleeding, or any new or worsening symptoms. Orders: Orders Free T4 (Free Thyroxine) 5 Months I25.10 - Atherosclerotic heart disease of [place] coronary artery without angina pectoris Lipid Panel 5 Months E78.00 - Pure hypercholesterolemia, unspecified, I25.10 - Atherosclerotic heart disease of [place] coronary artery without angina pectoris Thyroid Stimulating Hormone 5 Months I25.10 - Atherosclerotic heart disease of [place] coronary artery without angina pectoris Td Immunization Today Z23 - Encounter for immunization XR DEXA axial skeleton Today M80.00XS - Age-related osteoporosis with current pathological fracture, unspecified site, sequela, M81.0 - Age-related osteoporosis without current pathological fracture Complete Blood Count Auto Diff 5 Months I25.10 - Atherosclerotic heart disease of [place] coronary artery without angina pectoris Comprehensive Met. Panel 5 Months I25.10 - Atherosclerotic heart disease of [place] coronary artery without angina pectoris Vitamin B12 and Folate 5 Months I25.10 - Atherosclerotic heart disease of [place] coronary artery without angina pectoris Vitamin D 25-OH Total 5 Months I25.10 - Atherosclerotic heart disease of [place] coronary artery without angina pectoris Magnesium 5 Months I25.10 - Atherosclerotic heart disease of [place] coronary artery without angina pectoris Medications: New cholecalciferol (vitamin D3) 125 mcg PO DAILY 30 caps 0RF M80.00XS - Age- related osteoporosis with current pathological fracture, unspecified site, sequela Refilled apixaban (Eliquis) 5 mg PO BID 180 tabs 2RF 90 days I48.91 - Unspecified atrial fibrillation Quality Reporting (2019) Depression/Bipolar (159/160/161/177) PHQ-9: Total score: 0 Coding Level of Care Code Medicare Subsequent (G0439) Diagnoses Medicare annual wellness visit, subsequent Z00.00 Gastroesophageal reflux disease without esophagitis K21.9 Esophagitis presence: without esophagitis Osteoporosis with current pathological fracture, unspecified osteoporosis type, sequela M80.00XS Encounter type: sequela Osteoporosis type: unspecified Presence of current pathological fracture: with current pathological fracture Hypercholesterolemia E78.00 Adrenal insufficiency E27.40 Coronary artery disease involving [place] coronary artery of [place] heart without angina pectoris I25.10 Associated angina: without angina Coronary Disease-Associated Artery/Lesion type: [place] artery [place] vs. transplanted heart: [place] heart Paroxysmal atrial fibrillation I48.0 Atrial fibrillation type: paroxysmal Nonischemic cardiomyopathy I42.8 Peripheral vascular disease I73.9 Generalized anxiety disorder F41.1 Essential hypertension I10
[2025-05-30 09:02] VITALS: BP 120/70; PULSE 86; TEMP 36.2; O2SAT 98; BMI 20.9
--- OUTSIDE RECORDS SUMMARY | 2025-05-30 09:17 | XMS_ITS | Clinical Summary ---
Author Organization [facility] Facility Address [address] [address] Care Team Providers Care Metallurgical Inspector Name Role Phone Rola De Oliveira MD Primary Care Provider [phone] Social History Tobacco Use Types Packs/Day Years [...] of Phone Billing Address Personal/Family Self 1955 [address] [place] [address] Care Teams Metallurgical Inspector Relationship Specialty Start Date End Date Rola De Oliveira MD [facility] [address] [place] PCP - General 04/16/19
--- OUTSIDE RECORDS SUMMARY | 2025-05-30 09:17 | XMS_ITS | Patient Health Record ---
Author Organization [facility] Address [address] [place] [address] Care Team Providers Care Gunner Mate Name Role Phone Rola De Oliveira MD Primary Care Provider Kalpesh Shaikh Unavailable [phone] Reason For Referral No Information Medications Medication SIG (Take, Route, Frequency, Duration) Notes Start Date End Date Status MoviPrep 100 GM Solution Reconstituted as directed Orally 1 time only; Duration: 1 dose 09/23/2011 Active Hydrocortisone Activ e Social History Social History Additional Details Category Social Info Options Details Miscellaneous: Marital status: 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 Notes: Nonsmoker x 10 years,; no si g alcohol use Problems Problem Type SNOMED Code ICD Code Onset Dates Problem Status W/U Status Risk Notes Problem Chronic nonalcoholic liver disease (73603356) Other chronic nonalcoholic liver disease (571.8) Active confirmed Problem Liver function tests abnormal (848341814) Nonspecific abnormal results of liver function study (794.8) Active confirmed Problem Screening for malignant neoplasm of colon (494793948) Special screening for malignant neoplasms, colon (V76.51) Active confirmed Plan Of Treatment Pending Test Test Name Order Date MITOCHONDRIAL AB 09/21/2011 Future Test Test Name Order Date COLONOSCOPY 09/21/2011 Insurance Providers Payer Name Payer Address Payer Phone Subscriber Number Group Number Insured Name Patient Relationship to Insured Coverage Start Date Coverage End Date [facility] [address] [facility] [phone] [id number] BENNY CARABALLO Self - patient is the insured Medical (General) History Medical History History ICD Code Hyperlipidemia Hypopituitarism Denies VA,DM,CVA,Lung disease,renal dise ase Surgical History Surgery Date(Month/Year) Umbilical hernia
== END 2025-05-30 09:57 | disposition home or self-care (01) ==
LOC: HO.HMCH 08:57
PROVIDERS: PCP Internal Medicine; Visit Provider Internal Medicine
DX: Z00.00 Encounter for general adult medical examination without abnormal findings (principal); I48.0 Paroxysmal atrial fibrillation; I42.8 Other cardiomyopathies; K21.9 Gastro-esophageal reflux disease without esophagitis; M80.00XS Age-related osteoporosis with current pathological fracture, unspecified site, sequela; E78.00 Pure hypercholesterolemia, unspecified; E27.40 Unspecified adrenocortical insufficiency; I25.10 Atherosclerotic heart disease of native coronary artery without angina pectoris; Z23 Encounter for immunization

== ENCOUNTER → 2025-05-30 08:56 | Outpatient (BNVA) | payer MEDICARE, SELFPAY | PROVIDERS: PCP Internal Medicine; Visit Provider Internal Medicine | DX: Z00.00 Encounter for general adult medical examination without abnormal findings (principal); Z23 Encounter for immunization; K21.9 Gastro-esophageal reflux disease without esophagitis; E78.00 Pure hypercholesterolemia, unspecified; E27.40 Unspecified adrenocortical insufficiency; I25.10 Atherosclerotic heart disease of native coronary artery without angina pectoris; I48.0 Paroxysmal atrial fibrillation; I42.8 Other cardiomyopathies; I10 Essential (primary) hypertension; F41.1 Generalized anxiety disorder | CPT/HCPCS: 90471; 90714 ==

== ENCOUNTER 2025-06-06 08:29 | Outpatient (REF) | payer MEDICARE, SELFPAY ==
--- NOTE | ~2025-06-06 | US_ITS ---
EXAMINATION: US ABDOMEN HISTORY: R79.89 - Other specified abnormal findings of blood chemistry TECHNIQUE: Real-time grayscale ultrasound imaging of the abdomen was performed and images were reviewed. COMPARISON: There are no prior studies available for comparison. FINDINGS: Liver: The right lobe of the liver measures 16.1 cm in size. The left lobe of the liver measures 12.6 cm in size. The liver demonstrates increased echotexture, consistent with steatosis. No focal mass or intrahepatic biliary ductal dilatation is identified. There is normal hepatopedal flow in the portal vein. Gallbladder and biliary tree: Multiple calculi are noted in the gallbladder. There is no wall thickening or pericholecystic fluid. There is no sonographic Powell sign. The common bile duct is normal in caliber measuring 4 mm in diameter. Kidneys: The right kidney measures 10.1 cm in length. The left kidney measures 10.1 cm in length. The kidneys are unremarkable, without evidence of masses, hydronephrosis, or calculi. Pancreas: The pancreatic head, neck, and body are unremarkable. The pancreatic tail is obscured by bowel gas. Spleen: The spleen is normal in size and contour, measuring 12.6 cm in length. Abdominal aorta and inferior vena cava: The visualized portions of the abdominal aorta and inferior vena cava are normal in caliber. There is no free fluid in the abdomen. US/US abdomen complete IMPRESSION: 1. Hepatomegaly and hepatic steatosis. 2. Borderline splenomegaly. 3. Cholelithiasis Electronically signed by: Kalpesh Willis MD 06/06/2025 09:18 AM [facility]
--- OUTSIDE RECORDS SUMMARY | 2025-06-06 08:32 | XMS_ITS | Encounter Summary ---
Author Organization [facility] Address [address] [facility] [address] [place] [address] Phone Care Team Providers Care Plate Worker Name Role Phone Rola De Oliveira MD Primary Care Provider [phone] Encounter Details Date Type Department Care Team (Late Contact Info) Description 08/20/2018 Ancillary Orders Virtual Department [address] [place] [address] Sd Salcedo MD [address] [place] [id number] Bruit of left carotid artery Social History [...] Description 08/26/2025 9:30 AM EDT Office Visit [facility] [address] [place] [address] Thee Morales DO [address] [place] [address] [email or web address] documented as of this encounter Results * [...] relative to distal ICA diameters. POS - [id number] Narrative 08/21/2018 5:27 PM EDT COMPARISON:None CAROTID [...] 50% relative todistal ICA diameters. POS - [id number] Sd Salcedo MD CV US NEUROVASCULAR Final Resu lt documented in this encounter Visit Diagnoses Diagnosis Bruit of left carotid artery Bruit of left carotid artery documented in this encounter Additional Health Concerns Infection Onset Date Last Indicated Resolved Time COVID-19 02/05/2022 02/05/2022 02/26/2022 1:21 AM EDT documented as of this encounter Care Teams Plate Worker Relationship Specialty Start Date End Date Po, Rola Hall MD [address] [facility] [address] [place] [phone] PCP - General Internal Medicine 08/14/18 documented as of this encounter Additional Source Comments The information contained in this document represents components of the legal health record. It is not the complete legal health record.[facility]
--- OUTSIDE RECORDS SUMMARY | 2025-06-06 08:33 | XMS_ITS | Data Portability ---
Author Organization [facility], Main Office Address [address] [facility] [place] [address] Care Team Providers Care Dispatcher Maintenance Name Role Phone LESLY YOUNG Primary Care Provider [facility] 1ST FLOOR OTHER [phone] Assessment No assessment recorded. Plan of Treatment [...] Details Recorded Time Acute adrenal insufficien cy 855589435 Active 2021 ISABELLA AN NP [address] [facility], [facility] [address], [place], [address], [facility] 2 12:51:45 Atrial fibrillatio n 23318182 Active 2021 ISABELLA AN NP [address] [facility], [address], [place], [address], [facility] 2 12:51:51 Hyperlipide geno 21120330 Active 2021 ISABELLA AN NP [address] [facility], [address], [place], [address], [facility] 2 12:51:57 Essential hypertensio n 76671014 Active 2021 ISABELLA AN NP [address] [facility], [address], [place], [address], [facility] 2 12:52:03 Asthenia 71959699 Active 2021 ISABELLA AN, WAGON WASHER [address], [place], [address], [facility] 2 13:14:32 Acute kidney injury 27117726 Active 2021 ISABELLA NATALIYA, WAGON WASHER [address], [address], [place], [address], [facility] 2 13:14:40 SARS-CoV-2 Active 2021 ISABELLA AN, WAGON WASHER [address], [address], [place], [address], [facility] 2 13:14:49 Anemia 230957623 Active 2021 ISABELLA AN, WAGON WASHER [address], [address], [place], [address], [facility] 2 10:50:35 Lower gastrointes tinal hemorrhage 67257577 Active 2021 ISABELLA AN, WAGON WASHER [address], [address], [place], [address], [facility] 2 10:51:01 Generalized rash 411901903 Active 2021 ISABELLA AN, WAGON WASHER [address] [facility], [address], [place], [address], [facility] 2 10:51:47 Chronic systolic heart failure 181359370 Active 2021 Leigh Morejon MD [address] [facility], [address], [place], [address], [facility] 2 00:42:51 Wound of skin 301093878 Active 2022 surgical wound left leg ISABELLA AN NP [address], [address], [place], [address], [facility] 3 13:22:46 Fracture of femur 71281949 Active 2022 ISABELLA AN NP [address], [address], [place], [address], [facility] 3 13:23:11 Constipatio n 78645077 Active 2022 ISABELLA AN NP [address] [facility], [address], [place], [address], [facility] 3 13:23:38 Gastroesoph ageal reflux disease without esophagitis 368909860 Active 2022 ISABELLA AN [employer]ER [address] [facility], [address], [place], [address], [facility] 3 13:24:18 Chronic kidney disease 662404293 Active 2022 ISABELLA AN WAGON WASHER [address] [facility], [address], [place], [address], [facility] 3 13:25:26 Problem Notes None recorded. Medical Equipment None Reported. Allergies Allergen ID Allergen Name Allergen Category Reaction Reaction Severity Criticality Documentation Date Start Date Code Code System Note Provider Name and Address Organization Details Recorded Time 56225 lisinopri l medicatio n Not available Not available Not available 02/18/2022 39711 RxNorm ISABELLA AN, DARLIN [address] [facility], [address], [place], [address], [facility] 2 12:51:10 48260 mold extract environme nt Not available Not available Not available 02/18/2022 74860 8 RxNorm ISABELLA AN, WAGON WASHER [address] [facility], [address], [place], [address], [facility] 2 12:51:15 76098 house dust allergeni c extract environme nt,medica tion Not available Not available Not available 02/18/2022 70593 9 RxNorm ISABELLA AN, DARLIN [address] [facility], [address], [place], [address], [facility] 2 12:51:23 Vitals Date Recorded Body height Heart rate Respiratory rate Body temperature Oxygen saturation Systolic And Diastolic Provider Name and Address Organization Details Last Updated DateTime 3 162.56 cm 66 /min 16 /min 97.9 [degF] 97 % 129/72 mm[Hg] ISABELLA ROSADARLIN PETER [address] [facility], [address], [place], [address], [facility] 3 14:48:11 Date Recorded Body height Heart rate Respiratory rate Body temperature Oxygen saturation Systolic And Diastolic Provider Name and Address Organization Details Last Updated DateTime 3 162.56 cm 78 /min 16 /min 97.4 [degF] 97 % 102/71 mm[Hg] ISABELLA AN NP [address] [facility], [address], [place], [address], [facility] 3 10:17:45 Date Recorded Body height Heart rate Respiratory rate Body temperature Oxygen saturation Systolic And Diastolic Provider Name and Address Organization Details Last Updated DateTime 3 162.56 cm 83 /min 16 /min 97.2 [degF] 96 % 149/82 mm[Hg] ISABELLA AN NP [address] [facility], [address], [place], [address], [facility] 3 13:28:25 Date Recorded Body height Heart rate Respiratory rate Body temperature Oxygen saturation Systolic And Diastolic Provider Name and Address Organization Details Last Updated DateTime 3 162.56 cm 74 /min 16 /min 97.9 [degF] 97 % 160/87 mm[Hg] ISABELLA AN NP [address] [facility], [address], [place], [address], [facility] 3 12:23:57 Date Recorded Body height Heart rate Respiratory rate Body temperature Oxygen saturation Systolic And Diastolic Provider Name and Address Organization Details Last Updated DateTime 3 162.56 cm 74 /min 16 /min 97.8 [degF] 97 % 146/82 mm[Hg] ISABELLA AN NP [address] [facility], [address], [place], [address], [facility] 3 10:26:06 Social History Question Answer Notes LastModified by Organizat ion Details LastModified Time Tobacco Smoking Status Former Smoker ISABELLA AN NP [address] [facility], [address], [place], [address], [facility] 02/18/2022 12:53:25 Do You Have An Advance Directive? Yes Information not available 02/18/2022 What Is Your Code Status? Full Code Information not available 02/18/2022 Where Do You Live? Apartment Lives On 2nd Floor, Full Flight Of Steps, No Elevator Information not available 03/08/2022 Legal Guardian? No Informati on not available 03/08/2022 Do You Have A Medical Power Of Executive Kitchen Manager? Yes Information not available 03/08/2022 What Was [...] Influenza, adjuvanted, quadrivalent, PF 05/12/2022 completed Leann lyn [place] - [facility] 07/03/2023 13:13:56 Past Encounters Encounter ID Performer Location Encounter Start Date Encounter Closed Date Diagnosis/Indication Diagnosis SNOMED-CT Code Diagnosis ICD10 Code Diagnosis IMO Codes Diagnosis Note [id number] DARLIN MONTOYA [address] [place] [address] 02/18/2022 12:45:14 02/22/2022 15:41:32 Acute kidney injury 81289061 N17.9 HD 3x weeksevela daren 800 with meals Acute adre nal insufficiency 571551969 E27.2 hydrocorti sone 10 mg am, 5 mg pm Asthenia 65599084 R53.1 PT OT eval and treatfall precaution sfrequent safety checks Atrial fibrillation 4943 6004 I48.91 eliquis 2.5 mg bidcoreg 25 mg bid Essential hypertension 76596437 I10 coreg 25 mg bidmonitor bp Hyperlipidemia 55429390 E78.5 atorvastat in 40 mg daily SARS-CoV-2 187338155 U07 .1 recovered by pcr positive [id number] ISABELLA AN NP [address] [address] 02/21/2022 12:25:35 03/08/2022 14:38:26 Acute kidney injury 05570706 N17.9 HD 3x weeksevela daren 800 with meals Atrial fibrillation 4943 6004 I48.91 eliquis 2.5 mg bidcoreg 25 mg bid Acute adre nal insufficiency 600935222 E27.2 hydrocorti sone 10 mg am, 5 mg pm [id number] ISABELLA AN NP [facility] [address] [place] [address] 02/28/2022 09:41:39 03/09/2022 16:13:15 Anemia 392466096 D64.9 vit c 250 mg dailyiron 325 mg dailymonit or labs Lower gastrointestinal hemorrhage 04579997 K92.2 protonix 40 mg dailysched ule EGD/colono scopy Generalized rash 3476891 06 R21 cetirizine 10 mg bid for 5 days Acute kidney injury 1466 9001 N17.9 HD 3x weeksevela daren 800 with meals Acute adre nal insufficiency 525315910 E27.2 hydrocorti sone 10 mg am, 5 mg pm Asthenia 90229367 R53.1 PT OT eval and treatfall precaution sfrequent safety checks Atrial fibrillation 4943 6004 I48.91 eliquis 2.5 mg bidcoreg 25 mg bid Essential hypertension 76514119 I10 coreg 3.125 mg bidmonitor bp Hyperlipidemia 77793548 E78.5 atorvastat in 40 mg daily SARS-CoV-2 010213456 U07 .1 recovered by date02/05 pcr positive [id number] ISABELLA AN NP [facility] [address] [facility] [place] [address] 03/02/2022 13:42:46 03/09/2022 16:16:32 Acute kidney injury 10451372 N17.9 HD 3x weeksevela daren 800 with meals Generalized rash 0616813 06 R21 cetirizine 10 mg bid for 5 daysmonito r for any further rash Lower gastrointestinal hemorrhage 88812328 K92.2 protonix 40 mg dailysched ule EGD/colono scopy [id number] Leigh Morejon MD [facility] [address] [facility] [place] [place] [address] 03/08/2022 16:11:13 03/15/2022 13:11:38 Acute kidney injury 54082217 N17.0 Labs much improved yesterday. Pt says she is urinating some, but not much.Nichole nue HD 3x weekContin ue sevelamer 800 mg with mealsConti nue to avoid nephrotoxi c meds as able.Monit or labs.Renal f/u as planned Generalized rash 8918851 06 L50.8 Mostly resolved, just drying lesions now.Possib ly due to COVID.Comp leted cetirizine 10 mg BID on 03/05.Monit or for recurrence Lower gastrointestinal hemorrhage 32136698 K92.1 No further evidence of bleeding.C ontinue pantoprazo le 40 mg qd.Sofia montague has EGD/colono scopy scheduled already, but not in d/c instructio ns. She will check on date and let us know. Anemia 550074462 D64.89 Multifacto rial. Stable on last check.Cont inue FeSO4 325 mg qd with vit C 250 mg qd for absorption Monitor labs Acute adre nal insufficiency 430344526 E27.2 Continue hydrocorti sone 10 mg qam and 5 mg qpmStress dose when needed.Mon itor Asthenia 25374074 R53.1 Continues to be deconditio yann, but [...] tor HR and bleeding risk. Essential hypertension 70044147 I10 Good control on meds as above.Saima tor BP and labs. Hyperlipidemia 06940524 E78.49 Continue atorvastat in 40 mg qd.Monitor labs as outpt. SARS-CoV-2 624722617 U07 .1 Tested + on 02/05Ver tumultuous course.Now recovering as above.Saima tor for sequelae. Chronic sy stolic heart failure 429887726 I50.22 Continue carvedilol 3.125 mg BID.Not on diuretics currently, right now fluid being balanced at HD, may need to restart diuretic if she comes off dialysis.M onitor resp. status, fluid status, wts and labs. [id number] DARLIN MONTOYA [address] [place] [address] 03/09/2022 12:34:06 03/15/2022 13:57:52 Acute kidney injury 92982092 N17.0 HD 3x weeksevela daren 800 with meals Acute adre nal insufficiency 720802475 E27.2 hydrocorti sone 10 mg am, 5 mg pm Generalized rash 0803237 06 L50.8 cetirizine 10 mg bid for 5 daysmonito r for any further rash [id number] DARLIN MONTOYA [address] [place] [address] 03/24/2022 12:19:58 03/29/2022 15:13:22 Acute kidney injury 69181653 N17.0 HD 3x weeksevela daren 800 bid Chronic sy stolic heart failure 359651679 I50.22 carvedilol 3.125 mg BID.Not on diuretics currently, right now fluid being balanced at HD, may need to restart diuretic if she comes off dialysis.M onitor resp. status, fluid status, wts and labs. [id number] DARLIN MONTOYA M[address] [place] [address] 03/28/2022 10:26:20 03/31/2022 15:29:43 Anemia 266192883 D64.9 vit c 250 mg dailyiron 325 mg dailymonit or labs Lower gastrointestinal hemorrhage 40896252 K92.2 protonix 40 mg dailysched ule EGD/colono scopy Generalized rash 5374135 06 R21 cetirizine 10 mg bid for 5 days Acute kidney injury 1466 9001 N17.9 HD 3x weeksevela daren 800 with meals Acute adre nal insufficiency 739085208 E27.2 hydrocorti sone 10 mg am, 5 mg pm Asthenia 06467716 R53.1 PT OT eval and treatfall precaution sfrequent safety checks Atrial fibrillation 4943 6004 I48.91 eliquis 2.5 mg bidcoreg 25 mg bid Essential hypertension 38799515 I10 coreg 3.125 mg bidmonitor bp Hyperlipidemia 47790057 E78.5 atorvastat in 40 mg daily SARS-CoV-2 608069197 U07 .1 recovered by pcr positive DARLIN MONTOYA [address] [place] [address] 07/29/2022 10:03:54 08/02/2022 12:10:27 Wound of skin 832257918 T14.8XXA monitor for any signs of infections taples can be removed 08/09 per hospital note Fracture of femur 466903 00 S72.92XA PT OT eval and treatoxyco done 5 mg q4hr prn x3 daysibupro fen 600 mg j2zkhnxzax ntin 300 mg tid Constipation 59724962 K5 9.00 colace bidmiralax dailysenna daily Atrial fibrillation 4943 6004 I48.91 eliquis 2.5 mg bidcoreg 3.25 mg bid Hyperlipidemia 93614733 E78.5 atorvastat in 40 mg daily Anemia 801033312 D64.9 vit c 250 mg dailyiron 325 mg dailymonit or labs Gastroesop hageal reflux disease without esophagitis 895265358 K21.9 protonix 40 mg daily Chronic ki dney disease 113052601 N18.9 sevelamer 800 mg ac Acute adre nal insufficiency 721852265 E27.2 hydrocorti sone 10 mg am, 5 mg pm [id number] ISABELLA AN NP [address] [address] 08/01/2022 11:51:52 08/03/2022 14:11:14 Chronic kidney disease 004536075 N18.9 sevelamer 800 mg acmonitor labs Fracture of femur 219897 00 S72.92XA PT OT eval and treatoxyco done 5 mg q4hr prn x3 daysibupro fen 600 mg x6mpgfnsoz ntin 300 mg tid Wound of skin 868532422 T14.8XXA monitor for any signs of infections taples can be removed 08/09 per hospital note [id number] Fifi Cuevas MD [address] [address] 08/05/2022 05:52:33 08/09/2022 08:30:29 Fracture of femur 01332627 S72.22XD PT/OTparti al WB LLEAPAP 975 mg q8h prnoxycodo ne 5 mg q4h prnibuprof en 600 mg q8h prngabapen tin 300 mg s7cnhhfvjv n 2.5 mg z94yhurq monitor Chronic sy stolic heart failure 564571869 I50.22 carvedilol 3.125 mg bidwill monitor Atrial fibrillation 4943 6004 I48.0 carvedilol 3.125 mg bid for rate controlapi xaban 2.5 mg h91hhsyf monitor Chronic ki dney disease 105449922 N18.32 sevelamer 800 mg with mealswill avoid nephrotoxi c medication Essential hypertension 47060529 I10 carvedilol 3.125 mg bidwill monitor Hyperlipidemia 83921807 E78.49 atorvastat in 40 mg dailywill monitor Adrenal co rtical hypofunction 236470633 E27.49 hydrocorti sone 10 mg in morning and 5 mg in eveningwil l monitorfu endocrinol ogy [id number] ISABELLA AN NP [address] [address] 08/08/2022 14:47:32 08/10/2022 14:51:32 Fracture of femur 45606902 S72.22XD PT OT eval and treatoxyco done 5 mg q4hr prnibuprof en 600 mg w7jlxpfmyq ntin 300 mg tid Wound of skin 798328266 T14.8XXA monitor for any signs of infections taples can be removed 08/09 per hospital note [id number] ISABELLA AN NP [address] [address] 08/12/2022 10:16:56 08/16/2022 09:49:12 Fracture of femur 45264770 S72.22XD PT OT eval and treatoxyco done 5 mg q4hr prnibuprof en 600 mg w4ppauqzpo ntin 300 mg tid Asthenia 31142507 R53.1 PT OT eval and treatfall precaution sfrequent safety checks [id number] ISABELLA AN DARLIN [address] [address] 08/18/2022 13:02:37 08/24/2022 14:38:33 Fracture of femur 06985435 S72.22XD PT OT eval and treatoxyco done 5 mg q4hr prnibuprof en 600 mg l1klagerla ntin 300 mg tid Wound of skin 436923795 T14.8XXA healed wellmonito r for any signs of infection [id number] ISABELLA AN DARLIN [address] [address] 08/26/2022 12:17:50 08/30/2022 08:30:41 Wound of skin 156833564 T14.8XXA healedmoni tor for any signs of infections taples can be removed 08/09 per hospital note Fracture of femur 000084 00 S72.92XA PT OT eval and treatoxyco done 5 mg q4hr prn x3 daysibupro fen 600 mg f9uylkflgm ntin 300 mg tid Constipation 72648026 K5 9.00 colace bidmiralax dailysenna daily Atrial fibrillation 4943 6004 I48.91 eliquis 2.5 mg bidcoreg 3.25 mg bid Hyperlipidemia 42408476 E78.5 atorvastat in 40 mg daily Anemia 337166158 D64.9 vit c 250 mg dailyiron 325 mg dailymonit or labs Gastroesop hageal reflux disease without esophagitis 894828421 K21.9 protonix 40 mg daily Chronic ki dney disease 837487483 N18.9 sevelamer 800 mg ac Acute adre nal insufficiency 221742607 E27.2 hydrocorti sone 10 mg am, 5 mg pm [id number] DARLIN MONTOYA [address] [place] [address] rd [place] [address] 09/02/2022 10:05:53 09/05/2022 14:50:13 Wound of skin 452392002 T14.8XXA healedmoni tor for any signs of infection Fracture of femur 405670 00 S72.92XA PT OT eval and treatibupr ofen 600 mg q0dieapnkb ntin 300 mg tid Constipation 75348967 K5 9.00 colace bidmiralax dailysenna daily Atrial fibrillation 4943 6004 I48.91 eliquis 2.5 mg bidcoreg 3.25 mg bid Hyperlipidemia 78768578 E78.5 atorvastat in 40 mg daily Anemia 162165492 D64.9 vit c 250 mg dailyiron 325 mg dailymonit or labs Gastroesop hageal reflux disease without esophagitis 938796381 K21.9 protonix 40 mg daily Chronic ki dney disease 739876615 N18.9 sevelamer 800 mg ac Acute adre nal insufficiency 753316304 E27.2 hydrocorti sone 10 mg am, 5 mg pm Health Concerns Section Related Observation LastModified by Organization Detai ls LastModified Time None Recorded Concern Status LastModified by Organization Details LastModified Time None Recorded Advance Directives Directive Y: Payers Insurance Date Sequence Insurance Name Policy Number Policy Hirsch Covered Member ID Hirsch Member ID Guarantor Name 08/12/2022 1 [place]ICARE [place]: [employer] Nanci Henderson [id number] Nanci Henderson Notes Date Note Type Note Provider Name and Address Organization Details Recorded Time 08/08/2022 text/html ROS as noted in the HPI seen today for acute rounding visit, CAox3 she self transfered from commode to bed, large bruise noted left inner and posterior thigh, had not extended beyond the markings, staff measured the circumference for 3 days and it remained 55-56 cm with no additional swelling ISABELLA AN NP [address] [facility], [address], [place], [address], [facility] 08/08/2022 14:52:37 08/12/2022 text/html ROS as noted in the HPI seen today for acute rounding visit, Kimmy in the PT gym on the bike, she is now WBAT and beginning to ambulate with walker, good cms to leg, surgical wound healed well ISABELLA AN NP [address] [facility], [address], [place], [address], [facility] 08/12/2022 10:20:23 08/18/2022 text/html ROS as noted in the HPI seen today for acute rounding visit, Kimmy self propels around the unit in her wheelchair, she has been participating with PT and improving well, surgical wound healed well, good cms ISABELLA AN NP [address] [facility], [address], [place], [address], [facility] 08/18/2022 13:30:49 08/26/2022 text/html ROS as [...] walker and supervision ISABELLA AN NP [address] [facility] [address], [place], [address], [facility] [employer] [facility] 08/26/2022 12:26:26 09/02/2022 text/html ROS as noted [...] place until 08/02-08/05, and was grossly stained. [place] may be removed on 08/09 and can [...] drinking fairly well ISABELLA AN NP [address] [facility], [address], [place], [address], [facility] [employer] 09/02/2022 10:28:02 OBGyn Episode No OBEpisode recorded.
--- OUTSIDE RECORDS SUMMARY | 2025-06-06 08:33 | XMS_ITS | Clinical Summary ---
Author Organization [facility] Address [address] [facility] [address] [place] [address] Phone Care Team Providers Care Content Management Specialist Name Role Phone Rola De Oliveira MD Primary Care Provider [phone] Allergies Active Allergy Reactions Criticality Noted Date [...] Active ferrous sulfate 325 mg (65 mg quileute iron) EC tablet Take 325 mg by [...] wanted to do when she was at [facility]. Right shoulder pain 09/20/2018 Discharge planning [...] Overview (09/14/2018): Followed by Dr. Fox at [facility]. Started on Eliquis August 2018. Assessment & Plan (09/19/2018 3:18 PM EDT): Having little runs of rapid A. Fib. Increase Toprol ,continue Eliquis. Metal Grinder had asked her to wear a 48-hour [...] systolic heart failure Overview (09/14/2018): Echo at [facility] 08/2018 with reported EF 25-30% Assessment & Plan (09/18/2018 4:47 PM EDT): Requested information from [facility]. She had a cardiac cath in 2018. This showed LAD with less than 30% disease RCA less than 30% left circumflex less than 30% and left main ostial 40%, EF 25% Her management psychologist is Dr. JUDD LUCIO, records requested from his office in [place]. Patient thinks lisinopril is giving her cough. [...] Description 08/26/2025 9:30 AM EDT Office Visit [facility] [address] [place] [address] Thee Morales DO [address] [place] [address] [email or web address] Health Maintenance Due Date Last Done Comments [...] this topic Medical Devices Implanted Type Area Pressing Machine Operator Device Identifier Shelf Expiration Date Model / Serial / Lot Screw Bone 36x3.5mm Compression Ss Locking Self Tapping Full Thread T15 Stardrive Recess - [id number] Implanted:Qty: 2 on 08/30/2018 by Drew Vu DO at [facility] Right: Shoulder SYNTHES 212.115 / / Screw Bone 32x3.5mm Compression Ss Locking Self Tapping Full Thread T15 Stardrive Recess - [id number] Implanted:Qty: 1 on 08/30/2018 by Drew Vu DO at [facility] Right: Shoulder SYNTHES 212.112 / / Screw Bone 45x3.5mm Compression Ss Locking Self Tapping Full Thread T15 Stardrive Recess - [id number] Implanted:Qty: 2 on 08/30/2018 by Drew Vu DO at [facility] Right: Shoulder SYNTHES 212.119 / / Screw Bone 34x3.5mm Compression Ss Locking Self Tapping Full Thread T15 Stardrive Recess Cs/1ea - [id number] Implanted:Qty: 1 on 08/30/2018 by Drew Vu DO at [facility] Right: Shoulder SYNTHES 212.113 / / Screw Bone 3.5x24mm Cortex Self Tapping Fully Threaded Hex Head Ss - [id number] Implanted:Qty: 3 on 08/30/2018 by Drew Vu DO at [facility] Right: Shoulder SYNTHES 204.824 / / Humerus Plate 3.5x90mm 6 Hole Hd 3 Shaft Bone Proximalimal Lcp Standard - [id number] Implanted:Qty: 1 on 08/30/2018 by Drew Vu DO at [facility] Right: Shoulder SYNTHES 241.901 / / Procedures Procedure Name Priority Date/Time Associated Diagnosis Comments BASIC METABOLIC PANEL (BMP) Routine 08/20/2024 11:14 AM EDT Adrenal insufficiency LIPID PANEL Routine 09/16/2018 5:33 AM EDT from Last 3 Months or Most Recently Relevant to Health Maintenance Results * Basic metabolic panel (08/20/2024 11:14 AM EDT) SODIUM 144 133 - 146 mmol/L [facility] CHLORIDE 107 96 - 108 mmol/L [facility] POTASSIUM 4.4 3.3 - 5.1 mmol/L [facility] CO2 26 21 - 35 mmol/L [facility] BUN 18 6 - 19 mg/dL [facility] CREATININE 0.90 0.5 - 1.5 mg/dL [facility] GLUCOSE 74 70 - 99 mg/dL [facility] CALCIUM 10.3 8.4 - 10.3 mg/dL [facility] EGFR 69 >59 mL/min/1.7 3m2 [facility] Comment:Estimated glomerular filtration rate calculated using the CKD-EPI refit equation. ANION GAP 15 10 - 20 mmol/L [facility] Blood 08/20/2024 11:1 4 AM EDT 08/20/2024 11:17 AM EDT Thee Morales DO LAB BLOOD BKR ORDERABLES Final R esult [address] [address] * (ABNORMAL) Lipid panel (09/16/2018 5:33 AM EDT) HDL 36 mg/dL [facility] Comment: Interpretation <40 mg/dL: Low HDL cholesterol (major risk factor for CHD) Greater than or equal to 60 mg/dL: High HDL cholesterol ( negative risk factor for CHD) HDL - cholesterol is affected by a number of factors, e.g. smoking, excerise, hormones, sex and age. CHOLESTEROL 109 0 - 240 mg/dL [facility] TRIGLYCERIDES 88 30 - 160 mg/dL [facility] LDL 55 50 - 129 mg/dL [facility] Comment: LDL levels in terms of risk for coronary heart disease: <100 mg/dL: Optimal 100-129 mg/dL: Near or above optimal 130-159 mg/dL: Borderline high 160-189 mg/dL: High >190 mg/dL: Very High CARDIAC RISK RATIO 3.0(L) 3.3 - 4.4 C [facility] 09/16/2018 5:33 AM EDT 09/16/2018 1:29 PM EDT us Alicia Coats MD LAB BLOOD BKR ORDERABLES Radha maynard Result [facility] [address] [place] [address] from Last 3 Months or Most Recently [...] Advance Directives For more information, please contact: [phone] (9AM - 5PM [facility], Monday-Monday) Documents on File Type Date Recorded Patient Director Drug Safety Expl anation Healthcare Proxy 09/21/2018 11:28 AM [...] Agent (Proxy form on file) Care Teams Content Management Specialist Relationship Specialty Start Date End Date Rola De Oliveira MD [address] [place] [address] Drive [address] [place] [address] PCP - General Internal Medicine 08/14/18 Additional Source Comments The information contained in this document represents components of the legal health record. It is not the complete legal health record.[facility]
--- OUTSIDE RECORDS SUMMARY | 2025-06-06 08:33 | XMS_ITS | Encounter Summary ---
Author Organization [facility] Address [address] [place] [address] [place] [address] Phone Care Team Providers Care Beaming Inspector Name Role Phone Rola De Oliveira MD Primary Care Provider [phone] Encounter Details Date Type Department Care Team (Late st Contact Info) Description 08/30/2018 Procedure Pass OR Admitting Dept - Virtual Department [address] [place] [address] Social History Tobacco Use Types Packs/Day Years [...] Description 08/26/2025 9:30 AM EDT Office Visit [facility]ology [facility] [address] [place] [address] Thee Morales DO [address] [place] [address] documented as of this encounter Visit Diagnoses Not on filedocumented in this encounter Additional Health Concerns Infection Onset Date Last Indicated Resolved Time COVID-19 02/05/2022 02/05/2022 02/26/2022 1:21 AM EDT documented as of this encounter Care Teams Beaming Inspector Relationship Specialty Start Date End Date Rola De Oliveira MD [address] [place] [address] Drive [address] [place] [address] PCP - General Internal Medicine 08/14/18 documented as of this encounter Additional Source Comments The information contained in this document represents components of the legal health record. It is not the complete legal health record.[facility]
--- OUTSIDE RECORDS SUMMARY | 2025-06-06 08:33 | XMS_ITS | Patient Health Record ---
Author Organization [facility] Address [address] [place] [address] Care Team Providers Care Assistant Spa Director Name Role Phone Rola De Oliveira MD Primary Care Provider Kalpesh Shaikh Unavailable [phone] Reason For Referral No Information Medications Medication [...] Risk Notes Problem Chronic nonalcoholic liver disease (56418145) Other chronic nonalcoholic liver disease (571.8) Active confirmed Problem Liver function tests abnormal (007402967) Nonspecific abnormal results of liver function study (794.8) Active confirmed Problem Screening for malignant neoplasm of colon (561011401) Special screening for malignant neoplasms, colon (V76.51) Active confirmed Plan Of Treatment Pending Test Test Name Order Date MITOCHONDRIAL AB 09/21/2011 Future Test Test Name Order Date COLONOSCOPY 09/21/2011 Insurance Providers Payer Name Payer Address Payer Phone Subscriber Number Group Number Insured Name Patient Relationship to Insured Coverage Start Date Coverage End Date [facility] [address] [facility] [phone] [id number] BENNY CARABALLO Self - patient is the insured Medical (General) History Medical History History ICD Code Hyperlipidemia Hypopituitarism Denies OR,DM,CVA,Lung disease,renal dise ase Surgical History Surgery Date(Month/Year) Umbilical hernia
--- OUTSIDE RECORDS SUMMARY | 2025-06-06 08:33 | XMS_ITS | Encounter Summary ---
Author Organization [facility] Address [address] [place] [address] [place] [address] Phone Care Team Providers Care Fire Dispatcher Name Role Phone Rola De Oliveira MD Primary Care Provider [phone] Encounter Details Date Type Department Care Team (Late st Contact Info) Description 08/30/2018 Procedure Pass OR Admitting Dept - Virtual Department [address] [place] [address] Social History Tobacco Use Types Packs/Day Years [...] Description 08/26/2025 9:30 AM EDT Office Visit [facility] Endocr[facility]ology Clinic [address] [place] [address] Thee Morales DO [address] [place] [address] documented as of this encounter Visit Diagnoses Not on filedocumented in this encounter Additional Health Concerns Infection Onset Date Last Indicated Resolved Time COVID-19 02/05/2022 02/05/2022 02/26/2022 1:21 AM EDT documented as of this encounter Care Teams Fire Dispatcher Relationship Specialty Start Date End Date Rola De Oliveira MD [address] [place] [address] [address] [place] [address] PCP - General Internal Medicine 08/14/18 documented as of this encounter Additional Source Comments The information contained in this document represents components of the legal health record. It is not the complete legal health record.[facility]
--- OUTSIDE RECORDS SUMMARY | 2025-06-06 08:33 | XMS_ITS | Clinical Summary ---
Author Organization [facility] Address [address] [address] Care Team Providers Care Photoengraving Finisher Name Role Phone Rola De Oliveira MD Primary Care Provider [phone] Social History Tobacco Use Types Packs/Day Years [...] this topic Insurance Medicare Medicare Care Teams Photoengraving Finisher Relationship Specialty Start Date End Date Rola De Oliveira MD [facility] [address] [place] PCP - General 04/16/19
== END 2025-06-06 08:30 | disposition home or self-care (01) ==
LOC: HO.US 08:29
PROVIDERS: PCP Internal Medicine; Visit Provider Internal Medicine
DX: R79.89 Other specified abnormal findings of blood chemistry (principal); R31.9 Hematuria, unspecified; R74.8 Abnormal levels of other serum enzymes
CPT/HCPCS: 76700

== ENCOUNTER → 2025-06-06 08:33 | Outpatient (BNV) | payer MEDICARE, SELFPAY | PROVIDERS: PCP Internal Medicine; Visit Provider Radiology Diagnostic Radiology | DX: R16.0 Hepatomegaly, not elsewhere classified (principal); K76.0 Fatty (change of) liver, not elsewhere classified; K80.20 Calculus of gallbladder without cholecystitis without obstruction | CPT/HCPCS: 76700 ==